=== PATIENT | female | born 1950 | race Caucasian/White ===

== ENCOUNTER → 2017-05-10 | Outpatient (CLI) | payer OTHER, MEDICARE ==
[~2017-05-10] MED LIST: ASP325T PO; ASP325TEC PO; ASP81TEC PO; CLPD75T PO; DICY20TA57 PO; ENAL1TAB33 PO; GLIP10TA13 PO; GLIPIZIDE; INSU100I14 SQ; INSU100I16 SQ; LIRA0.6P SQ; METF-380 PO; MTF500T PO; MULT-608 PO; OXYC1TAB87 PO; PHEN37.555 PO; POTA99TA15 PO; SULF-109 PO
[2017-05-10 09:31] LABS: ALANINE AMINOTRANSFERASE 11 U/L (0-55); ALBUMIN 4.2 GM/DL (3.2-4.5); ANION GAP 10 MMOL/L (5-14); ASPARTATE AMINO TRANSFERASE 12 U/L (5-34); BILIRUBIN,TOTAL 0.5 MG/DL (0.1-1.0); BLOOD UREA NITROGEN 16 MG/DL (7-18); BUN/CREATININE RATIO 23; CALCIUM 9.2 MG/DL (8.5-10.1); CARBON DIOXIDE 28 MMOL/L (21-32); CHLORIDE 105 MMOL/L (98-107); CHOLESTEROL 178 MG/DL (< 200); DIRECT LDL 95 MG/DL (1-129); GFR ESTIMATED > 60; GLUCOSE 173 MG/DL (70-105); POTASSIUM 4.1 MMOL/L (3.6-5.0); SODIUM 143 MMOL/L (135-145); TOTAL PROTEIN 7.1 GM/DL (6.4-8.2); TRIGLYCERIDES 70 MG/DL (<150); VLDL CHOLESTEROL 14 MG/DL (5-40)
== END ==
LOC: CARD 08:54
PROVIDERS: ATTEND Internal Medicine Cardiovascular Disease
DX: I10 Essential (primary) hypertension (principal); G47.33 Obstructive sleep apnea (adult) (pediatric); E66.9 Obesity, unspecified; F17.201 Nicotine dependence, unspecified, in remission; E11.9 Type 2 diabetes mellitus without complications; R06.00 Dyspnea, unspecified
CPT/HCPCS: 36415; 80053; 80061; 93306

== ENCOUNTER → 2017-06-04 | Outpatient (CLI) | payer OTHER, MEDICARE ==
[~2017-06-04] VITALS: Ht 154.9 cm; Wt 93.0 kg
[~2017-06-04] MED LIST changes: +REGADENOSON 0.4 MG/5 ML SYR (LEXISCAN) IV ONE
[2017-06-04] MEDS: CATHETER FLUSH 10 ML SYR IV PRN ×2 (08:09→09:19)
[2017-06-04 09:09] VITALS: BP 213/91
--- NOTE | 2017-06-04 13:00 | STRESS TEST ---
DATE OF SERVICE: 06/04/2017 LEXISCAN MYOVIEW STRESS TEST REPORT REFERRING PHYSICIAN: Dr. Bonnie Moser [facility]. Baseline heart rate is 64. Baseline blood pressure 213/91. Baseline EKG is sinus rhythm with no ischemic changes. In summary, the patient was injected with 10.74 mCi of technetium-99 Myoview and the resting images were obtained. Then, the patient received 0.4 mg of Lexiscan followed by 29.3 mCi of technetium-99 Myoview. Throughout the test, there were no EKG changes. The resting and stress images were reviewed and compared in the short axis, horizontal long axis, and vertical long axis views. Review of the images showed breast attenuation, no attenuation correction protocol was used, there is questionable ischemia involving the mid to apical anterior wall. SSS is 5, SDS is 4. TID value 1.07. On the gated images, the left ventricle appeared to be normal size with normal contractility. Calculated ejection fraction 72%. CONCLUSION: 1. The patient tolerated Lexiscan well. 2. Baseline hypertension persisted throughout test. 3. Breast attenuation with questionable ischemia involving the mid to apical anterior wall. 4. Normal left ventricular size with normal contractility. Calculated ejection fraction 72%. Job ID: [id number] DocumentID: [id number] Dictated Date: 06/04/2017 11:36:46 Change Of Address Clerk Date: 06/04/2017 12:47:04 Dictated By: UMAIR BRANCH MD
== END ==
LOC: CARD 07:55
PROVIDERS: ATTEND Internal Medicine Cardiovascular Disease
DX: R06.00 Dyspnea, unspecified (principal); I10 Essential (primary) hypertension; G47.33 Obstructive sleep apnea (adult) (pediatric); E66.9 Obesity, unspecified; F17.201 Nicotine dependence, unspecified, in remission; E11.9 Type 2 diabetes mellitus without complications
CPT/HCPCS: 78452; 93017

== ENCOUNTER 2018-03-03 10:58 | Emergency (ER) | payer MEDICARE, OTHER ==
[~2018-03-03] VITALS: Ht 157.5 cm; Wt 99.3 kg
[~2018-03-03 10:58] MED LIST changes: -REGADENOSON 0.4 MG/5 ML SYR (LEXISCAN) IV ONE
--- NOTE | 2018-03-03 11:44 | ED EENT ---
History of Present Illness General Chief Complaint: Nasal Problems Stated Complaint: NOSE BLEED Source: patient, family Exam Limitations: no limitations (PACHECO WHITTEN STUDENT) History of Present Illness Date Seen by Provider: Mar 03, 2018 Time Seen by Provider: 11:39 Initial Comments Patient is 67-year-old female who reports falling 2 weeks ago, she reports when she fell she fell face forward onto the ground. She reports that she scuffed up her nose and had a nosebleed initially. She reports that she has had on and off nosebleeds for the past 2 weeks but today it started and has not stopped bleeding. She complains of neck pain, headaches, and left-sided rib pain. She has seen her primary care physician and had outpatient CT of her neck ordered for next Sunday with a nosebleed today she just decided to come in. Timing/Duration: intermittent Severity: mild Location: nose Prearrival Treatment: nasal packing (PACHECO WHITTEN STUDENT) Allergies and Home Medications Allergies Coded Allergies: No Known Drug Allergies (Unverified , 03/03/18) Home Medications Aspirin 81 Mg Tabec, 81 MG PO HS, (Reported) Dicyclomine Hcl 20 Mg Tablet, 20 MG PO TID, (Reported) Enalapril/Hydrochlorothiazide 1 Tab Tablet, 1 TAB PO DAILY, (Reported) Insulin Aspart 100 Unit/1 Ml Insuln.pen, 6-8 UNITS SQ TID AC, (Reported) Insulin Detemir 100 Unit/1 Ml Insuln.pen, 15 UNIT SQ DAILY, (Reported) Insulin Detemir 100 Unit/1 Ml Insuln.pen, 20 UNIT SQ HS, (Reported) Metformin Hcl 500 Mg Tablet, 500 MG PO BID WITH MEALS, (Reported) Multivitamins 1 Tab Tablet, 1 TAB PO DAILY, (Reported) SENIOR VITAMIN Oxycodone Hcl/Acetaminophen 1 Tab Tablet, 1-2 TAB PO Q 4-6 hrs PRN for PAIN Prescribed by: BRISA GÓMEZ on 02/28/14 1004 Phentermine Hcl 37.5 Mg Capsule, 37.5 MG PO DAILY, (Reported) Potassium Gluconate 99 Mg Tablet, 99 MG PO DAILY, (Reported) Patient Home Medication List Home Medication List Reviewed: Yes (PACHECO WHITTEN STUDENT) Review of Systems Constitutional: see HPI, dizziness Eyes: See HPI; Denies Blurred Vision, Denies Drainage Ears: See HPI; Denies Dizziness, Denies Pain Nose: see HPI, clots, epistaxis, pain, bloody discharge Mouth: see HPI; denies pain, denies swelling Throat: see HPI; denies pain, denies swelling Respiratory: see HPI; No cough, No dyspnea on exertion Cardiovascular: see HPI; No chest pain Gastrointestinal: see HPI; No abdominal pain Musculoskeletal: see HPI; No back pain Skin: see HPI; No change in color Neurological: See HPI; Denies Anxiety Hematologic/Lymphatic: See HPI; Denies Anemia Immunological/Allergic: see HPI; denies food allergy (PACHECO WHITTEN STUDENT) Past Zhtnybs-Mesvjw-Kjpgff Hx Past Med/Social Hx: Reviewed Nursing Past Med/Soc Hx (PACHECO WHITTEN STUDENT) Patient Social History Alcohol Use: Denies Use Recreational Drug Use: No Smoking Status: Former Smoker Recent Foreign Travel: No Contact w/Someone Who Travel: No Recent Hopitalizations: Yes Physical Abuse: No Sexual Abuse: No (PACHECO WHITTEN STUDENT) Immunizations Up To Date Tetanus Booster (TDap): Unknown Date of Pneumonia Vaccine: Jun 17, 2009 (PACHECO WHITTEN STUDENT) Past Medical History Surgeries: Yes (RIGHT KNEE RECONSTRUCTION, RIGHT KNEE SCOPE) Respiratory: Yes Asthma Cardiac: Yes Neurological: Yes Reproductive Disorders: No Gastrointestinal: Yes (IBS) Gastroesophageal Reflux Musculoskeletal: Yes (LEFT KNEE OSTEOARTHRITIS) Arthritis Endocrine: Yes Diabetes, Insulin dep HEENT: No Cancer: No Psychosocial: No Nursing Suicide Risk Score: 0 Integumentary: Yes (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) Psoriasis Blood Disorders: No (PACHECO WHITTEN STUDENT) Family Medical History Reviewed Nursing Family Hx (PACHECO WHITTEN STUDENT) Cancer 19 MOTHER (BREAST) Congestive heart failure G8 SISTER Dementia 19 MOTHER Family history: Arthritis G8 SISTER Family history: Breast disease 19 MOTHER Family history: Diabetes mellitus 19 MOTHER G8 SISTER Kidney disease G8 SISTER No Family History of: Abdominal aortic aneurysm Alcoholism Family history: Cardiovascular disease Family history: Gastrointestinal disease Family history: Hypertension Family history: Thyroid disorder Hereditary disease History of - respiratory disease Myocardial infarction Parkinson's disease Prostate cancer Psychotic disorder Seizure disorder Stroke Physical Exam Vital Signs Vital Signs - First Documented 03/03/18 11:33 Pulse 76 Resp 14 B/P (MAP) 192/66 (108) Pulse Ox 98 O2 Delivery Room Air (DWIGHT ZAMAN MD) General Appearance: WD/WN, no apparent distress (her) Eyes: bilateral eye normal inspection, bilateral eye PERRL Ears: bilateral ear auricle normal, bilateral ear canal normal, bilateral ear TM normal Nose: active bleeding Mouth/Throat: normal mouth inspection, pharynx normal Neck: non-tender, full range of motion, supple, normal inspection Cardiovascular: regular rate, rhythm, no edema, no gallop, no JVD, no murmur Respiratory: lungs clear, normal breath sounds, no respiratory distress, other (left-sided chest is tender on palpation) Gastrointestinal: normal bowel sounds, non tender Neurologic/Psychiatric: alert, normal mood/affect, oriented x 3 Skin: normal color, warm/dry, other (the patient does have some abrasions that are scabbed over on the palmar surface of her hands. She reports this is from her fall 2 weeks ago.) (PACHECO WHITTEN STUDENT) Procedures/Interventions Nasal : Nasal Location: Right Clots Cleared from Nasal: Patient Blowing Inspection with: Otoscope, Nasal Speculum Nasal Procedures: Rapid Rhino Progress The patient's nasal passages were cleared by having the patient both clots from her nose, Rapid Rhino 4.5 cm was inserted with triple antibiotic ointment, and 1.5 mL of air was inserted into the balloon was filled. Bleeding was immediately ceased and the patient denies any blood running down the back of her throat at this time. (PACHECO WHITTEN STUDENT) Progress/Results/Core Measures Results/Orders My Orders Orders - DWIGHT ZAMAN MD Ct Head/Face/Cervical Wo (03/03/18 11:19) Ribs, Left 2-3 Views (03/03/18 11:36) (DWIGHT ZAMAN MD) Vital Signs/I&O 03/03/18 11:33 Pulse 76 Resp 14 B/P (MAP) 192/66 (108) Pulse Ox 98 O2 Delivery Room Air (DWIGHT ZAMAN MD) Progress Progress Note : Progress Note 1330: The right nostril is still free of bleeding at this time. The patient was informed of her x-rays and CAT scan. She did have a questionable left eighth rib fracture. She was educated on the importance of continuing to deep breathe to prevent pneumonia. She was also instructed to follow-up with her primary care physician and Dr. Pope's office by calling first thing tomorrow morning for appointment times. (PACHECO WHITTEN STUDENT) Progress Note : Time: 11:51 Progress Note I saw the patient with Pacheco. My history, physical, evaluation, treatment plan with the same as his. We placed a short nasal pack in the right nostril. (DWIGHT ZAMAN MD) Departure Impression Primary Impression: Epistaxis Additional Impression: Rib fracture Disposition: 01 HOME, SELF-CARE Condition: Stable/Unchanged Departure-Patient Inst. Decision time for Depature: 13:40 (PACHECO WHITTEN STUDENT) Referrals: RONAK POPE MD [facility] (PCP/Family) Primary Care Physician Patient Instructions: Nosebleeds (DC) Add. Discharge Instructions: Follow-up with her primary care provider and Dr. Pope's office within one week. Call first thing tomorrow morning for appointment times. Take medications as directed, leave the nasal packing in until you see Dr. Pope, if he should follow out do not try to reinsert it just leave it out and continue follow-up. Return back to the emergency room for increased bleeding, pain, nausea, vomiting , dizziness or any other concerns as needed. All discharge instructions reviewed with patient and/or family. Voiced understanding. PACHECO WHITTEN STUDENT Mar 03, 2018 11:44 DWIGHT ZAMAN MD Mar 03, 2018 11:53
[2018-03-03] MEDS ORDERED: fentaNYL INJECTION 100 MCG/2 ML AMP IVP ONE (12:00)
[2018-03-03 12:05] LABS: BASOPHILS % (AUTO) 0 % (0-10); EOSINOPHILS # (AUTO) 0.1 10^3/uL (0.0-0.3); EOSINOPHILS % (AUTO) 2 % (0-10); HEMATOCRIT 40 % (35-52); HEMOGLOBIN 13.1 G/DL (11.5-16.0); LYMPHOCYTES # (AUTO) 1.7 X 10^3 (1.0-4.0); LYMPHOCYTES % (AUTO) 29 % (12-44); MEAN CORPUSCULAR HEMOGLOBIN 27 PG (25-34); MEAN CORPUSCULAR HGB CONC 33 G/DL (32-36); MEAN CORPUSCULAR VOLUME 83 FL (80-99); MEAN PLATELET VOLUME 11.2 FL (7.4-10.4); MONOCYTES # (AUTO) 0.3 X 10^3 (0.0-1.0); MONOCYTES % (AUTO) 6 % (0-12); NEUTROPHILS # (AUTO) 3.7 X 10^3 (1.8-7.8); NEUTROPHILS % (AUTO) 63 % (42-75); PLATELET COUNT 304 10^3/uL (130-400); RED BLOOD COUNT 4.86 10^6/uL (4.35-5.85); RED CELL DISTRIBUTION WIDTH 13.5 % (10.0-14.5); WHITE BLOOD COUNT 5.8 10^3/uL (4.3-11.0)
--- NOTE | 2018-03-03 12:06 | Diagnostic Imaging Report ---
PROCEDURE: CT head, face, and cervical spine without contrast. TECHNIQUE: Multiple contiguous axial images were obtained through the head, neck, and facial bones without the use of intravenous contrast. Sagittal and coronal reformations through the cervical spine and facial bones were also performed. INDICATION: Fall 2 weeks ago landing on face on concrete. Severe nosebleed with headache. COMPARISON: None FINDINGS: CT head: The ventricles and cortical sulci are diffusely prominent, likely from generalized parenchymal volume loss. There is no midline shift or mass effect. No acute intracranial hemorrhage is seen. There is no CT evidence of acute territorial ischemia. The calvarium appears intact. CT face: The pterygoid plates appear intact. There are fluid levels in the maxillary sinuses bilaterally, right greater than left. No definite fracture line identified. The zygomatic arches appear intact. Fluid levels are also seen in the bilateral sphenoid sinuses. No definite facial fracture is identified. The mandible appears intact and normal in alignment. The globes are intact. The orbits are unremarkable. CT cervical spine: No acute fracture or dislocation is seen in the cervical spine. Alignment appears normal. There are mild multilevel degenerative changes throughout the cervical spine. There is mild disc height loss. The vertebral body heights are preserved. No acute fracture is seen. No bony fragments or hyperdense fluid collections are seen in the spinal canal. The soft tissues about the spine are unremarkable. IMPRESSION: 1. No acute internal hemorrhage. No CT evidence of acute territorial ischemia. 2. Generalized parenchymal volume loss. 3. Fluid levels in the bilateral maxillary and sphenoid sinuses, however no fracture line is identified in the face. 4. Mild degenerative changes in the cervical spine with no acute osseous abnormality seen. Dictated by: Dictated on workstation # [id number]
--- NOTE | 2018-03-03 12:07 | Diagnostic Imaging Report ---
PATIENT HISTORY: Fall 2 weeks ago with left rib pain. TECHNIQUE: AP, oblique views of the left ribs COMPARISON: Chest x-ray from 02/18/2014 FINDINGS: Lucency in the lateral anterior left eighth rib may represent a nondisplaced fracture. There is a calcified granuloma in the left lung base. Calcified left hilar lymph nodes are noted. The left lung is clear. No pneumothorax is seen. IMPRESSION: Suspected nondisplaced fracture of the left eighth rib anteriorly. No pneumothorax. Dictated by: Dictated on workstation # [id number]
[2018-03-03 13:48] VITALS: BP 120/64
== END 2018-03-03 13:55 | disposition home or self-care (01) ==
LOC: EDUNIT# 10:58 → ER 11:00
DX: S22.32XA Fracture of one rib, left side, initial encounter for closed fracture (principal); R04.0 Epistaxis; J45.909 Unspecified asthma, uncomplicated; K21.9 Gastro-esophageal reflux disease without esophagitis; M17.12 Unilateral primary osteoarthritis, left knee; E11.9 Type 2 diabetes mellitus without complications; Z87.19 Personal history of other diseases of the digestive system; Z80.3 Family history of malignant neoplasm of breast; Z82.49 Family history of ischemic heart disease and other diseases of the circulatory system; Z79.82 Long term (current) use of aspirin; Z79.4 Long term (current) 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; Z87.891 Personal history of nicotine dependence; Z96.651 Presence of right artificial knee joint; W18.30XA Fall on same level, unspecified, initial encounter
CPT/HCPCS: 36415; 70450; 70486; 71100; 72125; 82962; 85025; 96374

== ENCOUNTER 2018-03-03 17:52 | Emergency (ER) | payer MEDICARE, OTHER ==
[~2018-03-03] VITALS: Ht 157.5 cm; Wt 99.3 kg
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
--- OUTSIDE RECORDS SUMMARY | 2018-03-03 17:58 | XMS REPORT ---
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 Active 776616999 Problem Mild single current episode of major depressive disorder F32.0 Active 33146347 Problem Essential hypertension I10 Active 76149209 Problem Hypercholesterolemia E78.00 Active 07801572 Problem Primary osteoarthritis of both knees M17.0 Active 002797946 ALLERGIES No Known Allergies ENCOUNTERS Encounter Location Date Diagnosis [place] [id number] [address] Nov, [place] [address] [address]39- 0459 Nov, Hypercholesterolemia E78.00 and Type 2 diabetes mellitus with hyperglycemia E11.[address] [address]- [address]702 Nov, Leg cramps R25.2 [place] [address] 14649- 6184 Nov, Type 2 diabetes mellitus with hyperglycemia E11.65 [place] [address] 61369- 3778 Nov, Type 2 diabetes mellitus with hyperglycemia E11.65 ; 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.4 ; Essential hypertension I10 ; Mild single current episode of major depressive disorder F32.0 ; Primary osteoarthritis of both knees M17.0 ; High risk medication use Z79.899 ; Controlled substance agreement signed Z79.899 ; Hypercholesterolemia E78.00 and Leg cramps R25.2 [facility] [address] [place] [id number] [place] [address] 96878- 8208 Oct, [facility] [address] [facility] [id number] [place] [address] 33233 -4554 Oct, [facility] [address] [place] [id number] [place] [address] 52252- 6633 Oct, [facility] [address] [place] [id number] [place] [address] 63148- 6977 Sep, Essential hypertension I10 [facility] [address] [address]- 1910 Sep, Essential hypertension I10 [facility] [address] [place] [id number] [place] [address], [place] [address]- 2751 Sep, [facility] [address] [place] [id number] [place] [address] 20423- 1999 Sep, [facility] [address] [place] [id number] [place] [address] 55975- 6329 Sep, [facility] [address] [place] [id number] [place] [address] 74148- 9261 Aug, [facility] [address] [place] [id number] [place] [address] 22978- 8702 Jul, [facility] [address] [place] [id number] [place] [address] 70287- 9297 Jul, [facility] [address] [place] [id number] [place] [address] 86579- 8986 Jul, [facility] [address] [place] [id number] [place] [address] 28628- 8534 Jun, [facility] [address] [place] [id number] [place] [address] 88464- 1688 Jun, [facility] [address] [place] [id number] [place] [address] 54866- 9567 Jun, Type 2 diabetes mellitus with diabetic chronic kidney disease E11.22 ; Heart murmur R01.1 ; Essential hypertension I10 and Primary osteoarthritis of both knees M17.0 [place] [address] [place] [address] 65714- 2250 Apr, Type 2 diabetes mellitus with diabetic chronic kidney disease E11.22 [place] [address] [place] [id number] [place] [address] 98782- 4324 Mar, Type 2 diabetes mellitus with diabetic chronic kidney disease E11.22 ; Essential hypertension I10 ; Mild single current episode of major depressive disorder F32.0 and Primary osteoarthritis of both knees M17.0 [place] [address] [place] [id number] [place] [address] 90119- 0286 Feb, Mild single current episode of major depressive disorder F32.0 [place] [address] [place] [id number] [place] [address] 50533- 1019 Feb, [place] [address] 34982- 1707 Feb, Essential hypertension I10 and Hypercholesterolemia E78.00 [place] [address] [place] [id number] [place] [address] 17801- 2819 Feb, Type 2 diabetes mellitus with diabetic chronic kidney disease E11.22 ; Essential hypertension I10 ; Edema due to malnutrition, due to unspecified malnutrition type E43 ; Hypercholesterolemia E78.00 and Mild single current episode of major depressive disorder F32.0 [place] [address] [place] [id number] [place] [address] 36399- 1987 Feb, IMMUNIZATIONS No Known Immunizations SOCIAL HISTORY Never Assessed REASON FOR VISIT Establish Care, PT is diabetic and last labs was several years ago, PT is currently not fasting- Samuel LANDON PLAN OF CARE Activity Details Follow Up [facility] Reason:dm VITAL SIGNS Height 62 in 2017-03-08 Weight 194.6 lbs 2017-03-08 Temperature 98.0 degrees Fahrenheit 2017-03-08 Heart Rate 76 bpm 2017-03-08 Respiratory Rate 18 2017-03-08 BMI 35.59 kg/m2 2017-03-08 Blood pressure systolic 116 mmHg 2017-03-08 Blood pressure diastolic 64 mmHg 2017-03-08 MEDICATIONS Medication Instructions Dosage Frequency Start Date End Date Duration Status Levemir 100 UNIT/ML Subcutaneous at bedtime 50 units Feb, Active Actos 30 MG Orally Once a day 1 tablet 24h Feb, 30 day(s) Active Multi For Her 2 Gummies 24h Active Potassium 12h Active Cinnamon 500 MG Orally 2 times a day 1 capsule 12h Active Enalapril Maleate 20 MG Orally Once a day 1 tablet 24h Active Novolin R 100 UNIT/ML Injection With Meals 25 Units Active Lexapro 20 mg Orally Once a day 1 tablet 24h Active Novolin N 100 UNIT/ML Subcutaneous 2 times a day 25 Units AM ansd 30 Units PM 12h Active Lasix 20 MG Orally Once a day 1 tablet 24h Active Hydrochlorothiazide 12.5 MG Orally Once a day 1 capsule in the morning 24h Active RESULTS Name Result Date Reference Range A1C (IN HOUSE) 2017-03-08 A1C IN HOUSE 11.2 4.3 - 5.6 % Previous A1c N/A Lot [id number] Exp date 11/2018 MICROALBUMIN, URINE (IN HOUSE) 2017-03-08 MICROALBUMIN normal Lot # [id number] Exp date 01/2018 Clarity clear Color yellow ALB 30 mg/L CRE 100 mg/dl A:C (IN HOUSE) <30 mg/g Control Control Lot # Exp date PROCEDURES Procedure Date Ordered Result Body Site GLYCATED HEMOGLOBIN TEST March 08, 2017 MICROALBUMIN, SEMIQUANT March 08, 2017 INSTRUCTIONS MEDICATIONS ADMINISTERED No Known Medications MEDICAL [...]
--- OUTSIDE RECORDS SUMMARY | 2018-03-03 17:58 | XMS REPORT ---
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 Active 477770866 Problem Mild single current episode of major depressive disorder F32.0 Active 65639008 Problem Essential hypertension I10 Active 16434508 Problem Hypercholesterolemia E78.00 Active 78227166 Problem Primary osteoarthritis of both knees M17.0 Active 303122341 ALLERGIES No Information ENCOUNTERS Encounter Location Date Diagnosis [place] [address] [address] Nov, [place] [address] [address] Nov, Hypercholesterolemia E78.00 and Type 2 diabetes mellitus with hyperglycemia E11.[address] [address] Nov, Leg cramps R25.2 [place] [address] 97[address]- [address] Nov, Type 2 diabetes mellitus with hyperglycemia E11.65 [place] [address] [address]- [address] Nov, Type 2 diabetes mellitus with hyperglycemia E11.65 ; 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.4 ; Essential hypertension I10 ; Mild single current episode of major depressive disorder F32.0 ; Primary osteoarthritis of both knees M17.0 ; High risk medication use Z79.899 ; Controlled substance agreement signed Z79.899 ; Hypercholesterolemia E78.00 and Leg cramps R25.2 [facility] [address] [place] [id number] [place] [address] 36168- 3003 Oct, [facility] [address] [place] [id number] [address] Oct, [facility] [address] [place] [id number] [place] [address] 88769- 7556 Oct, [facility] [address] [place] [id number] [place] [address] 85606- 1894 Sep, Essential hypertension I10 [facility] [address] 0[address]- 39[address] Sep, Essential hypertension I10 [facility] [address] [place] [id number] [place] [address] 26206- 5367 Sep, [facility] [address] [place] [id number] [place] [address] 34906- 1083 Sep, [facility] [address] [place] [id number] [place] [address] 10928- 8458 Sep, [facility] [address] [place] [id number] [place] [address] 15092- 7000 Aug, [facility] [address] [place] [id number] [place] [address] 53640- 5656 Jul, [facility] [address] [place] [id number] [place] [address] 59264- 1620 Jul, [facility] [address] [place] [id number] [place] [address] 89273- 9152 Jul, [facility] [address] [place] [id number] [place] [address] 57413- 3273 Jun, [facility] [address] [place] [address] 86697- 7004 30 Jun, 2017 [facility] [address] [place] [id number] [place] [address] 98255- 3560 Jun, Type 2 diabetes mellitus with diabetic chronic kidney disease E11.22 ; Heart murmur R01.1 ; Essential hypertension I10 and Primary osteoarthritis of both knees M17.0 [place] [address] [place] [address] 31917- 1353 Apr, Type 2 diabetes mellitus with diabetic chronic kidney disease E11.22 [place] [address] [address]- 25[address] Mar, Type 2 diabetes mellitus with diabetic chronic kidney disease E11.22 ; Essential hypertension I10 ; Mild single current episode of major depressive disorder F32.0 and Primary osteoarthritis of both knees M17.0 [place] [address] [place] [id number] [place] [address] 12816- 4524 Feb, Mild single current episode of major depressive disorder F32.0 [place] [address] [place] [id number] [place] [address] 51867- 1490 Feb, [place] [address] 7[address]18- 5399 Feb, Essential hypertension I10 and Hypercholesterolemia E78.00 [place] [address] [place] [id number] [place] [address] 55485- 3581 Feb, Type 2 diabetes mellitus with diabetic chronic kidney disease E11.22 ; Essential hypertension I10 ; Edema due to malnutrition, due to unspecified malnutrition type E43 ; Hypercholesterolemia E78.00 and Mild single current episode of major depressive disorder F32.0 [place] [address] [place] [id number] [place] [address] 82396- 9720 Feb, IMMUNIZATIONS No Known Immunizations SOCIAL HISTORY Never Assessed REASON FOR VISIT PLAN OF CARE VITAL SIGNS MEDICATIONS Medication Instructions Dosage Frequency Start Date End Date Duration Status Lexapro 20 mg Orally Once a day 1 tablet 24h Active RESULTS No Results PROCEDURES No Known [...] replacement 2013 Surgical History left knee arthroscopy 2016 Surgical History Left total hip replacement 06/2017 Hospitalization History chest pain 2012 Hospitalization History Surgery(s)/Childbirth(s)
--- OUTSIDE RECORDS SUMMARY | 2018-03-03 17:58 | XMS REPORT ---
Author Author EDITH TELLO Organization [facility] Address [address] [place] [address] Care Team Providers Care Project Control Manager Name Role Phone EDITH TELLO Unavailable PROBLEMS Type Condition ICD9-CM Code LZP84-[id number] Code Onset Dates Condition Status SNOMED Code Problem Mild single current episode of major depressive disorder F32.0 Active 95143899 Problem Primary osteoarthritis of both knees M17.0 Active 258547775 Problem Essential hypertension I10 Active 54488113 Problem Morbid (severe) obesity due to excess calories E66.01 Active 849072021 Problem Body mass index (BMI) of 40.0-44.9 in adult Z68.41 Active 418433035 Problem intermediate 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 Z79.4 Active 272956168 Problem Type 2 diabetes mellitus with hyperglycemia E11.65 Active 60345350 Problem 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 Active 49409939 Problem Hypercholesterolemia E78.00 Active 71401943 ALLERGIES No Information ENCOUNTERS Encounter Location Date Diagnosis [place] [address] [place] [address]24- 7853 02 Mar, 2018 [place] [id number] [place] [address] 27794- 5645 14 Feb, 2018 Type 2 diabetes mellitus with hyperglycemia E11.65 ; Essential hypertension I10 ; Hypercholesterolemia E78.00 ; intermediate 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 Z79.4 ; Primary osteoarthritis of both knees M17.0 and 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 [place] [address] [place] [address] 87702- 8526 13 Feb, 2018 Dental examination Z01.20 [place] [address] [place] [address] 89544- 5515 12 Feb, 2018 Dental examination Z01.20 [place] [address] [place] [id number] [place] [address] 27416- 4955 Feb, Type 2 diabetes mellitus with hyperglycemia E11.65 ; Essential hypertension I10 ; terminal 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 Z79.4 ; Hypercholesterolemia E78.00 ; Primary osteoarthritis of both knees M17.0 ; 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 ; Body mass index (BMI) of 40.0-44.9 in adult Z68.41 and Morbid (severe) obesity due to excess calories E66.[address] [address]- [address] January, Type 2 diabetes mellitus with hyperglycemia E11.[address] 6[address]- 5817 Dec, Mild single current episode of major depressive disorder F32.[address] 66448- 7440 Dec, Hypercholesterolemia E78.00 [facility] [address] [place] [id number] [place] [address] 32482 -8021 Dec, Seasonal allergic rhinitis, unspecified trigger J30.2 [place] [id number] [place] [address] 77249- 3328 Nov, [place] [address] 76702- 0795 Nov, Hypercholesterolemia E78.00 and Type 2 diabetes mellitus with hyperglycemia E11.65 [place] [id number] [place] [address] 56445- 3621 Nov, Leg cramps R25.2 [place] [id number] [place] [address] 69969- 2870 Nov, Type 2 diabetes mellitus with hyperglycemia E11.[address] 566[address]- 2419 Nov, Type 2 diabetes mellitus with hyperglycemia E11.65 ; terminal clerk 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 Z79.4 ; Essential hypertension I10 ; Mild single current episode of major depressive disorder F32.0 ; Primary osteoarthritis of both knees M17.0 ; High risk medication use Z79.899 ; Controlled substance agreement signed Z79.899 ; Hypercholesterolemia E78.00 and Leg cramps R25.2 [facility] [address] [place] [id number] [place] [address] 94708- 6823 Oct, [facility] [address] [place] [id number] [place] [address] 14533 -6386 Oct, [facility] [address] [place] [id number] [place] [address] 50979- 8328 Oct, [facility] [address] [place] [id number] [place] [address] 89955- 4234 Sep, Essential hypertension I10 [facility] [address] [place] [id number] [place] [address] 73885- 0525 Sep, Essential hypertension I10 [facility] [address] [place] [id number] [place] [address] 43981- 1657 Sep, [facility] [address] [place] [id number] [place] [address] 80236- 6522 Sep, [facility] [address] [place] [id number] [place] [address] 25504- 5766 Sep, [facility] [address] [place] [id number] [place] [address] 94016- 9479 Aug, [facility] [address] [place] [id number] [place] [address] 77865- 9711 Jul, [facility] [address] [place] [id number] [place] [address] 45706- 2971 Jul, [facility] [address] [place] [id number] [place] [address] 30179- 4871 Jul, [facility] [address] [place] [id number] [place] [address] 14595- 3344 Jun, [facility] [address] [place] [id number] [place] [address] 29996- 5256 Jun, [place] [address] [address] Jun, Type 2 diabetes mellitus with diabetic chronic kidney disease E11.22 ; Heart murmur R01.1 ; Essential hypertension I10 and Primary osteoarthritis of both knees M17.0 [place] [address] [address] Apr, Type 2 diabetes mellitus with diabetic chronic kidney disease E11.22 [place] [address] [place] [id number] [place] [address] 77317- 0371 Mar, Type 2 diabetes mellitus with diabetic chronic kidney disease E11.22 ; Essential hypertension I10 ; Mild single current episode of major depressive disorder F32.0 and Primary osteoarthritis of both knees M17.0 [place] [address] [address] 8641 Feb, Mild single current episode of major depressive disorder F32.0 [place] [address] [place] [id number] [place] [address] 92194- 2449 Feb, [place] [address] [place] [id number] [place] [address] 39292- 7760 Feb, Essential hypertension I10 and Hypercholesterolemia E78.00 [place] [address] [address] 6540 Feb, Type 2 diabetes mellitus with diabetic chronic kidney disease E11.22 ; Essential hypertension I10 ; Edema due to malnutrition, due to unspecified malnutrition type E43 ; Hypercholesterolemia E78.00 and Mild single current episode of major depressive disorder F32.0 [place] [address] [address] 1066 Feb, IMMUNIZATIONS No Known Immunizations SOCIAL HISTORY Never Assessed REASON FOR VISIT Med update PLAN OF CARE VITAL SIGNS MEDICATIONS Unknown [...]
--- OUTSIDE RECORDS SUMMARY | 2018-03-03 17:58 | XMS REPORT ---
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 Active 175071972 Problem Mild single current episode of major depressive disorder F32.0 Active 98882501 Problem Essential hypertension I10 Active 42058083 Problem Hypercholesterolemia E78.00 Active 78801451 Problem Primary osteoarthritis of both knees M17.0 Active 989074817 ALLERGIES No Information ENCOUNTERS Encounter Location Date Diagnosis [place] [address] [address]- [address] Nov, [place] [address] 72614- 6880 Nov, Hypercholesterolemia E78.00 and Type 2 diabetes mellitus with hyperglycemia E11.[address] [address]- 3[address] Nov, Leg cramps R25.2 [place] [address] 41783- 6962 Nov, Type 2 diabetes mellitus with hyperglycemia E11.65 [place] [address] 56386- 0839 Nov, Type 2 diabetes mellitus with hyperglycemia E11.65 ; 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 ; Essential hypertension I10 ; Mild single current episode of major depressive disorder F32.0 ; Primary osteoarthritis of both knees M17.0 ; High risk medication use Z79.899 ; Controlled substance agreement signed Z79.899 ; Hypercholesterolemia E78.00 and Leg cramps R25.2 [facility] [address] [place] [id number] [place] [address] 91941- 9739 Oct, [facility] [address] [place] [id number] [address] Oct, [facility] [address] [place] [id number] [place] [address] 26010- 9724 Oct, [facility] [address] [place] [id number] [place] [address] 00101- 9506 Sep, Essential hypertension I10 [facility] [address] 85375- 5048 Sep, Essential hypertension I10 [facility] [address] [place] [id number] [place] [address] 57597- 4825 Sep, [facility] [address] [place] [id number] [place] [address] 72280- 2293 Sep, [facility] [address] [place] [id number] [place] [address] 18034- 5519 Sep, [facility] [address] [place] [id number] [place] [address] 10620- 0933 Aug, [facility] [address] [place] [id number] [place] [address] 69749- 2708 Jul, [facility] [address] [place] [id number] [place] [address] 42690- 1558 Jul, [facility] [address] [place] [id number] [place] [address] 12591- 9267 Jul, [facility] [address] [place] [id number] [place] [address] 89648- 8694 Jun, [facility] [address] [place] [address] 38330- 3679 30 Jun, 2017 [facility] [address] [place] [id number] [place] [address] 11538- 8695 Jun, Type 2 diabetes mellitus with diabetic chronic kidney disease E11.22 ; Heart murmur R01.1 ; Essential hypertension I10 and Primary osteoarthritis of both knees M17.0 [place] [address] [place] [id number] [place] [address] 39617- 1160 Apr, Type 2 diabetes mellitus with diabetic chronic kidney disease E11.22 [place] [address] 59465- 5696 Mar, Type 2 diabetes mellitus with diabetic chronic kidney disease E11.22 ; Essential hypertension I10 ; Mild single current episode of major depressive disorder F32.0 and Primary osteoarthritis of both knees M17.0 [place] [address] 53423- 5740 Feb, Mild single current episode of major depressive disorder F32.0 [place] [address] 19195- 2383 Feb, [place] [address] 41866- 0483 Feb, Essential hypertension I10 and Hypercholesterolemia E78.00 [place] [address] 99458- 3302 Feb, Type 2 diabetes mellitus with diabetic chronic kidney disease E11.22 ; Essential hypertension I10 ; Edema due to malnutrition, due to unspecified malnutrition type E43 ; Hypercholesterolemia E78.00 and Mild single current episode of major depressive disorder F32.0 [place] [address] [place] [id number] [place] [address] 28325- 9017 Feb, IMMUNIZATIONS No Known Immunizations SOCIAL HISTORY Never Assessed REASON FOR VISIT Lab (walk-in)--[facility] PLAN OF CARE VITAL SIGNS MEDICATIONS Unknown Medications RESULTS Name Result Date Reference Range CBC 2017-03-13 WBC 5.4 3.4-10.8 RBC 4.80 3.77-5.28 Hemoglobin 12.9 11.1-15.9 Hematocrit 39.6 34.0-46.6 MCV 83 79-97 MCH 26.9 26.6-33.0 MCHC 32.6 31.5-35.7 RDW 13.5 12.3-15.4 Platelets 263 150-379 Neutrophils 61 Lymphs 31 Monocytes 6 Eos 2 Basos 0 Neutrophils (Absolute) 3.3 1.4-7.0 Lymphs (Absolute) 1.6 0.7-3.1 Monocytes(Absolute) 0.3 0.1-0.9 Eos (Absolute) 0.1 0.0-0.4 Baso (Absolute) 0.0 0.0-0.2 Immature Granulocytes 0 Immature Grans (Abs) 0.0 0.0-0.1 LIPID PANEL 2017-03-13 Cholesterol, Total 222 100-199 Triglycerides 119 0-149 HDL Cholesterol 58 >39 VLDL Cholesterol Bulmaro 24 5-40 LDL Cholesterol Calc 140 0-99 Comment: CMP 2017-03-13 Glucose, Serum 116 65-99 BUN 16 8-27 Creatinine, Serum 0.63 0.57-1.00 eGFR If NonAfricn Am 94 >59 eGFR If Africn Am 109 >59 BUN/Creatinine Ratio 25 12-28 Sodium, Serum 142 134-144 Potassium, Serum 4.2 3.5-5.2 Chloride, Serum 99 96-106 Carbon Dioxide, Total 27 18-29 Calcium, Serum 8.8 8.7-10.3 Protein, Total, Serum 6.6 6.0-8.5 Albumin, Serum 3.8 3.6-4.8 Globulin, Total 2.8 1.5-4.5 A/G Ratio 1.4 1.2-2.2 Bilirubin, Total 0.3 0.0-1.2 Alkaline Phosphatase, S 83 39-117 AST (SGOT) 10 0-40 ALT (SGPT) 10 0-32 PROCEDURES Procedure Date Ordered Result Body Site COMPLETE CBC W/AUTO DIFF WBC March 13, 2017 LIPID PANEL March 13, 2017 VENIPUNCT, ROUTINE* March 13, 2017 COMPREHEN METABOLIC PANEL March 13, 2017 INSTRUCTIONS MEDICATIONS ADMINISTERED No Known Medications [...]
--- OUTSIDE RECORDS SUMMARY | 2018-03-03 17:58 | XMS REPORT ---
Author Author YEISON JUSTO Organization [facility], [place] Address [address] [place] [address] Care Team Providers Care Hinging Machine Operator Name Role Phone JUSTO LATHAM Unavailable PROBLEMS Type Condition ICD9-CM Code [id number] Code Onset Dates Condition Status SNOMED Code Problem Type 2 diabetes mellitus with hyperglycemia E11.65 Active 12739399 Problem custodial 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 Z79.4 Active 217423626 Problem Mild single current episode of major depressive disorder F32.0 Active 51928841 Problem Essential hypertension I10 Active 50645195 Problem Hypercholesterolemia E78.00 Active 67589286 Problem Primary osteoarthritis of both knees M17.0 Active 089573201 ALLERGIES No Information ENCOUNTERS Encounter Location Date Diagnosis [facility], [place] [address] [address] Feb, [facility] [place] [address] [address] January, Type 2 diabetes mellitus with hyperglycemia E11.65 [facility] [place] [address] [address] Dec, Mild single current episode of major depressive disorder F32.0 [facility] [place] [address] [place] [id number] [place] [address] 76245- 3285 Dec, Hypercholesterolemia E78.00 [facility] [address] [address] 07 Dec, 2017 Seasonal allergic rhinitis, unspecified trigger J30.2 [facility] [place] [address] [address] 15 Nov, 2017 [facility] [place] [address] [address] Nov, Hypercholesterolemia E78.00 and Type 2 diabetes mellitus with hyperglycemia E11.65 [facility] [place] [id number] [place] [address] 16311- 4395 Nov, Leg cramps R25.2 [facility] [place] [id number] [place] [address] 17710- 1169 Nov, Type 2 diabetes mellitus with hyperglycemia E11.65 [facility] [place] [id number] [place] [address] 06334- 0860 Nov, Type 2 diabetes mellitus with hyperglycemia E11.65 ; motor and controls tester 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 Z79.4 ; Essential hypertension I10 ; Mild single current episode of major depressive disorder F32.0 ; Primary osteoarthritis of both knees M17.0 ; High risk medication use Z79.899 ; Controlled substance agreement signed Z79.899 ; Hypercholesterolemia E78.00 and Leg cramps R25.2 [facility] [place] [id number] [place] [address] 63614- 7453 Oct, [facility] [id number] [place] [address] 41751 -5118 Oct, [facility] [place] [id number] [place] [address] 22170- 6923 Oct, [facility] [place] [id number] [place] [address] 66045- 2300 Sep, Essential hypertension I10 [facility] [place] [id number] [place] [address] 07375- 3155 Sep, Essential hypertension I10 [facility] [place] [id number] [place] [address] 71954- 8625 Sep, [facility] [place] [id number] [place] [address] 68161- 1034 Sep, [facility] [place] [id number] [place] [address] 20880- 9632 Sep, [facility] [place] [id number] [place] [address] 45115- 2683 Aug, [facility] [place] [address] [address] Jul, [facility] [place] [address] [address] 56[address] Jul, [facility] [place] [address] [address] 388[address] Jul, [facility] [place] [id number] [place] [address] 15204- 2169 Jun, [facility] [place] [id number] [place] [address] 41060- 5538 Jun, [facility] [place] [address] [place] [address] 40936- 6001 Jun, Type 2 diabetes mellitus with diabetic chronic kidney disease E11.22 ; Heart murmur R01.1 ; Essential hypertension I10 and Primary osteoarthritis of both knees M17.0 [facility] [place] [address] [address] Apr, Type 2 diabetes mellitus with diabetic chronic kidney disease E11.22 [facility] [place] [id number] [place] [address] 15754- 7206 Mar, Type 2 diabetes mellitus with diabetic chronic kidney disease E11.22 ; Essential hypertension I10 ; Mild single current episode of major depressive disorder F32.0 and Primary osteoarthritis of both knees M17.0 [facility] [place] [address] [address] 0484 Feb, Mild single current episode of major depressive disorder F32.0 [facility] [place] [address] [address] 389[address] Feb, [facility] [place] [address] [address] 7161 Feb, Essential hypertension I10 and Hypercholesterolemia E78.00 [facility] [place] [address] [place] [address] 40461- 5957 Feb, Type 2 diabetes mellitus with diabetic chronic kidney disease E11.22 ; Essential hypertension I10 ; Edema due to malnutrition, due to unspecified malnutrition type E43 ; Hypercholesterolemia E78.00 and Mild single current episode of major depressive disorder F32.0 [facility] [place] [address] [facility] [id number] [place] [address] Feb, IMMUNIZATIONS No Known Immunizations SOCIAL HISTORY Never Assessed REASON FOR VISIT DM ed PLAN OF CARE VITAL SIGNS MEDICATIONS Unknown [...]
--- OUTSIDE RECORDS SUMMARY | 2018-03-03 17:59 | XMS REPORT ---
Author Author Spike LESLIE Organization [facility] Address [address] [place] [address] Care Team Providers Care Extruder Name Role Phone karthikLESLIE Worley Unavailable PROBLEMS Type Condition ICD9-CM Code IRO49-[id number] Code Onset Dates Condition Status SNOMED Code Problem Type 2 diabetes mellitus with hyperglycemia E11.65 Active 87729847 Problem information lead 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 Z79.4 Active 181198727 Problem Mild single current episode of major depressive disorder F32.0 Active 30089270 Problem Essential hypertension I10 Active 26865768 Problem Hypercholesterolemia E78.00 Active 82494100 Problem Primary osteoarthritis of both knees M17.0 Active 091782886 ALLERGIES No Known Allergies ENCOUNTERS Encounter Location Date Diagnosis [place] [id number] [address] Nov, [place] [address] [address] Nov, Hypercholesterolemia E78.00 and Type 2 diabetes mellitus with hyperglycemia E11.[address] [address]- [address] Nov, Leg cramps R25.2 [place] [address] 46347- 5347 Nov, Type 2 diabetes mellitus with hyperglycemia E11.65 [place] [address] 08683- 2634 Nov, Type 2 diabetes mellitus with hyperglycemia E11.65 ; information lead 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 Z79.4 ; Essential hypertension I10 ; Mild single current episode of major depressive disorder F32.0 ; Primary osteoarthritis of both knees M17.0 ; High risk medication use Z79.899 ; Controlled substance agreement signed Z79.899 ; Hypercholesterolemia E78.00 and Leg cramps R25.2 [facility] [id number] [place] [address] 88102- 3555 Oct, [facility] [address] [facility] [id number] [place] [address] 62874 -6748 Oct, [facility] [id number] [place] [address] 21418- 9410 Oct, [facility] [id number] [place] [address] 09048- 9141 Sep, Essential hypertension I10 [facility] [address] [address]18- 6377 Sep, Essential hypertension I10 [facility] [id number] [place] [address], [place] [address]- 7518 Sep, [facility] [id number] [place] [address] 63391- 0253 Sep, [facility] [id number] [place] [address] 32043- 1257 Sep, [facility] [id number] [place] [address] 76620- 5255 Aug, [facility] [id number] [place] [address] 37911- 6047 Jul, [facility] [id number] [place] [address] 34737- 2934 Jul, [facility] [id number] [place] [address] 07443- 4025 Jul, [facility] [id number] [place] [address] 93038- 9822 Jun, [facility] [id number] [place] [address] 41194- 1963 Jun, [facility] [id number] [place] [address] 76821- 8550 Jun, Type 2 diabetes mellitus with diabetic chronic kidney disease E11.22 ; Heart murmur R01.1 ; Essential hypertension I10 and Primary osteoarthritis of both knees M17.0 [place] [address] [id number] [place] [address] Apr, Type 2 diabetes mellitus with diabetic chronic kidney disease E11.22 [place] [address] 85812- 2249 Mar, Type 2 diabetes mellitus with diabetic chronic kidney disease E11.22 ; Essential hypertension I10 ; Mild single current episode of major depressive disorder F32.0 and Primary osteoarthritis of both knees M17.0 [place] [id number] [place] [address] 57199- 6321 Feb, Mild single current episode of major depressive disorder F32.0 [place] [address] 58437- 0955 Feb, [place] [address] 16463- 7034 Feb, Essential hypertension I10 and Hypercholesterolemia E78.00 [place] [address] [id number] [place] [address] 81251- 8813 Feb, Type 2 diabetes mellitus with diabetic chronic kidney disease E11.22 ; Essential hypertension I10 ; Edema due to malnutrition, due to unspecified malnutrition type E43 ; Hypercholesterolemia E78.00 and Mild single current episode of major depressive disorder F32.0 [place] [address] [place] [address] [id number] [place] [address] 24525- 9931 Feb, IMMUNIZATIONS No Known Immunizations SOCIAL HISTORY Never Assessed REASON FOR VISIT med f/u. Would like to discuss her Levemir dosing. YASHIRA Pugh PLAN OF CARE Activity Details Follow Up 2 Months Reason:dm and htn VITAL SIGNS Height 62 in 2017-04-04 Weight 204 lbs 2017-04-04 Temperature 98.0 degrees Fahrenheit 2017-04-04 Heart Rate 74 bpm 2017-04-04 Respiratory Rate 18 2017-04-04 BMI 37.31 kg/m2 2017-04-04 Blood pressure systolic 140 mmHg 2017-04-04 Blood pressure diastolic 80 mmHg 2017-04-04 MEDICATIONS Medication Instructions Dosage Frequency Start Date End Date Duration Status Hydrocodone-Acetaminophen 5-325 MG Orally every 6 hrs 1 tablet as needed 6h Mar, Active Potassium 12h Active Hydrochlorothiazide 12.5 MG Orally Once a day 1 capsule in the morning 24h Active Lexapro 20 mg Orally Once a day 1 tablet 24h Active Simvastatin 10 mg Orally Once a day 1 tablet in the evening 24h Feb, 30 day(s) Active Turmeric 500 MG Active Lasix 20 MG Orally Once a day 1 tablet 24h Active Cinnamon 500 MG Orally 2 times a day 1 capsule 12h Active Multi For Her 2 Gummies 24h Active Enalapril Maleate 20 MG Orally Once a day 1 tablet 24h Active Actos 30 MG Orally Once a day 1 tablet 24h Feb, Active Levemir 100 UNIT/ML Subcutaneous at bedtime 50 units Feb, Active RESULTS No Results PROCEDURES No [...]
--- OUTSIDE RECORDS SUMMARY | 2018-03-03 17:59 | XMS REPORT ---
Author Author EDITH TELLO Organization [facility] Address [address] [place] [address] Care Team Providers Care Filling Room Operator Name Role Phone EDITH TELLO Unavailable PROBLEMS Type Condition ICD9-CM Code QHL16-SR Code Onset Dates Condition Status SNOMED Code Problem Type 2 diabetes mellitus with hyperglycemia E11.65 Active 86226173 Problem M[facility] 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 Z79.4 Active 799506440 Problem Mild single current episode of major depressive disorder F32.0 Active 73450938 Problem Essential hypertension I10 Active 80329160 Problem Hypercholesterolemia E78.00 Active 17635839 Problem Primary osteoarthritis of both knees M17.0 Active 615450421 ALLERGIES No Information ENCOUNTERS Encounter Location Date Diagnosis [facility] [id number] [place] [address] 00947- 0354 Feb, [facility] [address] [address]- [address] January, Type 2 diabetes mellitus with hyperglycemia E11.65 [facility] [id number] [place] [address] 29632- 5341 Dec, Mild single current episode of major depressive disorder F32.0 [facility] [id number] [place] [address] 26838- 6625 16 Dec, 2017 Hypercholesterolemia E78.00 [facility] [id number] [place] [address] 06046 -8299 07 Dec, 2017 Seasonal allergic rhinitis, unspecified trigger J30.2 [facility] [id number] [place] [address] 89906- 0133 15 Nov, 2017 [facility] [address] 29147- 2459 Nov, Hypercholesterolemia E78.00 and Type 2 diabetes mellitus with hyperglycemia E11.65 [facility] [id number] [place] [address] 49011- 0994 Nov, Leg cramps R25.2 [facility] [id number] [place] [address] 23806- 2892 Nov, Type 2 diabetes mellitus with hyperglycemia E11.65 [facility] [id number] [place] [address] 97972- 3511 Nov, Type 2 diabetes mellitus with hyperglycemia E11.65 ; [facility] 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 Z79.4 ; Essential hypertension I10 ; Mild single current episode of major depressive disorder F32.0 ; Primary osteoarthritis of both knees M17.0 ; High risk medication use Z79.899 ; Controlled substance agreement signed Z79.899 ; Hypercholesterolemia E78.00 and Leg cramps R25.2 [facility] [id number] [place] [address] 08469- 4808 Oct, [facility] [id number] [place] [address] 85152 -4460 Oct, [facility] [id number] [place] [address] 67870- 7647 Oct, [facility] [id number] [place] [address] 87902- 2101 Sep, Essential hypertension I10 [facility] [id number] [place] [address] 74707- 7279 Sep, Essential hypertension I10 [facility] [id number] [place] [address] 93820- 4172 Sep, [facility] [id number] [place] [address] 89176- 2318 Sep, [facility] [id number] [place] [address] 13575- 1943 Sep, [facility] [id number] [place] [address] 19788- 8564 Aug, [facility] [address] [address]- 3124 Jul, [facility] [address] [place] [address]- 5665 Jul, [facility] [address], [place] [address]- 9268 Jul, [facility] [id number] [place] [address] 87119- 3133 Jun, [facility] [address] [address]- 9155 Jun, [facility] [id number] [place] [address] 32125- 4292 Jun, Type 2 diabetes mellitus with diabetic chronic kidney disease E11.22 ; Heart murmur R01.1 ; Essential hypertension I10 and Primary osteoarthritis of both knees M17.0 [facility] [address] [place] [address]- 7135 Apr, Type 2 diabetes mellitus with diabetic chronic kidney disease E11.22 [facility] [address] [place] [address] 25093- 7041 Mar, Type 2 diabetes mellitus with diabetic chronic kidney disease E11.22 ; Essential hypertension I10 ; Mild single current episode of major depressive disorder F32.0 and Primary osteoarthritis of both knees M17.0 [facility] [address] [place] [address]- 3519 Feb, Mild single current episode of major depressive disorder F32.0 [facility] [address] [address]- 7816 Feb, [facility] [address] [place] [address]- 2360 Feb, Essential hypertension I10 and Hypercholesterolemia E78.00 [facility] [address] [place] [address]- 6891 Feb, Type 2 diabetes mellitus with diabetic chronic kidney disease E11.22 ; Essential hypertension I10 ; Edema due to malnutrition, due to unspecified malnutrition type E43 ; Hypercholesterolemia E78.00 and Mild single current episode of major depressive disorder F32.0 [facility] [address] [facility] [id number] [place] [address]- 7801 Feb, IMMUNIZATIONS No Known Immunizations SOCIAL HISTORY Never Assessed REASON FOR VISIT 1 week DM ed f/u PLAN OF CARE VITAL SIGNS MEDICATIONS Medication Instructions Dosage Frequency Start Date End Date Duration Status Pioglitazone HCl 30 MG Orally Once a day 1 tablet 24h Jun, Active Levemir 100 UNIT/ML Subcutaneous twice a day 17 units 12h Active MetFORMIN HCl ER 500 mg DX- E11.22 twice a day with food 2 tablets Jun Active NovoLog Flexpen 100 UNIT/ML Subcutaneous 3 times a day before meals. 15 units Jun, Active RESULTS No Results PROCEDURES No Known [...]
--- OUTSIDE RECORDS SUMMARY | 2018-03-03 17:59 | XMS REPORT ---
Author Author EDITH TELLO Organization [facility] Address [address] [place] [address] Care Team Providers Care Screw Cutter Name Role Phone EDITH TELLO Unavailable PROBLEMS Type Condition ICD9-CM Code ZRB72-UO Code Onset Dates Condition Status SNOMED Code Problem Mild single current episode of major depressive disorder F32.0 Active 21710203 Problem Primary osteoarthritis of both knees M17.0 Active 684148821 Problem Essential hypertension I10 Active 40223350 Problem Morbid (severe) obesity due to excess calories E66.01 Active 722736042 Problem Body mass index (BMI) of 40.0-44.9 in adult Z68.41 Active 410580765 Problem shelter 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 Z79.4 Active 318083346 Problem Type 2 diabetes mellitus with hyperglycemia E11.65 Active 36687032 Problem 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 Active 99241161 Problem Hypercholesterolemia E78.00 Active 72575992 ALLERGIES No Information ENCOUNTERS Encounter Location Date Diagnosis [place] [address] [place] [address]140- [address] 02 Mar, 2018 [place] [id number] [place] [address] 61212- 2022 14 Feb, 2018 Type 2 diabetes mellitus with hyperglycemia E11.65 ; Essential hypertension I10 ; Hypercholesterolemia E78.00 ; shelter 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 Z79.4 ; Primary osteoarthritis of both knees M17.0 and 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 [place] [address] [place] [address] 11100- 3913 13 Feb, 2018 Dental examination Z01.20 [place] [address] [place] [address] 65238- 3968 12 Feb, 2018 Dental examination Z01.20 [place] [address] [place] [id number] [place] [address] 55142- 5909 Feb, Type 2 diabetes mellitus with hyperglycemia E11.65 ; Essential hypertension I10 ; 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 ; Hypercholesterolemia E78.00 ; Primary osteoarthritis of both knees M17.0 ; 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 ; Body mass index (BMI) of 40.0-44.9 in adult Z68.41 and Morbid (severe) obesity due to excess calories E66.[address] [address]- [address] January, Type 2 diabetes mellitus with hyperglycemia E11.[address] 48150- 7643 Dec, Mild single current episode of major depressive disorder F32.[address] 46114- 8809 Dec, Hypercholesterolemia E78.00 [facility] WALK IN [facility] [address] [place] [id number] [place] [address] 51082 -7480 Dec, Seasonal allergic rhinitis, unspecified trigger J30.2 [place] [id number] [place] [address] 87152- 5170 Nov, [place] [address] 35179- 9343 Nov, Hypercholesterolemia E78.00 and Type 2 diabetes mellitus with hyperglycemia E11.65 [place] [id number] [place] [address] 45142- 7082 Nov, Leg cramps R25.2 [place] [id number] [place] [address] 15375- 9599 Nov, Type 2 diabetes mellitus with hyperglycemia E11.[address] 8[address]11- 5721 Nov, Type 2 diabetes mellitus with hyperglycemia E11.65 ; 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 ; Essential hypertension I10 ; Mild single current episode of major depressive disorder F32.0 ; Primary osteoarthritis of both knees M17.0 ; High risk medication use Z79.899 ; Controlled substance agreement signed Z79.899 ; Hypercholesterolemia E78.00 and Leg cramps R25.2 [facility] [address] [place] [address] [id number] [place] [address] 13190- 4919 Oct, [facility] [address] [address] [id number] [place] [address] 00500 -2402 Oct, [facility] [address] [place] [address] [id number] [place] [address] 20533- 7737 Oct, [facility] [address] [place] [address] [id number] [place] [address] 51642- 2937 Sep, Essential hypertension I10 [facility] [address] [place] [address] [id number] [place] [address] 63070- 2614 Sep, Essential hypertension I10 [facility] [address] [place] [address] [id number] [place] [address] 51939- 4553 Sep, [facility] [address] [address] [id number] [place] [address] 12377- 0215 Sep, [facility] [address] [address] [id number] [place] [address] 90555- 2071 Sep, [facility] [address] [address] [id number] [place] [address] 96503- 1067 Aug, [facility] [address] [address] [id number] [place] [address] 69028- 0031 Jul, [facility] [address] [address] [id number] [place] [address] 29149- 8743 Jul, [facility] [address] [address] [id number] [place] [address] 25368- 5193 Jul, [facility] [address] [address] [id number] [place] [address] 23974- 0046 Jun, [facility] [address] [address] [id number] [place] [address] 94686- 1690 Jun, [place] [address] [address] 4974 Jun, Type 2 diabetes mellitus with diabetic chronic kidney disease E11.22 ; Heart murmur R01.1 ; Essential hypertension I10 and Primary osteoarthritis of both knees M17.0 [place] [address] [place] [id number] [place] [address] 96571- 5155 Apr, Type 2 diabetes mellitus with diabetic chronic kidney disease E11.22 [place] [address] [place] [id number] [place] [address] 90435- 2043 Mar, Type 2 diabetes mellitus with diabetic chronic kidney disease E11.22 ; Essential hypertension I10 ; Mild single current episode of major depressive disorder F32.0 and Primary osteoarthritis of both knees M17.0 [place] [address] [place] [id number] [place] [address] 68194- 9314 Feb, Mild single current episode of major depressive disorder F32.0 [place] [address] [place] [id number] [place] [address] 91676- 4837 Feb, [place] [address] [place] [id number] [place] [address] 69189- 6776 Feb, Essential hypertension I10 and Hypercholesterolemia E78.00 [place] [address] [place] [address] 61909- 9234 Feb, Type 2 diabetes mellitus with diabetic chronic kidney disease E11.22 ; Essential hypertension I10 ; Edema due to malnutrition, due to unspecified malnutrition type E43 ; Hypercholesterolemia E78.00 and Mild single current episode of major depressive disorder F32.0 [place] [address] [place] [address] 07039- 3632 Feb, IMMUNIZATIONS No Known Immunizations SOCIAL HISTORY Never Assessed REASON FOR VISIT 1 mo DM ed f/u PLAN OF CARE VITAL SIGNS MEDICATIONS Medication Instructions Dosage Frequency Start Date End Date Duration Status Levemir FlexTouch 100 UNIT/ML DX- E11.22 2 times a day 17 units 12h Sep Active Levemir 100 UNIT/ML DX E11.22 twice a day 17 units 12h Active RESULTS No Results PROCEDURES No Known [...]
--- OUTSIDE RECORDS SUMMARY | 2018-03-03 17:59 | XMS REPORT | Continuity of Care Document ---
Author Author [facility] Organization [facility] Address Unknown Phone Unavailable Allergies Active Description Code Type Severity Reaction Onset Reported/Identified Relationship to Patient Clinical Status Yes No Known Drug Allergies [id number] Drug Allergy Unknown N/A 04/11/2011 Medications There is no data. Problems Date Dx Coded Attending Type Code Diagnosis Diagnosed By 04/12/2011 Ot 250.00 DIAB ROSA WO COMPL, TYPE II OR UNSPEC TY 04/12/2011 Ot 401.9 HYPERTENSION NOS 04/12/2011 Ot 786.50 CHEST PAIN NOS 04/12/2011 Ot V58.63 LONG-TERM( CURRENT)USE OF ANTIPLATELET/AN 04/12/2011 Ot V58.66 LONG-TERM ( CURRENT) USE OF ASPIRIN 04/12/2011 Ot V58.69 OTH MED,LT, CURRENT USE 02/28/2014 JONELLE WORTHINGTON, RONAK Sesay Ot 250.00 DIAB ROSA WO COMPL, TYPE II OR UNSPEC TY 02/28/2014 RONAK SAL MD Ot 401.9 HYPERTENSION NOS 02/28/2014 RONAK SAL MD Ot 715.36 LOC OSTEOARTH NOS-L/LEG 06/29/2016 RONAK SAL MD Ot 715.36 LOC OSTEOARTH NOS-L/LEG 06/29/2016 RONAK SAL MD Ot 780.79 OTH MALAISE FATIGUE 06/29/2016 RONAK SAL MD Ot V72.63 PRE-PROCEDURAL LABORATORY EXAMINATION 06/29/2016 RONAK SAL MD Ot V72.81 EFCA-LJI-ENZMAXXAS CARDIOVASCULAR 06/29/2016 RONAK SAL MD Ot V72.84 EXAM PRE-OPERATIVE NOS 06/29/2016 RONAK SAL MD Ot V74.8 SCREEN-BACTERIAL DIS NEC 06/30/2016 BENNETT LO APRN Ot G47.10 HYPERSOMNIA, UNSPECIFIED 06/30/2016 BENNETT LO APRN Ot G47.33 OBSTRUCTIVE SLEEP APNEA (ADULT) (PEDIATR 07/11/2016 RONAK SAL MD Ot 715.36 LOC OSTEOARTH NOS-L/LEG 07/11/2016 RONAK SAL MD Ot 780.79 OTH MALAISE FATIGUE 07/11/2016 RONAK SAL MD Ot V72.63 PRE-PROCEDURAL LABORATORY EXAMINATION 07/11/2016 RONAK SAL MD Ot V72.81 FJCF-KSY-OTQDQBRJG CARDIOVASCULAR 07/11/2016 RONAK SAL MD Ot V72.84 EXAM PRE-OPERATIVE NOS 07/11/2016 RONAK SAL MD Ot V74.8 SCREEN-BACTERIAL DIS NEC 07/11/2016 BENNETT LO APRN Ot G47.10 HYPERSOMNIA, UNSPECIFIED 07/11/2016 BENNETT LO APRN Ot G47.33 OBSTRUCTIVE SLEEP APNEA (ADULT) (PEDIATR 07/12/2016 RONAK SAL MD Ot 715.36 LOC OSTEOARTH NOS-L/LEG 07/12/2016 RONAK SAL MD Ot 780.79 OTH MALAISE FATIGUE 07/12/2016 RONAK SAL MD Ot V72.63 PRE-PROCEDURAL LABORATORY EXAMINATION 07/12/2016 RONAK SAL MD Ot V72.81 OQUY-NGQ-ITNIULIXF CARDIOVASCULAR 07/12/2016 RONAK SAL MD Ot V72.84 EXAM PRE-OPERATIVE NOS 07/12/2016 RONAK SAL MD Ot V74.8 SCREEN-BACTERIAL DIS NEC 07/12/2016 BENNETT LO APRN Ot G47.10 HYPERSOMNIA, UNSPECIFIED 07/12/2016 BENNETT LO APRN Ot G47.33 OBSTRUCTIVE SLEEP APNEA (ADULT) (PEDIATR 07/12/2016 BENNETT LO APRN Ot F17.210 NICOTINE DEPENDENCE, CIGARETTES, UNCOMPL 07/12/2016 BENNETT LO APRN Ot R06.00 DYSPNEA, UNSPECIFIED 08/30/2016 BENNETT LO APRN Ot F17.210 NICOTINE DEPENDENCE, CIGARETTES, UNCOMPL 08/30/2016 BENNETT LO APRN Ot R06.00 DYSPNEA, UNSPECIFIED 05/10/2017 RONAK SAL MD Ot 715.36 LOC OSTEOARTH NOS-L/LEG 05/10/2017 RONAK SAL MD Ot 780.79 OTH MALAISE FATIGUE 05/10/2017 RONAK SAL MD Ot V72.63 PRE-PROCEDURAL LABORATORY EXAMINATION 05/10/2017 RONAK SAL MD Ot V72.81 YBLL-JJO-DJNLRPZQY CARDIOVASCULAR 05/10/2017 RONAK SAL MD Ot V72.84 EXAM PRE-OPERATIVE NOS 05/10/2017 RONAK SAL MD Ot V74.8 SCREEN-BACTERIAL DIS NEC 05/10/2017 BENNETT LO APRN Ot F17.210 NICOTINE DEPENDENCE, CIGARETTES, UNCOMPL 05/10/2017 BENNETT LO APRN Ot R06.00 DYSPNEA, UNSPECIFIED 05/10/2017 BENNETT LO APRN Ot G47.10 HYPERSOMNIA, UNSPECIFIED 05/10/2017 BENNETT LO APRN Ot G47.33 OBSTRUCTIVE SLEEP APNEA (ADULT) (PEDIATR 06/04/2017 RONAK SAL MD Ot 715.36 LOC OSTEOARTH NOS-L/LEG 06/04/2017 RONAK SAL MD Ot 780.79 OTH MALAISE FATIGUE 06/04/2017 RONAK SAL MD Ot V72.63 PRE-PROCEDURAL LABORATORY EXAMINATION 06/04/2017 RONAK SAL MD Ot V72.81 YZLM-FKW-PVCHEMSOD CARDIOVASCULAR 06/04/2017 RONAK SAL MD Ot V72.84 EXAM PRE-OPERATIVE NOS 06/04/2017 RONAK SAL MD Ot V74.8 SCREEN-BACTERIAL DIS NEC 06/04/2017 BENNETT LO APRN Ot F17.210 NICOTINE DEPENDENCE, CIGARETTES, UNCOMPL 06/04/2017 BENNETT LO APRN Ot R06.00 DYSPNEA, UNSPECIFIED 06/04/2017 BENNETT LO APRN Ot G47.10 HYPERSOMNIA, UNSPECIFIED 06/04/2017 BENNETT LO APRN Ot G47.33 OBSTRUCTIVE SLEEP APNEA (ADULT) (PEDIATR 06/04/2017 JOSE CARLOS WORTHINGTON, UMAIR Beckham Ot E11.9 TYPE 2 DIABETES MELLITUS WITHOUT COMPLIC 06/04/2017 JOSE CARLOS WORTHINGTON, UMAIR Beckham Ot E66.9 OBESITY, UNSPECIFIED 06/04/2017 JOSE CARLOS WORTHINGTON, UMAIR Beckham Ot F17.201 NICOTINE DEPENDENCE, UNSPECIFIED, IN REM 06/04/2017 UMAIR BRANCH MD Ot G47.33 OBSTRUCTIVE SLEEP APNEA (ADULT) (PEDIATR 06/04/2017 UMAIR BRANCH MD Ot I10 ESSENTIAL (PRIMARY) HYPERTENSION 06/04/2017 UMAIR BRANCH MD Ot R06.00 DYSPNEA, UNSPECIFIED 06/27/2017 UMAIR BRANCH MD Ot E11.9 TYPE 2 DIABETES MELLITUS WITHOUT COMPLIC 06/27/2017 UMAIR BRANCH MD Ot E66.9 OBESITY, UNSPECIFIED 06/27/2017 UMAIR BRANCH MD Ot F17.201 NICOTINE DEPENDENCE, UNSPECIFIED, IN REM 06/27/2017 UMAIR BRANCH MD Ot G47.33 OBSTRUCTIVE SLEEP APNEA (ADULT) (PEDIATR 06/27/2017 UMAIR BRANCH MD Ot I10 ESSENTIAL (PRIMARY) HYPERTENSION 06/27/2017 UMAIR BRANCH MD Ot R06.00 DYSPNEA, UNSPECIFIED 07/06/2017 UMAIR BRANCH MD Ot E11.9 TYPE 2 DIABETES MELLITUS WITHOUT COMPLIC 07/06/2017 UMAIR BRANCH MD Ot E66.9 OBESITY, UNSPECIFIED 07/06/2017 UMAIR BRANCH MD Ot F17.201 NICOTINE DEPENDENCE, UNSPECIFIED, IN REM 07/06/2017 UMAIR BRANCH MD Ot G47.33 OBSTRUCTIVE SLEEP APNEA (ADULT) (PEDIATR 07/06/2017 UMAIR BRANCH MD Ot I10 ESSENTIAL (PRIMARY) HYPERTENSION 07/06/2017 UMAIR BRANCH MD Ot R06.00 DYSPNEA, UNSPECIFIED 07/13/2017 UMAIR BRANCH MD Ot E11.9 TYPE 2 DIABETES MELLITUS WITHOUT COMPLIC 07/13/2017 UMAIR BRANCH MD Ot E66.9 OBESITY, UNSPECIFIED 07/13/2017 UMAIR BRANCH MD Ot F17.201 NICOTINE DEPENDENCE, UNSPECIFIED, IN REM 07/13/2017 UMAIR BRANCH MD Ot G47.33 OBSTRUCTIVE SLEEP APNEA (ADULT) (PEDIATR 07/13/2017 UMAIR BRANCH MD Ot I10 ESSENTIAL (PRIMARY) HYPERTENSION 07/13/2017 UMAIR BRANCH MD Ot R06.00 DYSPNEA, UNSPECIFIED Procedures Code Description Performed By Performed On 81.54 TOTAL KNEE REPLACEMENT 02/25/2014 Results Test Result Range CBC With Differential/Platelet - 03/13/17 08:57 WBC 5.4 x10E3/uL 3.4-10.8 RBC 4.80 x10E6/uL 3.77-5.28 Hemoglobin 12.9 g/dL 11.1-15.9 Hematocrit 39.6 % 34.0-46.6 MCV 83 fL 79-97 MCH 26.9 pg 26.6-33.0 MCHC 32.6 g/dL 31.5-35.7 RDW 13.5 % 12.3-15.4 Platelets 263 x10E3/uL 150-379 Neutrophils 61 % Lymphs 31 % Monocytes 6 % Eos 2 % Basos 0 % Neutrophils (Absolute) 3.3 x10E3/uL 1.4-7.0 Lymphs (Absolute) 1.6 x10E3/uL 0.7-3.1 Monocytes(Absolute) 0.3 x10E3/uL 0.1-0.9 Eos (Absolute) 0.1 x10E3/uL 0.0-0.4 Baso (Absolute) 0.0 x10E3/uL 0.0-0.2 Immature Granulocytes 0 % Immature Grans (Abs) 0.0 x10E3/uL 0.0-0.1 Comp. Metabolic Panel (14) - 03/13/17 08:57 Glucose, Serum 116 mg/dL 65-99 BUN 16 mg/dL 8-27 Creatinine, Serum 0.63 mg/dL 0.57-1.00 eGFR If NonAfricn Am 94 mL/min/1.73 >59 eGFR If Africn Am 109 mL/min/1.73 >59 BUN/Creatinine Ratio 25 12-28 Sodium, Serum 142 mmol/L 134-144 Potassium, Serum 4.2 mmol/L 3.5-5.2 Chloride, Serum 99 mmol/L 96-106 Carbon Dioxide, Total 27 mmol/L 18-29 Calcium, Serum 8.8 mg/dL 8.7-10.3 Protein, Total, Serum 6.6 g/dL 6.0-8.5 Albumin, Serum 3.8 g/dL 3.6-4.8 Globulin, Total 2.8 g/dL 1.5-4.5 A/G Ratio 1.4 1.2-2.2 Bilirubin, Total 0.3 mg/dL 0.0-1.2 Alkaline Phosphatase, S 83 IU/L 39-117 AST (SGOT) 10 IU/L 0-40 ALT (SGPT) 10 IU/L 0-32 Lipid Panel - 03/13/17 08:57 Cholesterol, Total 222 mg/dL 100-199 Triglycerides 119 mg/dL 0-149 HDL Cholesterol 58 mg/dL >39 VLDL Cholesterol Bulmaro 24 mg/dL 5-40 LDL Cholesterol Calc 140 mg/dL 0-99 CMP - 11/16/17 10:18 GLUCOSE 108 mg/dL 65-99 UREA NITROGEN (BUN) 15 mg/dL 7-25 CREATININE 0.64 mg/dL 0.50-0.99 eGFR NON-AFR. CITIZEN OF [place] 93 mL/min/1.73m2 > OR=60 eGFR 108 mL/min/1.73m2 > OR=60 BUN/CREATININE RATIO NOT APPLICABLE (calc) 6-22 SODIUM 142 mmol/L 135-146 POTASSIUM 4.9 mmol/L 3.5-5.3 CHLORIDE 104 mmol/L 98-110 CARBON DIOXIDE 31 mmol/L 20-31 CALCIUM 9.4 mg/dL 8.6-10.4 PROTEIN, TOTAL 6.8 g/dL 6.1-8.1 ALBUMIN 4.2 g/dL 3.6-5.1 GLOBULIN 2.6 g/dL (calc) 1.9-3.7 ALBUMIN/GLOBULIN RATIO 1.6 (calc) 1.0-2.5 BILIRUBIN, TOTAL 0.5 mg/dL 0.2-1.2 ALKALINE PHOSPHATASE 82 U/L 33-130 AST 14 U/L 10-35 ALT 12 U/L 6-29 MAGNESIUM SERUM - 11/16/17 10:18 MAGNESIUM 2.1 mg/dL 1.5-2.5 Encounters ACCT No. Visit Date/Time Discharge Status Pt. Type Provider Facility Loc./Unit Complaint [id number] 06/04/2017 07:55:00 06/04/2017 23:59:59 CLS Outpatient UMAIR BRANCH MD [facility] CARD R06.00 [id number] 05/10/2017 08:54:00 05/10/2017 23:59:59 CLS Outpatient UMAIR BRANCH MD [facility] CARD DYSPNEA [id number] 07/11/2016 16:06:00 07/11/2016 23:59:59 CLS Outpatient BENNETT LO APRN [facility] RT DYSPNEA,TOBACCO USE [id number] 06/29/2016 13:41:00 06/29/2016 23:59:59 CLS Outpatient BENNETT LO APRN [facility] SLEEP OBSERVED APNEA, EDS, MOOD DISORDER [id number] 02/25/2014 09:00:00 02/28/2014 11:02:00 DIS Inpatient RONAK SAL MD [facility] SURGICAL LEFT KNEE OSTEOARTHRITIS [id number] 02/18/2014 12:14:00 02/18/2014 23:59:59 CLS Outpatient RONAK SAL MD [facility] PREOP LEFT KNEE OSTEOARTHRITIS [id number] 04/11/2011 15:00:00 Document Registration [id number] 03/14/2017 08:35:00 Document Registration [id number] 12/22/2017 16:35:00 12/22/2017 23:59:59 CLS Outpatient VARUN BOYER [facility] [id number] 11/16/2017 11:00:00 Document Registration
--- OUTSIDE RECORDS SUMMARY | 2018-03-03 17:59 | XMS REPORT ---
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.4 Active 866542375 Problem Mild single current episode of major depressive disorder F32.0 Active 97065344 Problem Essential hypertension I10 Active 48628302 Problem Hypercholesterolemia E78.00 Active 88812021 Problem Primary osteoarthritis of both knees M17.0 Active 675717034 ALLERGIES No Information ENCOUNTERS Encounter Location Date Diagnosis [facility] [address] [address] Feb, [facility] [address] [address]- [address] January, Type 2 diabetes mellitus with hyperglycemia E11.65 [facility] [address] [address]- 6673 Dec, Mild single current episode of major depressive disorder F32.0 [facility] [address] [place] [id number] [place] [address] 17735- 8999 Dec, Hypercholesterolemia E78.00 [facility] [address] [address] -[address] 07 Dec, 2017 Seasonal allergic rhinitis, unspecified trigger J30.2 [facility] [address] [address]- [address] 15 Nov, 2017 [facility] [address] [address]- 4767 Nov, Hypercholesterolemia E78.00 and Type 2 diabetes mellitus with hyperglycemia E11.65 [facility] [id number] [place] [address] 18920- 1349 Nov, Leg cramps R25.2 [facility] [id number] [place] [address] 03897- 5673 Nov, Type 2 diabetes mellitus with hyperglycemia E11.65 [facility] [id number] [place] [address] 16140- 2400 Nov, Type 2 diabetes mellitus with hyperglycemia E11.65 ; 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 ; Essential hypertension I10 ; Mild single current episode of major depressive disorder F32.0 ; Primary osteoarthritis of both knees M17.0 ; High risk medication use Z79.899 ; Controlled substance agreement signed Z79.899 ; Hypercholesterolemia E78.00 and Leg cramps R25.2 [facility] [id number] [place] [address] 28423- 5710 Oct, [facility] WALK IN [facility] [address] [place] [address] 53135 -1269 Oct, [facility] [id number] [place] [address] 19961- 2749 Oct, [facility] [address] [place] [address] 71836- 6172 Sep, Essential hypertension I10 [facility] [id number] [place] [address] 54994- 5748 Sep, Essential hypertension I10 [facility] [id number] [place] [address] 90346- 5502 Sep, [facility] [id number] [place] [address] 92898- 3002 Sep, [facility] [address] [place] [address] 07890- 9399 Sep, [facility] [id number] [place] [address] 93255- 3520 Aug, [facility] [address] [place] [address] Jul, [facility] [address] [place] [address] Jul, [facility] [address] [place] [address] Jul, [facility] [address] [place] [address] 38188- 8853 Jun, [facility] [address] [place] [address] 12989- 9289 Jun, [facility] [address] [place] [address] 57993- 4780 Jun, Type 2 diabetes mellitus with diabetic chronic kidney disease E11.22 ; Heart murmur R01.1 ; Essential hypertension I10 and Primary osteoarthritis of both knees M17.0 [facility] [address] [place] [address] Apr, Type 2 diabetes mellitus with diabetic chronic kidney disease E11.22 [facility] [address] [place] [address] 85420- 6475 Mar, Type 2 diabetes mellitus with diabetic chronic kidney disease E11.22 ; Essential hypertension I10 ; Mild single current episode of major depressive disorder F32.0 and Primary osteoarthritis of both knees M17.0 [facility] [address] [place] [address] Feb, Mild single current episode of major depressive disorder F32.0 [facility] [address] [place] [address] Feb, [facility] [address] [place] [address] Feb, Essential hypertension I10 and Hypercholesterolemia E78.00 [facility] [address] [place] [address] 24286- 7220 Feb, Type 2 diabetes mellitus with diabetic chronic kidney disease E11.22 ; Essential hypertension I10 ; Edema due to malnutrition, due to unspecified malnutrition type E43 ; Hypercholesterolemia E78.00 and Mild single current episode of major depressive disorder F32.0 [facility] [address] [facility] [id number] [place] [address] Feb, IMMUNIZATIONS No Known Immunizations SOCIAL HISTORY Never Assessed REASON FOR VISIT BS ck PLAN OF CARE VITAL SIGNS MEDICATIONS Medication Instructions Dosage Frequency Start Date End Date Duration Status Pioglitazone HCl 30 MG Orally Once a day 1 tablet 24h Jun, 30 day(s) Active MetFORMIN HCl ER 500 mg Orally Once a day 1 tablet with evening meal 24h Jun, 30 day(s) Active Levemir 100 UNIT/ML Subcutaneous at bedtime 25 units Active NovoLog Flexpen 100 UNIT/ML Subcutaneous 3 times a day before meals. 8 units Jun, Active RESULTS No Results PROCEDURES [...]
[2018-03-03] MEDS ORDERED: TRANEXAMIC ACID 100 MG/ML 10 ML INJECTION IV ONE (18:03)
[2018-03-03] MEDS ORDERED: TRANEXAMIC ACID INJECTION 1,000 MG in D5W 100 ML IVPB 100 ML IV ONE (18:15)
[2018-03-03 18:17] VITALS: BP 131/70
--- NOTE | 2018-03-03 18:27 | ED EENT ---
History of Present Illness General Chief Complaint: Nasal Problems Stated Complaint: NOSE BLEED Source: patient Exam Limitations: no limitations (PACHECO WHITTEN STUDENT) History of Present Illness Date Seen by Provider: Mar 03, 2018 Time Seen by Provider: 18:21 Initial Comments Patient to the emergency room with complains of right sided nosebleed. Patient was seen in the emergency room earlier today by Dr. Damon and myself and a rapid Rhino 4.5 cm was inserted. She returned back to the emergency room because there was some bleeding noted on that right side this evening. Timing/Duration: this evening Location: nose Prearrival Treatment: nasal packing (PACHECO WHITTEN STUDENT) Allergies and Home Medications Allergies Coded Allergies: No Known Drug Allergies (Unverified , 03/03/18) Home Medications Aspirin 81 Mg Tabec, 81 MG PO HS, (Reported) Dicyclomine Hcl 20 Mg Tablet, 20 MG PO TID, (Reported) Enalapril/Hydrochlorothiazide 1 Tab Tablet, 1 TAB PO DAILY, (Reported) Insulin Aspart 100 Unit/1 Ml Insuln.pen, 6-8 UNITS SQ TID AC, (Reported) Insulin Detemir 100 Unit/1 Ml Insuln.pen, 15 UNIT SQ DAILY, (Reported) Insulin Detemir 100 Unit/1 Ml Insuln.pen, 20 UNIT SQ HS, (Reported) Metformin Hcl 500 Mg Tablet, 500 MG PO BID WITH MEALS, (Reported) Multivitamins 1 Tab Tablet, 1 TAB PO DAILY, (Reported) SENIOR VITAMIN Oxycodone Hcl/Acetaminophen 1 Tab Tablet, 1-2 TAB PO Q 4-6 hrs PRN for PAIN Prescribed by: BRISA GÓMEZ on 02/28/14 1004 Phentermine Hcl 37.5 Mg Capsule, 37.5 MG PO DAILY, (Reported) Potassium Gluconate 99 Mg Tablet, 99 MG PO DAILY, (Reported) Patient Home Medication List Home Medication List Reviewed: Yes (PACHECO WHTITEN STUDENT) Review of Systems Constitutional: see HPI; No chills Eyes: See HPI; Denies Blindness Ears: See HPI; Denies Dizziness Nose: see HPI, epistaxis Mouth: see HPI; denies clots Throat: see HPI; denies pain Respiratory: see HPI; No cough Cardiovascular: see HPI; No chest pain Gastrointestinal: see HPI; No abdominal pain Musculoskeletal: see HPI; No back pain Skin: see HPI; No change in color Neurological: See HPI; Denies Anxiety Hematologic/Lymphatic: See HPI; Denies Anemia Immunological/Allergic: see HPI; denies food allergy (PACHECO WHITTEN STUDENT) Past Qqkzqzf-Refmcd-Jcemzc Hx Past Med/Social Hx: Reviewed Nursing Past Med/Soc Hx (PACHECO WHITTEN STUDENT) Patient Social History Alcohol Use: Denies Use Recreational Drug Use: No Smoking Status: Former Smoker Recent Foreign Travel: No Contact w/Someone Who Travel: No Recent Hopitalizations: Yes Physical Abuse: No Sexual Abuse: No (PACHECO WHITTEN STUDENT) Immunizations Up To Date Tetanus Booster (TDap): Unknown Date of Pneumonia Vaccine: Jun 17, 2009 (PACHECO WHITTEN STUDENT) Past Medical History Surgeries: Yes (RIGHT KNEE RECONSTRUCTION, RIGHT KNEE SCOPE) Respiratory: Yes Asthma Cardiac: Yes Neurological: Yes Reproductive Disorders: No 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 Gastrointestinal: Yes (IBS) Gastroesophageal Reflux Musculoskeletal: Yes (LEFT KNEE OSTEOARTHRITIS) Arthritis Endocrine: Yes Diabetes, Insulin dep HEENT: No Cancer: No Psychosocial: No Nursing Suicide Risk Score: 0 Integumentary: Yes (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) Psoriasis Blood Disorders: No (PACHECO WHITTEN STUDENT) Family Medical History Reviewed Nursing Family Hx (PACHECO WHITTEN STUDENT) Cancer 19 MOTHER (BREAST) Congestive heart failure G8 SISTER Dementia 19 MOTHER Family history: Arthritis G8 SISTER Family history: Breast disease 19 MOTHER Family history: Diabetes mellitus 19 MOTHER G8 SISTER Kidney disease G8 SISTER No Family History of: Abdominal aortic aneurysm Alcoholism Family history: Cardiovascular disease Family history: Gastrointestinal disease Family history: Hypertension Family history: Thyroid disorder Hereditary disease History of - respiratory disease Myocardial infarction Parkinson's disease Prostate cancer Psychotic disorder Seizure disorder Stroke Physical Exam Vital Signs Vital Signs - First Documented 03/03/18 18:06 Pulse 86 Resp 14 B/P (MAP) 131/70 (90) Pulse Ox 98 O2 Delivery Room Air (ASHVIN EMERSON) General Appearance: WD/WN, no apparent distress Eyes: bilateral eye normal inspection, bilateral eye PERRL, bilateral eye EOMI Ears: bilateral ear auricle normal, bilateral ear canal normal, bilateral ear TM normal Nose: active bleeding (right nostril), dried blood Mouth/Throat: normal mouth inspection, pharynx normal Neck: non-tender, full range of motion, supple Cardiovascular: regular rate, rhythm, no edema, no gallop, no JVD Respiratory: lungs clear, normal breath sounds, no respiratory distress Gastrointestinal: normal bowel sounds, non tender, soft Neurologic/Psychiatric: alert, normal mood/affect, oriented x 3 Skin: normal color, warm/dry (PACHECO WHITTEN STUDENT) Procedures/Interventions Nasal : Nasal Location: Right Clots Cleared from Nasal: Patient Blowing Nasal Drops Instilled: Afrin Inspection with: Otoscope Nasal Procedures: Rapid Rhino (4.5) Progress The Rapid Rhino that was already in place was removed the patient then blew her nose and Afrin was sprayed in each nostril. A new rapid Rhino 4.5 cm was saturated in TXA and inserted into the right nostril. (PACHECO WHITTEN STUDENT) Progress/Results/Core Measures Results/Orders My Orders Orders - ASHVIN EMERSON Oxymetazoline 0.05% Nasal Walker (Afrin 0. (03/03/18 21:00) Tranexamic Acid Injection (Cyklokapron I (03/03/18 18:15) Tranexamic Acid Injection (Cyklokapron I (03/03/18 18:03) (ASHVIN EMERSON) Medications Given in ED Current Medications Medications Dose Ordered Sig/Balwinder Route Start Time Stop Time Status Last Admin Dose Admin Tranexamic Acid 1,000 mg STK-MED ONCE IV 03/03/18 18:03 03/03/18 18:04 DC 03/03/18 18:06 1,000 MG (ASHVIN EMERSON) Vital Signs/I&O 03/03/18 03/03/18 03/03/18 18:06 18:17 19:54 Pulse 86 71 70 Resp 14 16 14 B/P (MAP) 131/70 (90) 131/70 (90) 131/70 Pulse Ox 98 91 98 O2 Delivery Room Air Room Air Room Air (ASHVIN EMERSON) Blood Pressure Mean: 90 Progress Progress Note : Time: 19:33 Progress Note The patient is no longer bleeding from her right nostril. The rapid Rhino remains in place and the patient is to follow-up with Dr. Pope or primary care physician tomorrow morning. (PACHECO WHITTEN STUDENT) Progress Note : Time: 20:23 Progress Note I saw, took a history with, examined and agree with the x-ray findings and plan as laid out by Pacheco nurse practitioner. Patient presented earlier with a nosebleed and a nasal rocket was placed which stopped at that time but then it started to rebleed today to see her second nosebleed in the last week. She has outpatient follow-up with ENT which would be advisable given the possibility of a polyp or AVM. She is on 81 mg aspirin and we've encouraged her to go ahead and continue this as stopping for a single day before seeing ENT is not going to help. She had the nasal rocket removed and another one was placed using tranexamic acid after she had 4 sprays of Afrin in each nostril and this now has her hemostatic. We'll send her home with the Afrin with instructions to use it again not to swallow her secretions and follow-up with ear nose and throat in the morning to have the nasal rocket removed and examined. Patient is in agreement with this plan. (ASHVIN EMERSON) Departure Impression Primary Impression: Epistaxis Disposition: HOME, SELF-CARE Condition: Stable/Unchanged Departure-Patient Inst. Decision time for Depature: 19:26 (PACHECO WHITTEN STUDENT) Referrals: RONAK POPE MD [facility] [place] Primary Care Physician Patient Instructions: Nosebleeds (DC) Add. Discharge Instructions: Follow-up with you primary care provider and Dr. Pope's office within one week. Call first thing tomorrow morning for appointment times the nasal packing needs to be removed by someone with in 24hours. Continue the antibiotic that was prescribed to you on your previous visit (Augmentin) and leave the nasal packing in until you see Dr. Pope or your primary care provider, if it should fall out do not try to reinsert it just leave it out and continue follow-up. Return back to the emergency room for increased bleeding, pain, nausea, vomiting , dizziness or any other concerns as needed. All discharge instructions reviewed with patient and/or family. Voiced understanding. PACHECO WHITTEN STUDENT Mar 03, 2018 18:26 ASHVIN EMERSON Mar 03, 2018 20:25
[2018-03-03 19:54] VITALS: BP 131/70
[2018-03-03] MEDS ORDERED: OXYMETAZOLINE (AFRIN) 0.05% NA 15 ML BTL SCH (21:00)
== END 2018-03-03 19:50 | disposition home or self-care (01) ==
LOC: EDUNIT# 17:52 → ER 17:53
DX: R04.0 Epistaxis (principal); J45.909 Unspecified asthma, uncomplicated; K21.9 Gastro-esophageal reflux disease without esophagitis; E11.9 Type 2 diabetes mellitus without complications; M17.12 Unilateral primary osteoarthritis, left knee; Z80.3 Family history of malignant neoplasm of breast; Z82.49 Family history of ischemic heart disease and other diseases of the circulatory system; Z87.19 Personal history of other diseases of the digestive system; Z90.710 Acquired absence of both cervix and uterus; Z79.82 Long term (current) use of aspirin; Z79.4 Long term (current) 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; Z87.891 Personal history of nicotine dependence; Z96.651 Presence of right artificial knee joint
CPT/HCPCS: 96374; 99284

== ENCOUNTER 2018-12-19 12:21 | Emergency (ER) | payer MEDICARE, OTHER ==
[~2018-12-19] VITALS: Ht 157.5 cm; Wt 99.3 kg
--- OUTSIDE RECORDS SUMMARY | 2018-12-19 12:27 | XMS REPORT ---
Author Author PIERRE CLEVELAND Organization [facility] Address [address] [place] [address] Care Team Providers Care Director Medical Writing Name Role Phone PIERRE CLEVELAND Unavailable PROBLEMS Type Condition ICD9-CM Code NII48-NW Code Onset Dates Condition Status SNOMED Code Problem Essential hypertension I10 Active 42243923 Problem Primary osteoarthritis of both knees M17.0 Active 538431114 Problem Mild single current episode of major depressive disorder F32.0 Active 37061498 Problem Type 2 diabetes mellitus with other specified complication E11.69 Active 25669953 Problem Morbid (severe) obesity due to excess calories E66.01 Active 802209954 Problem Hypercholesterolemia E78.00 Active 91917981 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 [id number] [place] [address] Jul, Mild single current episode of major depressive disorder F32.0 [facility] [id number] [place] [address]369 Jun, Essential hypertension I10 [facility] [id number] [place] [phone] Jun, Dysuria R30.0 and Acute UTI (urinary tract infection) N39.0 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.4 ; Essential hypertension I10 ; Primary osteoarthritis of both knees M17.0 ; Hypercholesterolemia E78.00 ; Morbid (severe) obesity due to excess calories E66.01 and Body mass index (BMI) of 36.0-36.9 in adult Z68.36 [place] [id number] [place] [address] 01236- 0108 10 Mar, 2018 Type 2 diabetes mellitus with hyperglycemia E11.65 [place] [address] [address] Mar, [place] [address] [address] Mar, Actinic keratosis L57.0 ; Labial cyst N90.7 and Type 2 diabetes mellitus with diabetic chronic kidney disease E11.22 [place] [id number] [place] [address] 89702- 5945 Feb, [place] [address] [address] 14 Feb, 2018 Type 2 diabetes mellitus with hyperglycemia E11.65 ; Essential hypertension I10 ; Hypercholesterolemia E78.00 ; 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.4 ; Primary osteoarthritis of both knees M17.0 and 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 [place] [id number] [place] [address] 04074- 1327 13 Feb, 2018 Dental examination Z01.20 [place] [id number] [place] [address] 55497- 4385 12 Feb, 2018 Dental examination Z01.20 [place] [address] [address] 12 Feb, 2018 Type 2 diabetes mellitus with hyperglycemia E11.65 ; Essential hypertension I10 ; residential 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 Z79.4 ; Hypercholesterolemia E78.00 ; Primary osteoarthritis of both knees M17.0 ; 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 ; Body mass index (BMI) of 40.0-44.9 in adult Z68.41 and Morbid (severe) obesity due to excess calories E66.01 [place] [address] [address]- [address] January, Type 2 diabetes mellitus with hyperglycemia E11.65 [facility] [address] [place] [address] 26793- 3518 Dec, Mild single current episode of major depressive disorder F32.0 [place] [id number] [place] [address] 11851- 7001 Dec, Hypercholesterolemia E78.00 [facility] [id number] [place] [address] 35652 -0204 Dec, Seasonal allergic rhinitis, unspecified trigger J30.2 [place] [id number] [place] [address] 09227- 0234 Nov, [place] [id number] [place] [address] 31270- 4048 Nov, Hypercholesterolemia E78.00 and Type 2 diabetes mellitus with hyperglycemia E11.65 [place] [id number] [place] [address] 61578- 3513 Nov, Leg cramps R25.2 [place] [id number] [place] [address] 99886- 3328 Nov, Type 2 diabetes mellitus with hyperglycemia E11.65 [place] [id number] [place] [address] 27925- 2350 Nov, Type 2 diabetes mellitus with hyperglycemia E11.65 ; residential 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 Z79.4 ; Essential hypertension I10 ; Mild single current episode of major depressive disorder F32.0 ; Primary osteoarthritis of both knees M17.0 ; High risk medication use Z79.899 ; Controlled substance agreement signed Z79.899 ; Hypercholesterolemia E78.00 and Leg cramps R25.2 [place] [id number] [place] [address] 97372- 6324 Oct, [facility] [id number] [place] [address]25 -[phone] Oct, [place] [id number] [address] Oct, [facility] [address] [place] [address] Sep, Essential hypertension I10 [facility] [address] [place] [address] Sep, Essential hypertension I10 [facility] [address] [place] [address] 40661- 6941 Sep, [facility] [address] [place] [address] Sep, [facility] [address] [place] [address] 10000- [phone] Sep, [facility] [address] [place] [address] Aug, [facility] [address] [place] [address] Jul, [facility] [address] [place] [address] Jul, [facility] [address] [place] [address] Jul, [facility] [address] [place] [address] Jun, [facility] [address] [place] [address] Jun, [facility] [address] [place] [address] Jun, Type 2 diabetes mellitus with diabetic chronic kidney disease E11.22 ; Heart murmur R01.1 ; Essential hypertension I10 and Primary osteoarthritis of both knees M17.0 [facility] [id number] [address] Apr, Type 2 diabetes mellitus with diabetic chronic kidney disease E11.22 [facility] [address] [place] [address] Mar, Type 2 diabetes mellitus with diabetic chronic kidney disease E11.22 ; Essential hypertension I10 ; Mild single current episode of major depressive disorder F32.0 and Primary osteoarthritis of both knees M17.0 [place] [address] [place] [address] Feb, Mild single current episode of major depressive disorder F32.0 [place] [address] [place] [address] Feb, [place] [id number] [place] [address] 45871- 6895 Feb, Essential hypertension I10 and Hypercholesterolemia E78.00 [place] [address] [place] [address] Feb, Type 2 diabetes mellitus with diabetic chronic kidney disease E11.22 ; Essential hypertension I10 ; Edema due to malnutrition, due to unspecified malnutrition type E43 ; Hypercholesterolemia E78.00 and Mild single current episode of major depressive disorder F32.0 [place] [address] [place] [address] Feb, IMMUNIZATIONS No Known Immunizations SOCIAL HISTORY Never Assessed REASON FOR VISIT refill request PLAN OF CARE VITAL SIGNS MEDICATIONS Medication Instructions Dosage Frequency Start Date End Date Duration Status Lexapro 20 mg Orally Once a day 1 tablet 24h 90 days Active RESULTS No Results PROCEDURES No Known [...]
--- OUTSIDE RECORDS SUMMARY | 2018-12-19 12:27 | XMS REPORT ---
Author Author MERLIN VARUN Organization [facility] Address [address] [place] [address] Care Team Providers Care Energy Risk Management Analyst Name Role Phone BOYERVARUN Hopkins Unavailable PROBLEMS Type Condition ICD9-CM Code QYP01-MI Code Onset Dates Condition Status SNOMED Code Problem Mild single current episode of major depressive disorder F32.0 Active 29081958 Problem Type 2 diabetes mellitus with hyperglycemia E11.65 Active 20871316 Problem Primary osteoarthritis of both knees M17.0 Active 670790514 Problem Essential hypertension I10 Active 56492492 Problem Type 2 diabetes mellitus with diabetic chronic kidney disease E11.22 Active 161318300 Problem Morbid (severe) obesity due to excess calories E66.01 Active 661064480 Problem Hypercholesterolemia E78.00 Active 53195035 Problem 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.4 Active 525336157 Problem Body mass index (BMI) of 40.0-44.9 in adult Z68.41 Active 745840612 Problem 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 Active 67682252 ALLERGIES No Information ENCOUNTERS Encounter Location Date Diagnosis [place] [id number] [place] [address] 14972- 1388 May, [place] [id number] [place] [address] 70750- 1115 Mar, Type 2 diabetes mellitus with hyperglycemia E11.65 [facility] [id number] [place] [address] 61939- 7026 Mar, [facility] [id number] [place] [address] 90244- 1132 Mar, Actinic keratosis L57.0 ; Labial cyst N90.7 and Type 2 diabetes mellitus with diabetic chronic kidney disease E11.22 [facility] [id number] [place] [address] 79028- 5487 Feb, [place] [address] [place] [address] 93779- 3542 14 Feb, 2018 Type 2 diabetes mellitus with hyperglycemia E11.65 ; Essential hypertension I10 ; Hypercholesterolemia E78.00 ; 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.4 ; Primary osteoarthritis of both knees M17.0 and 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 [place] [address] 45277- 0253 13 Feb, 2018 Dental examination Z01.20 [place] [address] [place] [id number] [place] [address] 66579- 8963 12 Feb, 2018 Dental examination Z01.20 [place] [address] 61714- 3799 12 Feb, 2018 Type 2 diabetes mellitus with hyperglycemia E11.65 ; Essential hypertension I10 ; 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 ; Hypercholesterolemia E78.00 ; Primary osteoarthritis of both knees M17.0 ; 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 ; Body mass index (BMI) of 40.0-44.9 in adult Z68.41 and Morbid (severe) obesity due to excess calories E66.01 [place] [address] [place] [id number] [place] [address] 32636- 0395 January, Type 2 diabetes mellitus with hyperglycemia E11.65 [place] [address] [place] [id number] [place] [address] 10850- 0303 Dec, Mild single current episode of major depressive disorder F32.0 [place] [address] [place] [address] [id number] [place] [address] 72801- 7232 Dec, Hypercholesterolemia E78.00 [facility] [address] 29117 -2056 Dec, Seasonal allergic rhinitis, unspecified trigger J30.2 [place] [address] [place] [id number] [place] [address] 31864- 4987 Nov, [place] [address] 59873- 0775 Nov, Hypercholesterolemia E78.00 and Type 2 diabetes mellitus with hyperglycemia E11.65 [facility] [id number] [place] [address] 34268- 4219 Nov, Leg cramps R25.2 [facility] [address] [place] [address] 99854- 6012 Nov, Type 2 diabetes mellitus with hyperglycemia E11.65 [facility] [id number] [place] [address] 18421- 7713 Nov, Type 2 diabetes mellitus with hyperglycemia E11.65 ; 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.4 ; Essential hypertension I10 ; Mild single current episode of major depressive disorder F32.0 ; Primary osteoarthritis of both knees M17.0 ; High risk medication use Z79.899 ; Controlled substance agreement signed Z79.899 ; Hypercholesterolemia E78.00 and Leg cramps R25.2 [facility] [id number] [place] [address] 47445- 3762 Oct, [facility] [address] [place] [address] 56969 -1310 Oct, [facility] [address] [id number] [place] [address] 38972- 5769 Oct, [facility] [address] [place] [address] 39214- 5757 Sep, Essential hypertension I10 [facility] [id number] [place] [address] 40805- 0595 Sep, Essential hypertension I10 [facility] [address] [place] [address] 41541- 5550 Sep, [facility] [id number] [place] [address] 44117- 2301 Sep, [facility] [address] [place] [address] 69442- 9763 Sep, [facility] [address] [id number] [address] 8545 Aug, [facility] [address] [address] 9370 Jul, [facility] [address] [place] [address] 2779 Jul, [facility] [address] [place] [address] 29667- 7516 Jul, [facility] [address] [address]- 3585 Jun, [facility] [address] [place] [id number] [place] [address] 90225- 6019 Jun, [facility] [address] [place] [address] 9832 Jun, Type 2 diabetes mellitus with diabetic chronic kidney disease E11.22 ; Heart murmur R01.1 ; Essential hypertension I10 and Primary osteoarthritis of both knees M17.0 [facility] [address] [address]- 7808 Apr, Type 2 diabetes mellitus with diabetic chronic kidney disease E11.22 [facility] [address] [address] 5280 Mar, Type 2 diabetes mellitus with diabetic chronic kidney disease E11.22 ; Essential hypertension I10 ; Mild single current episode of major depressive disorder F32.0 and Primary osteoarthritis of both knees M17.0 [facility] [address] [address] 3810 Feb, Mild single current episode of major depressive disorder F32.0 [facility] [address] [address]- 7583 Feb, [facility] [address] [place] [address]- 9840 Feb, Essential hypertension I10 and Hypercholesterolemia E78.00 [facility] [address] [place] [address] 73056- 8266 Feb, Type 2 diabetes mellitus with diabetic chronic kidney disease E11.22 ; Essential hypertension I10 ; Edema due to malnutrition, due to unspecified malnutrition type E43 ; Hypercholesterolemia E78.00 and Mild single current episode of major depressive disorder F32.0 [facility] [address] [facility] [id number] [place] [address] Feb, IMMUNIZATIONS No Known Immunizations SOCIAL HISTORY Never Assessed REASON FOR VISIT Requests return call PLAN OF CARE VITAL SIGNS MEDICATIONS Unknown [...]
--- OUTSIDE RECORDS SUMMARY | 2018-12-19 12:27 | XMS REPORT ---
Author Author PIERRE CLEVELAND [facility] Address [address] [place] [address] Care Team Providers Care Access Services Assistant Name Role Phone PIERRE CLEVELAND Unavailable PROBLEMS Type Condition ICD9-CM Code NDM07-CV Code Onset Dates Condition Status SNOMED Code Problem Essential hypertension I10 Active 32471643 Problem Primary osteoarthritis of both knees M17.0 Active 906276248 Problem Mild single current episode of major depressive disorder F32.0 Active 42129010 Problem Type 2 diabetes mellitus with other specified complication E11.69 Active 37229149 Problem Morbid (severe) obesity due to excess calories E66.01 Active 190098822 Problem Hypercholesterolemia E78.00 Active 98423626 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 Active 219680898 Problem Body mass index (BMI) of 36.0-36.9 in adult Z68.36 Active 924272136 Problem 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 Active 30390443 ALLERGIES No Information ENCOUNTERS Encounter Location Date Diagnosis [facility] [id number] [place] [address] 17985- 1406 Jul, Essential hypertension I10 [facility] [address] [id number] [place] [address] 26952- 4353 Jul, Mild single current episode of major depressive disorder F32.0 [facility] [id number] [place] [address] 37356- 8861 Jun, Essential hypertension I10 [facility] [id number] [place] [address] 74646 -8507 Jun, Dysuria R30.0 and Acute UTI (urinary tract infection) N39.0 [facility] [id number] [place] [address] 14020- 9196 May, Type 2 diabetes mellitus with other specified complication E11.69 ; 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 ; Essential hypertension I10 ; Primary osteoarthritis of both knees M17.0 ; Hypercholesterolemia E78.00 ; Morbid (severe) obesity due to excess calories E66.01 and Body mass index (BMI) of 36.0-36.9 in adult Z68.36 [place] [address], [place] [address]- 0228 10 Mar, 2018 Type 2 diabetes mellitus with hyperglycemia E11.65 [place] [address] [place] [id number] [place] [address] 03411- 6515 09 Mar, 2018 [place] [address] [place] [id number] [place] [address] 81592- 0643 02 Mar, 2018 Actinic keratosis L57.0 ; Labial cyst N90.7 and Type 2 diabetes mellitus with diabetic chronic kidney disease E11.22 [place] [address] [place] [id number] [place] [address] 15776- 9454 Feb, [place] [address] [place] [id number] [place] [address] 02587- 1216 14 Feb, 2018 Type 2 diabetes mellitus with hyperglycemia E11.65 ; Essential hypertension I10 ; Hypercholesterolemia E78.00 ; 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 ; Primary osteoarthritis of both knees M17.0 and 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 [place] [address] [address]- 5375 13 Feb, 2018 Dental examination Z01.20 [place] [address] [place] [address] 20400- 3450 12 Feb, 2018 Dental examination Z01.20 [place] [address] [place] [id number] [place] [address] 36952- 5894 12 Feb, 2018 Type 2 diabetes mellitus with hyperglycemia E11.65 ; Essential hypertension I10 ; USP 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 Z79.4 ; Hypercholesterolemia E78.00 ; Primary osteoarthritis of both knees M17.0 ; 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 ; Body mass index (BMI) of 40.0-44.9 in adult Z68.41 and Morbid (severe) obesity due to excess calories E66.01 [place] [address] [place] [address] [id number] [place] [address] 55465- 4268 January, Type 2 diabetes mellitus with hyperglycemia E11.65 [place] [address] [place] [id number] [place] [address] 94009- 1070 Dec, Mild single current episode of major depressive disorder F32.0 [place] [address] [place] [address] [id number] [place] [address] 03175- 2263 Dec, Hypercholesterolemia E78.00 [facility] [place] [address] [address] [id number] [place] [address] 71349 -6219 Dec, Seasonal allergic rhinitis, unspecified trigger J30.2 [place] [address] [place] [id number] [place] [address] 59604- 4419 Nov, [place] [address] 42016- 6584 Nov, Hypercholesterolemia E78.00 and Type 2 diabetes mellitus with hyperglycemia E11.65 [place] [address] [place] [id number] [place] [address] 79315- 0974 Nov, Leg cramps R25.2 [place] [address] [place] [id number] [place] [address] 39294- 0279 Nov, Type 2 diabetes mellitus with hyperglycemia E11.65 [place] [address] [place] [id number] [place] [address] 81793- 1526 Nov, Type 2 diabetes mellitus with hyperglycemia E11.65 ; USP 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 Z79.4 ; Essential hypertension I10 ; Mild single current episode of major depressive disorder F32.0 ; Primary osteoarthritis of both knees M17.0 ; High risk medication use Z79.899 ; Controlled substance agreement signed Z79.899 ; Hypercholesterolemia E78.00 and Leg cramps R25.2 [place] [address] [place] [address] [id number] [place] [address] 35824- 4002 Oct, [facility] [address] [place] [id number] [address] Oct, [facility] [address] [place] [address] 88682- 9120 Oct, [facility] [address] [id number] [address]- 5011 Sep, Essential hypertension I10 [facility] [id number] [place] [address] 99352- 7359 Sep, Essential hypertension I10 [facility] [id number] [place] [address] 64278- 6673 Sep, [facility] [id number] [place] [address] 17393- 6015 Sep, [facility] [id number] [place] [address] 38763- 7261 Sep, [facility] [address] [place] [address] 17417- 6909 Aug, [facility] [address] [address]- 0209 Jul, [facility] [id number] [place] [address] 94642- 0865 Jul, [facility] [address], [place] [address]- 0844 Jul, [facility] [address] [address]- 9575 Jun, [facility] [address] [address]- 9011 Jun, [facility] [id number] [place] [address] 63099- 4584 Jun, Type 2 diabetes mellitus with diabetic chronic kidney disease E11.22 ; Heart murmur R01.1 ; Essential hypertension I10 and Primary osteoarthritis of both knees M17.0 [facility] [address] [address]- 7007 Apr, Type 2 diabetes mellitus with diabetic chronic kidney disease E11.22 [place] [address] [place] [address] 1932 Mar, Type 2 diabetes mellitus with diabetic chronic kidney disease E11.22 ; Essential hypertension I10 ; Mild single current episode of major depressive disorder F32.0 and Primary osteoarthritis of both knees M17.0 [place] [address] [place] [address] 06152- 7619 Feb, Mild single current episode of major depressive disorder F32.0 [place] [address] [place] [address] 94251- 1673 Feb, [place] [address] [place] [address] [id number] [place] [address] 6[address] Feb, Essential hypertension I10 and Hypercholesterolemia E78.00 [place] [address] [place] [address] 81974- 1709 Feb, Type 2 diabetes mellitus with diabetic chronic kidney disease E11.22 ; Essential hypertension I10 ; Edema due to malnutrition, due to unspecified malnutrition type E43 ; Hypercholesterolemia E78.00 and Mild single current episode of major depressive disorder F32.0 [place] [address], [place] [address]- 5933 Feb, IMMUNIZATIONS No Known Immunizations SOCIAL HISTORY Never Assessed REASON FOR VISIT Refill request PLAN OF CARE VITAL SIGNS MEDICATIONS Medication Instructions Dosage Frequency Start Date End Date Duration Status Enalapril Maleate 20 mg Orally Once a day 1 [...]
--- OUTSIDE RECORDS SUMMARY | 2018-12-19 12:27 | XMS REPORT ---
Author Author PIERRE CLEVELAND [facility] Address [address] [place] [address] Care Team Providers Care Fender Mechanic Name Role Phone PIERRE CLEVELAND Unavailable PROBLEMS Type Condition ICD9-CM Code UDD61-DR Code Onset Dates Condition Status SNOMED Code Problem Essential hypertension I10 Active 84973207 Problem Primary osteoarthritis of both knees M17.0 Active 665330989 Problem Mild single current episode of major depressive disorder F32.0 Active 45448630 Problem Type 2 diabetes mellitus with other specified complication E11.69 Active 75241319 Problem Morbid (severe) obesity due to excess calories E66.01 Active 879165710 Problem Hypercholesterolemia E78.00 Active 35399486 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 [id number] [place] [address] 59528- 0791 Sep, [facility] [id number] [place] [address] 83475- 4639 Aug, Type 2 diabetes mellitus with hyperglycemia E11.[address] [facility] [id number] [place] [address] 85395- 9607 Jul, Essential hypertension I10 [facility] [id number] [place] [address] 16900- 3617 07 Jul, 2018 Mild single current episode of major depressive disorder F32.0 [facility] [id number] [place] [address] 92329- 9873 17 Jun, 2018 Essential hypertension I10 [facility] [id number] [place] [address] 12959 -9497 02 Jun, 2018 Dysuria R30.0 and Acute UTI (urinary tract infection) N39.0 [facility] [id number] [place] [address] 46147- 6533 20 May, 2018 Type 2 diabetes mellitus with other specified complication E11.69 ; [facility] 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 Z79.4 ; Essential hypertension I10 ; Primary osteoarthritis of both knees M17.0 ; Hypercholesterolemia E78.00 ; Morbid (severe) obesity due to excess calories E66.01 and Body mass index (BMI) of 36.0-36.9 in adult Z68.36 [address] [address] 79430- 7510 10 Mar, 2018 Type 2 diabetes mellitus with hyperglycemia E11.65 [address] [address] 45346- 9657 09 Mar, 2018 [place] [address] 03334- 1748 Mar, Actinic keratosis L57.0 ; Labial cyst N90.7 and Type 2 diabetes mellitus with diabetic chronic kidney disease E11.22 [place] [id number] [place] [address] 71484- 8634 19 Feb, 2018 [place] [id number] [place] [address] 61714- 2705 14 Feb, 2018 Type 2 diabetes mellitus with hyperglycemia E11.65 ; Essential hypertension I10 ; Hypercholesterolemia E78.00 ; 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 ; Primary osteoarthritis of both knees M17.0 and 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 [place] [id number] [place] [address] 31011- 1028 13 Feb, 2018 Dental examination Z01.20 [place] [id number] [place] [address] 64241- 8893 12 Feb, 2018 Dental examination Z01.20 [place] [address] 18039- 0446 Feb, Type 2 diabetes mellitus with hyperglycemia E11.65 ; Essential hypertension I10 ; [facility] 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 Z79.4 ; Hypercholesterolemia E78.00 ; Primary osteoarthritis of both knees M17.0 ; 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 ; Body mass index (BMI) of 40.0-44.9 in adult Z68.41 and Morbid (severe) obesity due to excess calories E66.[address] 23992- 5149 January, Type 2 diabetes mellitus with hyperglycemia E11.65 [place] [address] 23082- 6219 Dec, Mild single current episode of major depressive disorder F32.[address] 10811- 1096 Dec, Hypercholesterolemia E78.00 [facility] [address] 46392 -0571 Dec, Seasonal allergic rhinitis, unspecified trigger J30.2 [place] [address] 97402- 5411 Nov, [address] 68829- 5969 Nov, Hypercholesterolemia E78.00 and Type 2 diabetes mellitus with hyperglycemia E11.65 [place] [address] 27296- 4315 Nov, Leg cramps R25.2 [place] [address] 10514- 9078 Nov, Type 2 diabetes mellitus with hyperglycemia E11.[address] 65839- 7416 Nov, Type 2 diabetes mellitus with hyperglycemia E11.65 ; 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 [id number] [place] [address] 18729- 7048 Oct, [facility] [id number] [place] [address] 64078 -1357 Oct, [facility] [address] 58199- 5923 Oct, [facility] [id number] [place] [address] 70139- 1920 Sep, Essential hypertension I10 [facility] [id number] [place] [address] 05613- 8030 Sep, Essential hypertension I10 [facility] [id number] [place] [address] 87633- 4118 Sep, [facility] [id number] [place] [address] 44067- 0414 Sep, [facility] [id number] [place] [address] 29978- 0983 Sep, [facility] [id number] [place] [address] 08245- 1799 Aug, [facility] [id number] [place] [address] 11184- 6882 Jul, [facility] [id number] [place] [address] 31947- 2387 Jul, [facility] [id number] [place] [address] 00318- 5293 Jul, [facility] [id number] [place] [address] 80015- 7227 Jun, [facility] [id number] [place] [address] 86381- 4594 Jun, [place] [address] [address] 8239 Jun, Type 2 diabetes mellitus with diabetic chronic kidney disease E11.22 ; Heart murmur R01.1 ; Essential hypertension I10 and Primary osteoarthritis of both knees M17.0 [place] [address] [place] [address] 75110- 3313 Apr, Type 2 diabetes mellitus with diabetic chronic kidney disease E11.22 [place] [id number] [place] [address] 64066- 1066 Mar, Type 2 diabetes mellitus with diabetic chronic kidney disease E11.22 ; Essential hypertension I10 ; Mild single current episode of major depressive disorder F32.0 and Primary osteoarthritis of both knees M17.0 [place] [id number] [place] [address] 42888- 6510 Feb, Mild single current episode of major depressive disorder F32.0 [place] [id number] [place] [address] 20720- 2230 Feb, [place] [id number] [place] [address] 79806- 9528 Feb, Essential hypertension I10 and Hypercholesterolemia E78.00 [place] [address] [place] [address] 34779- 9362 Feb, Type 2 diabetes mellitus with diabetic chronic kidney disease E11.22 ; Essential hypertension I10 ; Edema due to malnutrition, due to unspecified malnutrition type E43 ; Hypercholesterolemia E78.00 and Mild single current episode of major depressive disorder F32.0 [place] [address] [place] [address] 58252- 9138 Feb, IMMUNIZATIONS No Known Immunizations SOCIAL HISTORY Never Assessed REASON FOR VISIT Refill request PLAN OF CARE VITAL SIGNS MEDICATIONS Medication Instructions Dosage Frequency Start Date End Date Duration Status Metformin HCl 1000 MG Orally Twice a day 1 tablet with meals 12h Active Simvastatin 10 mg Orally Once a day TAKE ONE TABLET BY MOUTH ONCE DAILY IN THE EVENING 24h Active RESULTS No Results PROCEDURES No [...]
--- OUTSIDE RECORDS SUMMARY | 2018-12-19 12:27 | XMS REPORT ---
Author Author MERLIN VARUN Organization [facility] Address [address] [place] [address] Care Team Providers Care Retail Receiving Clerk Name Role Phone BOYERVARUN Hopkins Unavailable PROBLEMS Type Condition ICD9-CM Code ZTG63-FQ Code Onset Dates Condition Status SNOMED Code Problem Mild single current episode of major depressive disorder F32.0 Active 66438219 Problem Type 2 diabetes mellitus with hyperglycemia E11.65 Active 16297729 Problem Primary osteoarthritis of both knees M17.0 Active 543258280 Problem Essential hypertension I10 Active 02677407 Problem Type 2 diabetes mellitus with diabetic chronic kidney disease E11.22 Active 059552667 Problem Morbid (severe) obesity due to excess calories E66.01 Active 619370832 Problem Hypercholesterolemia E78.00 Active 09773923 Problem intermediate 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 Z79.4 Active 961524793 Problem Body mass index (BMI) of 40.0-44.9 in adult Z68.41 Active 916771240 Problem 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 Active 77434649 ALLERGIES No Information ENCOUNTERS Encounter Location Date Diagnosis [place] [id number] [place] [address] 02681- 9026 May, [place] [address] [place] [address] 28500- 6440 Mar, Type 2 diabetes mellitus with hyperglycemia E11.65 [facility] [id number] [place] [address] 19138- 3659 Mar, [facility] [id number] [place] [address] 81971- 4074 Mar, Actinic keratosis L57.0 ; Labial cyst N90.7 and Type 2 diabetes mellitus with diabetic chronic kidney disease E11.22 [facility] [id number] [place] [address] 22079- 5688 Feb, [place] [id number] [place] [address] 02073- 0347 14 Feb, 2018 Type 2 diabetes mellitus with hyperglycemia E11.65 ; Essential hypertension I10 ; Hypercholesterolemia E78.00 ; intermediate 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 Z79.4 ; Primary osteoarthritis of both knees M17.0 and 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 [place] [address] 01848- 2323 13 Feb, 2018 Dental examination Z01.20 [place] [id number] [place] [address] 48227- 2741 12 Feb, 2018 Dental examination Z01.20 [place] [address] 18146- 7175 12 Feb, 2018 Type 2 diabetes mellitus with hyperglycemia E11.65 ; Essential hypertension I10 ; 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 ; Hypercholesterolemia E78.00 ; Primary osteoarthritis of both knees M17.0 ; 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 ; Body mass index (BMI) of 40.0-44.9 in adult Z68.41 and Morbid (severe) obesity due to excess calories E66.01 [place] [id number] [place] [address] 99570- 7380 January, Type 2 diabetes mellitus with hyperglycemia E11.65 [place] [id number] [place] [address] 11161- 2399 Dec, Mild single current episode of major depressive disorder F32.0 [place] [id number] [place] [address] 15626- 0611 Dec, Hypercholesterolemia E78.00 [facility] [address] 45626 -8536 Dec, Seasonal allergic rhinitis, unspecified trigger J30.2 [place] [id number] [place] [address] 72572- 1529 Nov, [place] [address] 80851- 2643 Nov, Hypercholesterolemia E78.00 and Type 2 diabetes mellitus with hyperglycemia E11.65 [facility] [id number] [place] [address] 54290- 8089 Nov, Leg cramps R25.2 [facility] [address] [place] [address] 76545- 1630 Nov, Type 2 diabetes mellitus with hyperglycemia E11.65 [facility] [id number] [place] [address] 00556- 4418 Nov, Type 2 diabetes mellitus with hyperglycemia E11.65 ; intermediate 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 Z79.4 ; Essential hypertension I10 ; Mild single current episode of major depressive disorder F32.0 ; Primary osteoarthritis of both knees M17.0 ; High risk medication use Z79.899 ; Controlled substance agreement signed Z79.899 ; Hypercholesterolemia E78.00 and Leg cramps R25.2 [facility] [id number] [place] [address] 05183- 0213 Oct, [facility] [id number] [place] [address] 63901 -8259 Oct, [facility] [id number] [place] [address] 15688- 8778 Oct, [facility] [id number] [place] [address] 61222- 9791 Sep, Essential hypertension I10 [facility] [id number] [place] [address] 54814- 5327 Sep, Essential hypertension I10 [facility] [id number] [place] [address] 09264- 0426 Sep, [facility] [id number] [place] [address] 72313- 8049 Sep, [facility] [id number] [place] [address] 43701- 7426 Sep, [facility] [id number] [address]- 0957 Aug, [facility] [address] [address]- 8768 Jul, [facility] [address] [address]- 0124 Jul, [facility] [id number] [place] [address] 26403- 3629 Jul, [facility] [address] [address]- 6566 Jun, [facility] [id number] [place] [address] 27973- 2852 Jun, [facility] [address] [address]- 3284 Jun, Type 2 diabetes mellitus with diabetic chronic kidney disease E11.22 ; Heart murmur R01.1 ; Essential hypertension I10 and Primary osteoarthritis of both knees M17.0 [facility] [address] [address]- 8401 Apr, Type 2 diabetes mellitus with diabetic chronic kidney disease E11.22 [facility] [address] [address]- 2724 Mar, Type 2 diabetes mellitus with diabetic chronic kidney disease E11.22 ; Essential hypertension I10 ; Mild single current episode of major depressive disorder F32.0 and Primary osteoarthritis of both knees M17.0 [facility] [address] [address]- 4734 Feb, Mild single current episode of major depressive disorder F32.0 [facility] [address] [address]- 5550 Feb, [facility] [address] [address]- 0123 Feb, Essential hypertension I10 and Hypercholesterolemia E78.00 [facility] [id number] [place] [address] 54363- 8300 Feb, Type 2 diabetes mellitus with diabetic chronic kidney disease E11.22 ; Essential hypertension I10 ; Edema due to malnutrition, due to unspecified malnutrition type E43 ; Hypercholesterolemia E78.00 and Mild single current episode of major depressive disorder F32.0 [facility] [address] [facility] [id number] [place] [address]- 4547 Feb, IMMUNIZATIONS No Known Immunizations SOCIAL HISTORY Never Assessed REASON FOR VISIT Requests return call PLAN OF CARE VITAL SIGNS MEDICATIONS Medication Instructions Dosage Frequency Start Date End Date Duration Status Levemir 100 UNIT/ML Subcutaneous twice a day 20 units 12h Active RESULTS No Results PROCEDURES [...]
--- OUTSIDE RECORDS SUMMARY | 2018-12-19 12:27 | XMS REPORT ---
Author Author VARUN Osborn Organization [facility] Address [address] [place] [address] Care Team Providers Care Water Softener Installer Name Role Phone VARUN Osborn Unavailable PROBLEMS Type Condition ICD9-CM Code HFA38-WS Code Onset Dates Condition Status SNOMED Code Problem Essential hypertension I10 Active 97268456 Problem Primary osteoarthritis of both knees M17.0 Active 448221581 Problem Mild single current episode of major depressive disorder F32.0 Active 42868683 Problem Type 2 diabetes mellitus with other specified complication E11.69 Active 78767880 Problem Morbid (severe) obesity due to excess calories E66.01 Active 261609229 Problem Hypercholesterolemia E78.00 Active 46923302 Problem halfway 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 Z79.4 Active 504029235 Problem Body mass index (BMI) of 36.0-36.9 in adult Z68.36 Active 627417472 Problem 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 Active 29088136 ALLERGIES No Known Allergies ENCOUNTERS Encounter Location Date Diagnosis [facility] [address] [address] 02 Jun, 2018 Dysuria R30.0 and Acute UTI (urinary tract infection) N39.0 [facility] [address], [place] [address] May, Type 2 diabetes mellitus with other specified complication E11.69 ; halfway 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 Z79.4 ; Essential hypertension I10 ; Primary osteoarthritis of both knees M17.0 ; Hypercholesterolemia E78.00 ; Morbid (severe) obesity due to excess calories E66.01 and Body mass index (BMI) of 36.0-36.9 in adult Z68.36 [facility] [id number] [address] Mar, Type 2 diabetes mellitus with hyperglycemia E11.65 [place] [id number] [place] [address] 26847- 4485 Mar, [place] [address] [address] Mar, Actinic keratosis L57.0 ; Labial cyst N90.7 and Type 2 diabetes mellitus with diabetic chronic kidney disease E11.22 [place] [id number] [place] [address] 37326- 2175 Feb, [place] [id number] [place] [address] 57980- 1804 14 Feb, 2018 Type 2 diabetes mellitus with hyperglycemia E11.65 ; Essential hypertension I10 ; Hypercholesterolemia E78.00 ; predatory animal 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 ; Primary osteoarthritis of both knees M17.0 and 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 [place] [id number] [place] [address] 18942- 9247 13 Feb, 2018 Dental examination Z01.20 [place] [id number] [place] [address] 66718- 8901 12 Feb, 2018 Dental examination Z01.20 [place] [id number] [place] [address] 48871- 8179 12 Feb, 2018 Type 2 diabetes mellitus with hyperglycemia E11.65 ; Essential hypertension I10 ; predatory animal 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 ; Hypercholesterolemia E78.00 ; Primary osteoarthritis of both knees M17.0 ; 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 ; Body mass index (BMI) of 40.0-44.9 in adult Z68.41 and Morbid (severe) obesity due to excess calories E66.01 [place] [id number] [place] [address] 32987- 6833 January, Type 2 diabetes mellitus with hyperglycemia E11.65 [place] [id number] [place] [address] 36559- 3866 Dec, Mild single current episode of major depressive disorder F32.0 [place] [id number] [place] [address] 57921- 0709 Dec, Hypercholesterolemia E78.[address] [facility] [id number] [place] [address] 8[address]91 -[address] 07 Dec, 2017 Seasonal allergic rhinitis, unspecified trigger J30.2 [facility] [id number] [place] [address] 09077- 2850 15 Nov, 2017 [facility] [id number] [place] [address] 61027- 2537 Nov, Hypercholesterolemia E78.00 and Type 2 diabetes mellitus with hyperglycemia E11.65 [place] [id number] [place] [address] 91612- 3912 02 Nov, 2017 Leg cramps R25.2 [place] [id number] [place] [address] 54367- 5897 Nov, Type 2 diabetes mellitus with hyperglycemia E11.65 [place] [id number] [place] [address] 70357- 6808 Nov, Type 2 diabetes mellitus with hyperglycemia E11.65 ; predatory animal 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 ; Essential hypertension I10 ; Mild single current episode of major depressive disorder F32.0 ; Primary osteoarthritis of both knees M17.0 ; High risk medication use Z79.899 ; Controlled substance agreement signed Z79.899 ; Hypercholesterolemia E78.00 and Leg cramps R25.2 [facility] [id number] [place] [address] 87184- 9428 Oct, [facility] [id number] [place] [address] 74415 -60[address] Oct, [facility] [id number] [place] [address] 05680- 8575 Oct, [facility] [id number] [place] [address] 99671- 9545 Sep, Essential hypertension I10 [facility] [id number] [place] [address] 04266- 7566 Sep, Essential hypertension I10 [facility] [address], [place] [address] Sep, [facility] [id number], [place] [address] Sep, [facility] [id number], [place] [address] Sep, [facility] [id number], [place] [address] Aug, [facility] [id number], [place] [address] Jul, [facility] [address], [place] [address] Jul, [facility] [id number], [place] [address] Jul, [facility] [id number], [place] [address] Jun, [facility] [address], [place] [address] Jun, [facility] [address], [place] [address] Jun, Type 2 diabetes mellitus with diabetic chronic kidney disease E11.22 ; Heart murmur R01.1 ; Essential hypertension I10 and Primary osteoarthritis of both knees M17.0 [facility] [id number], [place] [address] Apr, Type 2 diabetes mellitus with diabetic chronic kidney disease E11.22 [facility] [address], [place] [address] Mar, 2017 Type 2 diabetes mellitus with diabetic chronic kidney disease E11.22 ; Essential hypertension I10 ; Mild single current episode of major depressive disorder F32.0 and Primary osteoarthritis of both knees M17.0 [facility] [address] [address] Feb, Mild single current episode of major depressive disorder F32.0 [place] [id number], [place] [address] Feb, [place] [id number] [address] Feb, Essential hypertension I10 and Hypercholesterolemia E78.00 [place] [address] [address] Feb, Type 2 diabetes mellitus with diabetic chronic kidney disease E11.22 ; Essential hypertension I10 ; Edema due to malnutrition, due to unspecified malnutrition type E43 ; Hypercholesterolemia E78.00 and Mild single current episode of major depressive disorder F32.0 [place] [id number], [place] [address] Feb, IMMUNIZATIONS No Known Immunizations SOCIAL HISTORY Never Assessed REASON FOR VISIT Diabetes check up. BARBI Palma PLAN OF CARE Activity Details Follow Up 3 Months, prn Reason:CHM/DM w/Marc VITAL SIGNS Height 62 in 2018-06-06 Weight 199.4 lbs 2018-06-06 Temperature 98.6 degrees Fahrenheit 2018-06-06 Heart Rate 50 bpm 2018-06-06 Respiratory Rate 18 2018-06-06 BMI 36.47 kg/m2 2018-06-06 Blood pressure systolic 142 mmHg 2018-06-06 Blood pressure diastolic 80 mmHg 2018-06-06 MEDICATIONS Medication Instructions Dosage Frequency Start Date End Date Duration Status Multi For Her 2 Gummies 24h Active Levemir 100 UNIT/ML Subcutaneous twice a day 20 units 12h Active Fish Oil 500 MG Active Potassium 12h Active Lasix 20 MG Orally Once a day 1 tablet 24h Active Percocet 5-325 MG Orally every 6 hrs 1 tablet as needed 6h Active Toprol XL 25 MG Orally Once a day 1 tablet 24h Active Lexapro 20 mg Orally Once a day 1 tablet 24h Active Pioglitazone HCl 30 MG Orally Once a day 1 tablet 24h 90 Active MetFORMIN HCl ER 500 MG TAKE TWO TABLETS BY MOUTH TWICE DAILY WITH FOOD Active Enalapril Maleate 20 MG Orally Once a day 1 tablet 24h Active Metformin HCl 1000 MG Orally Twice a day 1 tablet with meals 12h Active Turmeric 500 MG Active Simvastatin 10 mg Orally Once a day TAKE ONE TABLET BY MOUTH ONCE DAILY IN THE EVENING 24h Active Cinnamon 500 MG Orally 2 times a day 1 capsule 12h Active Hydrochlorothiazide 12.5 MG Orally Once a day 1 capsule in the morning 24h Active RESULTS Name Result Date Reference Range A1C (IN HOUSE) 2018-06-06 A1C IN HOUSE 6.9 4.3 - 5.6 % Previous A1c 7.6 Lot [id number] Exp date 11/2019 PROCEDURES Procedure Date Ordered Result Body Site GLYCATED HEMOGLOBIN TEST Jun 06, 2018 [facility] VISIT ESTABLISHED PATIENT Jun 06, 2018 INSTRUCTIONS MEDICATIONS ADMINISTERED No Known Medications MEDICAL [...]
--- OUTSIDE RECORDS SUMMARY | 2018-12-19 12:28 | XMS REPORT ---
Author Author JENISE MARTIN [facility] Address [address] [place] [address] Care Team Providers Care Waterproof Coating Machine Tender Name Role Phone JENISE MARTIN Unavailable PROBLEMS Type Condition ICD9-CM Code RPI40-OW Code Onset Dates Condition Status SNOMED Code Problem Mild single current episode of major depressive disorder F32.0 Active 68535654 Problem Type 2 diabetes mellitus with hyperglycemia E11.65 Active 50860567 Problem Primary osteoarthritis of both knees M17.0 Active 255849670 Problem Essential hypertension I10 Active 97266806 Problem Type 2 diabetes mellitus with diabetic chronic kidney disease E11.22 Active 506679679 Problem Morbid (severe) obesity due to excess calories E66.01 Active 956666430 Problem Hypercholesterolemia E78.00 Active 98347593 Problem half-way 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 Z79.4 Active 947800333 Problem Body mass index (BMI) of 40.0-44.9 in adult Z68.41 Active 115970282 Problem 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 Active 32935957 ALLERGIES No Information ENCOUNTERS Encounter Location Date Diagnosis [place] [id number] [place] [address] 76268[address] 5061 May, [facility] [id number] [place] [address] 15337- 7905 Mar, Type 2 diabetes mellitus with hyperglycemia E11.65 [facility] [id number] [place] [address] 01724- 1372 Mar, [place] [id number] [place] [address] 22650- 0763 Mar, Actinic keratosis L57.0 ; Labial cyst N90.7 and Type 2 diabetes mellitus with diabetic chronic kidney disease E11.22 [facility] [id number] [place] [address] 57887- 5852 Feb, [place] [address] [place] [address] 17742- 9939 14 Feb, 2018 Type 2 diabetes mellitus with hyperglycemia E11.65 ; Essential hypertension I10 ; Hypercholesterolemia E78.00 ; oysterman 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 Z79.4 ; Primary osteoarthritis of both knees M17.0 and 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 [place] [address] [address] 13 Feb, 2018 Dental examination Z01.20 [place] [id number] [place] [address] 97441- 4191 12 Feb, 2018 Dental examination Z01.20 [place] [id number] [place] [address] 06682- 4024 12 Feb, 2018 Type 2 diabetes mellitus with hyperglycemia E11.65 ; Essential hypertension I10 ; half-way 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 Z79.4 ; Hypercholesterolemia E78.00 ; Primary osteoarthritis of both knees M17.0 ; 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 ; Body mass index (BMI) of 40.0-44.9 in adult Z68.41 and Morbid (severe) obesity due to excess calories E66.01 [place] [id number] [place] [address] 56929- 0943 January, Type 2 diabetes mellitus with hyperglycemia E11.65 [place] [id number] [place] [address] 05733- 0729 Dec, Mild single current episode of major depressive disorder F32.0 [place] [id number] [place] [address] 83500- 6409 Dec, Hypercholesterolemia E78.00 [facility] [id number] [place] [address] 90998 -3035 Dec, Seasonal allergic rhinitis, unspecified trigger J30.2 [place] [id number] [place] [address] 17722- 5978 Nov, [place] [address] [place] [address] 13 Nov, 2017 Hypercholesterolemia E78.00 and Type 2 diabetes mellitus with hyperglycemia E11.65 [facility] [address] [address]- [address] Nov, Leg cramps R25.2 [facility] [id number] [place] [address] 01212- 1319 Nov, Type 2 diabetes mellitus with hyperglycemia E11.65 [facility] [id number] [place] [address] 54075- 8356 Nov, Type 2 diabetes mellitus with hyperglycemia E11.65 ; half-way 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 Z79.4 ; Essential hypertension I10 ; Mild single current episode of major depressive disorder F32.0 ; Primary osteoarthritis of both knees M17.0 ; High risk medication use Z79.899 ; Controlled substance agreement signed Z79.899 ; Hypercholesterolemia E78.00 and Leg cramps R25.2 [facility] [id number] [place] [address] 44662- 0497 Oct, [facility] [id number] [place] [address] 53268 -9936 Oct, [facility] [id number] [place] [address] 31053- 2504 Oct, [facility] [id number] [place] [address] 28901- 7143 Sep, Essential hypertension I10 [facility] [id number] [place] [address] 10085- 4530 Sep, Essential hypertension I10 [facility] [id number] [place] [address] 62732- 1392 Sep, [facility] [id number] [place] [address] 00790- 4286 Sep, [facility] [id number] [place] [address] 32333- 8047 Sep, [place] [address] [address] Aug, [facility] [address], [place] [address]- 7297 Jul, [facility] [address], [place] [address]- 7255 Jul, [facility] [address] [place] [address] 62369- 8592 Jul, [facility] [address] [address] Jun, [facility] [address] [place] [address] 51443- 9177 Jun, [facility] [address], [place] [address]- 5070 Jun, Type 2 diabetes mellitus with diabetic chronic kidney disease E11.22 ; Heart murmur R01.1 ; Essential hypertension I10 and Primary osteoarthritis of both knees M17.0 [facility] [address] [address]- 4[address] Apr, Type 2 diabetes mellitus with diabetic chronic kidney disease E11.22 [facility] [address], [place] [address] Mar, Type 2 diabetes mellitus with diabetic chronic kidney disease E11.22 ; Essential hypertension I10 ; Mild single current episode of major depressive disorder F32.0 and Primary osteoarthritis of both knees M17.0 [facility] [id number] [address] 36[address] Feb, Mild single current episode of major depressive disorder F32.0 [facility] [address] [address] 37[address] Feb, [facility] [id number] [address] 1633 Feb, Essential hypertension I10 and Hypercholesterolemia E78.00 [facility] [address] [address]- 4455 Feb, Type 2 diabetes mellitus with diabetic chronic kidney disease E11.22 ; Essential hypertension I10 ; Edema due to malnutrition, due to unspecified malnutrition type E43 ; Hypercholesterolemia E78.00 and Mild single current episode of major depressive disorder F32.0 [facility] [address] [facility] [id number] [place] [address] Feb, IMMUNIZATIONS No Known Immunizations SOCIAL HISTORY Never Assessed REASON FOR VISIT REFERAL FROM FAMRobert PRAC. PLAN OF CARE Activity Details Follow Up prn Reason: VITAL SIGNS MEDICATIONS Unknown Medications RESULTS No Results PROCEDURES Procedure Date Ordered Result Body Site SCREENING OF A PATIENT February 26, 2018 Billing Notes on claim February 26, 2018 INSTRUCTIONS MEDICATIONS ADMINISTERED No Known Medications [...]
--- OUTSIDE RECORDS SUMMARY | 2018-12-19 12:28 | XMS REPORT ---
Author Author VARUN BOYER Organization [facility] Address [address] [place] [address] Care Team Providers Care Motion Study Engineer Name Role Phone BOYERVARUN Hopkins Unavailable PROBLEMS Type Condition ICD9-CM Code [id number] Code Onset Dates Condition Status SNOMED Code Problem Mild single current episode of major depressive disorder F32.0 Active 89291767 Problem Type 2 diabetes mellitus with hyperglycemia E11.65 Active 90362419 Problem Primary osteoarthritis of both knees M17.0 Active 675442834 Problem Essential hypertension I10 Active 51305684 Problem Type 2 diabetes mellitus with diabetic chronic kidney disease E11.22 Active 575156060 Problem Morbid (severe) obesity due to excess calories E66.01 Active 181844816 Problem Hypercholesterolemia E78.00 Active 12910642 Problem penitentiary 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 Z79.4 Active 621517338 Problem Body mass index (BMI) of 40.0-44.9 in adult Z68.41 Active 937982797 Problem 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 Active 76691750 ALLERGIES No Known Allergies ENCOUNTERS Encounter Location Date Diagnosis [place] [id number] [place] [address] 56646- 9893 May, [facility] [id number] [place] [address] 21706- 6433 Mar, Type 2 diabetes mellitus with hyperglycemia E11.65 [facility] [address] [place] [id number] [place] [address] 60730- 3875 Mar, [facility] [address] [id number] [place] [address] 99931- 4111 Mar, Actinic keratosis L57.0 ; Labial cyst N90.7 and Type 2 diabetes mellitus with diabetic chronic kidney disease E11.22 [facility] [address] [id number] [place] [address] 73678- 4517 Feb, [place] [address] [place] [address] 21631- 1379 14 Feb, 2018 Type 2 diabetes mellitus with hyperglycemia E11.65 ; Essential hypertension I10 ; Hypercholesterolemia E78.00 ; penitentiary 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 Z79.4 ; Primary osteoarthritis of both knees M17.0 and 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 [place] [address] [place] [id number] [place] [address] 86164- 4230 13 Feb, 2018 Dental examination Z01.20 [place] [address] [place] [id number] [place] [address] 67601- 8900 12 Feb, 2018 Dental examination Z01.20 [place] [address] [place] [id number] [place] [address] 68898- 7507 12 Feb, 2018 Type 2 diabetes mellitus with hyperglycemia E11.65 ; Essential hypertension I10 ; 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.4 ; Hypercholesterolemia E78.00 ; Primary osteoarthritis of both knees M17.0 ; 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 ; Body mass index (BMI) of 40.0-44.9 in adult Z68.41 and Morbid (severe) obesity due to excess calories E66.01 [place] [address] [place] [id number] [place] [address] 79283- 5578 January, Type 2 diabetes mellitus with hyperglycemia E11.65 [place] [address] [place] [id number] [place] [address] 97452- 2344 Dec, Mild single current episode of major depressive disorder F32.0 [place] [address] [place] [id number] [place] [address] 37882- 5175 Dec, Hypercholesterolemia E78.00 [facility] [address] [address] Dec, Seasonal allergic rhinitis, unspecified trigger J30.2 [place] [address] [place] [id number] [place] [address] 46968- 9410 Nov, [place] [address] 05926- 3172 Nov, Hypercholesterolemia E78.00 and Type 2 diabetes mellitus with hyperglycemia E11.65 [facility] [address] [address] [id number] [place] [address] 15221- 7132 Nov, Leg cramps R25.2 [facility] [address] [id number] [place] [address] 81760- 5826 Nov, Type 2 diabetes mellitus with hyperglycemia E11.65 [facility] [address] [address] [id number] [place] [address] 46318- 4562 Nov, Type 2 diabetes mellitus with hyperglycemia E11.65 ; 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.4 ; Essential hypertension I10 ; Mild single current episode of major depressive disorder F32.0 ; Primary osteoarthritis of both knees M17.0 ; High risk medication use Z79.899 ; Controlled substance agreement signed Z79.899 ; Hypercholesterolemia E78.00 and Leg cramps R25.2 [facility] [address] [id number] [place] [address] 43357- 5679 Oct, [facility] [address] [place] [address] 25553 -5388 Oct, [facility] [address] [place] [id number] [place] [address] 54000- 5516 Oct, [facility] [address] [place] [address] 87927- 0302 Sep, Essential hypertension I10 [facility] [address] [address] [id number] [place] [address] 38694- 3318 Sep, Essential hypertension I10 [facility] [address] [place] [id number] [place] [address] 04421- 6289 Sep, [facility] [address] [address] [id number] [place] [address] 11330- 9770 Sep, [facility] [address] [place] [address] 29245- 7369 Sep, [facility] [address] [address] 1444 Aug, [facility] [address] [place] [address] 6965 Jul, [facility] [address] [place] [address] 5979 Jul, [facility] [address] [address] [id number] [place] [address] 28712- 4345 Jul, [facility] [address] [id number] [address] 3061 Jun, [facility] [address] [place] [id number] [place] [address] 02038- 0152 Jun, [facility] [address] [place] [address] 14400- 6865 Jun, Type 2 diabetes mellitus with diabetic chronic kidney disease E11.22 ; Heart murmur R01.1 ; Essential hypertension I10 and Primary osteoarthritis of both knees M17.0 [facility] [address] [place] [address] 0[address] Apr, Type 2 diabetes mellitus with diabetic chronic kidney disease E11.22 [facility] [address] [place] [address] 3601 Mar, Type 2 diabetes mellitus with diabetic chronic kidney disease E11.22 ; Essential hypertension I10 ; Mild single current episode of major depressive disorder F32.0 and Primary osteoarthritis of both knees M17.0 [facility] [address] [place] [address] 2981 Feb, Mild single current episode of major depressive disorder F32.0 [facility] [address] [place] [address] 1987 Feb, [facility] [address] [place] [address] 3718 Feb, Essential hypertension I10 and Hypercholesterolemia E78.00 [facility] [address] [place] [id number] [place] [address] [place] [address]- 3740 Feb, Type 2 diabetes mellitus with diabetic chronic kidney disease E11.22 ; Essential hypertension I10 ; Edema due to malnutrition, due to unspecified malnutrition type E43 ; Hypercholesterolemia E78.00 and Mild single current episode of major depressive disorder F32.0 [facility] [address] [facility] [id number] [place] [address] Feb, IMMUNIZATIONS No Known Immunizations SOCIAL HISTORY Never Assessed REASON FOR VISIT Biopsy, consent signed. lonnie PLAN OF CARE Activity Details Follow Up 3 Months, prn Reason:chm/dm Future/Pending Procedure BIOPSY SKIN LESION (SINGLE) VITAL SIGNS Height 62 in 2018-03-18 Weight 213.4 lbs 2018-03-18 Temperature 98.2 degrees Fahrenheit 2018-03-18 Heart Rate 84 bpm 2018-03-18 Respiratory Rate 20 2018-03-18 BMI 39.03 kg/m2 2018-03-18 Blood pressure systolic 148 mmHg 2018-03-18 Blood pressure diastolic 78 mmHg 2018-03-18 MEDICATIONS Medication Instructions Dosage Frequency Start Date End Date Duration Status Turmeric 500 MG Active Metformin HCl 1000 MG Orally Twice a day 1 tablet with meals 12h Active Percocet 5-325 MG Orally every 6 hrs 1 tablet as needed 6h Active Potassium 12h Active NovoLog Flexpen 100 UNIT/ML Subcutaneous 3 times a day before meals. 8 units 30 Jun, 2017 Active Pioglitazone HCl 30 MG TAKE ONE TABLET BY MOUTH ONCE DAILY Active toprol Active Levemir 100 UNIT/ML Subcutaneous twice a day 12 units 12h Active Simvastatin 10 mg Orally Once a day TAKE ONE TABLET BY MOUTH ONCE DAILY IN THE EVENING 24h Active Enalapril Maleate 20 MG Orally Once a day 1 tablet 24h Active Lasix 20 MG Orally Once a day 1 tablet 24h Active Multi For Her 2 Gummies 24h Active Lexapro 20 mg Orally Once a day 1 tablet 24h Active Hydrochlorothiazide 12.5 MG Orally Once a day 1 capsule in the morning 24h Active Cinnamon 500 MG Orally 2 times a day 1 capsule 12h Active Fish Oil 500 MG Active RESULTS Name Result Date Reference Range PATHOLOGY REPORT 2018-03-18 CLINICAL INFORMATION PATHOLOGIST TISSUE, SPECIMEN 1 2018-03-18 A SOURCE A GROSS DESCRIPTION A DIAGNOSIS PROCEDURES Procedure Date Ordered Result Body Site BIOPSY OF SKIN LESION March 18, 2018 [facility] VISIT ESTABLISHED PATIENT March 18, 2018 INSTRUCTIONS MEDICATIONS ADMINISTERED No Known Medications [...]
--- OUTSIDE RECORDS SUMMARY | 2018-12-19 12:28 | XMS REPORT ---
Author Author JENISE MARTIN [facility] Address [address] [place] [address] Care Team Providers Care Bellmaker Name Role Phone JENISE MARTIN Unavailable PROBLEMS Type Condition ICD9-CM Code [id number] Code Onset Dates Condition Status SNOMED Code Problem Mild single current episode of major depressive disorder F32.0 Active 93129719 Problem Type 2 diabetes mellitus with hyperglycemia E11.65 Active 90817666 Problem Primary osteoarthritis of both knees M17.0 Active 776180267 Problem Essential hypertension I10 Active 87952807 Problem Type 2 diabetes mellitus with diabetic chronic kidney disease E11.22 Active 554997973 Problem Morbid (severe) obesity due to excess calories E66.01 Active 473561661 Problem Hypercholesterolemia E78.00 Active 32938769 Problem [facility] 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 Z79.4 Active 677952854 Problem Body mass index (BMI) of 40.0-44.9 in adult Z68.41 Active 497445620 Problem 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 Active 12322638 ALLERGIES No Known Allergies ENCOUNTERS Encounter Location Date Diagnosis [facility] [address] [place] [address] 62077- 0203 May, [facility] [address] [place] [address] 57264- 5013 Mar, Type 2 diabetes mellitus with hyperglycemia E11.65 [facility] [address] [place] [address] 47675- 0340 Mar, [place] [address] [place] [id number] [place] [address] 10237- 6941 Mar, Actinic keratosis L57.0 ; Labial cyst N90.7 and Type 2 diabetes mellitus with diabetic chronic kidney disease E11.22 [facility] [address] [place] [id number] [place] [address] 08240- 0651 Feb, [place] [id number] [place] [address] 78466- 4194 14 Feb, 2018 Type 2 diabetes mellitus with hyperglycemia E11.65 ; Essential hypertension I10 ; Hypercholesterolemia E78.00 ; [facility] 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 Z79.4 ; Primary osteoarthritis of both knees M17.0 and 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 [place] [address] [place] [id number] [place] [address] 27929- 5030 13 Feb, 2018 Dental examination Z01.20 [place] [address] [place] [id number] [place] [address] 56376- 1599 12 Feb, 2018 Dental examination Z01.20 [place] [address] [place] [id number] [place] [address] 86694- 1495 12 Feb, 2018 Type 2 diabetes mellitus with hyperglycemia E11.65 ; Essential hypertension I10 ; 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 ; Hypercholesterolemia E78.00 ; Primary osteoarthritis of both knees M17.0 ; 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 ; Body mass index (BMI) of 40.0-44.9 in adult Z68.41 and Morbid (severe) obesity due to excess calories E66.01 [place] [address] [place] [address] 04281- 9960 January, Type 2 diabetes mellitus with hyperglycemia E11.65 [place] [address] [place] [address] 15134- 8171 Dec, Mild single current episode of major depressive disorder F32.0 [place] [address] [place] [address] 26791- 0300 Dec, Hypercholesterolemia E78.00 [facility] [address] [place] [id number] [place] [address] 36725 -6373 Dec, Seasonal allergic rhinitis, unspecified trigger J30.2 [place] [address] [place] [id number] [place] [address] 90014- 1162 Nov, [place] [address] [place] [address]- 0529 13 Nov, 2017 Hypercholesterolemia E78.00 and Type 2 diabetes mellitus with hyperglycemia E11.65 [facility] [address] [place] [id number] [place] [address] 32220- 4503 Nov, Leg cramps R25.2 [facility] [address] [place] [id number] [place] [address] 37638- 3929 Nov, Type 2 diabetes mellitus with hyperglycemia E11.65 [facility] [address] [place] [id number] [place] [address] 65411- 3037 Nov, Type 2 diabetes mellitus with hyperglycemia E11.65 ; 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 ; Essential hypertension I10 ; Mild single current episode of major depressive disorder F32.0 ; Primary osteoarthritis of both knees M17.0 ; High risk medication use Z79.899 ; Controlled substance agreement signed Z79.899 ; Hypercholesterolemia E78.00 and Leg cramps R25.2 [facility] [address] [place] [id number] [place] [address] 82553- 1903 Oct, [facility] [address] [place] [address] 34005 -9984 Oct, [facility] [address] [place] [id number] [place] [address] 30211- 2246 Oct, [facility] [address] [place] [address] 82016- 4378 Sep, Essential hypertension I10 [facility] [address] [place] [id number] [place] [address] 64170- 5708 Sep, Essential hypertension I10 [facility] [address] [place] [id number] [place] [address] 31365- 3534 Sep, [facility] [address] [place] [id number] [place] [address] 31065- 4690 Sep, [facility] [address] [place] [address] 46870- 6430 Sep, [facility] [address] [address]- 5136 Aug, [facility] [address], [place] [address]- 3945 Jul, [facility] [address] [address]- 7837 Jul, [facility] [address] [place] [address] 02161- 8103 Jul, [facility] [address] [address]- 7258 Jun, [facility] [address], [place] [address]- 5023 Jun, [facility] [address] [address]- 0326 Jun, Type 2 diabetes mellitus with diabetic chronic kidney disease E11.22 ; Heart murmur R01.1 ; Essential hypertension I10 and Primary osteoarthritis of both knees M17.0 [facility] [address], [place] [address]- 6106 Apr, Type 2 diabetes mellitus with diabetic chronic kidney disease E11.22 [facility] [address], [place] [address]- 3767 Mar, Type 2 diabetes mellitus with diabetic chronic kidney disease E11.22 ; Essential hypertension I10 ; Mild single current episode of major depressive disorder F32.0 and Primary osteoarthritis of both knees M17.0 [facility] [address], [place] [address]- 5157 Feb, Mild single current episode of major depressive disorder F32.0 [facility] [address] [address]- 8099 Feb, [facility] [address] [place] [id number] [address]- 0035 Feb, Essential hypertension I10 and Hypercholesterolemia E78.00 [facility] [address] [place] [id number] [address] 8234 Feb, Type 2 diabetes mellitus with diabetic chronic kidney disease E11.22 ; Essential hypertension I10 ; Edema due to malnutrition, due to unspecified malnutrition type E43 ; Hypercholesterolemia E78.00 and Mild single current episode of major depressive disorder F32.0 [facility] [address] [facility] [id number] [place] [address]- 1400 Feb, IMMUNIZATIONS No Known Immunizations SOCIAL HISTORY Never Assessed REASON FOR VISIT Dental Radiograph PLAN OF CARE Activity Details Follow Up prn Reason: VITAL SIGNS MEDICATIONS Medication Instructions Dosage Frequency Start Date End Date Duration Status Hydrochlorothiazide 12.5 MG Orally Once a day 1 capsule in the morning 24h Active Percocet 5-325 MG Orally every 6 hrs 1 tablet as needed 6h Active Cinnamon 500 MG Orally 2 times a day 1 capsule 12h Active Fish Oil 500 MG Active Potassium 12h Active NovoLog Flexpen 100 UNIT/ML Subcutaneous 3 times a day before meals. 15 units 30 Jun, 2017 Active Simvastatin 10 mg Orally Once a day TAKE ONE TABLET BY MOUTH ONCE DAILY IN THE EVENING 24h Active Turmeric 500 MG Active Levemir 100 UNIT/ML Subcutaneous twice a day 20 units 12h Active Lexapro 20 mg Orally Once a day 1 tablet 24h Active Pioglitazone HCl 30 MG TAKE ONE TABLET BY MOUTH ONCE DAILY Active Multi For Her 2 Gummies 24h Active Lasix 20 MG Orally Once a day 1 tablet 24h Not-Taking Metformin HCl 1000 MG Orally Twice a day 1 tablet with meals 12h Active Enalapril Maleate 20 MG Orally Once a day 1 tablet 24h Active RESULTS No Results PROCEDURES Procedure Date Ordered Result Body Site INTRAORL-PERIAPICAL 1 FILM [id number] February 27, 2018 Billing Notes on claim February 27, 2018 INSTRUCTIONS MEDICATIONS ADMINISTERED No Known Medications [...]
--- OUTSIDE RECORDS SUMMARY | 2018-12-19 12:29 | XMS REPORT ---
Author Author MERLINLARRYVARUN Organization [facility] Address [address] [place] [address] Care Team Providers Care Renewable Energy Consultant Name Role Phone BOYERVARUN Hopkins Unavailable PROBLEMS Type Condition ICD9-CM Code [id number] Code Onset Dates Condition Status SNOMED Code Problem Mild single current episode of major depressive disorder F32.0 Active 66644548 Problem Type 2 diabetes mellitus with hyperglycemia E11.65 Active 64802774 Problem Primary osteoarthritis of both knees M17.0 Active 773261125 Problem Essential hypertension I10 Active 12535702 Problem Type 2 diabetes mellitus with diabetic chronic kidney disease E11.22 Active 301463971 Problem Morbid (severe) obesity due to excess calories E66.01 Active 977749548 Problem Hypercholesterolemia E78.00 Active 63882204 Problem [facility] 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 Z79.4 Active 715794336 Problem Body mass index (BMI) of 40.0-44.9 in adult Z68.41 Active 406839059 Problem 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 Active 55363926 ALLERGIES No Information ENCOUNTERS Encounter Location Date Diagnosis [place] [id number] [place] [address] 56714- 0500 Mar, Type 2 diabetes mellitus with hyperglycemia E11.65 [facility] [address] [place] [address] 42151- 0750 Mar, [facility] [address] [place] [id number] [place] [address] 14814- 4352 Mar, Actinic keratosis L57.0 ; Labial cyst N90.7 and Type 2 diabetes mellitus with diabetic chronic kidney disease E11.22 [facility] [address] [address] 0186 Feb, [facility] [address] [place] [address] [id number] [place] [address] 08167- 1393 14 Feb, 2018 Type 2 diabetes mellitus with hyperglycemia E11.65 ; Essential hypertension I10 ; Hypercholesterolemia E78.00 ; 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 ; Primary osteoarthritis of both knees M17.0 and 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 [facility] [id number] [place] [address] 97581- 5366 13 Feb, 2018 Dental examination Z01.20 [facility] [address] 80622- 4846 12 Feb, 2018 Dental examination Z01.20 [place] [address] 34618- 4900 12 Feb, 2018 Type 2 diabetes mellitus with hyperglycemia E11.65 ; Essential hypertension I10 ; 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 ; Hypercholesterolemia E78.00 ; Primary osteoarthritis of both knees M17.0 ; 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 ; Body mass index (BMI) of 40.0-44.9 in adult Z68.41 and Morbid (severe) obesity due to excess calories E66.01 [place] [address] 34883- 7981 January, Type 2 diabetes mellitus with hyperglycemia E11.65 [place] [address] 96737- 0468 Dec, Mild single current episode of major depressive disorder F32.[address] 26830- 5290 Dec, Hypercholesterolemia E78.00 [facility] WALK IN [facility] [address] 56406 -8599 07 Dec, 2017 Seasonal allergic rhinitis, unspecified trigger J30.2 [place] [address] 58403- 8168 15 Nov, 2017 [place] [address] 66746- 8755 Nov, Hypercholesterolemia E78.00 and Type 2 diabetes mellitus with hyperglycemia E11.65 [place] [address], [place] [address] 7005 Nov, Leg cramps R25.2 [facility] [id number] [place] [address] 96930- 6773 Nov, Type 2 diabetes mellitus with hyperglycemia E11.65 [facility] [address] [place] [address] 30505- 2873 Nov, Type 2 diabetes mellitus with hyperglycemia E11.65 ; [facility] 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 Z79.4 ; Essential hypertension I10 ; Mild single current episode of major depressive disorder F32.0 ; Primary osteoarthritis of both knees M17.0 ; High risk medication use Z79.899 ; Controlled substance agreement signed Z79.899 ; Hypercholesterolemia E78.00 and Leg cramps R25.2 [facility] [address] [address] 0988 Oct, [facility] [address] [place] [address] 95396 -2737 Oct, [facility] [address] [address] [id number] [place] [address] 15472- 6503 Oct, [facility] [address] [place] [address] 75620- 2248 Sep, Essential hypertension I10 [facility] [address] [place] [address] 34499- 6667 Sep, Essential hypertension I10 [facility] [address] [place] [address] 75896- 2336 Sep, [facility] [address], [place] [address] 2511 Sep, [facility] [address] [place] [address] 27648- 7957 Sep, [facility] [address], [place] [address] 8805 Aug, [facility] [address] [address] [address]- 1674 Jul, [facility] [address], [place] [address]- 8730 Jul, [facility] [address], [place] [address]- 2396 Jul, [facility] [address] [place] [address] 93593- 9960 Jun, [facility] [address] [place] [address] 01535- 8164 Jun, [facility] [address] [place] [address] 99833- 4495 Jun, Type 2 diabetes mellitus with diabetic chronic kidney disease E11.22 ; Heart murmur R01.1 ; Essential hypertension I10 and Primary osteoarthritis of both knees M17.0 [facility] [address] [place] [address] 99884- 1563 Apr, Type 2 diabetes mellitus with diabetic chronic kidney disease E11.22 [facility] [address] [address]- 2060 Mar, Type 2 diabetes mellitus with diabetic chronic kidney disease E11.22 ; Essential hypertension I10 ; Mild single current episode of major depressive disorder F32.0 and Primary osteoarthritis of both knees M17.0 [facility] [address] [address]- 9729 Feb, Mild single current episode of major depressive disorder F32.0 [facility] [address], [place] [address]- 9339 Feb, [facility] [address], [place] [address]- 3673 Feb, Essential hypertension I10 and Hypercholesterolemia E78.00 [facility] [address], [place] [address]- 8349 Feb, Type 2 diabetes mellitus with diabetic chronic kidney disease E11.22 ; Essential hypertension I10 ; Edema due to malnutrition, due to unspecified malnutrition type E43 ; Hypercholesterolemia E78.00 and Mild single current episode of major depressive disorder F32.0 [facility] [address] [facility] [id number] [place] [address]- 3220 Feb, IMMUNIZATIONS No Known Immunizations SOCIAL HISTORY Never Assessed REASON FOR VISIT Refill Request PLAN OF CARE VITAL SIGNS MEDICATIONS Medication Instructions Dosage Frequency Start Date End Date Duration Status Pioglitazone HCl 30 MG Orally Once a day 1 tablet 24h Jun, 90 days Active RESULTS No Results PROCEDURES [...]
--- OUTSIDE RECORDS SUMMARY | 2018-12-19 12:29 | XMS REPORT ---
Author Author VARUN BOYER Organization [facility] Address [address] [place] [address] Care Team Providers Care Arcgis Developer Name Role Phone BOYERVARUN Hopkins Unavailable PROBLEMS Type Condition ICD9-CM Code UTF74-RS Code Onset Dates Condition Status SNOMED Code Problem Mild single current episode of major depressive disorder F32.0 Active 98802203 Problem Type 2 diabetes mellitus with hyperglycemia E11.65 Active 39681472 Problem Primary osteoarthritis of both knees M17.0 Active 321517689 Problem Essential hypertension I10 Active 03638719 Problem Type 2 diabetes mellitus with diabetic chronic kidney disease E11.22 Active 369383566 Problem Morbid (severe) obesity due to excess calories E66.01 Active 153860309 Problem Hypercholesterolemia E78.00 Active 79164374 Problem group home 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 Z79.4 Active 293317082 Problem Body mass index (BMI) of 40.0-44.9 in adult Z68.41 Active 106481123 Problem 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 Active 24964985 ALLERGIES No Information ENCOUNTERS Encounter Location Date Diagnosis [place] [address] [place] [address] 17851- 5282 May, [place] [address] [place] [address] 11348- 9577 Mar, Type 2 diabetes mellitus with hyperglycemia E11.65 [facility] [address] [place] [id number] [place] [address] 12406- 5665 Mar, [facility] [address] [place] [id number] [place] [address] 12405- 5862 Mar, Actinic keratosis L57.0 ; Labial cyst N90.7 and Type 2 diabetes mellitus with diabetic chronic kidney disease E11.22 [facility] [address] [place] [id number] [place] [address] 14608- 8946 Feb, [place] [address] [place] [address] 00810- 0238 14 Feb, 2018 Type 2 diabetes mellitus with hyperglycemia E11.65 ; Essential hypertension I10 ; Hypercholesterolemia E78.00 ; group home 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 Z79.4 ; Primary osteoarthritis of both knees M17.0 and 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 [place] [address] 95393- 0615 13 Feb, 2018 Dental examination Z01.20 [place] [address] [place] [id number] [place] [address] 83993- 8372 12 Feb, 2018 Dental examination Z01.20 [place] [address] 15284- 4956 12 Feb, 2018 Type 2 diabetes mellitus with hyperglycemia E11.65 ; Essential hypertension I10 ; 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 ; Hypercholesterolemia E78.00 ; Primary osteoarthritis of both knees M17.0 ; 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 ; Body mass index (BMI) of 40.0-44.9 in adult Z68.41 and Morbid (severe) obesity due to excess calories E66.01 [place] [address] [place] [id number] [place] [address] 67834- 3302 January, Type 2 diabetes mellitus with hyperglycemia E11.65 [place] [address] [place] [address] [place] [address] 09663- 2358 Dec, Mild single current episode of major depressive disorder F32.0 [place] [address] [place] [id number] [place] [address] 61625- 0197 Dec, Hypercholesterolemia E78.00 [facility] [address] 89911 -8254 Dec, Seasonal allergic rhinitis, unspecified trigger J30.2 [place] [address] [place] [id number] [place] [address] 88197- 3465 Nov, [place] [address] 95774- 2700 Nov, Hypercholesterolemia E78.00 and Type 2 diabetes mellitus with hyperglycemia E11.65 [facility] [address] [place] [id number] [place] [address] 03816- 2489 Nov, Leg cramps R25.2 [facility] [address] [place] [address] 91551- 3066 Nov, Type 2 diabetes mellitus with hyperglycemia E11.65 [facility] [address] [place] [id number] [place] [address] 45208- 6933 Nov, Type 2 diabetes mellitus with hyperglycemia E11.65 ; group home 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 Z79.4 ; Essential hypertension I10 ; Mild single current episode of major depressive disorder F32.0 ; Primary osteoarthritis of both knees M17.0 ; High risk medication use Z79.899 ; Controlled substance agreement signed Z79.899 ; Hypercholesterolemia E78.00 and Leg cramps R25.2 [facility] [address] [place] [id number] [place] [address] 57492- 9938 Oct, [facility] WALK IN [facility] [address] [place] [address] 83185 -1849 Oct, [facility] [address] [place] [id number] [place] [address] 02578- 8121 Oct, [facility] [address] [place] [address] 61416- 8524 Sep, Essential hypertension I10 [facility] [address] [place] [id number] [place] [address] 54134- 5912 Sep, Essential hypertension I10 [facility] [address] [place] [address] 77090- 2236 Sep, [facility] [address] [place] [id number] [place] [address] 47353- 4209 Sep, [facility] [address] [place] [address] 86926- 8308 Sep, [facility] [address] [place] [id number] [address]- 2271 Aug, [facility] [address] [address]- 5077 Jul, [facility] [address] [address]- 2484 Jul, [facility] [address] [place] [address] 43903- 7848 Jul, [facility] [address] [address]- 5416 Jun, [facility] [address] [place] [id number] [place] [address] 56962- 6107 Jun, [facility] [address] [address]- 2207 Jun, Type 2 diabetes mellitus with diabetic chronic kidney disease E11.22 ; Heart murmur R01.1 ; Essential hypertension I10 and Primary osteoarthritis of both knees M17.0 [facility] [address] [address]- 1684 Apr, Type 2 diabetes mellitus with diabetic chronic kidney disease E11.22 [facility] [address] [address]- 4094 Mar, Type 2 diabetes mellitus with diabetic chronic kidney disease E11.22 ; Essential hypertension I10 ; Mild single current episode of major depressive disorder F32.0 and Primary osteoarthritis of both knees M17.0 [facility] [address], [place] [address]- 8131 Feb, Mild single current episode of major depressive disorder F32.0 [facility] [address] [address]- 6817 Feb, [facility] [address] [address]- 0661 Feb, Essential hypertension I10 and Hypercholesterolemia E78.00 [facility] [address] [place] [address] 16293- 2193 Feb, Type 2 diabetes mellitus with diabetic chronic kidney disease E11.22 ; Essential hypertension I10 ; Edema due to malnutrition, due to unspecified malnutrition type E43 ; Hypercholesterolemia E78.00 and Mild single current episode of major depressive disorder F32.0 [facility] [address] [facility] [id number] [place] [address]- 5260 Feb, IMMUNIZATIONS No Known Immunizations SOCIAL HISTORY Never Assessed REASON FOR VISIT Lab (walk-in) PLAN OF CARE VITAL SIGNS MEDICATIONS Unknown Medications RESULTS No Results PROCEDURES Procedure Date Ordered Result Body Site LIPID PANEL February 28, 2018 ASSAY THYROID STIM HORMONE February 28, 2018 COMPLETE CBC W/AUTO DIFF WBC February 28, 2018 COMPREHEN METABOLIC PANEL February 28, 2018 VENIPUNCT, ROUTINE* February 28, 2018 INSTRUCTIONS MEDICATIONS ADMINISTERED No Known Medications [...]
--- OUTSIDE RECORDS SUMMARY | 2018-12-19 12:29 | XMS REPORT ---
Author Author VARUN BOYER Organization [facility] Address [address] [place] [address] Care Team Providers Care Spanish Tutor Name Role Phone BOYERVARUN Hopkins Unavailable PROBLEMS Type Condition ICD9-CM Code [id number] Code Onset Dates Condition Status SNOMED Code Problem Mild single current episode of major depressive disorder F32.0 Active 01204655 Problem Type 2 diabetes mellitus with hyperglycemia E11.65 Active 00175190 Problem Primary osteoarthritis of both knees M17.0 Active 672064797 Problem Essential hypertension I10 Active 17665691 Problem Type 2 diabetes mellitus with diabetic chronic kidney disease E11.22 Active 083883632 Problem Morbid (severe) obesity due to excess calories E66.01 Active 267894406 Problem Hypercholesterolemia E78.00 Active 87170697 Problem [facility] 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 Z79.4 Active 753772215 Problem Body mass index (BMI) of 40.0-44.9 in adult Z68.41 Active 035371547 Problem 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 Active 73047709 ALLERGIES No Information ENCOUNTERS Encounter Location Date Diagnosis [place] [address] [place] [address] 33054- 7727 May, [place] [address] [place] [address] 71629- 9385 Mar, Type 2 diabetes mellitus with hyperglycemia E11.65 [facility] [address] [place] [id number] [place] [address] 08860- 4526 Mar, [facility] [address] [place] [id number] [place] [address] 03671- 9321 Mar, Actinic keratosis L57.0 ; Labial cyst N90.7 and Type 2 diabetes mellitus with diabetic chronic kidney disease E11.22 [facility] [address] [place] [id number] [place] [address] 23708- 4761 Feb, [place] [address] [place] [address] 80865- 9375 14 Feb, 2018 Type 2 diabetes mellitus with hyperglycemia E11.65 ; Essential hypertension I10 ; Hypercholesterolemia E78.00 ; [facility] 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 Z79.4 ; Primary osteoarthritis of both knees M17.0 and 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 [place] [address] 76042- 0740 13 Feb, 2018 Dental examination Z01.20 [place] [address] [place] [address] [place] [address] 67616- 3463 12 Feb, 2018 Dental examination Z01.20 [place] [address] 70900- 9338 12 Feb, 2018 Type 2 diabetes mellitus with hyperglycemia E11.65 ; Essential hypertension I10 ; 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.4 ; Hypercholesterolemia E78.00 ; Primary osteoarthritis of both knees M17.0 ; 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 ; Body mass index (BMI) of 40.0-44.9 in adult Z68.41 and Morbid (severe) obesity due to excess calories E66.01 [place] [address] [place] [address] [place] [address] 24651- 0271 January, Type 2 diabetes mellitus with hyperglycemia E11.65 [place] [address] [place] [address] [place] [address] 11960- 1181 Dec, Mild single current episode of major depressive disorder F32.0 [place] [address] [place] [id number] [place] [address] 25074- 4282 Dec, Hypercholesterolemia E78.00 [facility] WALK IN [facility] [address] 04659 -9649 Dec, Seasonal allergic rhinitis, unspecified trigger J30.2 [place] [address] [place] [address] [place] [address] 06649- 6763 Nov, [place] [address] 69977- 4052 Nov, Hypercholesterolemia E78.00 and Type 2 diabetes mellitus with hyperglycemia E11.65 [facility] [address] [place] [id number] [place] [address] 41311- 6955 Nov, Leg cramps R25.2 [facility] [address] [place] [address] 99346- 0065 Nov, Type 2 diabetes mellitus with hyperglycemia E11.65 [facility] [address] [place] [id number] [place] [address] 05081- 6060 Nov, Type 2 diabetes mellitus with hyperglycemia E11.65 ; [facility] 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 Z79.4 ; Essential hypertension I10 ; Mild single current episode of major depressive disorder F32.0 ; Primary osteoarthritis of both knees M17.0 ; High risk medication use Z79.899 ; Controlled substance agreement signed Z79.899 ; Hypercholesterolemia E78.00 and Leg cramps R25.2 [facility] [address] [place] [id number] [place] [address] 72597- 4620 Oct, [facility] WALK IN [facility] [address] [place] [address] 87422 -6247 Oct, [facility] [address] [place] [id number] [place] [address] 73470- 7127 Oct, [facility] [address] [place] [address] 34731- 7346 Sep, Essential hypertension I10 [facility] [address] [place] [id number] [place] [address] 74698- 8883 Sep, Essential hypertension I10 [facility] [address] [place] [address] 03580- 1417 Sep, [facility] [address] [place] [id number] [place] [address] 82825- 9675 Sep, [facility] [address] [place] [address] 71937- 6639 Sep, [facility] [address] [place] [address] [address]- 5737 Aug, [facility] [address] [address]- 4322 Jul, [facility] [address], [place] [address]- 0442 Jul, [facility] [address] [place] [address] 82251- 1648 Jul, [facility] [address], [place] [address]- 1838 Jun, [facility] [address] [place] [id number] [place] [address] 58977- 1104 Jun, [facility] [address], [place] [address]- 5148 Jun, Type 2 diabetes mellitus with diabetic chronic kidney disease E11.22 ; Heart murmur R01.1 ; Essential hypertension I10 and Primary osteoarthritis of both knees M17.0 [facility] [address] [place] [address]- 3650 Apr, Type 2 diabetes mellitus with diabetic chronic kidney disease E11.22 [facility] [address] [place] [address]- 0898 Mar, Type 2 diabetes mellitus with diabetic chronic kidney disease E11.22 ; Essential hypertension I10 ; Mild single current episode of major depressive disorder F32.0 and Primary osteoarthritis of both knees M17.0 [facility] [address] [place] [address]- 5996 Feb, Mild single current episode of major depressive disorder F32.0 [facility] [address], [place] [address]- 3159 Feb, [facility] [address] [place] [address]- 5121 Feb, Essential hypertension I10 and Hypercholesterolemia E78.00 [facility] [address] [place] [address] 66880- 6374 Feb, Type 2 diabetes mellitus with diabetic chronic kidney disease E11.22 ; Essential hypertension I10 ; Edema due to malnutrition, due to unspecified malnutrition type E43 ; Hypercholesterolemia E78.00 and Mild single current episode of major depressive disorder F32.0 [facility] [address] [facility] [id number] [place] [address]- 2312 Feb, IMMUNIZATIONS No Known Immunizations SOCIAL HISTORY Never Assessed REASON FOR VISIT 6 mo DM ed f/u PLAN OF CARE VITAL SIGNS MEDICATIONS Unknown [...]
--- OUTSIDE RECORDS SUMMARY | 2018-12-19 12:29 | XMS REPORT ---
Author Author MERLINLARRYVARUN Organization [facility] Address [address] [place] [address] Care Team Providers Care Quality Control Name Role Phone BOYERVARUN Hopkins Unavailable PROBLEMS Type Condition ICD9-CM Code [id number] Code Onset Dates Condition Status SNOMED Code Problem Mild single current episode of major depressive disorder F32.0 Active 53690340 Problem Type 2 diabetes mellitus with hyperglycemia E11.65 Active 96319489 Problem Primary osteoarthritis of both knees M17.0 Active 031724988 Problem Essential hypertension I10 Active 55798806 Problem Type 2 diabetes mellitus with diabetic chronic kidney disease E11.22 Active 542561368 Problem Morbid (severe) obesity due to excess calories E66.01 Active 282304497 Problem Hypercholesterolemia E78.00 Active 24489445 Problem 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 [id number] [place] [address] 92429- 5200 Mar, [facility] [address] [place] [id number] [place] [address] 43537- 7052 Mar, Actinic keratosis L57.0 ; Labial cyst N90.7 and Type 2 diabetes mellitus with diabetic chronic kidney disease E11.22 [facility] [address] [address] Feb, 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 [address] [place] [id number] [place] [address] 81009- 4044 13 Feb, [address] 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.4 ; Hypercholesterolemia E78.00 ; Primary osteoarthritis of both knees M17.0 ; 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 ; Body mass index (BMI) of 40.0-44.9 in adult Z68.41 and Morbid (severe) obesity due to excess calories E66.01 [place] [address] 09188- 2597 January, Type 2 diabetes mellitus with hyperglycemia E11.65 [place] [address] 56295- 3804 Dec, Mild single current episode of major depressive disorder F32.[address] [address]- 2021 Dec, Hypercholesterolemia E78.00 [facility] [address] [address]262 07 Dec, 2017 Seasonal allergic rhinitis, unspecified trigger J30.2 [place] [address] 85525- 2032 15 Nov, 2017 [place] [address] 56118- 0471 Nov, Hypercholesterolemia E78.00 and Type 2 diabetes mellitus with hyperglycemia E11.65 [place] [address] [address] Nov, Leg cramps R25.2 [facility] [address] [place] [id number] [place] [address] 78741- 4075 Nov, Type 2 diabetes mellitus with hyperglycemia E11.65 [facility] [address] [place] [address] 42062- 7864 Nov, Type 2 diabetes mellitus with hyperglycemia E11.65 ; penitentiary 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 Z79.4 ; Essential hypertension I10 ; Mild single current episode of major depressive disorder F32.0 ; Primary osteoarthritis of both knees M17.0 ; High risk medication use Z79.899 ; Controlled substance agreement signed Z79.899 ; Hypercholesterolemia E78.[address] [facility] [address] [address] 5[address] Oct, [facility] [id number] [place] [address]9905 -[address] Oct, [facility] [id number] [place] [address] 50629- 2153 Oct, [facility] [id number] [place] [address] 26599- 1392 Sep, Essential hypertension I10 [facility] [id number] [place] [address] 21429- 1993 Sep, Essential hypertension I10 [facility] [id number] [place] [address] 47334- 0540 Sep, [facility] [address] [address] Sep, [facility] [id number] [place] [address]349- 7427 Sep, [facility] [address] [address] Aug, [facility] [address] [address] [id number] [address] Jul, [facility] [address] [address] Jul, [facility] [address], [place] [address]44 Jul, [facility] [id number] [place] [address] 36607- 4321 Jun, [facility] [id number] [place] [address] 36070- 8767 Jun, [facility] [address] [place] [address] 61438- 4251 Jun, Type 2 diabetes mellitus with diabetic chronic kidney disease E11.22 ; Heart murmur R01.1 ; Essential hypertension I10 and Primary osteoarthritis of both knees M17.0 [facility] [address] [place] [address] 07258- 4916 Apr, Type 2 diabetes mellitus with diabetic chronic kidney disease E11.22 [facility] [address], [place] [address] 9393 Mar, Type 2 diabetes mellitus with diabetic chronic kidney disease E11.22 ; Essential hypertension I10 ; Mild single current episode of major depressive disorder F32.0 and Primary osteoarthritis of both knees M17.0 [facility] [address], [place] [address] 3[address] Feb, Mild single current episode of major depressive disorder F32.0 [facility] [address] [address] Feb, [facility] [address], [place] [address] 3482 Feb, Essential hypertension I10 and Hypercholesterolemia E78.00 [facility] [address], [place] [address] 9784 Feb, Type 2 diabetes mellitus with diabetic chronic kidney disease E11.22 ; Essential hypertension I10 ; Edema due to malnutrition, due to unspecified malnutrition type E43 ; Hypercholesterolemia E78.00 and Mild single current episode of major depressive disorder F32.0 [facility] [address] [facility] [id number] [place] [address] Feb, IMMUNIZATIONS No Known Immunizations SOCIAL HISTORY [...]
--- OUTSIDE RECORDS SUMMARY | 2018-12-19 12:29 | XMS REPORT ---
Author Author VARUN BOYER Organization [facility] Address [address] [place] [address] Care Team Providers Care Watch Train Inspector Name Role Phone BOYERVARUN Hopkins Unavailable PROBLEMS Type Condition ICD9-CM Code [id number] Code Onset Dates Condition Status SNOMED Code Problem Mild single current episode of major depressive disorder F32.0 Active 62151141 Problem Type 2 diabetes mellitus with hyperglycemia E11.65 Active 73431186 Problem Primary osteoarthritis of both knees M17.0 Active 862617269 Problem Essential hypertension I10 Active 28387320 Problem Type 2 diabetes mellitus with diabetic chronic kidney disease E11.22 Active 419398144 Problem Morbid (severe) obesity due to excess calories E66.01 Active 426571244 Problem Hypercholesterolemia E78.00 Active 57706799 Problem shelter 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 Z79.4 Active 460631336 Problem Body mass index (BMI) of 40.0-44.9 in adult Z68.41 Active 397280420 Problem 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 Active 35205944 ALLERGIES No Known Allergies ENCOUNTERS Encounter Location Date Diagnosis [place] [id number] [place] [address] 34784- 5433 May, [facility] [address] [place] [address] 17953- 7461 Mar, Type 2 diabetes mellitus with hyperglycemia E11.65 [facility] [address] [place] [id number] [place] [address] 38685- 5207 Mar, [facility] [address] [place] [id number] [place] [address] 14288- 9851 Mar, Actinic keratosis L57.0 ; Labial cyst N90.7 and Type 2 diabetes mellitus with diabetic chronic kidney disease E11.22 [facility] [address] [place] [id number] [place] [address] 40929- 3963 Feb, [place] [address] [place] [address] 18778- 1392 14 Feb, 2018 Type 2 diabetes mellitus with hyperglycemia E11.65 ; Essential hypertension I10 ; Hypercholesterolemia E78.00 ; shelter 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 Z79.4 ; Primary osteoarthritis of both knees M17.0 and 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 [place] [address] [place] [id number] [place] [address] 21147- 1930 13 Feb, 2018 Dental examination Z01.20 [place] [address] [place] [id number] [place] [address] 49679- 0278 12 Feb, 2018 Dental examination Z01.20 [place] [address] [place] [id number] [place] [address] 21034- 6574 12 Feb, 2018 Type 2 diabetes mellitus with hyperglycemia E11.65 ; Essential hypertension I10 ; 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 ; Hypercholesterolemia E78.00 ; Primary osteoarthritis of both knees M17.0 ; 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 ; Body mass index (BMI) of 40.0-44.9 in adult Z68.41 and Morbid (severe) obesity due to excess calories E66.01 [place] [address] [place] [id number] [place] [address] 43785- 8063 January, Type 2 diabetes mellitus with hyperglycemia E11.65 [place] [address] [place] [id number] [place] [address] 38823- 6462 Dec, Mild single current episode of major depressive disorder F32.0 [place] [address] [place] [id number] [place] [address] 01748- 0928 Dec, Hypercholesterolemia E78.00 [facility] [address] 9[address]31 -2544 Dec, Seasonal allergic rhinitis, unspecified trigger J30.2 [place] [address] [place] [id number] [place] [address] 96740- 0472 Nov, [place] [address] 73132- 0481 Nov, Hypercholesterolemia E78.00 and Type 2 diabetes mellitus with hyperglycemia E11.65 [facility] [address] [place] [id number] [place] [address] 57541- 7475 Nov, Leg cramps R25.2 [facility] [address] [place] [id number] [place] [address] 84363- 5166 Nov, Type 2 diabetes mellitus with hyperglycemia E11.65 [facility] [address] [place] [id number] [place] [address] 99599- 2153 Nov, Type 2 diabetes mellitus with hyperglycemia E11.65 ; 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 ; Essential hypertension I10 ; Mild single current episode of major depressive disorder F32.0 ; Primary osteoarthritis of both knees M17.0 ; High risk medication use Z79.899 ; Controlled substance agreement signed Z79.899 ; Hypercholesterolemia E78.00 and Leg cramps R25.2 [facility] [address] [place] [id number] [place] [address] 66341- 5978 Oct, [facility] [id number] [place] [address] 01835 -4408 Oct, [facility] [address] [place] [id number] [place] [address] 09004- 7660 Oct, [facility] [id number] [place] [address] 16221- 3987 Sep, Essential hypertension I10 [facility] [address] [place] [id number] [place] [address] 09201- 2860 Sep, Essential hypertension I10 [facility] [address] [place] [id number] [place] [address] 20624- 0311 Sep, [facility] [address] [place] [id number] [place] [address] 77450- 3421 Sep, [facility] [id number] [place] [address] 44246- 2805 Sep, [facility] [address] [address]- 4199 Aug, [facility] [address] [address]- 6107 Jul, [facility] [address] [address]- 1725 Jul, [facility] [address] [place] [id number] [place] [address] 98732- 9404 Jul, [facility] [address] [place] [id number] [address]- 8873 Jun, [facility] [address] [place] [id number] [place] [address] 20882- 4654 Jun, [facility] [address] [place] [address] 33985- 2135 Jun, Type 2 diabetes mellitus with diabetic chronic kidney disease E11.22 ; Heart murmur R01.1 ; Essential hypertension I10 and Primary osteoarthritis of both knees M17.0 [facility] [address] [address]- 7619 Apr, Type 2 diabetes mellitus with diabetic chronic kidney disease E11.22 [facility] [address] [address]- 0210 Mar, Type 2 diabetes mellitus with diabetic chronic kidney disease E11.22 ; Essential hypertension I10 ; Mild single current episode of major depressive disorder F32.0 and Primary osteoarthritis of both knees M17.0 [facility] [address] [address]- 7279 Feb, Mild single current episode of major depressive disorder F32.0 [facility] [address] [address]- 5677 Feb, [facility] [address] [address]- 1223 Feb, Essential hypertension I10 and Hypercholesterolemia E78.00 [facility] [address] [place] [id number] [place] [address] [place] [address]- 9850 Feb, Type 2 diabetes mellitus with diabetic chronic kidney disease E11.22 ; Essential hypertension I10 ; Edema due to malnutrition, due to unspecified malnutrition type E43 ; Hypercholesterolemia E78.00 and Mild single current episode of major depressive disorder F32.0 [facility] [address] [facility] [id number] [place] [address]- 4530 Feb, IMMUNIZATIONS No Known Immunizations SOCIAL HISTORY Never Assessed REASON FOR VISIT Diabetes-BARBI King PLAN OF CARE Activity Details Follow Up 3 Months, prn Reason:CHM/DM VITAL SIGNS Height 62 in 2018-02-26 Weight 219.4 lbs 2018-02-26 Temperature 97.9 degrees Fahrenheit 2018-02-26 Heart Rate 72 bpm 2018-02-26 Respiratory Rate 20 2018-02-26 BMI 40.12 kg/m2 2018-02-26 Blood pressure systolic 150 mmHg 2018-02-26 Blood pressure diastolic 76 mmHg 2018-02-26 MEDICATIONS Medication Instructions Dosage Frequency Start Date End Date Duration Status Lasix 20 MG Orally Once a day 1 tablet 24h Not-Taking Turmeric 500 MG Active Metformin HCl 1000 MG Orally Twice a day 1 tablet with meals 12h Active Levemir 100 UNIT/ML Subcutaneous twice a day 20 units 12h Active Enalapril Maleate 20 MG Orally Once a day 1 tablet 24h Active Potassium 12h Active Pioglitazone HCl 30 MG TAKE ONE TABLET BY MOUTH ONCE DAILY Active Simvastatin 10 mg Orally Once a day TAKE ONE TABLET BY MOUTH ONCE DAILY IN THE EVENING 24h Active Cinnamon 500 MG Orally 2 times a day 1 capsule 12h Active Multi For Her 2 Gummies 24h Active Hydrochlorothiazide 12.5 MG Orally Once a day 1 capsule in the morning 24h Active NovoLog Flexpen 100 UNIT/ML Subcutaneous 3 times a day before meals. 15 units 30 Jun, 2017 Active Lexapro 20 mg Orally Once a day 1 tablet 24h Active Percocet 5-325 MG Orally every 6 hrs 1 tablet as needed 6h Active RESULTS Name Result Date Reference Range A1C (IN HOUSE) 2018-02-26 A1C IN HOUSE 7.6 4.3 - 5.6 % Previous A1c 9 Lot [id number] Exp date 11/2019 MICROALBUMIN, URINE (IN HOUSE) 2018-02-26 MICROALBUMIN Abnormal Lot # [id number] Exp date 09/16/2018 Clarity clear Color yellow ALB 80 mg/L CRE 300 mg/dL A:C (IN HOUSE) 30-300 mg/g Control Control Lot # Exp date PROCEDURES Procedure Date Ordered Result Body Site MICROALBUMIN, SEMIQUANT February 26, 2018 GLYCATED HEMOGLOBIN TEST February 26, 2018 INSTRUCTIONS MEDICATIONS ADMINISTERED No [...]
--- OUTSIDE RECORDS SUMMARY | 2018-12-19 12:30 | XMS REPORT ---
Author Author MERLINLARRYVARUN Organization [facility] Address [address] [place] [address] Care Team Providers Care Interior Wall Assembler Name Role Phone BOYERVARUN Hopkins Unavailable PROBLEMS Type Condition ICD9-CM Code [id number] Code Onset Dates Condition Status SNOMED Code Problem Mild single current episode of major depressive disorder F32.0 Active 25851439 Problem Type 2 diabetes mellitus with hyperglycemia E11.65 Active 61910795 Problem Primary osteoarthritis of both knees M17.0 Active 392452421 Problem Essential hypertension I10 Active 84938798 Problem Type 2 diabetes mellitus with diabetic chronic kidney disease E11.22 Active 444030342 Problem Morbid (severe) obesity due to excess calories E66.01 Active 605081288 Problem Hypercholesterolemia E78.00 Active 91278977 Problem prison 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 Z79.4 Active 382419652 Problem Body mass index (BMI) of 40.0-44.9 in adult Z68.41 Active 309026646 Problem 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 Active 89269489 ALLERGIES No Known Allergies ENCOUNTERS Encounter Location Date Diagnosis [place] [id number] [place] [address] 23357- 3090 Mar, [facility] [address] [place] [id number] [place] [address] 15406- 1292 Mar, [facility] [id number] [place] [address] 59593- 0837 Mar, Actinic keratosis L57.0 ; Labial cyst N90.7 and Type 2 diabetes mellitus with diabetic chronic kidney disease E11.22 [facility] [id number] [place] [address] 42800- 8267 Feb, [facility] [address] [place] [address] [id number] [place] [address] 23980- 6324 14 Feb, 2018 Type 2 diabetes mellitus with hyperglycemia E11.65 ; Essential hypertension I10 ; Hypercholesterolemia E78.00 ; 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 ; Primary osteoarthritis of both knees M17.0 and 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 [facility] [address] [place] [id number] [place] [address] 66532- 3371 13 Feb, 2018 Dental examination Z01.20 [facility] [address] 28930- 4336 12 Feb, 2018 Dental examination Z01.20 [place] [address] 94374- 5984 12 Feb, 2018 Type 2 diabetes mellitus with hyperglycemia E11.65 ; Essential hypertension I10 ; prison 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 Z79.4 ; Hypercholesterolemia E78.00 ; Primary osteoarthritis of both knees M17.0 ; 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 ; Body mass index (BMI) of 40.0-44.9 in adult Z68.41 and Morbid (severe) obesity due to excess calories E66.01 [place] [address] 9[address]46- 5816 January, Type 2 diabetes mellitus with hyperglycemia E11.65 [facility] [address] 23606- 9932 Dec, Mild single current episode of major depressive disorder F32.0 [facility] [address] 24345- 1533 Dec, Hypercholesterolemia E78.00 [facility] [address] [address]37 -9461 Dec, Seasonal allergic rhinitis, unspecified trigger J30.2 [facility] [address] 42430- 0183 Nov, [facility] [address] [address]01- 1930 Nov, Hypercholesterolemia E78.00 and Type 2 diabetes mellitus with hyperglycemia E11.65 [place] [address] [place] [address] 6640 02 Nov, 2017 Leg cramps R25.2 [facility] [address] [place] [id number] [place] [address] 98280- 6967 Nov, Type 2 diabetes mellitus with hyperglycemia E11.65 [facility] [address] [place] [id number] [place] [address] 62839- 0030 Nov, Type 2 diabetes mellitus with hyperglycemia E11.65 ; prison 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 Z79.4 ; Essential hypertension I10 ; Mild single current episode of major depressive disorder F32.0 ; Primary osteoarthritis of both knees M17.0 ; High risk medication use Z79.899 ; Controlled substance agreement signed Z79.899 ; Hypercholesterolemia E78.00 and Leg cramps R25.2 [facility] [address] [place] [address] [id number] [place] [address] 31881- 3960 Oct, [facility] [address] [place] [id number] [place] [address] 35496 -7975 Oct, [facility] [address] [place] [id number] [place] [address] 03511- 6413 Oct, [facility] [address] [place] [id number] [place] [address] 02752- 4598 Sep, Essential hypertension I10 [facility] [address] [place] [address] [id number] [place] [address] 49607- 5591 Sep, Essential hypertension I10 [facility] [address] [place] [id number] [place] [address] 22064- 8708 Sep, [facility] [address] [place] [address] [id number] [place] [address] 67740- 5271 Sep, [facility] [address] [place] [id number] [place] [address] 32270- 4865 Sep, [facility] [id number] [place] [address] 52158- 4338 Aug, [facility] [address] [place] [id number] [place] [address] 60742- 5884 Jul, [facility] [address] [address] 34[address] Jul, [facility] [address] [address] 8797 Jul, [facility] [address] [address] 9053 Jun, [facility] [address] [place] [id number] [place] [address] 53864- 2705 Jun, [facility] [address] [place] [address] 25015- 0148 Jun, Type 2 diabetes mellitus with diabetic chronic kidney disease E11.22 ; Heart murmur R01.1 ; Essential hypertension I10 and Primary osteoarthritis of both knees M17.0 [facility] [address] [place] [address] 46555- 7078 Apr, Type 2 diabetes mellitus with diabetic chronic kidney disease E11.22 [facility] [address] [address] 9948 Mar, Type 2 diabetes mellitus with diabetic chronic kidney disease E11.22 ; Essential hypertension I10 ; Mild single current episode of major depressive disorder F32.0 and Primary osteoarthritis of both knees M17.0 [facility] [address] [address]- 1631 Feb, Mild single current episode of major depressive disorder F32.0 [facility] [address] [address]- 9740 Feb, [facility] [address] [address] 2620 Feb, Essential hypertension I10 and Hypercholesterolemia E78.00 [facility] [address] [address]- 0878 Feb, Type 2 diabetes mellitus with diabetic chronic kidney disease E11.22 ; Essential hypertension I10 ; Edema due to malnutrition, due to unspecified malnutrition type E43 ; Hypercholesterolemia E78.00 and Mild single current episode of major depressive disorder F32.0 [facility] [address] [facility] [id number] [place] [address]- 2413 Feb, IMMUNIZATIONS No Known Immunizations SOCIAL HISTORY Never Assessed REASON FOR VISIT Establish Care from Pepito paz rn, Would like to renew handicap tags, Taking Percocet PRN, last fill 09/06/17 per [facility] PLAN OF CARE Activity Details Follow Up 3 Months Reason:CHM/DM VITAL SIGNS Height 62 in 2017-11-15 Weight 210.3 lbs 2017-11-15 Temperature 97 degrees Fahrenheit 2017-11-15 Heart Rate 74 bpm 2017-11-15 Respiratory Rate 22 2017-11-15 BMI 38.46 kg/m2 2017-11-15 Blood pressure systolic 132 mmHg 2017-11-15 Blood pressure diastolic 78 mmHg 2017-11-15 MEDICATIONS Medication Instructions Dosage Frequency Start Date End Date Duration Status Levemir 100 UNIT/ML Subcutaneous twice a day 20 units 12h Active NovoLog Flexpen 100 UNIT/ML Subcutaneous 3 times a day before meals. 15 units Jun, Active Pioglitazone HCl 30 MG Orally Once a day 1 tablet 24h Jun, Active Cinnamon 500 MG Orally 2 times a day 1 capsule 12h Active Turmeric 500 MG Active Hydrochlorothiazide 12.5 MG Orally Once a day 1 capsule in the morning 24h Active Enalapril Maleate 20 MG Orally Once a day 1 tablet 24h Active Multi For Her 2 Gummies 24h Active Simvastatin 10 MG TAKE ONE TABLET BY MOUTH ONCE DAILY IN THE EVENING Active Metformin HCl 1000 MG Orally Twice a day 1 tablet with meals 12h Active Percocet 5-325 MG Orally every 6 hrs 1 tablet as needed 6h Active Potassium 12h Active Lasix 20 MG Orally Once a day 1 tablet 24h Not-Taking Lexapro 20 mg Orally Once a day 1 tablet 24h Active RESULTS Name Result Date Reference Range A1C (IN HOUSE) 2017-11-15 A1C IN HOUSE 9 4.3 - 5.6 % Previous A1c 8.3 Lot [id number] Exp date 07/2019 [employer] 2017-11-15 PROCEDURES Procedure Date Ordered Result Body Site GLYCATED HEMOGLOBIN TEST November 15, 2017 COMPREHEN METABOLIC PANEL November 15, 2017 No Charge November 15, 2017 ASSAY OF MAGNESIUM November 15, 2017 INSTRUCTIONS MEDICATIONS ADMINISTERED No Known Medications [...]
--- OUTSIDE RECORDS SUMMARY | 2018-12-19 12:30 | XMS REPORT ---
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 Coating Machine Operator Name Role Phone MURIEL SAUL Unavailable PROBLEMS Type Condition ICD9-CM Code [id number] Code Onset Dates Condition Status SNOMED Code Problem Mild single current episode of major depressive disorder F32.0 Active 47047822 Problem Type 2 diabetes mellitus with hyperglycemia E11.65 Active 67229020 Problem Primary osteoarthritis of both knees M17.0 Active 508422720 Problem Essential hypertension I10 Active 86832717 Problem Type 2 diabetes mellitus with diabetic chronic kidney disease E11.22 Active 115080673 Problem Morbid (severe) obesity due to excess calories E66.01 Active 863088283 Problem Hypercholesterolemia E78.00 Active 38040183 Problem [facility] 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 Z79.4 Active 556405268 Problem Body mass index (BMI) of 40.0-44.9 in adult Z68.41 Active 155886404 Problem 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 Active 78673070 ALLERGIES No Known Allergies ENCOUNTERS Encounter Location Date Diagnosis [place] [address] [address] 8160 Mar, Type 2 diabetes mellitus with hyperglycemia E11.65 [facility] [address] [address] Mar, [facility] [address] [place] [address] 70880- 2906 Mar, Actinic keratosis L57.0 ; Labial cyst N90.7 and Type 2 diabetes mellitus with diabetic chronic kidney disease E11.22 [facility] [address] [address]- 4511 Feb, [facility] [address] [place] [id number] [place] [address] 60931- 1766 14 Feb, 2018 Type 2 diabetes mellitus with hyperglycemia E11.65 ; Essential hypertension I10 ; Hypercholesterolemia E78.00 ; [facility] 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 Z79.4 ; Primary osteoarthritis of both knees M17.0 and 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 [facility] [address] [place] [id number] [place] [address] 84138- 7233 13 Feb, 2018 Dental examination Z01.20 [facility] [address] 54101- 7614 12 Feb, 2018 Dental examination Z01.20 [place] [address] [place] [id number] [place] [address] 38426- 0619 12 Feb, 2018 Type 2 diabetes mellitus with hyperglycemia E11.65 ; Essential hypertension I10 ; [facility] 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 Z79.4 ; Hypercholesterolemia E78.00 ; Primary osteoarthritis of both knees M17.0 ; 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 ; Body mass index (BMI) of 40.0-44.9 in adult Z68.41 and Morbid (severe) obesity due to excess calories E66.01 [place] [address] [place] [id number] [place] [address] 47452- 5374 January, Type 2 diabetes mellitus with hyperglycemia E11.65 [facility] [address] [place] [id number] [place] [address] 27280- 8447 Dec, Mild single current episode of major depressive disorder F32.0 [facility] [address] [place] [id number] [place] [address] 34691- 9555 Dec, Hypercholesterolemia E78.00 [facility] [address] [place] [id number] [place] [address] 45138 -9740 07 Dec, 2017 Seasonal allergic rhinitis, unspecified trigger J30.2 [place] [address] 75434- 5891 15 Nov, 2017 [facility] [address] [place] [id number] [place] [address] 12428- 7928 Nov, Hypercholesterolemia E78.00 and Type 2 diabetes mellitus with hyperglycemia E11.65 [facility] [address] [address]- 6009 02 Nov, 2017 Leg cramps R25.2 [facility] [address] [place] [address] 57105- 6734 Nov, Type 2 diabetes mellitus with hyperglycemia E11.65 [facility] [address] [place] [address] 09789- 4981 Nov, Type 2 diabetes mellitus with hyperglycemia E11.65 ; 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 ; Essential hypertension I10 ; Mild single current episode of major depressive disorder F32.0 ; Primary osteoarthritis of both knees M17.0 ; High risk medication use Z79.899 ; Controlled substance agreement signed Z79.899 ; Hypercholesterolemia E78.00 and Leg cramps R25.2 [facility] [address] [place] [address] 59624- 5538 Oct, [facility] [address] [place] [address] 88779 -0082 Oct, [facility] [address] [place] [id number] [place] [address] 75154- 9699 Oct, [facility] [address] [place] [id number] [place] [address] 73178- 8933 Sep, Essential hypertension I10 [facility] [address] [place] [address] 86513- 5023 Sep, Essential hypertension I10 [facility] [address] [place] [address] 67258- 6940 Sep, [facility] [address] [place] [id number] [place] [address] 50523- 2270 Sep, [facility] [address] [place] [address] 22290- 6465 Sep, [facility] [address] [place] [address] 61065- 3638 Aug, [facility] [address] [address]- 8152 Jul, [facility] [address] [address]- 1900 Jul, [facility] [address] [address]- 2766 Jul, [facility] [address] [place] [id number] [place] [address] 48262- 3370 Jun, [facility] [address] [place] [address] 28772- 8025 Jun, [facility] [address] [place] [id number] [place] [address] 55814- 3976 Jun, Type 2 diabetes mellitus with diabetic chronic kidney disease E11.22 ; Heart murmur R01.1 ; Essential hypertension I10 and Primary osteoarthritis of both knees M17.0 [facility] [address] [place] [address] 71160- 4048 Apr, Type 2 diabetes mellitus with diabetic chronic kidney disease E11.22 [facility] [address] [address]- 1943 Mar, Type 2 diabetes mellitus with diabetic chronic kidney disease E11.22 ; Essential hypertension I10 ; Mild single current episode of major depressive disorder F32.0 and Primary osteoarthritis of both knees M17.0 [facility] [address], [place] [address]- 2498 Feb, Mild single current episode of major depressive disorder F32.0 [facility] [address] [address]- 3390 Feb, [facility] [address] [address]- 9128 Feb, Essential hypertension I10 and Hypercholesterolemia E78.00 [facility] [address] [address]- 7851 Feb, Type 2 diabetes mellitus with diabetic chronic kidney disease E11.22 ; Essential hypertension I10 ; Edema due to malnutrition, due to unspecified malnutrition type E43 ; Hypercholesterolemia E78.00 and Mild single current episode of major depressive disorder F32.0 [facility] [address] [facility] [id number] [place] [address]- 2351 Feb, IMMUNIZATIONS No Known Immunizations SOCIAL HISTORY Never Assessed REASON FOR VISIT Sore throat and sneezing started 2 days ago JStrasser[facility] PLAN OF CARE Activity Details Follow Up prn Reason: VITAL SIGNS Height 62 in 2017-12-22 Weight 214.2 lbs 2017-12-22 Temperature 97.5 degrees Fahrenheit 2017-12-22 Heart Rate 74 bpm 2017-12-22 Respiratory Rate 22 2017-12-22 BMI 39.17 kg/m2 2017-12-22 Blood pressure systolic 160 mmHg 2017-12-22 Blood pressure diastolic 94 mmHg 2017-12-22 MEDICATIONS Medication Instructions Dosage Frequency Start Date End Date Duration Status Potassium 12h Active Pioglitazone HCl 30 MG Orally Once a day 1 tablet 24h Jun, Active Turmeric 500 MG Active Multi For Her 2 Gummies 24h Active Levemir 100 UNIT/ML Subcutaneous twice a day 20 units 12h Active Lasix 20 MG Orally Once a day 1 tablet 24h Not-Taking Hydrochlorothiazide 12.5 MG Orally Once a day 1 capsule in the morning 24h 30 Active Lexapro 20 mg Orally Once a day 1 tablet 24h Active Metformin HCl 1000 MG Orally Twice a day 1 tablet with meals 12h 90 days Active Percocet 5-325 MG Orally every 6 hrs 1 tablet as needed 6h Active NovoLog Flexpen 100 UNIT/ML Subcutaneous 3 times a day before meals. 15 units Jun, 30 days Active Cinnamon 500 MG Orally 2 times a day 1 capsule 12h Active Enalapril Maleate 20 MG Orally Once a day 1 tablet 24h 30 Active Simvastatin 10 mg Orally Once a day TAKE ONE TABLET BY MOUTH ONCE DAILY IN THE EVENING 24h 30 days Active RESULTS No Results PROCEDURES No [...]
--- OUTSIDE RECORDS SUMMARY | 2018-12-19 12:30 | XMS REPORT ---
Author Author MERLINLARRYVARUN Organization [facility] Address [address] [place] [address] Care Team Providers Care Security Assistant Name Role Phone BOYREVARUN Hopkins Unavailable PROBLEMS Type Condition ICD9-CM Code [id number] Code Onset Dates Condition Status SNOMED Code Problem Mild single current episode of major depressive disorder F32.0 Active 42664001 Problem Type 2 diabetes mellitus with hyperglycemia E11.65 Active 26473596 Problem Primary osteoarthritis of both knees M17.0 Active 691742799 Problem Essential hypertension I10 Active 67344054 Problem Type 2 diabetes mellitus with diabetic chronic kidney disease E11.22 Active 731575631 Problem Morbid (severe) obesity due to excess calories E66.01 Active 611538098 Problem Hypercholesterolemia E78.00 Active 26247040 Problem half-way 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 Z79.4 Active 299445760 Problem Body mass index (BMI) of 40.0-44.9 in adult Z68.41 Active 747372669 Problem 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 Active 46972133 ALLERGIES No Information ENCOUNTERS Encounter Location Date Diagnosis [place] [id number] [place] [address] 42042- 1910 Mar, Type 2 diabetes mellitus with hyperglycemia E11.65 [facility] [id number] [place] [address] 20610- 5787 Mar, [facility] [address] [place] [id number] [place] [address] 26191- 0073 Mar, Actinic keratosis L57.0 ; Labial cyst N90.7 and Type 2 diabetes mellitus with diabetic chronic kidney disease E11.22 [facility] [address] [address] 3605 Feb, [facility] [address] [place] [id number] [place] [address] 31771- 2863 14 Feb, 2018 Type 2 diabetes mellitus with hyperglycemia E11.65 ; Essential hypertension I10 ; Hypercholesterolemia E78.00 ; 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 ; Primary osteoarthritis of both knees M17.0 and 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 [facility] [address] [place] [id number] [place] [address] 11197- 3091 13 Feb, 2018 Dental examination Z01.20 [facility] [address] 80908- 6126 12 Feb, 2018 Dental examination Z01.20 [place] [address] 02099- 2190 12 Feb, 2018 Type 2 diabetes mellitus with hyperglycemia E11.65 ; Essential hypertension I10 ; 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 ; Hypercholesterolemia E78.00 ; Primary osteoarthritis of both knees M17.0 ; 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 ; Body mass index (BMI) of 40.0-44.9 in adult Z68.41 and Morbid (severe) obesity due to excess calories E66.01 [place] [address] 8[address]17- 0230 January, Type 2 diabetes mellitus with hyperglycemia E11.65 [place] [address] 25631- 3292 Dec, Mild single current episode of major depressive disorder F32.[address] [address]89- 4811 Dec, Hypercholesterolemia E78.00 [facility] [address] 78247 -5762 07 Dec, 2017 Seasonal allergic rhinitis, unspecified trigger J30.2 [place] [address] 77567- 8747 15 Nov, 2017 [place] [address] 03353- 2449 Nov, Hypercholesterolemia E78.00 and Type 2 diabetes mellitus with hyperglycemia E11.65 [place] [address] [address] 5507 Nov, Leg cramps R25.2 [facility] [address] [place] [id number] [place] [address] 79013- 3436 Nov, Type 2 diabetes mellitus with hyperglycemia E11.65 [facility] [address] [place] [address] 21700- 2171 Nov, Type 2 diabetes mellitus with hyperglycemia E11.65 ; half-way 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 Z79.4 ; Essential hypertension I10 ; Mild single current episode of major depressive disorder F32.0 ; Primary osteoarthritis of both knees M17.0 ; High risk medication use Z79.899 ; Controlled substance agreement signed Z79.899 ; Hypercholesterolemia E78.00 and Leg cramps R25.2 [facility] [address] [address] 1957 Oct, [facility] [id number] [place] [address] 91399 -5936 Oct, [facility] [address] [place] [address] [id number] [place] [address] 74744- 1327 Oct, [facility] [id number] [place] [address] 62499- 7849 Sep, Essential hypertension I10 [facility] [id number] [place] [address] 97439- 3345 Sep, Essential hypertension I10 [facility] [id number] [place] [address] 01128- 6791 Sep, [facility] [address] [address]- 0783 Sep, [facility] [id number] [place] [address] 71447- 6657 Sep, [facility] [address] [address]- 4660 Aug, [facility] [address] [place] [address] [id number] [address]- 3995 Jul, [facility] [address] [address]- 0346 Jul, [facility] [address] [address]- 0015 Jul, [facility] [id number] [place] [address] 40138- 5576 Jun, [facility] [address] [place] [address] 07567- 5086 Jun, [facility] [address] [place] [address] 18693- 6612 Jun, Type 2 diabetes mellitus with diabetic chronic kidney disease E11.22 ; Heart murmur R01.1 ; Essential hypertension I10 and Primary osteoarthritis of both knees M17.0 [facility] [address] [place] [address] 88654- 3026 Apr, Type 2 diabetes mellitus with diabetic chronic kidney disease E11.22 [facility] [address] [address]- 6608 Mar, Type 2 diabetes mellitus with diabetic chronic kidney disease E11.22 ; Essential hypertension I10 ; Mild single current episode of major depressive disorder F32.0 and Primary osteoarthritis of both knees M17.0 [facility] [address] [address]- 9402 Feb, Mild single current episode of major depressive disorder F32.0 [facility] [address] [address]- 5078 Feb, [facility] [address] [address]- 6405 Feb, Essential hypertension I10 and Hypercholesterolemia E78.00 [facility] [address] [address]- 7706 Feb, Type 2 diabetes mellitus with diabetic chronic kidney disease E11.22 ; Essential hypertension I10 ; Edema due to malnutrition, due to unspecified malnutrition type E43 ; Hypercholesterolemia E78.00 and Mild single current episode of major depressive disorder F32.0 [facility] [address] [facility] [id number] [place] [address]- 1608 Feb, IMMUNIZATIONS No Known Immunizations SOCIAL HISTORY Never Assessed REASON FOR VISIT Needing 90 day refill PLAN OF CARE VITAL SIGNS MEDICATIONS Medication Instructions Dosage Frequency Start Date End Date Duration Status Simvastatin 10 mg Orally Once a day TAKE ONE TABLET BY MOUTH ONCE DAILY IN THE EVENING 24h 90 days Active RESULTS No Results [...]
--- OUTSIDE RECORDS SUMMARY | 2018-12-19 12:30 | XMS REPORT ---
Author Author BOYERLARRY HopkinsELE Organization [facility] Address [address] [place] [address] Care Team Providers Care Go Go Dancer Name Role Phone BOYERVARUN Hopkins Unavailable PROBLEMS Type Condition ICD9-CM Code [id number] Code Onset Dates Condition Status SNOMED Code Problem Mild single current episode of major depressive disorder F32.0 Active 34804291 Problem Type 2 diabetes mellitus with hyperglycemia E11.65 Active 04782783 Problem Primary osteoarthritis of both knees M17.0 Active 014782700 Problem Essential hypertension I10 Active 12349181 Problem Type 2 diabetes mellitus with diabetic chronic kidney disease E11.22 Active 155245086 Problem Morbid (severe) obesity due to excess calories E66.01 Active 911347523 Problem Hypercholesterolemia E78.00 Active 37297367 Problem retirement 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 Z79.4 Active 854942709 Problem Body mass index (BMI) of 40.0-44.9 in adult Z68.41 Active 682273370 Problem 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 Active 57488382 ALLERGIES No Information ENCOUNTERS Encounter Location Date Diagnosis [place] [address] [place] [address] 92560- 7036 Mar, [facility] [address] [place] [id number] [place] [address] 44528- 0145 Mar, [facility] [address] [place] [id number] [place] [address] 43554- 7396 Mar, Actinic keratosis L57.0 ; Labial cyst N90.7 and Type 2 diabetes mellitus with diabetic chronic kidney disease E11.22 [facility] [address] [place] [address] 37978- 8241 Feb, [facility] [address] [place] [address] 23137- 6601 14 Feb, 2018 Type 2 diabetes mellitus with hyperglycemia E11.65 ; Essential hypertension I10 ; Hypercholesterolemia E78.00 ; manager long term care 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 Z79.4 ; Primary osteoarthritis of both knees M17.0 and 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 [facility] [address] 36089- 2238 Feb, Dental examination Z01.20 [facility] [address] 85528- 3637 Feb, Dental examination Z01.20 [place] [address] 52205- 8258 Feb, Type 2 diabetes mellitus with hyperglycemia E11.65 ; Essential hypertension I10 ; retirement 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 Z79.4 ; Hypercholesterolemia E78.00 ; Primary osteoarthritis of both knees M17.0 ; 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 ; Body mass index (BMI) of 40.0-44.9 in adult Z68.41 and Morbid (severe) obesity due to excess calories E66.01 [place] [address] 87017- 4148 January, Type 2 diabetes mellitus with hyperglycemia E11.65 [place] [address] 11912- 7778 Dec, Mild single current episode of major depressive disorder F32.0 [facility] [address] 19468- 1309 Dec, Hypercholesterolemia E78.00 [facility] [address] 22206 -7641 Dec, Seasonal allergic rhinitis, unspecified trigger J30.2 [place] [address] 06636- 1690 Nov, [facility] [address] 68066- 5348 Nov, Hypercholesterolemia E78.00 and Type 2 diabetes mellitus with hyperglycemia E11.65 [place] [address] [place] [address]- 7024 02 Nov, 2017 Leg cramps R25.2 [facility] [address] [place] [id number] [place] [address] 90224- 4865 Nov, Type 2 diabetes mellitus with hyperglycemia E11.65 [facility] [address] [place] [id number] [place] [address] 36680- 9579 Nov, Type 2 diabetes mellitus with hyperglycemia E11.65 ; manager long term care 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 Z79.4 ; Essential hypertension I10 ; Mild single current episode of major depressive disorder F32.0 ; Primary osteoarthritis of both knees M17.0 ; High risk medication use Z79.899 ; Controlled substance agreement signed Z79.899 ; Hypercholesterolemia E78.00 and Leg cramps R25.2 [facility] [address] [place] [address] [id number] [place] [address] 35950- 6705 Oct, [facility] [address] 36027 -9234 Oct, [facility] [address] [place] [id number] [place] [address] 67245- 8748 Oct, [facility] [address] [place] [id number] [place] [address] 37435- 2317 Sep, Essential hypertension I10 [facility] [address] [place] [id number] [place] [address] 41148- 6429 Sep, Essential hypertension I10 [facility] [address] [place] [address] [id number] [place] [address] 24911- 8377 Sep, [facility] [address] [place] [id number] [place] [address] 32197- 3875 Sep, [facility] [address] [place] [id number] [place] [address] 24671- 5317 Sep, [facility] [address] [place] [address] [id number] [place] [address] 61948- 5655 Aug, [facility] [address] 77120- 3103 Jul, [facility] [address], [place] [address]- 4114 Jul, [facility] [address] 5692 Jul, [facility] [address], [place] [address]- 9643 Jun, [facility] [address] [place] [address] 74979- 3874 Jun, [facility] [address] [address]- 7031 Jun, Type 2 diabetes mellitus with diabetic chronic kidney disease E11.22 ; Heart murmur R01.1 ; Essential hypertension I10 and Primary osteoarthritis of both knees M17.0 [facility] [address], [place] [address]- 8125 Apr, Type 2 diabetes mellitus with diabetic chronic kidney disease E11.22 [facility] [address], [place] [address]- 0451 Mar, Type 2 diabetes mellitus with diabetic chronic kidney disease E11.22 ; Essential hypertension I10 ; Mild single current episode of major depressive disorder F32.0 and Primary osteoarthritis of both knees M17.0 [facility] [address] [address]- 2499 Feb, Mild single current episode of major depressive disorder F32.0 [facility] [address], [place] [address]- 5340 Feb, [facility] [address], [place] [address]- 9822 Feb, Essential hypertension I10 and Hypercholesterolemia E78.00 [facility] [address] [place] [id number] [address]- 8722 Feb, Type 2 diabetes mellitus with diabetic chronic kidney disease E11.22 ; Essential hypertension I10 ; Edema due to malnutrition, due to unspecified malnutrition type E43 ; Hypercholesterolemia E78.00 and Mild single current episode of major depressive disorder F32.0 [facility] [address] [facility] [id number] [place] [address]- 7940 Feb, IMMUNIZATIONS No Known Immunizations SOCIAL HISTORY Never Assessed REASON FOR VISIT Medication question PLAN OF CARE VITAL SIGNS MEDICATIONS Medication Instructions Dosage Frequency Start Date End Date Duration Status Simvastatin 10 mg Orally Once a day TAKE ONE TABLET BY MOUTH ONCE DAILY IN THE EVENING 24h 30 days Active NovoLog Flexpen 100 UNIT/ML Subcutaneous 3 times a day before meals. 15 units Jun, 30 days Active RESULTS No Results PROCEDURES [...]
--- OUTSIDE RECORDS SUMMARY | 2018-12-19 12:30 | XMS REPORT ---
Author Author BRIANNE BUI Organization [facility] Address [address] [place] [address] Care Team Providers Care Meal Grinder Tender Name Role Phone BRIANNE BUI Unavailable PROBLEMS Type Condition ICD9-CM Code [id number] Code Onset Dates Condition Status SNOMED Code Problem Mild single current episode of major depressive disorder F32.0 Active 99965541 Problem Type 2 diabetes mellitus with hyperglycemia E11.65 Active 10818262 Problem Primary osteoarthritis of both knees M17.0 Active 408372837 Problem Essential hypertension I10 Active 37736388 Problem Type 2 diabetes mellitus with diabetic chronic kidney disease E11.22 Active 786356808 Problem Morbid (severe) obesity due to excess calories E66.01 Active 348700299 Problem Hypercholesterolemia E78.00 Active 28075533 Problem long term care pharmacist 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 Z79.4 Active 919152559 Problem Body mass index (BMI) of 40.0-44.9 in adult Z68.41 Active 885855893 Problem 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 Active 87895201 ALLERGIES No Information ENCOUNTERS Encounter Location Date Diagnosis [place] [address] [place] [id number] [place] [address] 38203- 4177 Mar, Type 2 diabetes mellitus with hyperglycemia E11.65 [place] [address] [place] [id number] [place] [address] 35902- 0780 Mar, [place] [address] [place] [id number] [place] [address] 34666- 5548 Mar, Actinic keratosis L57.0 ; Labial cyst N90.7 and Type 2 diabetes mellitus with diabetic chronic kidney disease E11.22 [place] [address] [place] [address] [place] [address] 99780- 4667 Feb, [place] [address] 64703- 9252 14 Feb, 2018 Type 2 diabetes mellitus with hyperglycemia E11.65 ; Essential hypertension I10 ; Hypercholesterolemia E78.00 ; long term care pharmacist 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 Z79.4 ; Primary osteoarthritis of both knees M17.0 and 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 [facility] [address] [place] [address] 17304- 5937 13 Feb, 2018 Dental examination Z01.20 [facility] [address] [place] [id number] [place] [address] 88292- 7937 12 Feb, 2018 Dental examination Z01.20 [place] [address] [place] [address] [place] [address] 21904- 4224 12 Feb, 2018 Type 2 diabetes mellitus with hyperglycemia E11.65 ; Essential hypertension I10 ; long term care pharmacist 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 Z79.4 ; Hypercholesterolemia E78.00 ; Primary osteoarthritis of both knees M17.0 ; 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 ; Body mass index (BMI) of 40.0-44.9 in adult Z68.41 and Morbid (severe) obesity due to excess calories E66.01 [place] [address] [place] [address] [place] [address] 42031- 7148 January, Type 2 diabetes mellitus with hyperglycemia E11.65 [place] [address] [place] [address] [place] [address] 52166- 3027 Dec, Mild single current episode of major depressive disorder F32.0 [facility] [address] [place] [id number] [place] [address] 01080- 7727 Dec, Hypercholesterolemia E78.00 [facility] [address] [place] [id number] [place] [address] 85397 -8667 07 Dec, 2017 Seasonal allergic rhinitis, unspecified trigger J30.2 [place] [address] [place] [address] [place] [address] 15306- 5776 15 Nov, 2017 [place] [address] [place] [address] [place] [address] 13143- 6928 Nov, Hypercholesterolemia E78.00 and Type 2 diabetes mellitus with hyperglycemia E11.65 [place] [address] [place] [address] [place] [address] 13833- 9883 Nov, Leg cramps R25.2 [facility] [address] [place] [address] [place] [address] 75781- 4247 Nov, Type 2 diabetes mellitus with hyperglycemia E11.65 [facility] [address] [place] [address] [place] [address] 76557- 1151 Nov, Type 2 diabetes mellitus with hyperglycemia E11.65 ; long term care pharmacist 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 Z79.4 ; Essential hypertension I10 ; Mild single current episode of major depressive disorder F32.0 ; Primary osteoarthritis of both knees M17.0 ; High risk medication use Z79.899 ; Controlled substance agreement signed Z79.899 ; Hypercholesterolemia E78.00 and Leg cramps R25.2 [facility] [address] [place] [id number] [place] [address] 91229- 8070 Oct, [facility] [address] [place] [id number] [place] [address] 64551 -4846 Oct, [facility] [address] [place] [id number] [place] [address] 14553- 9625 Oct, [facility] [address] [place] [id number] [place] [address] 27580- 7020 Sep, Essential hypertension I10 [facility] [address] [place] [id number] [place] [address] 49806- 5504 Sep, Essential hypertension I10 [facility] [address] [place] [id number] [place] [address] 41648- 6031 Sep, [facility] [address] [place] [id number] [place] [address] 05758- 3650 Sep, [facility] [address] [place] [id number] [place] [address] 41368- 6847 Sep, [facility] [address] [place] [id number] [place] [address] 51813- 0108 Aug, [facility] [address] [place] [address] [address]- 1631 Jul, [facility] [address] [address]- 7890 Jul, [facility] [address] [address]- 2572 Jul, [facility] [address] [address]- 5076 Jun, [facility] [address] [place] [address] 37328- 3288 Jun, [facility] [address] [place] [address] 02151- 2723 Jun, Type 2 diabetes mellitus with diabetic chronic kidney disease E11.22 ; Heart murmur R01.1 ; Essential hypertension I10 and Primary osteoarthritis of both knees M17.0 [facility] [address] [place] [id number] [place] [address] 64268- 3742 Apr, Type 2 diabetes mellitus with diabetic chronic kidney disease E11.22 [facility] [address] [address]- 3889 Mar, Type 2 diabetes mellitus with diabetic chronic kidney disease E11.22 ; Essential hypertension I10 ; Mild single current episode of major depressive disorder F32.0 and Primary osteoarthritis of both knees M17.0 [facility] [address] [address]- 1185 Feb, Mild single current episode of major depressive disorder F32.0 [facility] [address] [address]- 0425 Feb, [facility] [address] [address]- 8806 Feb, Essential hypertension I10 and Hypercholesterolemia E78.00 [facility] [address] [address]- 6585 Feb, Type 2 diabetes mellitus with diabetic chronic kidney disease E11.22 ; Essential hypertension I10 ; Edema due to malnutrition, due to unspecified malnutrition type E43 ; Hypercholesterolemia E78.00 and Mild single current episode of major depressive disorder F32.0 [facility] [address] [facility] [id number] [address]- 6011 Feb, IMMUNIZATIONS No Known Immunizations SOCIAL HISTORY [...]
--- OUTSIDE RECORDS SUMMARY | 2018-12-19 12:31 | XMS REPORT ---
Author Author MERLINLARRYVARUN Organization [facility] Address [address] [place] [address] Care Team Providers Care Winder Helper Name Role Phone BOYERVARUN Hopkins Unavailable PROBLEMS Type Condition ICD9-CM Code BAG04-CC Code Onset Dates Condition Status SNOMED Code Problem Mild single current episode of major depressive disorder F32.0 Active 30739932 Problem Primary osteoarthritis of both knees M17.0 Active 033684605 Problem Essential hypertension I10 Active 81206081 Problem Morbid (severe) obesity due to excess calories E66.01 Active 155232702 Problem Body mass index (BMI) of 40.0-44.9 in adult Z68.41 Active 208574559 Problem ground hand 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 Z79.4 Active 968749904 Problem Type 2 diabetes mellitus with hyperglycemia E11.65 Active 40202895 Problem 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 Active 45739225 Problem Hypercholesterolemia E78.00 Active 13657443 ALLERGIES No Information ENCOUNTERS Encounter Location Date Diagnosis [place] [id number] [place] [address] 30912- 2151 Mar, [place] [id number] [place] [address] 21378- 1775 Feb, [place] [id number] [place] [address] 29283- 0713 14 Feb, 2018 Type 2 diabetes mellitus with hyperglycemia E11.65 ; Essential hypertension I10 ; Hypercholesterolemia E78.00 ; ground hand 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 Z79.4 ; Primary osteoarthritis of both knees M17.0 and 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 [place] [id number] [place] [address] 68260- 1516 13 Feb, 2018 Dental examination Z01.20 [place] [address] 05333- 6465 Feb, Dental examination Z01.20 [place] [id number] [place] [address] 85475- 5363 12 Feb, 2018 Type 2 diabetes mellitus with hyperglycemia E11.65 ; Essential hypertension I10 ; ground hand 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 Z79.4 ; Hypercholesterolemia E78.00 ; Primary osteoarthritis of both knees M17.0 ; 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 ; Body mass index (BMI) of 40.0-44.9 in adult Z68.41 and Morbid (severe) obesity due to excess calories E66.01 [place] [address] 40004- 0440 January, Type 2 diabetes mellitus with hyperglycemia E11.65 [place] [address] 85962- 4203 Dec, Mild single current episode of major depressive disorder F32.0 [place] [address] 43135- 9558 Dec, Hypercholesterolemia E78.00 [facility] [address] 20126 -4938 Dec, Seasonal allergic rhinitis, unspecified trigger J30.2 [place] [address] 62151- 7941 15 Nov, 2017 [place] [address] 72382- 9497 Nov, Hypercholesterolemia E78.00 and Type 2 diabetes mellitus with hyperglycemia E11.65 [place] [id number] [place] [address] 77636- 2981 Nov, Leg cramps R25.2 [place] [address] 32488- 8325 Nov, Type 2 diabetes mellitus with hyperglycemia E11.65 [place] [address] 91293- 2887 Nov, Type 2 diabetes mellitus with hyperglycemia E11.65 ; jail 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 Z79.4 ; Essential hypertension I10 ; Mild single current episode of major depressive disorder F32.0 ; Primary osteoarthritis of both knees M17.0 ; High risk medication use Z79.899 ; Controlled substance agreement signed Z79.899 ; Hypercholesterolemia E78.00 and Leg cramps R25.2 [facility] [address] [address] 37[address] Oct, [facility] [id number] [place] [address] 80033 -5451 Oct, [facility] [id number] [place] [address] 95035- 4097 Oct, [facility] [id number] [place] [address] 50383- 8041 Sep, Essential hypertension I10 [facility] [id number] [place] [address] 57322- 0567 Sep, Essential hypertension I10 [facility] [id number] [place] [address] 07683- 0406 Sep, [facility] [id number] [place] [address] 88148- 8799 Sep, [facility] [id number] [place] [address] 84007- 4590 Sep, [facility] [id number] [place] [address] 83141- 1694 Aug, [facility] [id number] [place] [address] 38595- 1661 Jul, [facility] [id number] [place] [address] 89353- 9342 Jul, [facility] [id number] [place] [address] 31805- 4937 Jul, [facility] [id number] [place] [address] 80085- 3673 Jun, [place] [id number] [place] [address] 55021- 4269 Jun, [place] [id number] [place] [address] 10686- 0891 Jun, Type 2 diabetes mellitus with diabetic chronic kidney disease E11.22 ; Heart murmur R01.1 ; Essential hypertension I10 and Primary osteoarthritis of both knees M17.0 [place] [id number] [place] [address] 39149- 2970 Apr, Type 2 diabetes mellitus with diabetic chronic kidney disease E11.22 [place] [id number] [place] [address] 91912- 2840 Mar, Type 2 diabetes mellitus with diabetic chronic kidney disease E11.22 ; Essential hypertension I10 ; Mild single current episode of major depressive disorder F32.0 and Primary osteoarthritis of both knees M17.0 [place] [id number] [place] [address] 15614- 7513 Feb, Mild single current episode of major depressive disorder F32.0 [place] [id number] [place] [address] 13716- 8866 Feb, [place] [id number] [place] [address] 04823- 2211 Feb, Essential hypertension I10 and Hypercholesterolemia E78.00 [place] [address] [place] [address] 78943- 9654 Feb, Type 2 diabetes mellitus with diabetic chronic kidney disease E11.22 ; Essential hypertension I10 ; Edema due to malnutrition, due to unspecified malnutrition type E43 ; Hypercholesterolemia E78.00 and Mild single current episode of major depressive disorder F32.0 [place] [id number] [place] [address] 04862- 1220 Feb, IMMUNIZATIONS No Known Immunizations SOCIAL HISTORY Never Assessed REASON FOR VISIT Missed Appointment PLAN OF CARE VITAL SIGNS MEDICATIONS Medication Instructions Dosage Frequency Start Date End Date Duration Status Hydrochlorothiazide 12.5 MG Orally Once a day 1 capsule in the morning 24h 30 days Active RESULTS No Results [...]
--- OUTSIDE RECORDS SUMMARY | 2018-12-19 12:31 | XMS REPORT ---
Author Author YEISON JUSTO Organization [facility] Address [address] [place] [address] Care Team Providers Care Land Management Supervisor Name Role Phone JUSTO LATHAM Unavailable PROBLEMS Type Condition ICD9-CM Code JSN47-EA Code Onset Dates Condition Status SNOMED Code Problem Type 2 diabetes mellitus with hyperglycemia E11.65 Active 30968418 Problem [facility] 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 Z79.4 Active 321520695 Problem Mild single current episode of major depressive disorder F32.0 Active 88743876 Problem Essential hypertension I10 Active 84847988 Problem Hypercholesterolemia E78.00 Active 18733186 Problem Primary osteoarthritis of both knees M17.0 Active 207326551 ALLERGIES No Information ENCOUNTERS Encounter Location Date Diagnosis [facility] [address] 28966- 6507 Feb, [facility] [address] 77951- 4307 January, Type 2 diabetes mellitus with hyperglycemia E11.65 [facility] [address] 12682- 0703 Dec, Mild single current episode of major depressive disorder F32.0 [facility] [id number] [place] [address] 94970- 8329 Dec, Hypercholesterolemia E78.00 [facility] [address] 83151 -4573 07 Dec, 2017 Seasonal allergic rhinitis, unspecified trigger J30.2 [facility] [address] 92034- 2735 15 Nov, 2017 [facility] [address] 90609- 1677 Nov, Hypercholesterolemia E78.00 and Type 2 diabetes mellitus with hyperglycemia E11.65 [facility] [id number] [place] [address] 17377- 8577 Nov, Leg cramps R25.2 [facility] [id number] [place] [address] 67564- 3001 Nov, Type 2 diabetes mellitus with hyperglycemia E11.65 [facility] [id number] [place] [address] 17848- 6834 Nov, Type 2 diabetes mellitus with hyperglycemia E11.65 ; long term care pharmacist 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 Z79.4 ; Essential hypertension I10 ; Mild single current episode of major depressive disorder F32.0 ; Primary osteoarthritis of both knees M17.0 ; High risk medication use Z79.899 ; Controlled substance agreement signed Z79.899 ; Hypercholesterolemia E78.00 and Leg cramps R25.2 [facility] [id number] [place] [address] 68184- 6349 Oct, [facility] [id number] [place] [address] 68286 -1120 Oct, [facility] [id number] [place] [address] 81917- 9797 Oct, [facility] [id number] [place] [address] 16055- 8225 Sep, Essential hypertension I10 [facility] [id number] [place] [address] 99099- 8682 Sep, Essential hypertension I10 [facility] [id number] [place] [address] 26190- 6428 Sep, [facility] [id number] [place] [address] 68146- 2830 Sep, [facility] [address] [place] [address] 84280- 3776 Sep, [facility] [id number] [place] [address] 45165- 3566 Aug, [facility] [address] [address]- 2714 Jul, [facility] [address] [address]- 7893 Jul, [facility] [address] [address]- 6257 Jul, [facility] [address] [place] [address] 37659- 8413 Jun, [facility] [address] [place] [address] 83038- 9305 Jun, [facility] [address] [place] [address] 31646- 9767 Jun, Type 2 diabetes mellitus with diabetic chronic kidney disease E11.22 ; Heart murmur R01.1 ; Essential hypertension I10 and Primary osteoarthritis of both knees M17.0 [facility] [address] [address]- 4677 Apr, Type 2 diabetes mellitus with diabetic chronic kidney disease E11.22 [facility] [address] [place] [address] 89033- 2530 Mar, Type 2 diabetes mellitus with diabetic chronic kidney disease E11.22 ; Essential hypertension I10 ; Mild single current episode of major depressive disorder F32.0 and Primary osteoarthritis of both knees M17.0 [facility] [address] [address]- 8545 Feb, Mild single current episode of major depressive disorder F32.0 [facility] [address] [address]- 0512 Feb, [facility] [address] [address]- 6265 Feb, Essential hypertension I10 and Hypercholesterolemia E78.00 [facility] [address] [place] [address] 03272- 3896 Feb, Type 2 diabetes mellitus with diabetic chronic kidney disease E11.22 ; Essential hypertension I10 ; Edema due to malnutrition, due to unspecified malnutrition type E43 ; Hypercholesterolemia E78.00 and Mild single current episode of major depressive disorder F32.0 [facility] [address] [facility] [id number] [address]- 4962 Feb, IMMUNIZATIONS No Known Immunizations SOCIAL HISTORY Never Assessed REASON FOR VISIT New Rx at Pharmacy PLAN OF CARE VITAL SIGNS MEDICATIONS Unknown [...]
--- OUTSIDE RECORDS SUMMARY | 2018-12-19 12:31 | XMS REPORT ---
Author Author BOYERLARRY HopkinsELE Organization [facility] Address [address] [place] [address] Care Team Providers Care Director Of Business Systems Name Role Phone BOYERVARUN Hopkins Unavailable PROBLEMS Type Condition ICD9-CM Code [id number] Code Onset Dates Condition Status SNOMED Code Problem Mild single current episode of major depressive disorder F32.0 Active 83548801 Problem Type 2 diabetes mellitus with hyperglycemia E11.65 Active 24924757 Problem Primary osteoarthritis of both knees M17.0 Active 306141520 Problem Essential hypertension I10 Active 04220223 Problem Type 2 diabetes mellitus with diabetic chronic kidney disease E11.22 Active 871511787 Problem Morbid (severe) obesity due to excess calories E66.01 Active 447036033 Problem Hypercholesterolemia E78.00 Active 97460760 Problem [facility] 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 Z79.4 Active 010569633 Problem Body mass index (BMI) of 40.0-44.9 in adult Z68.41 Active 097702849 Problem 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 Active 92872489 ALLERGIES No Information ENCOUNTERS Encounter Location Date Diagnosis [place] [address] [place] [address] 36997- 0605 Mar, Actinic keratosis L57.0 ; Labial cyst N90.7 and Type 2 diabetes mellitus with diabetic chronic kidney disease E11.22 [facility] [address], [place] [address]- 8759 Feb, [facility] [id number] [place] [address] 93520- 7403 14 Feb, 2018 Type 2 diabetes mellitus with hyperglycemia E11.65 ; Essential hypertension I10 ; Hypercholesterolemia E78.00 ; 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 ; Primary osteoarthritis of both knees M17.0 and 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 [facility] [id number] [place] [address] 37488- 9225 13 Feb, 2018 Dental examination Z01.20 [facility] [id number] [place] [address] 14672- 2257 12 Feb, 2018 Dental examination Z01.20 [place] [id number] [place] [address] 61049- 1357 12 Feb, 2018 Type 2 diabetes mellitus with hyperglycemia E11.65 ; Essential hypertension I10 ; 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 ; Hypercholesterolemia E78.00 ; Primary osteoarthritis of both knees M17.0 ; 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 ; Body mass index (BMI) of 40.0-44.9 in adult Z68.41 and Morbid (severe) obesity due to excess calories E66.01 [place] [id number] [place] [address] 57585- 8748 January, Type 2 diabetes mellitus with hyperglycemia E11.65 [place] [address] 39658- 9949 Dec, Mild single current episode of major depressive disorder F32.0 [place] [id number] [place] [address] 39185- 3706 Dec, Hypercholesterolemia E78.00 [facility] [id number] [place] [address] 00332 -8261 Dec, Seasonal allergic rhinitis, unspecified trigger J30.2 [place] [id number] [place] [address] 34386- 6534 Nov, [place] [id number] [place] [address] 59957- 8355 Nov, Hypercholesterolemia E78.00 and Type 2 diabetes mellitus with hyperglycemia E11.65 [place] [id number] [place] [address] 71341- 5090 Nov, Leg cramps R25.2 [facility] [id number] [place] [address] 79990- 0970 Nov, Type 2 diabetes mellitus with hyperglycemia E11.65 [facility] [id number] [place] [address] 89373- 6018 Nov, 2018 Type 2 diabetes mellitus with hyperglycemia E11.65 ; [facility] 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 Z79.4 ; Essential hypertension I10 ; Mild single current episode of major depressive disorder F32.0 ; Primary osteoarthritis of both knees M17.0 ; High risk medication use Z79.899 ; Controlled substance agreement signed Z79.899 ; Hypercholesterolemia E78.00 and Leg cramps R25.2 [facility] [id number] [place] [address] 03888- 1955 Oct, [facility] [address] 03729 -0691 Oct, [facility] [id number] [place] [address] 04200- 2392 Oct, [facility] [id number] [place] [address] 36607- 4053 Sep, Essential hypertension I10 [facility] [id number] [place] [address] 98593- 1693 Sep, Essential hypertension I10 [facility] [id number] [place] [address] 59721- 1189 Sep, [facility] [id number] [place] [address] 77339- 1080 Sep, [facility] [id number] [place] [address] 03658- 0271 Sep, [facility] [id number] [place] [address] 44034- 7342 Aug, [facility] [id number] [place] [address] 56393- 7331 Jul, [facility] [id number] [place] [address] 51491- 3907 Jul, [facility] [id number] [place] [address] 05264- 8562 Jul, [facility] [address] [address]- 0057 Jun, [facility] [address] 4405 Jun, [facility] [address], [place] [address]- 9224 Jun, Type 2 diabetes mellitus with diabetic chronic kidney disease E11.22 ; Heart murmur R01.1 ; Essential hypertension I10 and Primary osteoarthritis of both knees M17.0 [facility] [address], [place] [address]- 9467 Apr, Type 2 diabetes mellitus with diabetic chronic kidney disease E11.22 [place] [address] [address]- 0736 Mar, Type 2 diabetes mellitus with diabetic chronic kidney disease E11.22 ; Essential hypertension I10 ; Mild single current episode of major depressive disorder F32.0 and Primary osteoarthritis of both knees M17.0 [facility] [address], [place] [address]- 5688 Feb, Mild single current episode of major depressive disorder F32.0 [facility] [address] [address]- 9704 Feb, [facility] [address] [address]- 1873 Feb, Essential hypertension I10 and Hypercholesterolemia E78.00 [facility] [id number] [address]- 9895 Feb, Type 2 diabetes mellitus with diabetic chronic kidney disease E11.22 ; Essential hypertension I10 ; Edema due to malnutrition, due to unspecified malnutrition type E43 ; Hypercholesterolemia E78.00 and Mild single current episode of major depressive disorder F32.0 [facility] [address], [place] [address]- 3768 Feb, IMMUNIZATIONS No Known Immunizations SOCIAL HISTORY Never Assessed REASON FOR VISIT BS f/u PLAN OF CARE VITAL SIGNS MEDICATIONS Medication Instructions Dosage Frequency Start Date End Date Duration Status Levemir FlexTouch 100 UNIT/ML DX- E11.22 2 times a day 16 units 12h Sep Active RESULTS No Results PROCEDURES No Known [...]
--- OUTSIDE RECORDS SUMMARY | 2018-12-19 12:31 | XMS REPORT ---
Author Author BOYERLARRY HopkinsELE Organization [facility] Address [address] [place] [address] Care Team Providers Care Electronics Test Engineer Name Role Phone BOYERVARUN Hopkins Unavailable PROBLEMS Type Condition ICD9-CM Code [id number] Code Onset Dates Condition Status SNOMED Code Problem Mild single current episode of major depressive disorder F32.0 Active 69248894 Problem Type 2 diabetes mellitus with hyperglycemia E11.65 Active 33882557 Problem Primary osteoarthritis of both knees M17.0 Active 137362191 Problem Essential hypertension I10 Active 32815378 Problem Type 2 diabetes mellitus with diabetic chronic kidney disease E11.22 Active 440914083 Problem Morbid (severe) obesity due to excess calories E66.01 Active 469768162 Problem Hypercholesterolemia E78.00 Active 81987536 Problem shelter 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 Z79.4 Active 039073896 Problem Body mass index (BMI) of 40.0-44.9 in adult Z68.41 Active 500031978 Problem 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 Active 13927952 ALLERGIES No Information ENCOUNTERS Encounter Location Date Diagnosis [place] [id number] [place] [address] 40773- 2609 Mar, [facility] [id number] [place] [address] 62520- 5635 Mar, [facility] [id number] [place] [address] 23954- 7094 Mar, Actinic keratosis L57.0 ; Labial cyst N90.7 and Type 2 diabetes mellitus with diabetic chronic kidney disease E11.22 [facility] [address] [place] [address] 26436- 4175 Feb, [facility] [address] [place] [address] 30354- 2898 14 Feb, 2018 Type 2 diabetes mellitus with hyperglycemia E11.65 ; Essential hypertension I10 ; Hypercholesterolemia E78.00 ; 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 ; Primary osteoarthritis of both knees M17.0 and 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 [facility] [address] [address]54- 2241 Feb, Dental examination Z01.20 [facility] [address] 48777- 4368 Feb, Dental examination Z01.20 [place] [address] 38259- 5928 Feb, Type 2 diabetes mellitus with hyperglycemia E11.65 ; Essential hypertension I10 ; shelter 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 Z79.4 ; Hypercholesterolemia E78.00 ; Primary osteoarthritis of both knees M17.0 ; 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 ; Body mass index (BMI) of 40.0-44.9 in adult Z68.41 and Morbid (severe) obesity due to excess calories E66.01 [place] [address] 99256- 2847 January, Type 2 diabetes mellitus with hyperglycemia E11.65 [place] [address] 75922- 4571 Dec, Mild single current episode of major depressive disorder F32.0 [facility] [address] 83676- 2242 Dec, Hypercholesterolemia E78.00 [facility] [address] 48[address] -8716 Dec, Seasonal allergic rhinitis, unspecified trigger J30.2 [place] [address] 56156- 6431 Nov, [facility] [address] 07658- 0182 Nov, Hypercholesterolemia E78.00 and Type 2 diabetes mellitus with hyperglycemia E11.65 [place] [address] [place] [address]- 3379 02 Nov, 2017 Leg cramps R25.2 [facility] [id number] [place] [address] 38520- 2367 Nov, Type 2 diabetes mellitus with hyperglycemia E11.65 [facility] [id number] [place] [address] 45544- 0080 Nov, Type 2 diabetes mellitus with hyperglycemia E11.65 ; 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 ; Essential hypertension I10 ; Mild single current episode of major depressive disorder F32.0 ; Primary osteoarthritis of both knees M17.0 ; High risk medication use Z79.899 ; Controlled substance agreement signed Z79.899 ; Hypercholesterolemia E78.00 and Leg cramps R25.2 [facility] [id number] [place] [address] 13945- 5767 Oct, [facility] [address] 50554 -1324 Oct, [facility] [id number] [place] [address] 25021- 8995 Oct, [facility] [id number] [place] [address] 42808- 2625 Sep, Essential hypertension I10 [facility] [id number] [place] [address] 42803- 8450 Sep, Essential hypertension I10 [facility] [id number] [place] [address] 98195- 7728 Sep, [facility] [id number] [place] [address] 78359- 9906 Sep, [facility] [id number] [place] [address] 94855- 1524 Sep, [facility] [id number] [place] [address] 35805- 4621 Aug, [facility] [address] 17997- 7275 Jul, [facility] [address] [address] 8033 Jul, [facility] [address] 0970 Jul, [facility] [address] [place] [address]- 6765 Jun, [facility] [address] [place] [address] 43755- 3354 Jun, [facility] [address] [address] 5445 Jun, Type 2 diabetes mellitus with diabetic chronic kidney disease E11.22 ; Heart murmur R01.1 ; Essential hypertension I10 and Primary osteoarthritis of both knees M17.0 [facility] [address] [place] [address]- 0992 Apr, Type 2 diabetes mellitus with diabetic chronic kidney disease E11.22 [facility] [address] [address] 2400 Mar, Type 2 diabetes mellitus with diabetic chronic kidney disease E11.22 ; Essential hypertension I10 ; Mild single current episode of major depressive disorder F32.0 and Primary osteoarthritis of both knees M17.0 [facility] [address] [place] [address]- 0645 Feb, Mild single current episode of major depressive disorder F32.0 [facility] [address] [address]- 2742 Feb, [facility] [address] [place] [address]- 1577 Feb, Essential hypertension I10 and Hypercholesterolemia E78.00 [facility] [address] [place] [id number] [address]- 2464 Feb, Type 2 diabetes mellitus with diabetic chronic kidney disease E11.22 ; Essential hypertension I10 ; Edema due to malnutrition, due to unspecified malnutrition type E43 ; Hypercholesterolemia E78.00 and Mild single current episode of major depressive disorder F32.0 [facility] [address] [facility] [id number] [place] [address] 9608 Feb, IMMUNIZATIONS No Known Immunizations SOCIAL HISTORY Never Assessed REASON FOR VISIT Lab (walk-in) PLAN OF CARE VITAL SIGNS MEDICATIONS Unknown Medications RESULTS No Results PROCEDURES Procedure Date Ordered Result Body Site COMPREHEN METABOLIC PANEL November 16, 2017 ASSAY OF MAGNESIUM November 16, 2017 VENIPUNCT, ROUTINE* November 16, 2017 INSTRUCTIONS MEDICATIONS ADMINISTERED No Known Medications [...]
--- OUTSIDE RECORDS SUMMARY | 2018-12-19 12:31 | XMS REPORT ---
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.4 Active 037304820 Problem Mild single current episode of major depressive disorder F32.0 Active 00270959 Problem Essential hypertension I10 Active 61378494 Problem Hypercholesterolemia E78.00 Active 47261276 Problem Primary osteoarthritis of both knees M17.0 Active 380729029 ALLERGIES No Known Allergies ENCOUNTERS Encounter Location Date Diagnosis [facility] [address] 47275- 4081 Feb, [facility] [address] 90523- 3182 January, Type 2 diabetes mellitus with hyperglycemia E11.65 [facility] [address] 21251- 6665 Dec, Mild single current episode of major depressive disorder F32.0 [facility] [address] [place] [id number] [place] [address] 25690- 2877 16 Dec, 2017 Hypercholesterolemia E78.00 [facility] [address] 76662 -0696 07 Dec, 2017 Seasonal allergic rhinitis, unspecified trigger J30.2 [facility] [address] 40249- 5238 15 Nov, 2017 [facility] [address] 16459- 8578 Nov, Hypercholesterolemia E78.00 and Type 2 diabetes mellitus with hyperglycemia E11.65 [facility] [address] [place] [id number] [place] [address] 46858- 5343 Nov, Leg cramps R25.2 [facility] [address] [place] [id number] [place] [address] 30139- 2806 Nov, Type 2 diabetes mellitus with hyperglycemia E11.65 [facility] [address] [place] [id number] [place] [address] 90187- 9043 Nov, Type 2 diabetes mellitus with hyperglycemia E11.65 ; 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.4 ; Essential hypertension I10 ; Mild single current episode of major depressive disorder F32.0 ; Primary osteoarthritis of both knees M17.0 ; High risk medication use Z79.899 ; Controlled substance agreement signed Z79.899 ; Hypercholesterolemia E78.00 and Leg cramps R25.2 [facility] [address] [place] [address] [id number] [place] [address] 79003- 8908 Oct, [facility] [address] [place] [address] 82901 -6798 Oct, [facility] [address] [place] [address] [id number] [place] [address] 93126- 7990 Oct, [facility] [address] [place] [address] [id number] [place] [address] 06730- 5953 Sep, Essential hypertension I10 [facility] [address] [place] [address] [id number] [place] [address] 67501- 8327 Sep, Essential hypertension I10 [facility] [address] [place] [id number] [place] [address] 02503- 5415 Sep, [facility] [address] [place] [address] [id number] [place] [address] 52945- 4074 Sep, [facility] [address] [place] [address] [id number] [place] [address] 75538- 1102 Sep, [facility] [address] [place] [address] [id number] [place] [address] 90143- 5907 Aug, [facility] [address] [address]- 8743 Jul, [facility] [address] [place] [address] 25521- 2366 Jul, [facility] [address] [address]- 7796 Jul, [facility] [address] [place] [id number] [place] [address] 67786- 8169 Jun, [facility] [address] [place] [address] [id number] [place] [address] 32526- 1568 Jun, [facility] [address] [place] [id number] [place] [address] 61096- 4309 Jun, Type 2 diabetes mellitus with diabetic chronic kidney disease E11.22 ; Heart murmur R01.1 ; Essential hypertension I10 and Primary osteoarthritis of both knees M17.0 [facility] [address] [address]- 9910 Apr, Type 2 diabetes mellitus with diabetic chronic kidney disease E11.22 [facility] [address] [place] [address] 92113- 7254 Mar, Type 2 diabetes mellitus with diabetic chronic kidney disease E11.22 ; Essential hypertension I10 ; Mild single current episode of major depressive disorder F32.0 and Primary osteoarthritis of both knees M17.0 [facility] [address] [address]- 2900 Feb, Mild single current episode of major depressive disorder F32.0 [facility] [address] [address]- 5994 Feb, [facility] [address] [place] [address] 30058- 4715 Feb, Essential hypertension I10 and Hypercholesterolemia E78.00 [facility] [address] [place] [address] 70796- 4219 Feb, Type 2 diabetes mellitus with diabetic chronic kidney disease E11.22 ; Essential hypertension I10 ; Edema due to malnutrition, due to unspecified malnutrition type E43 ; Hypercholesterolemia E78.00 and Mild single current episode of major depressive disorder F32.0 [facility] [address] [facility] [id number] [address]- 8610 Feb, IMMUNIZATIONS No Known Immunizations SOCIAL HISTORY Never Assessed REASON FOR VISIT Diabetes fu -- monique santana, patient would like to talk about medication actos stated she got more than 25 punds since february this year PLAN OF CARE Activity Details Follow Up 3 Months Reason: VITAL SIGNS Height 62 in 2017-07-03 Weight 222.0 lbs 2017-07-03 Temperature 98.0 degrees Fahrenheit 2017-07-03 Heart Rate 78 bpm 2017-07-03 Respiratory Rate 20 2017-07-03 BMI 40.60 kg/m2 2017-07-03 Blood pressure systolic 130 mmHg 2017-07-03 Blood pressure diastolic 76 mmHg 2017-07-03 MEDICATIONS Medication Instructions Dosage Frequency Start Date End Date Duration Status Hydrocodone-Acetaminophen 5-325 MG Orally every 6 hrs 1 tablet as needed 6h Mar, Active Enalapril Maleate 20 MG Orally Once a day 1 tablet 24h Active Lasix 20 MG Orally Once a day 1 tablet 24h Active Multi For Her 2 Gummies 24h Active Lexapro 20 mg Orally Once a day 1 tablet 24h 30 Active Cinnamon 500 MG Orally 2 times a day 1 capsule 12h Active Potassium 12h Active Hydrochlorothiazide 12.5 MG Orally Once a day 1 capsule in the morning 24h Active Percocet 5-325 MG Orally every 6 hrs 1 tablet as needed 6h Active Turmeric 500 MG Active Levemir 100 UNIT/ML Subcutaneous at bedtime 50 units 20 Active Simvastatin 10 mg Orally Once a day 1 tablet in the evening 24h 30 Active RESULTS Name Result Date Reference Range A1C (IN HOUSE) 2017-07-03 A1C IN HOUSE 8.3 4.3 - 5.6 % Previous A1c 11.2 Lot [id number] Exp date 03/2019 PROCEDURES Procedure Date Ordered Result Body Site GLYCATED HEMOGLOBIN TEST Jul 03, 2017 INSTRUCTIONS MEDICATIONS ADMINISTERED No Known Medications [...]
--- OUTSIDE RECORDS SUMMARY | 2018-12-19 12:32 | XMS REPORT ---
Author Author EDITH TELLO Organization [facility] Address [address] 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.4 Active 443230111 Problem Mild single current episode of major depressive disorder F32.0 Active 15431945 Problem Essential hypertension I10 Active 66061992 Problem Hypercholesterolemia E78.00 Active 29007850 Problem Primary osteoarthritis of both knees M17.0 Active 081432343 ALLERGIES No Information ENCOUNTERS Encounter Location Date Diagnosis [facility] [address] [place] [id number] [place] [address] 24183- 8823 Feb, [facility] [address] 132[address]- 5808 January, Type 2 diabetes mellitus with hyperglycemia E11.65 [facility] [address] [place] [id number] [place] [address] 39934- 0391 Dec, Mild single current episode of major depressive disorder F32.0 [facility] [address] [place] [id number] [place] [address] 11930- 3210 16 Dec, 2017 Hypercholesterolemia E78.00 [facility] [address] [place] [address] [id number] [place] [address] 19756 -4760 07 Dec, 2017 Seasonal allergic rhinitis, unspecified trigger J30.2 [facility] [address] [place] [id number] [place] [address] 20325- 5775 15 Nov, 2017 [facility] [address] 70979- 6491 Nov, Hypercholesterolemia E78.00 and Type 2 diabetes mellitus with hyperglycemia E11.65 [facility] [address] [place] [id number] [place] [address] 13741- 4569 Nov, Leg cramps R25.2 [facility] [address] [place] [id number] [place] [address] 47966- 0793 Nov, Type 2 diabetes mellitus with hyperglycemia E11.65 [facility] [address] [place] [id number] [place] [address] 91960- 3459 Nov, Type 2 diabetes mellitus with hyperglycemia E11.65 ; care home 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 Z79.4 ; Essential hypertension I10 ; Mild single current episode of major depressive disorder F32.0 ; Primary osteoarthritis of both knees M17.0 ; High risk medication use Z79.899 ; Controlled substance agreement signed Z79.899 ; Hypercholesterolemia E78.00 and Leg cramps R25.2 [facility] [address] [place] [id number] [place] [address] 90334- 1053 Oct, [facility] [id number] [place] [address] 05774 -4382 Oct, [facility] [address] [place] [address] [id number] [place] [address] 55472- 9696 Oct, [facility] [address] [place] [id number] [place] [address] 04408- 7233 Sep, Essential hypertension I10 [facility] [address] [place] [id number] [place] [address] 75139- 5478 Sep, Essential hypertension I10 [facility] [address] [place] [address] [id number] [place] [address] 47775- 1444 Sep, [facility] [address] [id number] [place] [address] 92011- 7541 Sep, [facility] [address] [id number] [place] [address] 73380- 7022 Sep, [facility] [address] [place] [id number] [place] [address] 09738- 2315 Aug, [facility] [address], [place] [address]- 0113 Jul, [facility] [address], [place] [address]- 1046 Jul, [facility] [address], [place] [address]- 8785 Jul, [facility] [address] [place] [address] 01679- 8202 Jun, [facility] [address], [place] [address]- 0115 Jun, [facility] [address] [place] [address] 86252- 2156 Jun, Type 2 diabetes mellitus with diabetic chronic kidney disease E11.22 ; Heart murmur R01.1 ; Essential hypertension I10 and Primary osteoarthritis of both knees M17.0 [facility] [address], [place] [address]- 3790 Apr, Type 2 diabetes mellitus with diabetic chronic kidney disease E11.22 [facility] [address] [place] [address] 33767- 2155 Mar, Type 2 diabetes mellitus with diabetic chronic kidney disease E11.22 ; Essential hypertension I10 ; Mild single current episode of major depressive disorder F32.0 and Primary osteoarthritis of both knees M17.0 [facility] [address] [place] [address]- 6815 Feb, Mild single current episode of major depressive disorder F32.0 [facility] [address] [place] [address]- 9169 Feb, [facility] [address] [place] [address]- 3389 Feb, Essential hypertension I10 and Hypercholesterolemia E78.00 [facility] [address], [place] [address]- 9854 Feb, Type 2 diabetes mellitus with diabetic chronic kidney disease E11.22 ; Essential hypertension I10 ; Edema due to malnutrition, due to unspecified malnutrition type E43 ; Hypercholesterolemia E78.00 and Mild single current episode of major depressive disorder F32.0 [facility] [address] [facility] [id number] [place] [address]- 0900 Feb, IMMUNIZATIONS No Known Immunizations SOCIAL HISTORY Never Assessed REASON FOR VISIT BS f/u attempt PLAN OF CARE VITAL SIGNS MEDICATIONS Unknown [...]
--- OUTSIDE RECORDS SUMMARY | 2018-12-19 12:33 | XMS REPORT ---
Author Author NOÉ ORLANDO Organization [facility] Address [address] [place] [address] Care Team Providers Care Cost Report Clerk Name Role Phone NOÉ ORLANDO Unavailable PROBLEMS Type Condition ICD9-CM Code MSS03-OW Code Onset Dates Condition Status SNOMED Code Problem Mild single current episode of major depressive disorder F32.0 Active 85749525 Problem Primary osteoarthritis of both knees M17.0 Active 161941705 Problem Essential hypertension I10 Active 71264642 Problem Morbid (severe) obesity due to excess calories E66.01 Active 878052723 Problem Body mass index (BMI) of 40.0-44.9 in adult Z68.41 Active 512310921 Problem [facility] 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 Z79.4 Active 160415046 Problem Type 2 diabetes mellitus with hyperglycemia E11.65 Active 31068397 Problem 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 Active 09358905 Problem Hypercholesterolemia E78.00 Active 11620966 ALLERGIES No Information ENCOUNTERS Encounter Location Date Diagnosis [place] [id number] [place] [address] [phone]- 7123 Mar, [place] [id number] [place] [address] 41870- 2711 Feb, [place] [id number] [place] [address] 51242- 9172 14 Feb, 2018 Type 2 diabetes mellitus with hyperglycemia E11.65 ; Essential hypertension I10 ; Hypercholesterolemia E78.00 ; [facility] 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 Z79.4 ; Primary osteoarthritis of both knees M17.0 and 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 [place] [id number] [place] [address] 77199- 2188 13 Feb, 2018 Dental examination Z01.20 [place] [address] 55[address]- [address]291 Feb, Dental examination Z01.20 [place] [id number] [place] [address] 38532- 6690 12 Feb, 2018 Type 2 diabetes mellitus with hyperglycemia E11.65 ; Essential hypertension I10 ; 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 ; Hypercholesterolemia E78.00 ; Primary osteoarthritis of both knees M17.0 ; 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 ; Body mass index (BMI) of 40.0-44.9 in adult Z68.41 and Morbid (severe) obesity due to excess calories E66.01 [place] [address] [address] January, Type 2 diabetes mellitus with hyperglycemia E11.65 [place] [address] 68052- 6411 Dec, Mild single current episode of major depressive disorder F32.0 [place] [address] 87[address]- 3574 Dec, Hypercholesterolemia E78.00 [facility] [address] [address] Dec, Seasonal allergic rhinitis, unspecified trigger J30.2 [place] [address] 30935- 8008 15 Nov, 2017 [place] [address] 75263- 1497 Nov, Hypercholesterolemia E78.00 and Type 2 diabetes mellitus with hyperglycemia E11.65 [place] [id number] [place] [address] 32513- 1222 Nov, Leg cramps R25.2 [place] [address] 72881- [address]21 Nov, Type 2 diabetes mellitus with hyperglycemia E11.65 [place] [address] 34990- 3040 Nov, Type 2 diabetes mellitus with hyperglycemia E11.65 ; [facility] 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 Z79.4 ; Essential hypertension I10 ; Mild single current episode of major depressive disorder F32.0 ; Primary osteoarthritis of both knees M17.0 ; High risk medication use Z79.899 ; Controlled substance agreement signed Z79.899 ; Hypercholesterolemia E78.00 and Leg cramps R25.2 [facility] [address] [address] Oct, [facility] [id number] [place] [address] 32744 [address]2156 Oct, [facility] [id number] [place] [address] 52681- 0651 Oct, [facility] [id number] [place] [address] 23240- 3845 Sep, Essential hypertension I10 [facility] [id number] [place] [address] 24952- 8926 Sep, Essential hypertension I10 [facility] [id number] [place] [address] 88042- 3319 Sep, [facility] [id number] [place] [address] 04917- 7891 Sep, [facility] [id number] [place] [address] 00826- 9528 Sep, [facility] [id number] [place] [address] 50005- 3786 Aug, [facility] [id number] [place] [address] 25372- 4097 Jul, [facility] [id number] [place] [address] 96963- 0257 Jul, [facility] [id number] [place] [address] 63807- 9463 Jul, [facility] [id number] [place] [address] 97506- 2300 Jun, [place] [address] [place] [address] 31194- 3830 Jun, [place] [id number] [place] [address] 11730- 2803 Jun, Type 2 diabetes mellitus with diabetic chronic kidney disease E11.22 ; Heart murmur R01.1 ; Essential hypertension I10 and Primary osteoarthritis of both knees M17.0 [place] [id number] [place] [address] 56178- 6816 Apr, Type 2 diabetes mellitus with diabetic chronic kidney disease E11.22 [place] [id number] [place] [address] 74314- 3340 Mar, Type 2 diabetes mellitus with diabetic chronic kidney disease E11.22 ; Essential hypertension I10 ; Mild single current episode of major depressive disorder F32.0 and Primary osteoarthritis of both knees M17.0 [place] [id number] [place] [address] 52371- 8435 Feb, Mild single current episode of major depressive disorder F32.0 [place] [id number] [place] [address] 80551- 5071 Feb, [place] [id number] [place] [address] 50626- 4167 Feb, Essential hypertension I10 and Hypercholesterolemia E78.00 [place] [address] [place] [address] 84507- 0141 Feb, Type 2 diabetes mellitus with diabetic chronic kidney disease E11.22 ; Essential hypertension I10 ; Edema due to malnutrition, due to unspecified malnutrition type E43 ; Hypercholesterolemia E78.00 and Mild single current episode of major depressive disorder F32.0 [place] [id number] [place] [address] 78141- 6899 Feb, IMMUNIZATIONS No Known Immunizations SOCIAL HISTORY Never Assessed REASON FOR VISIT Refill request PLAN OF CARE VITAL SIGNS MEDICATIONS Medication Instructions Dosage Frequency Start Date End Date Duration Status Enalapril Maleate 20 MG Orally Once a day 1 tablet 24h 30 days Active RESULTS No Results [...]
--- OUTSIDE RECORDS SUMMARY | 2018-12-19 12:34 | XMS REPORT | Continuity of Care Document ---
Author Author [facility] Organization [facility] Address Unknown Phone Unavailable Allergies Active Description Code Type Severity Reaction Onset Reported/Identified Relationship to Patient Clinical Status Yes No Known Drug Allergies [id number] Drug Allergy Unknown N/A 03/03/2018 Medications There is no data. Problems Date [...] EXAMINATION 06/29/2016 RONAK SAL MD Ot V72.81 [id number]-[id number] CARDIOVASCULAR 06/29/2016 RONAK SAL MD Ot V72.84 [...] EXAMINATION 07/11/2016 RONAK SAL MD Ot V72.81 TFGD-DBM-GGXRUAMXG CARDIOVASCULAR 07/11/2016 RONAK SAL MD Ot V72.84 [...] EXAMINATION 07/12/2016 RONAK SAL MD Ot V72.81 [id number]-AYS-CVMURQIMP CARDIOVASCULAR 07/12/2016 RONAK SAL MD Ot V72.84 [...] EXAMINATION 05/10/2017 RONAK SAL MD Ot V72.81 PFHU-NPT-EWXDCPBWS CARDIOVASCULAR 05/10/2017 RONAK SAL MD Ot V72.84 [...] EXAMINATION 06/04/2017 RONAK SAL MD Ot V72.81 MBLT-QVJ-TQLUIHKZA CARDIOVASCULAR 06/04/2017 RONAK SAL MD Ot V72.84 [...] UMAIR BRANCH MD Ot R06.00 DYSPNEA, UNSPECIFIED 03/03/2018 AUSTYN WORTHINGTON, DWIGHT Valdovinos Ot E11.9 TYPE 2 DIABETES MELLITUS WITHOUT COMPLIC 03/03/2018 DWIGHT ZAMAN MD Ot J45.909 UNSPECIFIED ASTHMA, UNCOMPLICATED 03/03/2018 DWIGHT ZAMAN MD Ot K21.9 GASTRO-ESOPHAGEAL REFLUX DISEASE WITHOUT 03/03/2018 DWIGHT ZAMAN MD Ot M17.12 UNILATERAL PRIMARY OSTEOARTHRITIS, LEFT 03/03/2018 DWIGHT ZAMAN MD Ot R04.0 EPISTAXIS 03/03/2018 DWIGHT ZAMAN MD Ot S22.32XA FRACTURE OF ONE RIB, LEFT SIDE, INIT FOR 03/03/2018 DWIGHT ZAMAN MD Ot W18.30XA FALL ON SAME LEVEL, UNSPECIFIED, INITIAL 03/03/2018 DWIGHT ZAMAN MD Ot 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.4 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 03/03/2018 DWIGHT ZAMAN MD Ot Z79.82 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 03/03/2018 DWIGHT ZAMAN MD Ot Z80.3 FAMILY HISTORY OF MALIGNANT NEOPLASM OF 03/03/2018 DWIGHT ZAMAN MD Ot Z82.49 FAMILY HX OF ISCHEM HEART DIS AND OTH DI 03/03/2018 DWIGHT ZAMAN MD Ot Z87.19 PERSONAL HISTORY OF OTHER DISEASES OF TH 03/03/2018 DWIGHT ZAMAN MD Ot Z87.891 PERSONAL HISTORY OF NICOTINE DEPENDENCE 03/03/2018 DWIGHT ZAMAN MD Ot Z96.651 PRESENCE OF RIGHT ARTIFICIAL KNEE JOINT 03/03/2018 ASHVIN EMERSON MD Ot E11.9 TYPE 2 DIABETES MELLITUS WITHOUT COMPLIC 03/03/2018 ASHVIN EMERSON MD Ot J45.909 UNSPECIFIED ASTHMA, UNCOMPLICATED 03/03/2018 ASHVIN EMERSON MD Ot K21.9 GASTRO-ESOPHAGEAL REFLUX DISEASE WITHOUT 03/03/2018 ASHVIN EMERSON MD Ot M17.12 UNILATERAL PRIMARY OSTEOARTHRITIS, LEFT 03/03/2018 ASHVIN EMERSON MD Ot R04.0 EPISTAXIS 03/03/2018 ASHVIN EMERSON MD Ot Z79.4 CARE HOME (CURRENT) USE OF INSULIN 03/03/2018 ASHVIN EMERSON MD Ot Z79.82 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 03/03/2018 ASHVIN EMERSON MD Ot Z80.3 FAMILY HISTORY OF MALIGNANT NEOPLASM OF 03/03/2018 ASHVIN EMERSON MD Ot Z82.49 FAMILY HX OF ISCHEM HEART DIS AND OTH DI 03/03/2018 ASHVIN EMERSON MD Ot Z87.19 PERSONAL HISTORY OF OTHER DISEASES OF TH 03/03/2018 ASHVIN EMERSON MD Ot Z87.891 PERSONAL HISTORY OF NICOTINE DEPENDENCE 03/03/2018 ASHVIN EMERSON MD Ot Z90.710 ACQUIRED ABSENCE OF BOTH CERVIX AND UTER 03/03/2018 ASHVIN EMERSON MD Ot Z96.651 PRESENCE OF RIGHT ARTIFICIAL KNEE JOINT 03/05/2018 ASHVIN EMERSON MD J Ot E11.9 TYPE 2 DIABETES MELLITUS WITHOUT COMPLIC 03/05/2018 ASHVIN EMERSON MD J Ot J45.909 UNSPECIFIED ASTHMA, UNCOMPLICATED 03/05/2018 ASHVIN EMERSON MD J Ot K21.9 GASTRO-ESOPHAGEAL REFLUX DISEASE WITHOUT 03/05/2018 ASHVIN EMERSON MD Ot M17.12 UNILATERAL PRIMARY OSTEOARTHRITIS, LEFT 03/05/2018 ASHVIN EMERSON MD Ot R04.0 EPISTAXIS 03/05/2018 ASHVIN EMERSON MD Ot Z79.4 CARE HOME (CURRENT) USE OF INSULIN 03/05/2018 ASHVIN EMERSON MD Ot Z79.82 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 03/05/2018 ASHVIN EMERSON MD Ot Z80.3 FAMILY HISTORY OF MALIGNANT NEOPLASM OF 03/05/2018 ASHVIN EMERSON MD Ot Z82.49 FAMILY HX OF ISCHEM HEART DIS AND OTH DI 03/05/2018 ASHVIN EMERSON MD Ot Z87.19 PERSONAL HISTORY OF OTHER DISEASES OF TH 03/05/2018 ASHVIN EMERSON MD Ot Z87.891 PERSONAL HISTORY OF NICOTINE DEPENDENCE 03/05/2018 ASHVIN EMERSON MD Ot Z90.710 ACQUIRED ABSENCE OF BOTH CERVIX AND UTER 03/05/2018 ASHVIN EMERSON MD Ot Z96.651 PRESENCE OF RIGHT ARTIFICIAL KNEE JOINT 03/09/2018 ASHVIN EMERSON MD Ot E11.9 TYPE 2 DIABETES MELLITUS WITHOUT COMPLIC 03/09/2018 ASHVIN EMERSON MD Ot J45.909 UNSPECIFIED ASTHMA, UNCOMPLICATED 03/09/2018 ASHVIN EMERSON MD Ot K21.9 GASTRO-ESOPHAGEAL REFLUX DISEASE WITHOUT 03/09/2018 ASHVIN EMERSON MD J Ot M17.12 UNILATERAL PRIMARY OSTEOARTHRITIS, LEFT 03/09/2018 ASHVIN EMERSON MD Ot R04.0 EPISTAXIS 03/09/2018 ASHVIN EMERSON MD, Ot Z79.4 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 03/09/2018 ASHVIN EMERSON MD, Ot Z79.82 CARE HOME (CURRENT) USE OF ASPIRIN 03/09/2018 ASHVIN EMERSON MD, Ot Z80.3 FAMILY HISTORY OF MALIGNANT NEOPLASM OF 03/09/2018 ASHVIN EMERSON MD, Ot Z82.49 FAMILY HX OF ISCHEM HEART DIS AND OTH DI 03/09/2018 ASHVIN EMERSON MD, Ot Z87.19 PERSONAL HISTORY OF OTHER DISEASES OF TH 03/09/2018 ASHVIN EMERSON MD, Ot Z87.891 PERSONAL HISTORY OF NICOTINE DEPENDENCE 03/09/2018 ASHVIN EMERSON MD, Ot Z90.710 ACQUIRED ABSENCE OF BOTH CERVIX AND UTER 03/09/2018 ASHVIN EMERSON MD, Ot Z96.651 PRESENCE OF RIGHT ARTIFICIAL KNEE JOINT Procedures Code Description Performed By Performed On [...] 7-25 CREATININE 0.64 mg/dL 0.50-0.99 eGFR NON-AFR. POLISH 93 mL/min/1.73m2 > OR=60 eGFR 108 mL/min/1.73m2 [...] - 11/16/17 10:18 MAGNESIUM 2.1 mg/dL 1.5-2.5 CBC - 02/28/18 08:57 WHITE BLOOD CELL COUNT 5.8 Thousand/uL 3.8-10.8 RED BLOOD CELL COUNT 4.68 Million/uL 3.80-5.10 HEMOGLOBIN 13.3 g/dL 11.7-15.5 HEMATOCRIT 38.8 % 35.0-45.0 MCV 82.9 fL 80.0-100.0 MCH 28.4 pg 27.0-33.0 MCHC 34.3 g/dL 32.0-36.0 RDW 13.1 % 11.0-15.0 PLATELET COUNT 258 Thousand/uL 140-400 MPV 10.9 fL 7.5-12.5 ABSOLUTE NEUTROPHILS 4019 cells/uL 8147-8927 ABSOLUTE LYMPHOCYTES 1351 cells/uL 850-3900 ABSOLUTE MONOCYTES 331 cells/uL 200-950 ABSOLUTE EOSINOPHILS 81 cells/uL 15-500 ABSOLUTE BASOPHILS 17 cells/uL 0-200 NEUTROPHILS 69.3 % NRG LYMPHOCYTES 23.3 % NRG MONOCYTES 5.7 % NRG EOSINOPHILS 1.4 % NRG BASOPHILS 0.3 % NRG THYROID ANALYZER - 02/28/18 08:57 TSH 1.59 mIU/L 0.40-4.50 Complete blood count (CBC) with automated white blood cell (WBC) differential - 03/03/18 11:14 Blood leukocytes automated count (number/volume) 5.8 10*3/uL 4.3-11.0 Blood erythrocytes automated count (number/volume) 4.86 10*6/uL 4.35-5.85 Venous blood hemoglobin measurement (mass/volume) 13.1 g/dL 11.5-16.0 Blood hematocrit (volume fraction) 40 % 35-52 Automated erythrocyte mean corpuscular volume 83 [foz_us] 80-99 Automated erythrocyte mean corpuscular hemoglobin (mass per erythrocyte) 27 pg 25-34 Automated erythrocyte mean corpuscular hemoglobin concentration measurement ( mass/volume) 33 g/dL 32-36 Automated erythrocyte distribution width ratio 13.5 % 10.0-14.5 Automated blood platelet count (count/volume) 304 10*3/uL 130-400 Automated blood platelet mean volume measurement 11.2 [foz_us] 7.4-10.4 Automated blood neutrophils/100 leukocytes 63 % 42-75 Automated blood lymphocytes/100 leukocytes 29 % 12-44 Blood monocytes/100 leukocytes 6 % 0-12 Automated blood eosinophils/100 leukocytes 2 % 0-10 Automated blood basophils/100 leukocytes 0 % 0-10 Blood neutrophils automated count (number/volume) 3.7 10*3 1.8-7.8 Blood lymphocytes automated count (number/volume) 1.7 10*3 1.0-4.0 Blood monocytes automated count (number/volume) 0.3 10*3 0.0-1.0 Automated eosinophil count 0.1 10*3/uL 0.0-0.3 Automated blood basophil count (count/volume) 0.0 10*3/uL 0.0-0.1 Capillary blood glucose measurement by glucometer (mass/volume) - 03/03/18 12: 55 Capillary blood glucose measurement by glucometer (mass/volume) 116 mg/dL 70-110 TISSUE, SPECIMEN A - 03/18/18 18:25 A SOURCE NRG A GROSS DESCRIPTION NRG A DIAGNOSIS NRG CULTURE, URINE - 06/18/18 18:14 CULTURE, URINE, ROUTINE SEE NOTE NRG Encounters ACCT No. Visit Date/Time Discharge Status Pt. Type Provider Facility Loc./Unit Complaint [id number] 03/03/2018 17:53:00 03/03/2018 19:50:00 DIS Emergency KI WORTHINGTON, ASHVIN Beckham [facility] ER NOSE BLEED [id number] 03/03/2018 11:00:00 03/03/2018 13:55:00 DIS Emergency AUSTYN WORTHINGTON, DWIGHT Valdovinos [facility] ER NOSE BLEED [id number] 02/26/2018 14:09:00 02/26/2018 23:59:59 CLS Preadmit VARUN BOYER APRN [facility] RAD POST CONCUSSIVE SYNDROME [id number] 06/04/2017 07:55:00 06/04/2017 23:59:59 CLS Outpatient UMAIR BRANCH MD [facility] CARD R06.00 [id number] 05/10/2017 08:54:00 05/10/2017 23:59:59 CLS Outpatient UMAIR BRANCH MD [facility] CARD DYSPNEA [id number] 07/11/2016 16:06:00 07/11/2016 23:59:59 CLS Outpatient BENNETT LO APRN [facility] RT DYSPNEA,TOBACCO USE [id number] 06/29/2016 13:41:00 06/29/2016 23:59:59 CLS Outpatient BENNETT LO APRN [facility] SLEEP OBSERVED APNEA, EDS, MOOD DISORDER [id number] 02/25/2014 09:00:00 02/28/2014 11:02:00 DIS Inpatient RONAK SAL MD [facility] SURGICAL LEFT KNEE OSTEOARTHRITIS [id number] 02/18/2014 12:14:00 02/18/2014 23:59:59 CLS Outpatient RONAK SAL MD [facility] PREOP LEFT KNEE OSTEOARTHRITIS [id number] 04/11/2011 15:00:00 Document Registration [id number] 03/14/2017 08:35:00 Document Registration [id number] 12/04/2018 10:00:00 12/04/2018 23:59:59 [facility] [id number] 06/18/2018 17:50:00 Document Registration [id number] 03/18/2018 17:00:00 Document Registration [id number] 02/28/2018 10:00:00 Document Registration [id number] 11/16/2017 11:00:00 Document Registration
[2018-12-19] MEDS ORDERED: MECLIZINE 25 MG (ANTIVERT) TAB PO ONE (13:00)
--- NOTE | 2018-12-19 13:05 | ED General ---
General Stated Complaint: DIZZINESS;NAUSEA Source of Information: Patient Exam Limitations: No Limitations History of Present Illness Date Seen by Provider: Dec 19, 2018 Time Seen by Provider: 12:49 Initial Comments Reported dizziness and nausea. She has not vomited. She went to bed last night she was feeling fine but woke up this morning feeling this way. She has this intermittently. She denies chest pain, breathing problems or sweating. He does not currently have diarrhea but has history of diarrhea frequently with irritable bowel. Notes that her blood sugars have been elevated recently and she is not sure why on that. Reports taking meds almost as directed. She did take her meds today but not this morning. She was too dizzy to get up at that time so she went back to bed. 4 hours later her daughter arrived at 11 to 11:30 and she took her meds then. She does have episodes of uncontrolled hypertension as well. Timing/Duration: 4-6 Hours Severity: Mild, Moderate Associated Systoms: No Chest Pain, No Cough, No Diaphoresis, No Fever/Chills, No Headaches; Nausea/Vomiting; No Seizure, No Shortness of Air, No Weakness Allergies and Home Medications Allergies Coded Allergies: No Known Drug Allergies (Unverified , 12/19/18) Home Medications Aspirin 81 Mg Tabec, 81 MG PO HS, (Reported) Dicyclomine Hcl 20 Mg Tablet, 20 MG PO TID, (Reported) Enalapril/Hydrochlorothiazide 1 Tab Tablet, 1 TAB PO DAILY, (Reported) Insulin Aspart 100 Unit/1 Ml Insuln.pen, 6-8 UNITS SQ TID AC, (Reported) Insulin Detemir 100 Unit/1 Ml Insuln.pen, 15 UNIT SQ DAILY, (Reported) Insulin Detemir 100 Unit/1 Ml Insuln.pen, 20 UNIT SQ HS, (Reported) Metformin Hcl 500 Mg Tablet, 500 MG PO BID WITH MEALS, (Reported) Multivitamins 1 Tab Tablet, 1 TAB PO DAILY, (Reported) SENIOR VITAMIN Oxycodone Hcl/Acetaminophen 1 Tab Tablet, 1-2 TAB PO Q 4-6 hrs PRN for PAIN Prescribed by: BRISA GÓMEZ on 02/28/14 1004 Phentermine Hcl 37.5 Mg Capsule, 37.5 MG PO DAILY, (Reported) Potassium Gluconate 99 Mg Tablet, 99 MG PO DAILY, (Reported) Patient Home Medication List Home Medication List Reviewed: Yes Review of Systems Review of Systems Constitutional: see HPI; No chills, No fever EENTM: no symptoms reported Respiratory: No cough, No short of breath Cardiovascular: No chest pain, No edema, No palpitations Gastrointestinal: nausea; No vomiting Genitourinary: no symptoms reported Musculoskeletal: no symptoms reported Skin: no symptoms reported Psychiatric/Neurological: See HPI; Denies Headache, Denies Weakness All Other Systems Reviewed Negative Unless Noted: Yes Past Ikwhelo-Hyvqen-Rzztsj Hx Past Med/Social Hx: Reviewed Nursing Past Med/Soc Hx Patient Social History Alcohol Use: Denies Use Recreational Drug Use: No Smoking Status: Former Smoker Recent Foreign Travel: No Contact w/Someone Who Travel: No Recent Hopitalizations: Yes Immunizations Up To Date Tetanus Booster (TDap): Unknown Date of Pneumonia Vaccine: Jun 17, 2009 Past Medical History Surgeries: Yes (RIGHT KNEE RECONSTRUCTION, RIGHT KNEE SCOPE) Orthopedic Respiratory: Yes Asthma Cardiac: Yes High Cholesterol, Hypertension Neurological: Yes 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 Gastrointestinal: Yes (IBS) Gastroesophageal Reflux Musculoskeletal: Yes (LEFT KNEE OSTEOARTHRITIS) Arthritis Endocrine: Yes Diabetes, Insulin dep HEENT: No Cancer: No Psychosocial: No Integumentary: Yes (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) Psoriasis Blood Disorders: No Family Medical History Reviewed Nursing Family Hx Cancer 19 MOTHER (BREAST) Congestive heart failure G8 SISTER Dementia 19 MOTHER Family history: Arthritis G8 SISTER Family history: Breast disease 19 MOTHER Family history: Diabetes mellitus 19 MOTHER G8 SISTER Kidney disease G8 SISTER No Family History of: Abdominal aortic aneurysm Alcoholism Family history: Cardiovascular disease Family history: Gastrointestinal disease Family history: Hypertension Family history: Thyroid disorder Hereditary disease History of - respiratory disease Myocardial infarction Parkinson's disease Prostate cancer Psychotic disorder Seizure disorder Stroke Stroke Physical Exam Vital Signs Vital Signs - First Documented 12/19/18 12:26 Temp 98.1 Pulse 52 Resp 16 B/P (MAP) 201/87 (125) Pulse Ox 99 Capillary Refill : Height, Weight, BMI Height: 5'2.00" Weight: 219lbs. 0.0oz. 99.301755np; 38.7 BMI Method:Stated General Appearance: No Apparent Distress, WD/WN HEENT: PERRL/EOMI, TMs Normal, Pharynx Normal Neck: Normal Inspection, Non Tender, Supple Respiratory: Lungs Clear, Normal Breath Sounds Cardiovascular: Regular Rate, Rhythm, No Murmur Gastrointestinal: Non Tender, Soft Back: Normal Inspection, No CVA Tenderness, No Vertebral Tenderness Extremity: Normal Range of Motion, Non Tender Neurologic/Psychiatric: Oriented x3, No Motor/Sensory Deficits, Other (does have increasing dizziness with sitting up) Skin: Normal Color, Warm/Dry Progress/Results/Core Measures Suspected Sepsis SIRS Temperature: Pulse: Respiratory Rate: Laboratory Tests 12/19/18 12:46: White Blood Count 5.2 Blood Pressure / Mean: Laboratory Tests 12/19/18 12:46: Creatinine 0.68, Platelet Count 230, Total Bilirubin 0.3 Results/Orders Lab Results Laboratory Tests Test 12/19/18 12:46 12/19/18 13:07 Range/Units White Blood Count 5.2 4.3-11.0 10^3/uL Red Blood Count 4.86 4.35-5.85 10^6/uL Hemoglobin 13.6 11.5-16.0 G/DL Hematocrit 41 35-52 % Mean Corpuscular Volume 84 80-99 FL Mean Corpuscular Hemoglobin 28 25-34 PG Mean Corpuscular Hemoglobin Concent 34 32-36 G/DL Red Cell Distribution Width 13.2 10.0-14.5 % Platelet Count 230 130-400 10^3/uL Mean Platelet Volume 10.8 H 7.4-10.4 FL Neutrophils (%) (Auto) 68 42-75 % Lymphocytes (%) (Auto) 24 12-44 % Monocytes (%) (Auto) 6 0-12 % Eosinophils (%) (Auto) 2 0-10 % Basophils (%) (Auto) 0 0-10 % Neutrophils # (Auto) 3.5 1.8-7.8 X 10^3 Lymphocytes # (Auto) 1.3 1.0-4.0 X 10^3 Monocytes # (Auto) 0.3 0.0-1.0 X 10^3 Eosinophils # (Auto) 0.1 0.0-0.3 10^3/uL Basophils # (Auto) 0.0 0.0-0.1 10^3/uL D-Dimer 0.61 H 0.00-0.49 UG/ML Sodium Level 140 135-145 MMOL/L Potassium Level 4.1 3.6-5.0 MMOL/L Chloride Level 103 98-107 MMOL/L Carbon Dioxide Level 28 21-32 MMOL/L Anion Gap 9 5-14 MMOL/L Blood Urea Nitrogen 14 7-18 MG/DL Creatinine 0.68 0.60-1.30 MG/DL Estimat Glomerular Filtration Rate > 60 BUN/Creatinine Ratio 21 Glucose Level 187 H 70-105 MG/DL Calcium Level 9.7 8.5-10.1 MG/DL Corrected Calcium 9.5 8.5-10.1 MG/DL Magnesium Level 2.1 1.8-2.4 MG/DL Total Bilirubin 0.3 0.1-1.0 MG/DL Aspartate Amino Transf (AST/SGOT) 14 5-34 U/L Alanine Aminotransferase (ALT/SGPT) 15 0-55 U/L Alkaline Phosphatase 64 40-136 U/L Myoglobin 18.8 10.0-92.0 NG/ML Troponin I < 0.028 <0.028 NG/ML C-Reactive Protein High Sensitivity 0.14 0.00-0.50 MG/DL Total Protein 6.8 6.4-8.2 GM/DL Albumin 4.2 3.2-4.5 GM/DL Thyroid Stimulating Hormone (TSH) 1.29 0.35-4.94 UIU/ML Urine Color YELLOW Urine Clarity CLEAR Urine pH 7 5-9 Urine Specific Sophia 1.010 L 1.016-1.022 Urine Protein 1+ H NEGATIVE Urine Glucose (UA) 1+ H NEGATIVE Urine Ketones NEGATIVE NEGATIVE Urine Nitrite NEGATIVE NEGATIVE Urine Bilirubin NEGATIVE NEGATIVE Urine Urobilinogen NORMAL NORMAL MG/DL Urine Leukocyte Esterase 1+ H NEGATIVE Urine RBC (Auto) 2+ H NEGATIVE Urine RBC 5-10 H /HPF Urine WBC RARE /HPF Urine Squamous Epithelial Cells RARE /HPF Urine Crystals PRESENT H /LPF Urine Amorphous Sediment RARE MICAH PHOSPHATE H /LPF Urine Bacteria NEGATIVE /HPF Urine Casts NONE /LPF Urine Mucus SMALL H /LPF Urine Culture Indicated NO My Orders Orders - JOSELIN BIRMINGHAM MD Cbc With Automated Diff (12/19/18 12:43) Comprehensive Metabolic Panel (12/19/18 12:43) Hs C Reactive Protein (12/19/18 12:43) Magnesium (12/19/18 12:43) Ua Culture If Indicated (12/19/18 12:43) Saline Lock/Iv-Start (12/19/18 12:43) Ekg Tracing (12/19/18 12:43) Fibrin Degradation Products (12/19/18 12:53) Thyroid Stimulating Hormone (12/19/18 12:53) Troponin I (12/19/18 12:53) Myoglobin Serum (12/19/18 12:53) Chest 1 View, Ap/Pa Only (12/19/18 12:53) Meclizine Tablet (Antivert Tablet) (12/19/18 13:00) Clonidine Tablet (Catapres Tablet) (12/19/18 14:15) Hydralazine Injection (Apresoline Inject (12/19/18 14:15) Ct Head Wo-R/O Stroke (12/19/18 14:06) Medications Given in ED Current Medications Medications Dose Ordered Sig/Balwinder Route Start Time Stop Time Status Last Admin Dose Admin Clonidine HCl 0.1 mg ONCE ONCE PO 12/19/18 14:15 12/19/18 14:16 DC 12/19/18 14:10 0.1 MG Hydralazine HCl 10 mg ONCE ONCE IV 12/19/18 14:15 12/19/18 14:16 DC 12/19/18 14:10 10 MG Meclizine HCl 25 mg ONCE ONCE PO 12/19/18 13:00 12/19/18 13:01 DC 12/19/18 13:13 25 MG Vital Signs/I&O 12/19/18 12:26 Temp 98.1 Pulse 52 Resp 16 B/P (MAP) 201/87 (125) Pulse Ox 99 Capillary Refill : Progress Note : Progress Note Seen and evaluated. IV, labs, UA, EKG and chest x-ray ordered. Meclizine 25 mg by mouth ordered. Monitor patient. Patient has persistent hypertension. Clonidine 0.1 mg by mouth and hydralazine [address] head ordered. Stroke scale done and was 0. Dysphagia screening passed earlier. Patient is not a candidate for TPA due to timeframe since onset since she woke up with symptoms this morning so last night would be her last known well time. Monitor patient. 1550: Patient's blood pressure 140s over 70s and dizziness is resolved. Patient states she feels much better feels comfortable going home. We did discuss diet and appropriateness of taking her medicines to reduce her problems including adverse effects from diabetes and hypertension. Patient verbalize understanding. She will continue home meds and avoid salty foods as well as cars. She'll follow-up with her doctor. I will send a copy of the chart to the clinic. Discharged home with return precautions. Patient verbalize understanding instructions and agreement with plan. ECG Initial ECG Impression Date: Dec 19, 2018 Initial ECG Impression Time: 12:55 Initial ECG Rate: 51 Initial ECG Rhythm: S.Maciej Comment Sinus bradycardia with left ventricular hypertrophy. Normal axis. No evidence of ST elevation MA. Similar to previous of February 28. Interpreted by me Diagnostic Imaging Diagonstic Imaging: Xray Plain Films/CT/US/NM/MRI: chest Comments [facility] [place], [place] NAME: BINTA OSPINAA [facility] REC#: [id number] PT STATUS: REG ER : 1950 PHYSICIAN: JOSELIN BIRMINGHAM MD ADMIT DATE: 12/19/18/ER Draft Date of Exam:12/19/18 CHEST 1 VIEW, AP/PA ONLY PATIENT HISTORY: Dizziness and nausea. TECHNIQUE: Single frontal view of the chest. COMPARISON: 03/03/2018. FINDINGS: The lung volumes are normal. No focal consolidation is seen. A calcified granuloma is noted in the left lung base. No large pleural effusion or pneumothorax is seen. The cardiomediastinal silhouette is normal in size and contour. No acute osseous abnormality is seen. There are degenerative changes in the shoulders. IMPRESSION: No acute pulmonary abnormality seen. Dictated on workstation # [id number] Dict: 12/19/18 1355 Trans: 12/19/18 1358 [facility] [id number] Interpreted by: KEVIN MADISON MD Electronically signed by: Diagonstic Imaging: CT Plain Films/CT/US/NM/MRI: head Comments [facility]. [place], [place] NAME: ANAICARLA [facility] REC#: [id number] PT STATUS: REG ER : 1950 PHYSICIAN: JOSELIN BIRMINGHAM MD ADMIT DATE: 12/19/18/ER Draft Date of Exam:12/19/18 CT HEAD WO-R/O STROKE PROCEDURE: CT head wo r/o stroke. TECHNIQUE: Multiple contiguous axial images were obtained through the brain without the use of intravenous contrast. Auto Exposure Controls were utilized during the CT exam to meet ALARA standards for radiation dose reduction. INDICATION: Dizziness, headache, nausea, and vomiting. COMPARISON: Comparison is made with prior examination from 03/03/2018. FINDINGS: The ventricles and sulci are within normal limits. There is no hydrocephalus or cerebral edema. There is no midline shift or mass effect. There is no intracranial mass, hemorrhage, or extra-axial fluid collection. The visualized paranasal sinuses and mastoid air cells are clear. There are no regional areas of decreased attenuation appreciated to suggest an acute CVA. IMPRESSION: No acute intracranial abnormality. If high clinical concern for an acute CVA persists, further evaluation with MRI should be considered. Dictated on workstation # [id number] Dict: 12/19/18 1444 Trans: 12/19/18 1455 [id number] Interpreted by: TAMARA ABRAMS MD Electronically signed by: Departure Impression Primary Impression: Vertigo Additional Impression: High blood pressure Qualified Codes: I10 - Essential (primary) hypertension Disposition: HOME, SELF-CARE Condition: Improved Departure-Patient Inst. Decision time for Depature: 15:55 Referrals: [facility] [place] (PCP/Family) Primary Care Physician Patient Instructions: High Blood Pressure (DC), Hyperglycemia, Adult (DC), Vertigo (a Type of Dizziness) (DC) Add. Discharge Instructions: Avoid salty foods and carbs. Watch sugars carefully. Follow-up with your doctor within one week for recheck and further evaluation. Take your medicines as prescribed and on time. Return for worse pain, fever, vomiting, weakness, breathing problems or other concerns as needed. You may take [id number] meclizine 25 mg every 8 hours as needed for dizziness. JOSELIN BIRMINGHAM MD Dec 19, 2018 13:05
[2018-12-19 13:12] LABS: BASOPHILS % (AUTO) 0 % (0-10); EOSINOPHILS # (AUTO) 0.1 10^3/uL (0.0-0.3); EOSINOPHILS % (AUTO) 2 % (0-10); HEMATOCRIT 41 % (35-52); HEMOGLOBIN 13.6 G/DL (11.5-16.0); LYMPHOCYTES # (AUTO) 1.3 X 10^3 (1.0-4.0); LYMPHOCYTES % (AUTO) 24 % (12-44); MEAN CORPUSCULAR HEMOGLOBIN 28 PG (25-34); MEAN CORPUSCULAR HGB CONC 34 G/DL (32-36); MEAN CORPUSCULAR VOLUME 84 FL (80-99); MEAN PLATELET VOLUME 10.8 FL (7.4-10.4); MONOCYTES # (AUTO) 0.3 X 10^3 (0.0-1.0); MONOCYTES % (AUTO) 6 % (0-12); NEUTROPHILS # (AUTO) 3.5 X 10^3 (1.8-7.8); NEUTROPHILS % (AUTO) 68 % (42-75); PLATELET COUNT 230 10^3/uL (130-400); RED CELL DISTRIBUTION WIDTH 13.2 % (10.0-14.5); WHITE BLOOD COUNT 5.2 10^3/uL (4.3-11.0)
[2018-12-19 13:23] LABS: CLARITY,URINE CLEAR; COLOR,URINE YELLOW; PH,URINE 7 (5-9)
[2018-12-19 13:24] LABS: AMORPHOUS SEDIMENT,UR RARE AMOR PHOSPHATE /LPF; BACTERIA,URINE NEGATIVE /HPF; BILIRUBIN,URINE NEGATIVE (NEGATIVE); GLUCOSE, URINE (UA) 1+ (NEGATIVE); KETONES,URINE NEGATIVE (NEGATIVE); LEUKOCYTE ESTERASE ,URINE 1+ (NEGATIVE); NITRITE,URINE NEGATIVE (NEGATIVE); PROTEIN,URINE 1+ (NEGATIVE); SQUAMOUS EPITHELIAL CELL,UR RARE /HPF; UROBILINOGEN,URINE NORMAL (NORMAL); WBC,URINE RARE /HPF
[2018-12-19 13:34] LABS: ALANINE AMINOTRANSFERASE 15 U/L (0-55); ALBUMIN 4.2 GM/DL (3.2-4.5); ALKALINE PHOSPHATASE 64 U/L (40-136); BILIRUBIN,TOTAL 0.3 MG/DL (0.1-1.0); BUN/CREATININE RATIO 21; CALCIUM 9.7 MG/DL (8.5-10.1); CARBON DIOXIDE 28 MMOL/L (21-32); CHLORIDE 103 MMOL/L (98-107); CREATININE SERUM 0.68 MG/DL (0.60-1.30); GFR ESTIMATED > 60; GLUCOSE 187 MG/DL (70-105); MAGNESIUM 2.1 MG/DL (1.8-2.4); POTASSIUM 4.1 MMOL/L (3.6-5.0); SODIUM 140 MMOL/L (135-145); TOTAL PROTEIN 6.8 GM/DL (6.4-8.2)
--- NOTE | 2018-12-19 13:58 | Diagnostic Imaging Report ---
PATIENT HISTORY: Dizziness and nausea. TECHNIQUE: Single frontal view of the chest. COMPARISON: 03/03/2018. FINDINGS: The lung volumes are normal. No focal consolidation is seen. A calcified granuloma is noted in the left lung base. No large pleural effusion or pneumothorax is seen. The cardiomediastinal silhouette is normal in size and contour. No acute osseous abnormality is seen. There are degenerative changes in the shoulders. IMPRESSION: No acute pulmonary abnormality seen. Dictated by: Dictated on workstation # [id number]
[2018-12-19] MEDS ORDERED: hydrALAZINE (APESOLINE) 20 MG/ML VIAL IV ONE (14:15)
[2018-12-19] MEDS ORDERED: cloNIDine 0.1 MG (CATAPRES) TAB PO ONE (14:15)
--- NOTE | 2018-12-19 14:55 | Diagnostic Imaging Report ---
PROCEDURE: CT head wo r/o stroke. TECHNIQUE: Multiple contiguous axial images were obtained through the brain without the use of intravenous contrast. Auto Exposure Controls were utilized during the CT exam to meet ALARA standards for radiation dose reduction. INDICATION: Dizziness, headache, nausea, and vomiting. COMPARISON: Comparison is made with prior examination from 03/03/2018. FINDINGS: The ventricles and sulci are within normal limits. There is no hydrocephalus or cerebral edema. There is no midline shift or mass effect. There is no intracranial mass, hemorrhage, or extra-axial fluid collection. The visualized paranasal sinuses and mastoid air cells are clear. There are no regional areas of decreased attenuation appreciated to suggest an acute CVA. IMPRESSION: No acute intracranial abnormality. If high clinical concern for an acute CVA persists, further evaluation with MRI should be considered. Dictated by: Dictated on workstation # [id number]
[2018-12-19 16:41] VITALS: BP 103/49
== END 2018-12-19 16:35 | disposition home or self-care (01) ==
LOC: EDUNIT# 12:21 → ER 12:22
DX: R42 Dizziness and giddiness (principal); I10 Essential (primary) hypertension; J45.909 Unspecified asthma, uncomplicated; E78.00 Pure hypercholesterolemia, unspecified; K58.9 Irritable bowel syndrome, unspecified; M17.12 Unilateral primary osteoarthritis, left knee; E11.9 Type 2 diabetes mellitus without complications; K21.9 Gastro-esophageal reflux disease without esophagitis; Z79.82 Long term (current) use of aspirin; Z79.4 Long term (current) 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; Z82.49 Family history of ischemic heart disease and other diseases of the circulatory system; Z87.891 Personal history of nicotine dependence; Z96.651 Presence of right artificial knee joint
CPT/HCPCS: 36415; 70450; 71045; 80053; 81000; 83735; 83874; 84443; 84484; 85025; 85379; 86141; 93005

== ENCOUNTER 2020-01-05 11:56 | Emergency (ER) | payer MEDICARE, OTHER ==
[~2020-01-05] VITALS: Ht 154 cm; Wt 92.5 kg
[2020-01-05] MEDS ORDERED: MECLIZINE 25 MG (ANTIVERT) TAB PO ONE (12:30)
--- NOTE | 2020-01-05 12:30 | ED General ---
General Chief Complaint: Dizziness/Syncope Stated Complaint: DIZZINESS Nursing Triage Note: pt presents to ed with complaints of vertigo/dizziness/generalized weakness starting this am. reports nausea with any movement. Nursing Sepsis Screen: No Definite Risk History of Present Illness Date Seen by Provider: Jan 05, 2020 Time Seen by Provider: 12:15 Initial Comments 69-year-old female presents with "vertigo" patient reports that she is had this on and off over the last few years. That today her blood pressure was really high that she has some nausea with any type of movement. Some generalized weakness. Patient reports that she forgot to take her blood pressure medication yesterday and that her blood pressure was elevated before she took her medication this morning. Patient denies any fevers chills. She is not having abdominal pain. She denies any other systemic complaints. Allergies and Home Medications Allergies Coded Allergies: No Known Drug Allergies (Unverified , 12/19/18) Home Medications Aspirin 81 Mg Tabec, 81 MG PO HS, (Reported) Dicyclomine Hcl 20 Mg Tablet, 20 MG PO TID, (Reported) Enalapril/Hydrochlorothiazide 1 Tab Tablet, 1 TAB PO DAILY, (Reported) Insulin Aspart 100 Unit/1 Ml Insuln.pen, 6-8 UNITS SQ TID AC, (Reported) Insulin Detemir 100 Unit/1 Ml Insuln.pen, 15 UNIT SQ DAILY, (Reported) Insulin Detemir 100 Unit/1 Ml Insuln.pen, 20 UNIT SQ HS, (Reported) Metformin Hcl 500 Mg Tablet, 500 MG PO BID WITH MEALS, (Reported) Multivitamins 1 Tab Tablet, 1 TAB PO DAILY, (Reported) SENIOR VITAMIN Oxycodone Hcl/Acetaminophen 1 Tab Tablet, 1-2 TAB PO Q 4-6 hrs PRN for PAIN Prescribed by: BRISA GÓMEZ on 02/28/14 1004 Phentermine Hcl 37.5 Mg Capsule, 37.5 MG PO DAILY, (Reported) Potassium Gluconate 99 Mg Tablet, 99 MG PO DAILY, (Reported) Patient Home Medication List Home Medication List Reviewed: Yes Review of Systems Review of Systems Constitutional: No chills; dizziness; No fever EENTM: No hearing loss Respiratory: No cough, No short of breath Cardiovascular: No chest pain Gastrointestinal: No abdominal pain, No diarrhea; nausea; No vomiting Genitourinary: no symptoms reported Musculoskeletal: no symptoms reported Skin: no symptoms reported Past Rqtwljn-Sastoq-Dzhmkk Hx Past Med/Social Hx: Reviewed Nursing Past Med/Soc Hx Patient Social History Alcohol Use: Rarely Uses Number of Drinks Today: Alcohol Beverage of Choice: Wine Recreational Drug Use: No Smoking Status: Former Smoker Former Smoker, Quit: Dec 27, 2004 Recent Foreign Travel: No Contact w/Someone Who Travel: No Recent Infectious Disease Expo: No Recent Hopitalizations: Yes Physical Abuse: No Sexual Abuse: No Mistreated: No Fear: No Immunizations Up To Date Tetanus Booster (TDap): Unknown Date of Pneumonia Vaccine: Jun 17, 2009 Past Medical History Surgeries: Yes (RIGHT KNEE RECONSTRUCTION, RIGHT KNEE SCOPE, l hip, l knee) Hysterectomy, Orthopedic Respiratory: Yes Asthma, Sleep Apnea Currently Using CPAP: No Cardiac: Yes High Cholesterol, Hypertension Neurological: Yes Headaches /Migraines, Vertigo Reproductive Disorders: No 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 Genitourinary: No Gastrointestinal: Yes (IBS) Gastroesophageal Reflux Musculoskeletal: Yes (LEFT KNEE OSTEOARTHRITIS) Arthritis Endocrine: Yes Diabetes, Insulin dep HEENT: No Cancer: No Psychosocial: No Integumentary: Yes (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) Psoriasis Blood Disorders: No Family Medical History Cancer 19 MOTHER (BREAST) Congestive heart failure G8 SISTER Dementia 19 MOTHER Family history: Arthritis G8 SISTER Family history: Breast disease 19 MOTHER Family history: Diabetes mellitus 19 MOTHER G8 SISTER Kidney disease G8 SISTER No Family History of: Abdominal aortic aneurysm Alcoholism Family history: Cardiovascular disease Family history: Gastrointestinal disease Family history: Hypertension Family history: Thyroid disorder Hereditary disease History of - respiratory disease Myocardial infarction Parkinson's disease Prostate cancer Psychotic disorder Seizure disorder Stroke Stroke Physical Exam Vital Signs Vital Signs - First Documented 01/05/20 12:04 Temp 36.8 Pulse 56 Resp 20 B/P (MAP) 195/74 (114) Pulse Ox 95 Capillary Refill : Less Than 3 Seconds Height, Weight, BMI Height: 5'2.00" Weight: 219lbs. 0.0oz. 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25 4.35-5.85 10^6/uL Hemoglobin 14.2 11.5-16.0 G/DL Hematocrit 43 35-52 % Mean Corpuscular Volume 83 80-99 FL Mean Corpuscular Hemoglobin 27 25-34 PG Mean Corpuscular Hemoglobin Concent 33 32-36 G/DL Red Cell Distribution Width 12.7 10.0-14.5 % Platelet Count 259 130-400 10^3/uL Mean Platelet Volume 10.7 H 7.4-10.4 FL Neutrophils (%) (Auto) 77 H 42-75 % Lymphocytes (%) (Auto) 18 12-44 % Monocytes (%) (Auto) 4 0-12 % Eosinophils (%) (Auto) 1 0-10 % Basophils (%) (Auto) 0 0-10 % Neutrophils # (Auto) 4.8 1.8-7.8 X 10^3 Lymphocytes # (Auto) 1.1 1.0-4.0 X 10^3 Monocytes # (Auto) 0.3 0.0-1.0 X 10^3 Eosinophils # (Auto) 0.1 0.0-0.3 10^3/uL Basophils # (Auto) 0.0 0.0-0.1 10^3/uL Sodium Level 139 135-145 MMOL/L Potassium Level 4.1 3.6-5.0 MMOL/L Chloride Level 104 98-107 MMOL/L Carbon Dioxide Level 22 21-32 MMOL/L Anion Gap 13 5-14 MMOL/L Blood Urea Nitrogen 13 7-18 MG/DL Creatinine 0.68 0.60-1.30 MG/DL Estimat Glomerular Filtration Rate > 60 BUN/Creatinine Ratio 19 Glucose Level 154 H 70-105 MG/DL Calcium Level 9.5 8.5-10.1 MG/DL Corrected Calcium 9.3 8.5-10.1 MG/DL Magnesium Level 2.0 1.6-2.4 MG/DL Total Bilirubin 0.5 0.1-1.0 MG/DL Aspartate Amino Transf (AST/SGOT) 17 5-34 U/L Alanine Aminotransferase (ALT/SGPT) 16 0-55 U/L Alkaline Phosphatase 75 40-136 U/L Total Protein 7.5 6.4-8.2 GM/DL Albumin 4.3 3.2-4.5 GM/DL Urine Color YELLOW Urine Clarity CLEAR Urine pH 8.0 5-9 Urine Specific [place] 1.020 1.016-1.022 Urine Protein NEGATIVE NEGATIVE Urine Glucose (UA) NEGATIVE NEGATIVE Urine Ketones TRACE H NEGATIVE Urine Nitrite NEGATIVE NEGATIVE Urine Bilirubin NEGATIVE NEGATIVE Urine Urobilinogen 0.2 < = 1.0 MG/DL Urine Leukocyte Esterase TRACE H NEGATIVE Urine RBC (Auto) TRACE-I NEGATIVE Urine RBC 2-5 H /HPF Urine WBC 25-50 H /HPF Urine Squamous Epithelial Cells 0-2 /HPF Urine Crystals NONE /LPF Urine Bacteria MODERATE H /HPF Urine Casts NONE /LPF Urine Mucus NEGATIVE /LPF Urine Culture Indicated YES My Orders Orders - ANGEL WATKINS DO Cbc With Automated Diff (01/05/20 12:25) Comprehensive Metabolic Panel (01/05/20 12:25) Magnesium (01/05/20 12:25) Ua Culture If Indicated (01/05/20 12:25) Meclizine Tablet (Antivert Tablet) (01/05/20 12:30) Urine Culture (01/05/20 13:30) Medications Given in ED Current Medications Medications Dose Ordered Sig/Balwinder Route Start Time Stop Time Status Last Admin Dose Admin Meclizine HCl 25 mg ONCE ONCE PO 01/05/20 12:30 01/05/20 12:31 DC 01/05/20 12:31 25 MG Vital Signs/I&O 01/05/20 12:04 Temp 36.8 Pulse 56 Resp 20 B/P (MAP) 195/74 (114) Pulse Ox 95 Capillary Refill : Less Than 3 Seconds Blood Pressure Mean: 114 Progress Note : Time: 14:08 Progress Note Patient felt signally better following the meclizine. I suspect her vertigo is out of multiple etiologies. She has a history of vertigo, blood pressure was slightly elevated upon initial arrival from her not taking her medication and she has a urinary tract infection. I did discuss this with her. We will start her on Macrobid for the UTI. She should follow-up with her primary care provider in 3-4 days for recheck of symptoms Departure Impression Primary Impression: Vertigo Additional Impressions: Cystitis Uncontrolled hypertension Disposition: 01 HOME, SELF-CARE Condition: Stable Departure-Patient Inst. Referrals: [facility] (PCP/Family) Primary Care Physician Patient Instructions: Vertigo (a Type of Dizziness) (DC), Urinary Tract Infection, Adult (DC), Controlling Your Blood Pressure Through Lifestyle, High Blood Pressure (DC) Add. Discharge Instructions: Follow-up with your primary care provider in 3-4 days for recheck in today symptoms Emergency department focuses on treating and ruling out life-threatening diseases. Whenever possible, a diagnosis is given. However, most patients are given an impression based on their history, physical exam, and workup during your brief time in the ER. Information about probable diagnosis and other educational material has been provided. Please take the time to read and understand this information. It is very important that you follow up with a physician as discussed during the visit today. Failure to adhere to your follow-up instructions may lead to severe disability, injury, or so please make sure to keep your appointments or obtain one as requested. Please keep in mind the emergency department is not designed to your primary care or "family doctor" and nonurgent issues are best evaluated by an outpatient physician All discharge instructions reviewed with patient and/or family. Voiced understanding. Scripts Nitrofurantoin Macrocrystal (Nitrofurantoin) 100 Mg Capsule 100 MG PO BID, #10 CAP 0 Refills Prov: ANGEL WATKINS DO 01/05/20 ANGEL WATKINS DO Jan 05, 2020 12:30
[2020-01-05 12:32] LABS: BASOPHILS % (AUTO) 0 % (0-10); EOSINOPHILS # (AUTO) 0.1 10^3/uL (0.0-0.3); EOSINOPHILS % (AUTO) 1 % (0-10); HEMATOCRIT 43 % (35-52); HEMOGLOBIN 14.2 G/DL (11.5-16.0); LYMPHOCYTES # (AUTO) 1.1 X 10^3 (1.0-4.0); LYMPHOCYTES % (AUTO) 18 % (12-44); MEAN CORPUSCULAR HEMOGLOBIN 27 PG (25-34); MEAN CORPUSCULAR HGB CONC 33 G/DL (32-36); MEAN CORPUSCULAR VOLUME 83 FL (80-99); MEAN PLATELET VOLUME 10.7 FL (7.4-10.4); MONOCYTES # (AUTO) 0.3 X 10^3 (0.0-1.0); MONOCYTES % (AUTO) 4 % (0-12); NEUTROPHILS # (AUTO) 4.8 X 10^3 (1.8-7.8); NEUTROPHILS % (AUTO) 77 % (42-75); PLATELET COUNT 259 10^3/uL (130-400); RED CELL DISTRIBUTION WIDTH 12.7 % (10.0-14.5); WHITE BLOOD COUNT 6.3 10^3/uL (4.3-11.0)
[2020-01-05 12:37] LABS: ALBUMIN 4.3 GM/DL (3.2-4.5); CHLORIDE 104 MMOL/L (98-107); POTASSIUM 4.1 MMOL/L (3.6-5.0); SODIUM 139 MMOL/L (135-145)
[2020-01-05 12:38] LABS: CALCIUM 9.5 MG/DL (8.5-10.1)
[2020-01-05 12:39] LABS: GLUCOSE 154 MG/DL (70-105)
[2020-01-05 12:40] LABS: TOTAL PROTEIN 7.5 GM/DL (6.4-8.2)
[2020-01-05 12:41] LABS: BILIRUBIN,TOTAL 0.5 MG/DL (0.1-1.0); CARBON DIOXIDE 22 MMOL/L (21-32)
[2020-01-05 12:43] LABS: ALKALINE PHOSPHATASE 75 U/L (40-136); CREATININE SERUM 0.68 MG/DL (0.60-1.30); GFR ESTIMATED > 60
--- OUTSIDE RECORDS SUMMARY | 2020-01-05 12:43 | XMS REPORT ---
Author Author Tess VALLE [facility] Address [address] [place] [address] Care Team Providers Care Senior Marketing Associate Name Role Phone COLT VALLE Unavailable PROBLEMS Type Condition ICD9-CM Code [id number] Code Onset Dates Condition S tatus SNOMED Code Problem Essential hypertension I10 Active 87851683 Problem Mild single current episode of major depressive disorder F32.0 Active 41300439 Problem Primary osteoarthritis of both knees M17.0 Active 457760024 Problem Morbid (severe) obesity due to excess calories E66 .01 Active 287019153 Problem Type 2 diabetes mellitus with unspecified complications E11.8 Active 48081138 Problem FPC 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 Z79.4 Active 104637744 Problem Hypercholesterolemia E78.00 Active 70497013 Problem 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 Activ e 42781633 Problem Body mass index (BMI) of 36.0-36.9 in adult Z68.36 Active 185082139 ALLERGIES No Information ENCOUNTERS Encounter Location Date Diagnosis [id number] [place] [address] May, Encounter for Medicare annual wellness e xam Z00.00 ; Essential hypertension I10 ; Primary osteoarthritis of both knees M17.0 ; Type 2 diabetes mellitus with unspecified complications E11.8 ; Hypercholesterolemia E78.00 ; Mild single current episode of major depressive disorder F32.0 and Encounter for immunization Z23 [id number] [place] [address] May, [place] [address] [address] Apr, Bronchitis J40 and Morbid obesity E66.01 [id number] [place] [address] Mar, [id number] [place] [address] Mar, [facility] [address] [address] Mar, Type 2 diabetes mellitus with unspecifie d complications E11.8 ; Essential hypertension I10 ; Morbid obesity E66.01 and Mild single current episode of major depressive disorder F32.0 [address] [address] [address] Mar, Essential hypertension I10 and Type 2 di abetes mellitus with unspecified complications E11.8 [address] [address] [address] Feb, [place] [address] [address] January, Type 2 diabetes mellitus with other spec ified complication E11.69 [place] [address] [address] Dec, [place] [address] [address] Dec, Essential hypertension I10 and Type 2 di abetes mellitus with unspecified complications E11.8 [place] [address] [address] Dec, [place] [address] [address] Nov, [place] [address] [address] Nov, [facility] [address] [address] Nov, [place] [address] [address] Nov, Exercise counseling Z71.82 [facility] [id number] [place] [address] Nov, [facility] [address] [address] Sep, [facility] [address] [address] Sep, Morbid (severe) obesity due to excess ca lories E66.01 ; Mild single current episode of major depressive disorder F32.0 ; Primary osteoarthritis of both knees M17.0 ; Essential hypertension I10 and Type 2 diabetes mellitus with unspecified complications E11.8 [place] [address] [address] [address] Sep, [place] [address] [address] [address] Aug, Type 2 diabetes mellitus with hyperglyce frederick E11.65 and Hypercholesterolemia E78.00 [place] [address] [address] Jul, Essential hypertension I10 [place] [address] [address] [address] Jul, Mild single current episode of major dep ressive disorder F32.0 [place] [address] [address] [address] Jun, Essential hypertension I10 [facility] [address] [facility] [id number] [place] [address] 02 Jun, 2018 Dysuria R30.0 and Acute UTI (urinary tract infection) N39.0 [address] [address] [address] May, Type 2 diabetes mellitus with other spec ified complication E11.69 ; FPC 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 Z79.4 ; Essential hypertension I10 ; Primary osteoarthritis of both knees M17.0 ; Hypercholesterolemia E78.00 ; Morbid (severe) obesity due to excess calories E66.01 and Body mass index (BMI) of 36.0-36.9 in adult Z68.36 [address] [address] Mar, Type 2 diabetes mellitus with hyperglyce frederick E11.65 [place] [address] [address] [address] Mar, [place] [address] [address] Mar, Actinic keratosis L57.0 ; Labial cyst N9 0.7 and Type 2 diabetes mellitus with diabetic chronic kidney disease E11.22 [place] [address] [address] Feb, [place] [address] [address] [address] Feb, Type 2 diabetes mellitus with hyperglyce frederick E11.65 ; Essential hypertension I10 ; Hypercholesterolemia E78.00 ; 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41 and Morbid (severe) obesity due to excess calories E66.01 [place] [address] [address] [address] January, Type 2 diabetes mellitus with hyperglyce frederick E11.65 [place] [address] [address] [address] Dec, Mild single current episode of major dep ressive disorder F32.0 [place] [address] [address] [address] Dec, Hypercholesterolemia E78.00 [facility] [address] [facility] [id number] [address] [place] [address] Dec, Seasonal allergic rhinitis, unspecified trigger J30.2 [facility] [address] [address] 15 Nov, 2017 [facility] [address] [address] Nov, Hypercholesterolemia E78.00 and Type 2 d iabetes mellitus with hyperglycemia E11.65 [place] [address] [address] [address] 02 Nov, 2017 Leg cramps R25.2 [place] [address] [address] [address] Nov, Type 2 diabetes mellitus with hyperglyce frederick E11.65 [place] [address] [address] [address] Nov, Type 2 diabetes mellitus with hyperglyce frederick E11.65 ; FPC 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 Z79.4 ; Essential hypertension I10 ; Mild single current episode of major depressive disorder F32.0 ; Primary osteoarthritis of both knees M17.0 ; High risk medication use Z79.899 ; Controlled substance agreement signed Z79.899 ; Hypercholesterolemia E78.00 and Leg cramps R25.2 [place] [address] [address] Oct, [facility] [address] [facility] [id number] [address] [place] [address] Oct, [facility] [address] [address] Oct, [place] [address] [address] Sep, Essential hypertension I10 [place] [address] [address] Sep, Essential hypertension I10 [place] [address] [address] Sep, [facility] [id number] [place] [address] Sep, [facility] [address] [address] Sep, [facility] [address] [address] Aug, [facility] [address] [address] Jul, [facility] [address] [address] Jul, [facility] [address] [address] Jul, [facility] [address] [address] Jun, [facility] [address] [address] Jun, [facility] [address] [address] Jun, Type 2 diabetes mellitus with diabetic c hronic kidney disease E11.22 ; Heart murmur R01.1 ; Essential hypertension I10 and Primary osteoarthritis of both knees M17.0 [facility] [address] [address] Apr, Type 2 diabetes mellitus with diabetic c hronic kidney disease E11.22 [facility] [address] [address] Mar, Type 2 diabetes mellitus with diabetic c hronic kidney disease E11.22 ; Essential hypertension I10 ; Mild single current episode of major depressive disorder F32.0 and Primary osteoarthritis of both knees M17.0 [facility] [address] [address] Feb, Mild single current episode of major dep ressive disorder F32.0 [facility] [address] [address] Feb, [facility] [address] [facility] [place] [address] Feb, Essential hypertension I10 and Hyperchol esterolemia E78.00 [place] [address] [facility] [place] [address] Feb, Type 2 diabetes mellitus with diabetic c hronic kidney disease E11.22 ; Essential hypertension I10 ; Edema due to malnutrition, due to unspecified malnutrition type E43 ; Hypercholesterolemia E78.00 and Mild single current episode of major depressive disorder F32.0 [place] [address] [id number] [place] [address] Feb, IMMUNIZATIONS No Known Immunizations SOCIAL HISTORY Never Assessed REASON FOR VISIT BP Reduction Challenge Check-in PLAN OF CARE VITAL SIGNS Blood pressure systolic 130 mmHg 2018-12-04 Blood pressure diastolic 80 mmHg 2018-12-04 MEDICATIONS No Known Medications RESULTS No Results PROCEDURES No Known [...]
--- OUTSIDE RECORDS SUMMARY | 2020-01-05 12:43 | XMS REPORT ---
Author Author Tess VALLE [facility] Address [address] [place] [address] Care Team Providers Care Reliability Manager Name Role Phone COLT VALLE Unavailable PROBLEMS Type Condition ICD9-CM Code [id number] Code Onset Dates Condition S tatus SNOMED Code Problem Essential hypertension I10 Active 10617004 Problem Mild single current episode of major depressive disorder F32.0 Active 76958200 Problem Primary osteoarthritis of both knees M17.0 Active 036249366 Problem Morbid (severe) obesity due to excess calories E66 .01 Active 005331437 Problem Type 2 diabetes mellitus with unspecified complications E11.8 Active 50676921 Problem FCI 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 Z79.4 Active 184897732 Problem Hypercholesterolemia E78.00 Active 13128103 Problem 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 Activ e 64518714 Problem Body mass index (BMI) of 36.0-36.9 in adult Z68.36 Active 491430930 ALLERGIES No Information ENCOUNTERS Encounter Location Date Diagnosis [place] [id number] [facility] [id number] [address] [place] [phone] January, Type 2 diabetes mellitus wit h other specified complication E11.69 [place] [address] [facility] [id number] [address] [place] [phone] Dec, [facility] [address] [id number] [address] [place] [phone] Dec, Essential hypertension I10 a nd Type 2 diabetes mellitus with unspecified complications E11.8 [facility] [address] [facility] [id number] [address] [place] [phone] Dec, [facility] [address] [facility] [id number] [address] [place] [phone] Nov, [facility] [address] [facility] [id number] [address] [place] [phone] Nov, [facility] [address] [id number] [address] [place] [phone] Nov, [facility] [address] [facility] [id number] [address] [place] [phone] Nov, Exercise counseling Z71.82 [facility] [address] [facility] [id number] [address] [place] [phone] Nov, [facility] [address] [facility] [id number] [address] [place] [phone] Sep, [facility] [address] [place] [id number] [address] [place] [phone] Sep, Morbid (severe) obesity due to excess calories E66.01 ; Mild single current episode of major depressive disorder F32.0 ; Primary osteoarthritis of both knees M17.0 ; Essential hypertension I10 and Type 2 diabetes mellitus with unspecified complications E11.8 [facility] [address] [place] [id number] [address] [place] [phone] Sep, [facility] [address] [place] [id number] [address] [place] [phone] Aug, Type 2 diabetes mellitus wit h hyperglycemia E11.65 and Hypercholesterolemia E78.00 [facility] [address] [facility] [id number] [address] [place] [phone] Jul, Essential hypertension I10 [facility] [address] [facility] [id number] [address] [place] [phone] Jul, Mild single current episode of major depressive disorder F32.0 [facility] [address] [facility] [id number] [address] [place] [phone] Jun, Essential hypertension I10 [facility] [address] [facility] [id number] [address] [place] [phone] Jun, Dysuria R30.0 and Acute UTI (urinary tract infection) N39.0 [facility] [address] [facility] [id number] [address] [place] [phone] May, Type 2 diabetes mellitus wit h other specified complication E11.69 ; FCI 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 Z79.4 ; Essential hypertension I10 ; Primary osteoarthritis of both knees M17.0 ; Hypercholesterolemia E78.00 ; Morbid (severe) obesity due to excess calories E66.01 and Body mass index (BMI) of 36.0-36.9 in adult Z68.[address] [phone] 10 Mar, 2018 Type 2 diabetes mellitus wit h hyperglycemia E11.65 [place] [address] [phone] 09 Mar, 2018 [place] [address] [id number] 02 Mar, 2018 Actinic keratosis L57.0 ; La bial cyst N90.7 and Type 2 diabetes mellitus with diabetic chronic kidney disease E11.22 [place] [address] [address] [place] [id number] [address] [place] [phone] Feb, [place] [address] [place] [id number] [place] [phone] 14 Feb, 2018 Type 2 diabetes mellitus wit h hyperglycemia E11.65 ; Essential hypertension I10 ; Hypercholesterolemia E78.00 ; FCI 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 Z79.4 ; Primary osteoarthritis of both knees M17.0 and 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 [place] [address] [place] [id number] [address] [place] [phone] 13 Feb, 2018 Dental examination Z01.20 [place] [address] [place] [id number] [address] [place] [phone] 12 Feb, 2018 Dental examination Z01.20 [place] [address] [place] [id number] [place] [phone] 12 Feb, 2018 Type 2 diabetes mellitus wit h hyperglycemia E11.65 ; Essential hypertension I10 ; FCI 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 Z79.4 ; Hypercholesterolemia E78.00 ; Primary osteoarthritis of both knees M17.0 ; 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 ; Body mass index (BMI) of 40.0-44.9 in adult Z68.41 and Morbid (severe) obesity due to excess calories E66.01 [place] [address] [phone] January, Type 2 diabetes mellitus wit h hyperglycemia E11.65 [place] [address] [place] [id number] [address] [place] [phone] Dec, Mild single current episode of major depressive disorder F32.0 [place] [address] [place] [id number] [place] [phone] Dec, Hypercholesterolemia E78.00 [facility] [place] [address] [phone] Dec, Seasonal allergic rhinitis, unspecified trigger J30.2 [place] [address] [phone] Nov, [place] [address] [id number] 13 Nov, 2017 Hypercholesterolemia E78.00 and Type 2 diabetes mellitus with hyperglycemia E11.65 [place] [address] [id number] 02 Nov, 2017 Leg cramps R25.2 [place] [address] [place] [id number] [address] [place] [phone] Nov, Type 2 diabetes mellitus wit h hyperglycemia E11.65 [place] [address] [phone] Nov, Type 2 diabetes mellitus wit h hyperglycemia E11.65 ; FCI 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 Z79.4 ; Essential hypertension I10 ; Mild single current episode of major depressive disorder F32.0 ; Primary osteoarthritis of both knees M17.0 ; High risk medication use Z79.899 ; Controlled substance agreement signed Z79.899 ; Hypercholesterolemia E78.00 and Leg cramps R25.2 [place] [address] [place] [id number] [address] [place] [phone] Oct, [facility] [address] [id number] [address] [place] [phone] Oct, [facility] [address] [id number] [address] [place] [phone] Oct, [facility] [address] [id number] [address] [place] [phone] Sep, Essential hypertension I10 [facility] [address] [id number] [address] [place] [phone] Sep, Essential hypertension I10 [facility] [address] [id number] [address] [place] [phone] Sep, [facility] [address] [id number] [address] [place] [phone] Sep, [facility] [address] [id number] [address] [place] [phone] Sep, [facility] [address] [id number] [address] [place] [phone] Aug, [facility] [address] [id number] [address] [place] [phone] Jul, [facility] [address] [facility] [id number] [address] [place] [phone] Jul, [facility] [address] [id number] [address] [place] [phone] Jul, [facility] [address] [id number] [address] [place] [phone] Jun, [facility] [address] [id number] [address] [place] [phone] Jun, [facility] [address] [facility] [id number] [address] [place] [phone] Jun, Type 2 diabetes mellitus 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.22 ; Heart murmur R01.1 ; Essential hypertension I10 and Primary osteoarthritis of both knees M17.0 [facility] [address] [id number] [address] [place] [phone] Apr, Type 2 diabetes mellitus 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.22 [facility] [address] [id number] [address] [place] [phone] Mar, Type 2 diabetes mellitus 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.22 ; Essential hypertension I10 ; Mild single current episode of major depressive disorder F32.0 and Primary osteoarthritis of both knees M17.0 [facility] [address] [id number] [address] [place] [phone] Feb, Mild single current episode of major depressive disorder F32.0 [place] [address] [id number] [address] [place] [phone] Feb, [place] [address] [id number] [address] [place] [phone] Feb, Essential hypertension I10 a nd Hypercholesterolemia E78.00 [facility] [address] [id number] [address] [place] [phone] Feb, Type 2 diabetes mellitus 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.22 ; Essential hypertension I10 ; Edema due to malnutrition, due to unspecified malnutrition type E43 ; Hypercholesterolemia E78.00 and Mild single current episode of major depressive disorder F32.0 [place] [address] [facility] [id number] [address] [place] [phone] Feb, IMMUNIZATIONS No Known Immunizations SOCIAL HISTORY Never Assessed REASON FOR VISIT BP Reduction Challenge Initial Visit PLAN OF CARE VITAL SIGNS Height 5 ft 1 in in 2018-11-22 Weight 203 lbs oz lbs 2018-11-22 BMI 38.36 kg/m2 2018-11-22 MEDICATIONS Unknown Medications RESULTS No Results PROCEDURES [...] hip replacement 06/2017 Hospitalization History chest pain 2013 Hospitalization History Surgery(s)/Childbirth(s)
[2020-01-05 12:44] LABS: BUN/CREATININE RATIO 19
--- OUTSIDE RECORDS SUMMARY | 2020-01-05 12:45 | XMS REPORT | Continuity of Care Document ---
Author Organization Unknown Address Unknown Phone Unavailable Allergies Active Description Code Type Severity Reaction Onset Reported/Identified Relationship to Patient Clinical Status Yes No Known Drug Allergies [id number] Drug Allergy Unknown N/A 12/19/2018 Medications There is no data. Problems Date Dx Coded Attending Type Code Diagnosis Diagnosed By 04/12/2011 Ot 250.00 SHAHANA B ROSA WO COMPL, TYPE II OR UNSPEC TY 04/12/2011 Ot 401.9 HYPE RTENSION NOS 04/12/[address] PAIN NOS 04/12/2011 Ot V58.63 SUNDAY G- TERM(CURRENT)USE OF ANTIPLATELET/AN 04/12/2011 Ot V58.66 SUNDAY G-TERM (CURRENT) USE OF ASPIRIN 04/12/2011 Ot V58.69 OTH MED,LT,CURRENT USE 02/28/2014 JONELLE WORTHINGTON, RONAK Sesay Ot [...] EXAMINATION 06/29/2016 RONAK SAL MD Ot V72.81 [id number] CARDIOVASCULAR 06/29/2016 RONAK SAL MD Ot V72.84 [...] EXAMINATION 07/11/2016 RONAK SAL MD Ot V72.81 [id number] CARDIOVASCULAR 07/11/2016 RONAK SAL MD Ot V72.84 EXAM PRE-OPERATIVE NOS 07/11/2016 JONELLE WORTHINGTON, RONAK Sesay Ot V74.8 SCREEN-BACTERIAL DIS NEC 07/11/2016 BENNETT LO EVENT DECORATOR AND DESIGNER Ot G47.10 HYPERSOMNIA, UNSPECIFIED 07/11/2016 BENNETT LO APRN Ot G47.33 OBSTRUCTIVE SLEEP APNEA (ADULT) (PEDIATR 07/12/2016 RONAK SAL MD Ot 715.36 LOC OSTEOARTH NOS-L/LEG 07/12/2016 RONAK SAL MD Ot 780.79 OTH MALAISE FATIGUE 07/12/2016 RONAK SAL MD Ot V72.63 PRE-PROCEDURAL LABORATORY EXAMINATION 07/12/2016 RONAK SAL MD Ot V72.81 [id number] CARDIOVASCULAR 07/12/2016 RONAK SAL MD Ot V72.84 EXAM PRE-OPERATIVE NOS 07/12/2016 RONAK SAL MD Ot V74.8 SCREEN-BACTERIAL DIS NEC 07/12/2016 BENNETT LO APRN Ot G47.10 HYPERSOMNIA, UNSPECIFIED 07/12/2016 BENNETT LO APRN Ot G47.33 OBSTRUCTIVE SLEEP APNEA (ADULT) (PEDIATR 07/12/2016 BENNETT LO EVENT DECORATOR AND DESIGNER Ot F17.210 NICOTINE DEPENDENCE, CIGARETTES, UNCOMPL 07/12/2016 [...] EXAMINATION 05/10/2017 RONAK SAL MD Ot V72.81 JGRU-[id number] CARDIOVASCULAR 05/10/2017 RONAK SAL MD Ot V72.84 EXAM PRE-OPERATIVE NOS 05/10/2017 RONAK SAL MD Ot V74.8 SCREEN-BACTERIAL DIS NEC 05/10/2017 BENNETT LO APRN Ot F17.210 NICOTINE DEPENDENCE, CIGARETTES, UNCOMPL 05/10/2017 BENNETT LO APRN Ot R06.00 DYSPNEA, UNSPECIFIED 05/10/2017 BENNETT LO APRN Ot G47.10 HYPERSOMNIA, UNSPECIFIED 05/10/2017 BENNETT LO APRN Ot G47.33 OBSTRUCTIVE SLEEP APNEA (ADULT) (PEDIATR 06/04/2017 JONELLE WORTHINGTON, RONAK Sesay Ot 715.36 LOC OSTEOARTH NOS-L/LEG 06/04/2017 RONAK SLA MD Ot 780.79 OT MALAISE FATIGUE 06/04/2017 RONAK SAL MD Ot V72.63 PRE-PROCEDURAL LABORATORY EXAMINATION 06/04/2017 RONAK SAL MD Ot V72.81 QEHU-BGL-PHHOCZOMN CARDIOVASCULAR 06/04/2017 RONAK SAL MD Ot V72.84 EXAM PRE-OPERATIVE NOS 06/04/2017 RONAK SAL MD Ot V74.8 SCREEN-BACTERIAL DIS NEC 06/04/2017 BENNETT LO APRN Ot F17.210 NICOTINE DEPENDENCE, CIGARETTES, UNCOMPL 06/04/2017 BENNETT LO APRN Ot R06.00 DYSPNEA, UNSPECIFIED 06/04/2017 BENNETT LO APRN Ot G47.10 HYPERSOMNIA, UNSPECIFIED 06/04/2017 BENNETT LO APRN Ot G47.33 OBSTRUCTIVE SLEEP APNEA (ADULT) (PEDIATR 06/04/2017 UMAIR BRANCH MD Ot E11. 9 TYPE 2 DIABETES MELLITUS WITHOUT COMPLIC 06/04/2017 UMAIR BRANCH MD Ot E66. 9 OBESITY, UNSPECIFIED 06/04/2017 UMAIR BRANCH MD Ot F17.201 NICOTINE DEPENDENCE, UNSPECIFIED, IN REM 06/04/2017 JOSE CARLOS MD, BASHAR J Ot G47. 33 OBSTRUCTIVE SLEEP APNEA (ADULT) (PEDIATR 06/04/2017 UMAIR BRANCH MD Ot I10 ESSENTIAL (PRIMARY) HYPERTENSION 06/04/2017 UMAIR BRANCH MD Ot R06. 00 DYSPNEA, UNSPECIFIED 06/27/2017 UMAIR BRANCH MD Ot E11. 9 TYPE 2 DIABETES MELLITUS WITHOUT COMPLIC 06/27/2017 UMAIR BRANCH MD Ot E66. 9 OBESITY, UNSPECIFIED 06/27/2017 UMAIR BRANCH MD Ot F17.201 NICOTINE DEPENDENCE, UNSPECIFIED, IN REM 06/27/2017 UMAIR BRANCH MD Ot G47. 33 OBSTRUCTIVE SLEEP APNEA (ADULT) (PEDIATR 06/27/2017 UMAIR BRANCH MD Ot I10 ESSENTIAL (PRIMARY) HYPERTENSION 06/27/2017 UMAIR BRANCH MD Ot R06. 00 DYSPNEA, UNSPECIFIED 07/06/2017 UMAIR BRANCH MD Ot E11. 9 TYPE 2 DIABETES MELLITUS WITHOUT COMPLIC 07/06/2017 UMAIR BRANCH MD Ot E66. 9 OBESITY, UNSPECIFIED 07/06/2017 UMAIR BRANCH MD Ot F17.201 NICOTINE DEPENDENCE, UNSPECIFIED, IN REM 07/06/2017 UMAIR BRANCH MD Ot G47. 33 OBSTRUCTIVE SLEEP APNEA (ADULT) (PEDIATR 07/06/2017 UMAIR BRANCH MD Ot I10 ESSENTIAL (PRIMARY) HYPERTENSION 07/06/2017 UMAIR BRANCH MD Ot R06. 00 DYSPNEA, UNSPECIFIED 07/13/2017 UMAIR BRANCH MD Ot E11. 9 TYPE 2 DIABETES MELLITUS WITHOUT COMPLIC 07/13/2017 UMAIR BRANCH MD Ot E66. 9 OBESITY, UNSPECIFIED 07/13/2017 UMAIR BRANCH MD Ot F17.201 NICOTINE DEPENDENCE, UNSPECIFIED, IN REM 07/13/2017 UMAIR BRANCH MD Ot G47. 33 OBSTRUCTIVE SLEEP APNEA (ADULT) (PEDIATR 07/13/2017 UMAIR BRANCH MD Ot I10 ESSENTIAL (PRIMARY) HYPERTENSION 07/13/2017 UMAIR BRANCH MD Ot R06. 00 DYSPNEA, UNSPECIFIED 03/03/2018 DWIGTH ZAMAN MD Ot E11. 9 TYPE 2 DIABETES MELLITUS WITHOUT COMPLIC 03/03/2018 DWIGHT ZAMAN MD Ot J45.909 UNSPECIFIED ASTHMA, UNCOMPLICATED 03/03/2018 DWIGHT ZAMAN MD Ot K21. 9 GASTRO-ESOPHAGEAL REFLUX DISEASE WITHOUT 03/03/2018 DWIGHT ZAMAN MD Ot M17. 12 UNILATERAL PRIMARY OSTEOARTHRITIS, LEFT 03/03/2018 DWIGHT ZAMAN MD Ot R04. 0 EPISTAXIS 03/03/2018 DWIGHT ZAMAN MD Ot S22.32XA FRACTURE OF ONE RIB, LEFT SIDE, INIT FOR 03/03/2018 DWIGHT ZAMAN MD Ot W18.30XA FALL ON SAME LEVEL, UNSPECIFIED, INITIAL 03/03/2018 DWIGHT ZAMAN MD Ot Z79. 4 SKILLED NURSING (CURRENT) USE OF INSULIN 03/03/2018 DWIGHT ZAMAN MD Ot Z79. 82 SKILLED NURSING (CURRENT) USE OF ASPIRIN 03/03/2018 DWIGHT ZAMAN MD Ot Z80. 3 FAMILY HISTORY OF MALIGNANT NEOPLASM OF 03/03/2018 DWIGHT ZAMAN MD Ot Z82. 49 FAMILY HX OF ISCHEM HEART DIS AND OTH DI 03/03/2018 DWIGHT ZAMAN MD Ot Z87. 19 PERSONAL HISTORY OF OTHER DISEASES OF TH 03/03/2018 DWIGHT ZAMAN MD Ot Z87.891 PERSONAL HISTORY OF NICOTINE DEPENDENCE 03/03/2018 DWIGHT ZAMAN MD Ot Z96.651 PRESENCE OF RIGHT ARTIFICIAL KNEE JOINT 03/03/2018 ASHVIN EMERSON MD Ot E11. 9 TYPE 2 DIABETES MELLITUS WITHOUT COMPLIC 03/03/2018 ASHVIN EMERSON MD Ot J45.909 UNSPECIFIED ASTHMA, UNCOMPLICATED 03/03/2018 ASHVIN EMERSON MD Ot K21. 9 GASTRO-ESOPHAGEAL REFLUX DISEASE WITHOUT 03/03/2018 ASHVIN EMERSON MD Ot M17. 12 UNILATERAL PRIMARY OSTEOARTHRITIS, LEFT 03/03/2018 ASHVIN EMERSON MD Ot R04. 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 82 SKILLED NURSING (CURRENT) USE OF ASPIRIN 03/03/2018 ASHVIN EMERSON MD Ot Z80. 3 FAMILY HISTORY OF MALIGNANT NEOPLASM OF 03/03/2018 ASHVIN EMERSON MD Ot Z82. 49 FAMILY HX OF ISCHEM HEART DIS AND OTH DI 03/03/2018 ASHVIN EMERSON MD J Ot Z87. 19 PERSONAL HISTORY OF OTHER DISEASES OF TH 03/03/2018 ASHVIN EMERSON MD Ot Z87.891 PERSONAL HISTORY OF NICOTINE DEPENDENCE 03/03/2018 ASHVIN EMERSON MD J Ot Z90.710 ACQUIRED ABSENCE OF BOTH CERVIX AND UTER 03/03/2018 ASHVIN EMERSON MD J Ot Z96.651 PRESENCE OF RIGHT ARTIFICIAL KNEE JOINT 03/05/2018 ASHVIN EMERSON MD J Ot E11. 9 TYPE 2 DIABETES MELLITUS WITHOUT COMPLIC 03/05/2018 RO EMERSON MDUS J Ot J45.909 UNSPECIFIED ASTHMA, UNCOMPLICATED 03/05/2018 ASHVIN EMERSON MD J Ot K21. 9 GASTRO-ESOPHAGEAL REFLUX DISEASE WITHOUT 03/05/2018 ASHVIN EMERSON MD J Ot M17. 12 UNILATERAL PRIMARY OSTEOARTHRITIS, LEFT 03/05/2018 ASHVIN EMERSON MD Ot R04. 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 82 SKILLED NURSING (CURRENT) USE OF ASPIRIN 03/05/2018 ASHVIN EMERSON MD Ot Z80. 3 FAMILY HISTORY OF MALIGNANT NEOPLASM OF 03/05/2018 ASHVIN EMERSON MD Ot Z82. 49 FAMILY HX OF ISCHEM HEART DIS AND OTH DI 03/05/2018 ASHVIN EMERSON MD Ot Z87. 19 PERSONAL HISTORY OF OTHER DISEASES OF TH 03/05/2018 ASHVIN EMERSON MD Ot Z87.891 PERSONAL HISTORY OF NICOTINE DEPENDENCE 03/05/2018 ASHVIN EMERSON MD Ot Z90.710 ACQUIRED ABSENCE OF BOTH CERVIX AND UTER 03/05/2018 ASHVIN EMERSON MD Ot Z96.651 PRESENCE OF RIGHT ARTIFICIAL KNEE JOINT 03/09/2018 ASHVIN EMERSON MD J Ot E11. 9 TYPE 2 DIABETES MELLITUS WITHOUT COMPLIC 03/09/2018 ASHVIN EMERSON MD J Ot J45.909 UNSPECIFIED ASTHMA, UNCOMPLICATED 03/09/2018 ASHVIN EMERSON MD J Ot K21. 9 GASTRO-ESOPHAGEAL REFLUX DISEASE WITHOUT 03/09/2018 ASHVIN EMERSON MD J Ot M17. 12 UNILATERAL PRIMARY OSTEOARTHRITIS, LEFT 03/09/2018 ASHVIN EMERSON MD Ot R04. 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 3 FAMILY HISTORY OF MALIGNANT NEOPLASM OF 03/09/2018 ASHVIN EMERSON MD Ot Z82. 49 FAMILY HX OF ISCHEM HEART DIS AND OTH DI 03/09/2018 ASHVIN EMERSON MD, Ot Z87. 19 PERSONAL HISTORY OF OTHER DISEASES OF TH 03/09/2018 ASHVIN EMERSON MD, Ot Z87.891 PERSONAL HISTORY OF NICOTINE DEPENDENCE 03/09/2018 ASHVIN EMERSON MD Ot Z90.710 ACQUIRED ABSENCE OF BOTH CERVIX AND UTER 03/09/2018 ASHVIN EMERSON MD Ot Z96.651 PRESENCE OF RIGHT ARTIFICIAL KNEE JOINT 12/19/2018 RONAK SAL MD Ot 715.36 LOC OSTEOARTH NOS-L/LEG 12/19/2018 RONAK SAL MD Ot 780.79 OTH MALAISE FATIGUE 12/19/2018 RONAK SAL MD Ot V72.63 PRE-PROCEDURAL LABORATORY EXAMINATION 12/19/2018 RONAK SAL MD Ot V72.81 [id number] CARDIOVASCULAR 12/19/2018 RONAK SAL MD, Ot V72.84 EXAM PRE-OPERATIVE NOS 12/19/2018 RONAK SAL MD, Ot V74.8 SCREEN-BACTERIAL DIS NEC 12/19/2018 BENNETT LO APRN Ot F17.210 NICOTINE DEPENDENCE, CIGARETTES, UNCOMPL 12/19/2018 BENNETT LO APRN Ot R06.00 DYSPNEA, UNSPECIFIED 12/19/2018 BENNETT LO APRN Ot G47.10 HYPERSOMNIA, UNSPECIFIED 12/19/2018 BENNETT LO APRN Ot G47.33 OBSTRUCTIVE SLEEP APNEA (ADULT) (PEDIATR 12/19/2018 UMAIR BRANCH MD Ot E11. 9 TYPE 2 DIABETES MELLITUS WITHOUT COMPLIC 12/19/2018 UMAIR BRANCH MD Ot E66. 9 OBESITY, UNSPECIFIED 12/19/2018 UMAIR BRANCH MD Ot F17.201 NICOTINE DEPENDENCE, UNSPECIFIED, IN REM 12/19/2018 UMAIR BRANCH MD Ot G47. 33 OBSTRUCTIVE SLEEP APNEA (ADULT) (PEDIATR 12/19/2018 UMAIR BRANCH MD Ot I10 ESSENTIAL (PRIMARY) HYPERTENSION 12/19/2018 UMAIR BRANCH MD Ot R06. 00 DYSPNEA, UNSPECIFIED 12/19/2018 UMAIR BRANCH MD Ot E11. 9 TYPE 2 DIABETES MELLITUS WITHOUT COMPLIC 12/19/2018 UMAIR BRANCH MD Ot E66. 9 OBESITY, UNSPECIFIED 12/19/2018 UMAIR BRANCH MD Ot F17.201 NICOTINE DEPENDENCE, UNSPECIFIED, IN REM 12/19/2018 UMAIR BRANCH MD, Ot G47. 33 OBSTRUCTIVE SLEEP APNEA (ADULT) (PEDIATR 12/19/2018 UMAIR BRANCH MD Ot I10 ESSENTIAL (PRIMARY) HYPERTENSION 12/19/2018 UMAIR BRANCH MD Ot R06. 00 DYSPNEA, UNSPECIFIED 12/19/2018 JOSELIN BIRMINGHAM MD, Ot E11.9 TYPE 2 DIABETES MELLITUS WITHOUT COMPLIC 12/19/2018 JOSELIN BIRMINGHAM MD Ot E78.00 PURE HYPERCHOLESTEROLEMIA, UNSPECIFIED 12/19/2018 JOSELIN BIRMINGHAM MD Ot I10 ESSENTIAL (PRIMARY) HYPERTENSION 12/19/2018 JOSELIN BIRMINGHAM MD, Ot J45.909 UNSPECIFIED ASTHMA, UNCOMPLICATED 12/19/2018 JOSELIN BIRMINGHAM MD Ot K21.9 GASTRO-ESOPHAGEAL REFLUX DISEASE WITHOUT 12/19/2018 JOSELIN BIRMINGHAM MD, Ot K58.9 IRRITABLE BOWEL SYNDROME WITHOUT DIARRHE 12/19/2018 JOSELIN BIRMINGHAM MD Ot M17.12 UNILATERAL PRIMARY OSTEOARTHRITIS, LEFT 12/19/2018 JOSELIN BIRMINGHAM MD Ot R42 DIZZINESS AND GIDDINESS 12/19/2018 JOSELIN BIRMINGHAM MD Ot Z79.4 SKILLED NURSING (CURRENT) USE OF INSULIN 12/19/2018 JOSELIN BIRMINGHAM MD Ot 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 12/19/2018 JOSELIN BIRMINGHAM MD Ot Z82.49 FAMILY HX OF ISCHEM HEART DIS AND OTH DI 12/19/2018 JOSELIN BIRMINGHAM MD Ot Z87.891 PERSONAL HISTORY OF NICOTINE DEPENDENCE 12/19/2018 VALENCIA WORTHINGTON, JOSELIN Lizama Ot Z96.651 PRESENCE OF RIGHT ARTIFICIAL KNEE JOINT Procedures Code Description Performed By Per formed On 81.54 NANCY Becerril KNEE REPLACEMENT 02/25/2014 Results Test Result Range CBC With Differential/Platelet - 7 08:57 WBC 5.4 x10E3/uL 3.4-10.8 RBC 4.80 x10E6/uL 3.77-5.28 Hemoglobin 12.9 g/dL 11.1-15.9 Hematocrit 39.6 % 34.0-46.6 MCV 83 fL 79-97 MCH 26.9 pg 26.6-33.0 MCHC 32.6 g/dL 31.5-35.7 RDW 13.5 % 12.3-15.4 Platelets 263 x10E3/uL 150-379 Neutrophils 61 % Lymphs 31 % Monocytes 6 % Eos 2 % Basos 0 % Neutrophils (Absolute) 3.3 x10E3/uL 1.4- 7.0 Lymphs (Absolute) 1.6 x10E3/uL 0.7-3.1 Monocytes(Absolute) 0.3 x10E3/uL 0.1-0.9 Eos (Absolute) 0.1 x10E3/uL 0.0-0.4 Baso (Absolute) 0.0 x10E3/uL 0.0-0.2 Immature Granulocytes 0 % Immature Grans (Abs) 0.0 x10E3/uL 0.0-0. 1 Comp. Metabolic Panel (14) - 03/13/17 08 :57 Glucose, Serum 116 mg/dL 65-99 BUN 16 mg/dL 8-27 Creatinine, Serum 0.63 mg/dL 0.57-1.00 eGFR If NonAfricn Am 94 mL/min/1.73 >59 eGFR If Africn Am 109 mL/min/1.73 >5 9 BUN/Creatinine Ratio 25 12-28 Sodium, Serum 142 [...] 7-25 CREATININE 0.64 mg/dL 0.50-0.99 eGFR NON-AFR. [place] 93 mL/min/1.73m2 > OR = 60 eGFR 108 mL/min/1.73m2 > OR = 60 BUN/CREATININE RATIO NOT APPLICABLE (calc) 6-22 SODIUM 142 mmol/L 135-146 POTASSIUM 4.9 mmol/L 3.5-5.3 CHLORIDE 104 mmol/L 98-110 CARBON DIOXIDE 31 mmol/L 20-31 CALCIUM 9.4 mg/dL 8.6-10.4 PROTEIN, TOTAL 6.8 g/dL 6.1-8.1 ALBUMIN 4.2 g/dL 3.6-5.1 GLOBULIN 2.6 g/dL (calc) 1.9-3.7 ALBUMIN/GLOBULIN RATIO 1.6 (calc) 1.0-2. 5 BILIRUBIN, TOTAL 0.5 mg/dL 0.2-1.2 ALKALINE PHOSPHATASE 82 U/L 33-130 AST 14 U/L 10-35 ALT 12 U/L 6-29 MAGNESIUM SERUM - 11/16/17 10:18 MAGNESIUM 2.1 mg/dL 1.5-2.5 CBC - 02/28/18 08:57 WHITE BLOOD CELL COUNT 5.8 Thousand/uL 3 .8-10.8 RED BLOOD CELL COUNT 4.68 Million/uL 3.8 0-5.10 HEMOGLOBIN 13.3 g/dL 11.7-15.5 HEMATOCRIT 38.8 % 35.0-45.0 MCV 82.9 fL 80.0-100.0 MCH 28.4 pg 27.0-33.0 MCHC 34.3 g/dL 32.0-36.0 RDW 13.1 % 11.0-15.0 PLATELET COUNT 258 Thousand/uL 140-400 MPV 10.9 fL 7.5-12.5 ABSOLUTE NEUTROPHILS 4019 cells/uL 1500- 7800 ABSOLUTE LYMPHOCYTES 1351 cells/uL 850-3 900 ABSOLUTE MONOCYTES 331 cells/uL 200-950 ABSOLUTE EOSINOPHILS 81 cells/uL 15-500 ABSOLUTE BASOPHILS 17 cells/uL 0-200 NEUTROPHILS 69.3 % NRG LYMPHOCYTES 23.3 % NRG MONOCYTES 5.7 % NRG EOSINOPHILS 1.4 % NRG BASOPHILS 0.3 % NRG THYROID ANALYZER - 02/28/18 08:57 TSH 1.59 mIU/L 0.40-4.50 Complete blood count (CBC) with automate d white blood cell (WBC) differential - 03/03/18 11:14 Blood leukocytes automated count (number/volume) 5.8 10*3/uL 4.3-11.0 Blood erythrocytes automated count (number/volume) 4.86 10*6/uL 4.35-5.85 Venous blood hemoglobin measurement (mass/volume) 13.1 g/dL 11.5-16.0 Blood hematocrit (volume fraction) 40 % 35-52 Automated erythrocyte mean corpuscular volume 83 [ foz_us] 80-99 Automated erythrocyte mean corpuscular h emoglobin (mass per erythrocyte) 27 pg 25-34 Automated erythrocyte mean corpuscular h emoglobin concentration measurement (mass/volume) 33 g/dL 32-36 Automated erythrocyte distribution width ratio 13. 5 % 10.0- 14.5 Automated blood platelet count (count/volume) 304 10*3/uL [...] 10*3 1.0-4.0 Blood monocytes automated count (number/volume) 0. 3 10*3 0.0-1.0 Automated eosinophil count 0.1 10*3/uL 0 .0-0.3 Automated blood basophil count (count/volume) 0.0 10*3/uL 0.0-0.1 Capillary blood glucose measurement by g lucometer (mass/volume) - 03/03/18 12:55 Capillary blood glucose measurement by glucometer (mas s/volume) 116 mg/dL 70-110 TISSUE, SPECIMEN A - 03/18/18 18:25 A SOURCE NRG A GROSS DESCRIPTION NRG A DIAGNOSIS NRG CULTURE, URINE - 06/18/18 18:14 CULTURE, URINE, ROUTINE SEE NOTE NRG Complete blood count (CBC) with automate d white blood cell (WBC) differential - 12/19/18 12:46 Blood leukocytes automated count (number/volume) 5.2 10*3/uL 4.3-11.0 Blood erythrocytes automated count (number/volume) 4.86 10*6/uL 4.35-5.85 Venous blood hemoglobin measurement (mass/volume) 13.6 g/dL 11.5-16.0 Blood hematocrit (volume fraction) 41 % 35-52 Automated erythrocyte mean corpuscular volume 84 [ foz_us] 80-99 Automated erythrocyte mean corpuscular h emoglobin (mass per erythrocyte) 28 pg 25-34 Automated erythrocyte mean corpuscular h emoglobin concentration measurement (mass/volume) 34 g/dL 32-36 Automated erythrocyte distribution width ratio 13. 2 % 10.0- 14.5 Automated blood platelet count (count/volume) 230 10*3/uL 130-400 Automated blood platelet mean volume measurement 10.8 [foz_us] 7.4-10.4 Automated blood neutrophils/100 leukocytes 68 % 42-75 Automated blood lymphocytes/100 leukocytes 24 % 12-44 Blood monocytes/100 leukocytes 6 % 0-12 Automated blood eosinophils/100 leukocytes 2 % 0-10 Automated blood basophils/100 leukocytes 0 % 0-10 Blood neutrophils automated count (number/volume) 3.5 10*3 1.8-7.8 Blood lymphocytes automated count (number/volume) 1.3 10*3 1.0-4.0 Blood monocytes automated count (number/volume) 0. 3 10*3 0.0-1.0 Automated eosinophil count 0.1 10*3/uL 0 .0-0.3 Automated blood basophil count (count/volume) 0.0 10*3/uL 0.0-0.1 Comprehensive metabolic panel - 12/19/18 12:46 Serum or plasma sodium measurement (moles/volume) 140 mmol/L 135-145 Serum or plasma potassium measurement (moles/volume) 4.1 mmol/L 3.6-5.0 Serum or plasma chloride measurement (moles/volume) 103 mmol/L 98-107 Carbon dioxide 28 mmol/L 21-32 Serum or plasma anion gap determination (moles/volume) 9 mmol/L 5-14 Serum or plasma urea nitrogen measurement (mass/volume ) 14 mg/dL 7-18 Serum or plasma creatinine measurement (mass/volume) 0.68 mg/dL 0.60-1.30 Serum or plasma urea nitrogen/creatinine mass ratio 21 NRG Serum or plasma creatinine measurement w ith calculation of estimated glomerular filtration rate > NRG Serum or plasma glucose measurement (mass/volume) 187 mg/dL 70-105 Serum or plasma calcium measurement (mass/volume) 9.7 mg/dL 8.5-10.1 Serum or plasma total bilirubin measurement (mass/volu me) 0.3 mg/dL 0.1-1.0 Serum or plasma alkaline phosphatase myra surement (enzymatic activity/volume) 64 U/L 40-136 Serum or plasma aspartate aminotransfera se measurement (enzymatic activity/volume) 14 U/L 5-34 Serum or plasma alanine aminotransferase measurement (enzymatic activity/volume) 15 U/L 0-55 Serum or plasma protein measurement (mass/volume) 6.8 g/dL 6.4-8.2 Serum or plasma albumin measurement (mass/volume) 4.2 g/dL 3.2-4.5 CALCIUM CORRECTED 9.5 mg/dL 8.5-10.1 Magnesium - 12/19/18 12:46 Magnesium 2.1 mg/dL 1.8-2.4 Serum or plasma troponin i.cardiac measu rement (mass/volume) - 12/19/18 12:46 Serum or plasma troponin i.cardiac measurement (mass/v olume) < ng/mL <0.028 Fibrin D-dimer FEU measurement in platel et poor plasma (mass/volume) - 12/19/18 12:46 Fibrin D-dimer FEU measurement in platelet poor plasma (mass/volume) 0.61 ug/mL 0.00-0.49 Myoglobin, serum - 12/19/18 12:46 Myoglobin, serum 18.8 ng/mL 10.0-92.0 THYROID STIMULATING HORMONE - 12/19/18 1 2:46 THYROID STIMULATING HORMONE 1.29 u[iU]/mL 0.35-4.94 Serum or plasma C reactive protein measu rement (mass/volume) - 12/19/18 12:46 Serum or plasma C reactive protein measurement (mass/v olume) 0.14 mg/dL 0.00-0.50 Complete urinalysis with reflex to cultu re - 12/19/18 13:07 Urine color determination YELLOW NRG Urine clarity determination CLEAR NR G Urine pH measurement by test strip 7 5-9 Specific gravity of urine by test strip 1.010 1.016-1.022 Urine protein assay by test strip, semi-quantitative 1+ NEGATIVE Urine glucose detection by automated test strip 1+ NEGATIVE Erythrocytes detection in urine sediment by light micr oscopy 2+ NEGATIVE Urine ketones detection by automated test strip NE GATIVE NEGATIVE Urine nitrite detection by test strip NEGATIVE NEGATIVE Urine total bilirubin detection by test strip NEGA TIVE NEGATIVE Urine urobilinogen measurement by automated test strip (mass/volume) NORMAL NORMAL Urine leukocyte esterase detection by dipstick 1+ NEGATIVE Automated urine sediment erythrocyte cou nt by microscopy (number/high power field) [HPF] NRG Automated urine sediment leukocyte count by microscopy (number/high power field) RARE NRG Bacteria detection in urine sediment by light microsco py NEGATIVE NRG Squamous epithelial cells detection in u rine sediment by light microscopy RARE NRG Crystals detection in urine sediment by light microsco py PRESENT NRG Casts detection in urine sediment by light microscopy NONE NRG Mucus detection in urine sediment by light microscopy SMALL NRG Complete urinalysis with reflex to culture NO NRG Amorphous sediment detection in urine sediment by ligh t microscopy RARE MICAH PHOSPHATE NRG CMP - 04/02/19 10:02 GLUCOSE 123 mg/dL 65-99 UREA NITROGEN (BUN) 13 mg/dL 7-25 CREATININE 0.65 mg/dL 0.50-0.99 eGFR NON-AFR. [place] 92 mL/min/1.73m2 > OR = 60 eGFR 106 mL/min/1.73m2 > OR = 60 BUN/CREATININE RATIO NOT APPLICABLE (calc) 6-22 SODIUM 141 mmol/L 135-146 POTASSIUM 4.3 mmol/L 3.5-5.3 CHLORIDE 102 mmol/L 98-110 CARBON DIOXIDE 32 mmol/L 20-32 CALCIUM 9.3 mg/dL 8.6-10.4 PROTEIN, TOTAL 6.7 g/dL 6.1-8.1 ALBUMIN 4.3 g/dL 3.6-5.1 GLOBULIN 2.4 g/dL (calc) 1.9-3.7 ALBUMIN/GLOBULIN RATIO 1.8 (calc) 1.0-2. 5 BILIRUBIN, TOTAL 0.4 mg/dL 0.2-1.2 ALKALINE PHOSPHATASE 78 U/L 33-130 AST 13 U/L 10-35 ALT 12 U/L 6-29 Encounters ACCT No. Visit Date/Time Discharge Status Pt. Type Provider Facility Loc./Unit Complaint [id number] 05/16/2019 14:00:00 05/16/2019 23:59: 59 CLS Outpatient [facility] [place] [id number] 04/02/2019 09:40:00 Document Registration [id number] 06/18/2018 17:50:00 Document Registration [id number] 03/18/2018 17:00:00 Document Registration [id number] 02/28/2018 10:00:00 Document Registration [id number] 11/16/2017 11:00:00 Document Registration [id number] 03/14/2017 08:35:00 Document Registration [id number] 12/19/2018 12:22:00 019 16:35:00 DIS Emergency JOSELIN BIRMINGHAM MD [facility] ER DIZZINESS;NAUSE A [id number] 03/03/2018 17:53:00 018 19:50:00 DIS Emergency ASHVIN EMERSON MD [facility] ER NOSE BLEED [id number] 03/03/2018 11:00:00 018 13:55:00 DIS Emergency DWIGHT ZAMAN MD [facility] ER NOSE BLEED [id number] 02/26/2018 14:09:00 23:59:59 CLS Preadmit VARUN BOYER [employer] DES[employer] [facility] RAD POST CONCUSSIVE SYNDROM E [id number] 06/04/2017 07:55:00 23:59:59 CLS Outpatient UMAIR BRANCH MD [facility] CARD R06.00 [id number] 05/10/2017 08:54:00 23:59:59 CLS Outpatient UMAIR BRANCH MD [facility] CARD DYSPNEA [id number] 07/11/2016 16:06:00 23:59:59 CLS Outpatient BENNETT LO APRN [facility] RT DYSPNEA,TOBACCO USE [id number] 06/29/2016 13:41:00 23:59:59 CLS Outpatient BENNETT LO APRN [facility] SLEEP OBSERVED APNEA, EDS, MOOD DISORDER [id number] 02/25/2014 09:00:00 11:02:00 DIS Inpatient RONAK SAL MD [facility] SURGICAL LEFT KNEE OSTEOARTHRITI S [id number] 02/18/2014 12:14:00 23:59:59 CLS Outpatient RONAK SAL MD [facility] PREOP LEFT KNEE OSTEOARTHRIT IS [id number] 04/11/2011 15:00:00 Document Registration
[2020-01-05 12:46] LABS: ALANINE AMINOTRANSFERASE 16 U/L (0-55)
[2020-01-05 13:35] LABS: BILIRUBIN,URINE NEGATIVE (NEGATIVE); CLARITY,URINE CLEAR; COLOR,URINE YELLOW; GLUCOSE, URINE (UA) NEGATIVE (NEGATIVE); KETONES,URINE TRACE (NEGATIVE); LEUKOCYTE ESTERASE ,URINE TRACE (NEGATIVE); NITRITE,URINE NEGATIVE (NEGATIVE); PROTEIN,URINE NEGATIVE (NEGATIVE)
[2020-01-05 13:45] LABS: BACTERIA,URINE MODERATE /HPF; SQUAMOUS EPITHELIAL CELL,UR 0-2 /HPF; WBC,URINE 25-50 /HPF
[2020-01-05] MEDS ORDERED: NITR100C PO (14:10)
[2020-01-05 14:25] VITALS: BP 150/54
== END 2020-01-05 14:25 | disposition home or self-care (01) ==
LOC: EDUNIT# 11:56 → ER 11:58
DX: R42 Dizziness and giddiness (principal); N30.90 Cystitis, unspecified without hematuria; I10 Essential (primary) hypertension; J45.909 Unspecified asthma, uncomplicated; G47.30 Sleep apnea, unspecified; G43.909 Migraine, unspecified, not intractable, without status migrainosus; K21.9 Gastro-esophageal reflux disease without esophagitis; E11.9 Type 2 diabetes mellitus without complications; M17.12 Unilateral primary osteoarthritis, left knee; K58.9 Irritable bowel syndrome, unspecified; L40.9 Psoriasis, unspecified; Z87.891 Personal history of nicotine dependence; Z79.4 Long term (current) 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; Z79.82 Long term (current) use of aspirin; Z79.899 Other long term (current) drug therapy
CPT/HCPCS: 36415; 80053; 81000; 83735; 85025; 87088

== ENCOUNTER 2020-02-10 10:57 | Outpatient (RCR) | payer MEDICARE, OTHER ==
[~2020-02-10] VITALS: Ht 154.9 cm; Wt 89.5 kg
[~2020-02-10 10:57] MED LIST changes: +NITR100C PO
[2020-02-10] MEDS ORDERED: CITA20TA9 PO (15:25)
[2020-02-10] MEDS ORDERED: PIOG30TA71 PO (15:25)
[2020-02-10] MEDS ORDERED: FURO20TA4 PO (15:25)
[2020-02-10] MEDS ORDERED: TURM500C4 PO (15:25)
[2020-02-10] MEDS ORDERED: MAGN250T2 PO (15:25)
[2020-02-10] MEDS ORDERED: HYDR12.56 PO (15:25)
[2020-02-10] MEDS ORDERED: SIMV10TA26 PO (15:25)
[2020-02-10] MEDS ORDERED: METF-397 PO (15:25)
[2020-02-10] MEDS ORDERED: FISH400C2 PO (15:25)
[2020-02-10] MEDS ORDERED: CINN500C2 PO (15:25)
[2020-02-10] MEDS ORDERED: ENAL10TA PO (15:25)
[2020-02-10] MEDS ORDERED: MULT1TAB69 PO (15:25)
[2020-02-10] MEDS ORDERED: MTP25TSR PO (15:25)
[2020-02-10] MEDS ORDERED: INSU100I29 SQ ×2 (15:25)
== END 2020-02-10 15:29 | disposition home or self-care (01) ==
LOC: PREOP 10:57
PROVIDERS: ATTEND Specialist
DX: Z01.818 Encounter for other preprocedural examination (principal); Z11.59 Encounter for screening for other viral diseases
CPT/HCPCS: 87635

== ENCOUNTER 2020-02-13 09:12 | Day surgery (SDC) | payer MEDICARE, OTHER ==
[~2020-02-13] VITALS: Ht 162.6 cm; Wt 89.5 kg
[~2020-02-13 09:12] MED LIST changes: +CINN500C2 PO; +CITA20TA9 PO; +ENAL10TA PO; +FISH400C2 PO; +FURO20TA4 PO; +HYDR12.56 PO; +INSU100I29 SQ; +MAGN250T2 PO; +METF-397 PO; +MTP25TSR PO; +MULT1TAB69 PO; +PIOG30TA71 PO; +SIMV10TA26 PO; +TURM500C4 PO
[2020-02-13 09:30] VITALS: BP 137/67
[2020-02-13] MEDS ORDERED: TIMOLOL MALEATE 0.5% 5 ML (TIMOPTIC) BTL OU PRN (09:30)
[2020-02-13] MEDS ORDERED: LIDOCAINE PF 1% 2 ML VIAL IR PRN (09:30)
[2020-02-13] MEDS ORDERED: MOXIFLOXACIN OPHTH SOLN 5 MG/ML 0.3 ML SYRINGE OP ONE (09:30)
[2020-02-13] MEDS ORDERED: POVIDONE (BETADINE) OPHTH SOLN 5% 30 ML OP ONE (09:30)
[2020-02-13] MEDS: TETRACAINE 0.5% OPHTH SOLN 4 ML BTL (SINGLE DOSE ONLY) OU PRN ×4 (09:37→09:55)
[2020-02-13] MEDS: PHENYLEPHRINE 10% OPHTH (NEO-SYN) 5 ML BTL OU SCH ×3 (09:45→09:55)
[2020-02-13] MEDS: CYCLOPENTOLATE 1% (CYCLOGYL) 2 ML DROPS OP SCH ×3 (09:45→09:55)
[2020-02-13] MEDS ORDERED: MIDAZOLAM 2 MG/2 ML (VERSED) VIAL ONE (09:51)
--- NOTE | 2020-02-13 10:07 | Ophthalmologist Pre-Op Note ---
Pre-Operative Progress Note H&P Reviewed The H&P was reviewed, patient examined and no changes noted. Date H&P Reviewed: February 13, 2020 Time H&P Reviewed: 10:07 Pre-Op Dx Cataract, Left Eye JER BEE MD February 13, 2020 10:07
[2020-02-13] MEDS ORDERED: acetaZOLAMIDE ER 500 MG CAP (DIAMOX SEQUELS) PO ONE (10:30)
[2020-02-13] MEDS ORDERED: LABETALOL HCL 20 MG/4 ML VIAL ONE (10:33)
--- NOTE | 2020-02-13 10:34 | Ophthalmology Operative Report ---
Cataract removal/placement IOL PREOPERATIVE DIAGNOSIS: Cataract Left Eye POSTOPERATIVE DIAGNOSIS: Cataract Left Eye PROCEDURE: Cataract removal and placement of posterior chamber implant, left eye SURGEON: Reji Bee ANESTHESIA: Topical with sedation COMPLICATIONS: None ESTIMATED BLOOD LOSS: Minimal DESCRIPTION OF PROCEDURE: After proper informed consent was obtained, the patient, a 69 female, was taken to the Operating Room and the left eye was anesthetized with tetracaine. The left eye was then prepped and draped in the usual manner. A wire lid speculum was placed. A paracentesis was made at the left hand position. Preservative free lidocaine was injected into the anterior chamber followed by viscoelastic. A clear corneal incision was made in the temporal position. A capsulorrhexis was preformed and the central nuclear and cortical material were removed. The posterior capsule was polished and an Jadiel 23.5 [id number] was placed into the capsular bag. The residual viscoelastic was aspirated and balanced saline solution was injected into the anterior chamber. Moxifloxacin was injected into the anterior chamber. The wound was checked and found to be water tight. The patient tolerated the procedure well without complications. REJI BEE MD February 13, 2020 10:34
[2020-02-13] MEDS ORDERED: hydrALAZINE (APESOLINE) 20 MG/ML VIAL ONE (10:35)
[2020-02-13 10:41] VITALS: BP 146/58
--- NOTE | 2020-02-13 12:43 | Anesthesia-General Post-Op ---
MAC Patient Condition Mental Status/LOC: Same as Preop Cardiovascular: Satisfactory Nausea/Vomiting: Absent Respiratory: Satisfactory Pain: Controlled Complications: Absent Post Op Complications Complications None Follow Up Care/Instructions Patient Instructions None needed. Anesthesiology Discharge Order Discharge Order Patient is doing well, no complaints, stable vital signs, no apparent adverse anesthesia problems. No complications reported per nursing. SALVADOR PATRICK CRNA February 13, 2020 12:43
== END 2020-02-13 10:41 | disposition home or self-care (01) ==
LOC: SDC 09:12
PROVIDERS: ATTEND Specialist
DX: E11.36 Type 2 diabetes mellitus with diabetic cataract (principal); H25.12 Age-related nuclear cataract, left eye; I10 Essential (primary) hypertension; E78.5 Hyperlipidemia, unspecified; E66.9 Obesity, unspecified; J45.909 Unspecified asthma, uncomplicated; M19.90 Unspecified osteoarthritis, unspecified site; F32.9 Major depressive disorder, single episode, unspecified; Z87.891 Personal history of nicotine dependence; Z68.33 Body mass index [BMI] 33.0-33.9, adult; Z79.899 Other long term (current) drug therapy; Z79.84 Long term (current) use of oral hypoglycemic drugs; Z90.710 Acquired absence of both cervix and uterus; Z96.659 Presence of unspecified artificial knee joint; Z96.649 Presence of unspecified artificial hip joint; Z80.9 Family history of malignant neoplasm, unspecified

== ENCOUNTER 2020-02-20 06:04 | Day surgery (SDC) | payer MEDICARE, OTHER ==
[~2020-02-20] VITALS: Ht 162.6 cm; Wt 89.5 kg
[2020-02-20 06:10] VITALS: BP 142/80
[2020-02-20] MEDS ORDERED: LIDOCAINE PF 1% 2 ML VIAL IR PRN (06:15)
[2020-02-20] MEDS ORDERED: POVIDONE (BETADINE) OPHTH SOLN 5% 30 ML OP ONE (06:15)
[2020-02-20] MEDS ORDERED: MOXIFLOXACIN OPHTH SOLN 5 MG/ML 0.3 ML SYRINGE OP ONE (06:15)
[2020-02-20] MEDS ORDERED: TIMOLOL MALEATE 0.5% 5 ML (TIMOPTIC) BTL OU PRN (06:15)
[2020-02-20] MEDS: TETRACAINE 0.5% OPHTH SOLN 15 ML BTL OU PRN ×4 (06:23→06:39)
[2020-02-20] MEDS: CYCLOPENTOLATE 1% (CYCLOGYL) 2 ML DROPS OP SCH ×4 (06:29→06:47)
[2020-02-20] MEDS: PHENYLEPHRINE 10% OPHTH (NEO-SYN) 5 ML BTL OU SCH ×4 (06:29→06:47)
[2020-02-20] MEDS ORDERED: TETRACAINE 0.5% OPHTH SOLN 4 ML BTL (SINGLE DOSE ONLY) OU PRN (06:45)
[2020-02-20] MEDS ORDERED: MIDAZOLAM 2 MG/2 ML (VERSED) VIAL ONE (07:14)
--- NOTE | 2020-02-20 07:25 | Ophthalmologist Pre-Op Note ---
Pre-Operative Progress Note H&P Reviewed The H&P was reviewed, patient examined and no changes noted. Date H&P Reviewed: Feb 20, 2020 Time H&P Reviewed: 07:25 Pre-Op Dx Cataract, Right Eye JER BEE MD Feb 20, 2020 07:25
--- NOTE | 2020-02-20 07:51 | Ophthalmology Operative Report ---
Cataract removal/placement IOL PREOPERATIVE DIAGNOSIS: Cataract Right Eye POSTOPERATIVE DIAGNOSIS: Cataract Right Eye PROCEDURE: Cataract removal and placement of posterior chamber implant, right eye SURGEON: Reji Bee ANESTHESIA: Topical with sedation COMPLICATIONS: None ESTIMATED BLOOD LOSS: Minimal DESCRIPTION OF PROCEDURE: After proper informed consent was obtained, the patient, a 69 female, was taken to the Operating Room and the right eye was anesthetized with tetracaine. The right eye was then prepped and draped in the usual manner. A wire lid speculum was placed. A paracentesis was made at the left hand position. Preservative free lidocaine was injected into the anterior chamber followed by viscoelastic. A clear corneal incision was made in the temporal position. A capsulorrhexis was preformed and the central nuclear and cortical material were removed. The posterior capsule was polished and Jadiel 23.5 AU00T0 IOL was placed into the capsular bag. The residual viscoelastic was aspirated and balanced saline solution was injected into the anterior chamber. Moxifloxacin was injected into the anterior chamber. The wound was checked and found to be water tight. The patient tolerated the procedure well without complications. REJI BEE MD Feb 20, 2020 07:51
[2020-02-20 08:00] VITALS: BP 163/78
[2020-02-20] MEDS ORDERED: acetaZOLAMIDE ER 500 MG CAP (DIAMOX SEQUELS) PO ONE (08:00)
--- NOTE | 2020-02-20 12:16 | Anesthesia-General Post-Op ---
MAC Patient Condition Mental Status/LOC: Same as Preop Cardiovascular: Satisfactory Nausea/Vomiting: Absent Respiratory: Satisfactory Pain: Controlled Complications: Absent Post Op Complications Complications None Follow Up Care/Instructions Patient Instructions None needed. Anesthesiology Discharge Order Discharge Order Patient is doing well, no complaints, stable vital signs, no apparent adverse anesthesia problems. No complications reported per nursing. GOSIA VINSON CRNA Feb 20, 2020 12:16
== END 2020-02-20 08:00 | disposition home or self-care (01) ==
LOC: SDC 06:04
PROVIDERS: ATTEND Specialist
DX: E11.36 Type 2 diabetes mellitus with diabetic cataract (principal); H25.11 Age-related nuclear cataract, right eye; I10 Essential (primary) hypertension; E78.2 Mixed hyperlipidemia; E66.9 Obesity, unspecified; M19.90 Unspecified osteoarthritis, unspecified site; F32.9 Major depressive disorder, single episode, unspecified; J45.909 Unspecified asthma, uncomplicated; Z68.33 Body mass index [BMI] 33.0-33.9, adult; Z87.891 Personal history of nicotine dependence; Z79.899 Other long term (current) drug therapy; Z79.84 Long term (current) use of oral hypoglycemic drugs; Z90.710 Acquired absence of both cervix and uterus; Z96.649 Presence of unspecified artificial hip joint; Z96.659 Presence of unspecified artificial knee joint; Z80.9 Family history of malignant neoplasm, unspecified
CPT/HCPCS: 82962

== ENCOUNTER 2020-10-01 10:04 | Emergency (ER) | payer MEDICARE, OTHER ==
[~2020-10-01 10:04] MED LIST changes: -ENAL10TA PO; +ENAL10TA16 PO; +MULT-567 PO; -MULT1TAB69 PO
[2020-10-01] MEDS ORDERED: LACTATED RINGERS 1,000 ML IV ONE ×2 (11:00→11:45)
[2020-10-01] MEDS ORDERED: ACETAMINOPHEN 500 MG TAB (TYLENOL) ONE (11:29)
[2020-10-01 11:43] LABS: ABG OXYGEN SATURATION 97 % (94-100); ABG PCO2 35 MMHG (35-45); ABG PH 7.46 (7.37-7.43); ABG PO2 88 MMHG (79-93); ABG TCO2 25.2 MMOL/L (21.0-31.0)
[2020-10-01 11:44] LABS: BASOPHILS % (AUTO) 0 % (0-10); EOSINOPHILS % (AUTO) 0 % (0-10); HEMATOCRIT 43 % (35-52); HEMOGLOBIN 13.8 g/dL (11.5-16.0); LYMPHOCYTES # (AUTO) 0.5 10^3/uL (1.0-4.0); LYMPHOCYTES % (AUTO) 7 % (12-44); MEAN CORPUSCULAR HEMOGLOBIN 27 pg (25-34); MEAN CORPUSCULAR HGB CONC 32 g/dL (32-36); MEAN CORPUSCULAR VOLUME 86 fL (80-99); MEAN PLATELET VOLUME 11.2 fL (9.0-12.2); MONOCYTES # (AUTO) 0.3 10^3/uL (0.0-1.0); MONOCYTES % (AUTO) 5 % (0-12); NEUTROPHILS # (AUTO) 5.6 10^3/uL (1.8-7.8); NEUTROPHILS % (AUTO) 87 % (42-75); PLATELET COUNT 168 10^3/uL (130-400); WHITE BLOOD COUNT 6.4 10^3/uL (4.3-11.0)
[2020-10-01 11:44] LABS: ALLENS TEST YES-POS; INSPIRED O2 ROOM AIR; PATIENT TEMP 100.3; VENTILATOR NO
[2020-10-01] MEDS ORDERED: ACETAMINOPHEN 500 MG TAB (TYLENOL) PO ONE (11:45)
[2020-10-01 11:49] LABS: ALBUMIN 4.3 GM/DL (3.2-4.5); CHLORIDE 98 MMOL/L (98-107); SODIUM 135 MMOL/L (135-145)
[2020-10-01 11:50] LABS: CALCIUM 9.6 MG/DL (8.5-10.1)
[2020-10-01 11:51] LABS: GLUCOSE 135 MG/DL (70-105)
[2020-10-01 11:52] LABS: TOTAL PROTEIN 7.9 GM/DL (6.4-8.2)
--- NOTE | 2020-10-01 11:52 | ED General ---
General Chief Complaint: Respiratory Problems Stated Complaint: COVID +, SOB DEHYDTRATED, SHAKY Source of Information: Patient Exam Limitations: No Limitations History of Present Illness Date Seen by Provider: Oct 01, 2020 Time Seen by Provider: 11:00 Initial Comments Patient arrives ER by private conveyance from home with chief complaint that she is having some dehydration and weakness related to diarrhea worsened over the past 3 days. She was diagnosed with COVID-19 at [facility] on Sunday. She has tried to get in to get Bamlanivimab infusion unsuccessfully. She is not having any shortness of air but she does have asthma. She was given a Symbicort inhaler and azithromycin by the clinic. She is not having any chest pain. She did not take any loperamide or Pepto-Bismol etc. for her diarrhea. She has had some mild fevers with a T-max of 100.3 today. She has not had any antipyretics. Allergies and Home Medications Allergies Coded Allergies: No Known Drug Allergies (Unverified , 12/19/18) Home Medications Cinnamon Bark 500 Mg Capsule, 500 MG PO BID, (Reported) Citalopram Hydrobromide 20 Mg Tablet, 20 MG PO DAILY, (Reported) Enalapril Maleate Unknown Strength Tablet, 1 TAB PO DAILY, (Reported) Fish Oil/Borage/Flax/Om3,6,9#1 400 Mg Capsule, 400 MG PO BID, (Reported) Furosemide 20 Mg Tablet, 20 MG PO Q48H, (Reported) Hydrochlorothiazide 12.5 Mg Tablet, 12.5 MG PO DAILY, (Reported) Insulin Detemir 100 Unit/1 Ml Insuln.pen, 20 UNIT SQ HS, (Reported) Insulin Detemir 100 Unit/1 Ml Insuln.pen, 25 UNIT SQ DAILY, (Reported) Magnesium 250 Mg Tablet, 250 MG PO BID, (Reported) Metformin HCl 500 Mg Tablet, 1,000 MG PO BID, (Reported) take 2 (500mg) tabs Metoprolol Succinate 25 Mg Tab.er.24h, 25 MG PO DAILY, (Reported) Multivitamin 1 Each Tablet, 1 EACH PO DAILY, (Reported) Pioglitazone HCl 30 Mg Tablet, 30 MG PO DAILY, (Reported) Simvastatin 10 Mg Tablet, 10 MG PO DAILY, (Reported) Turmeric/Turmeric Root Extract 1 Each Capsule, 1 EACH PO BID, (Reported) Patient Home Medication List Home Medication List Reviewed: Yes Review of Systems Review of Systems Constitutional: chills, fever, malaise, weakness EENTM: No ear discharge, No ear pain Respiratory: No cough, No short of breath Cardiovascular: No chest pain, No Hx of Intervention, No palpitations Gastrointestinal: see HPI; No abdominal pain, No constipation; diarrhea; No nausea, No vomiting Genitourinary: No discharge, No dysuria Musculoskeletal: No back pain, No joint pain All Other Systems Reviewed Negative Unless Noted: Yes Past Qpccdxm-Dvbylf-Pvslai Hx Patient Social History Alcohol Use: Occasionally Uses Alcohol Beverage of Choice: Wine Smoking Status: Former Smoker Former Smoker, Quit: Dec 27, 2004 Recent Hopitalizations: Yes Immunizations Up To Date Tetanus Booster (TDap): Unknown Date of Pneumonia Vaccine: Jun 17, 2009 Past Medical History Surgeries: Yes (RIGHT KNEE RECONSTRUCTION, RIGHT KNEE SCOPE, l hip, l knee) Hysterectomy, Orthopedic Respiratory: Yes Asthma, Sleep Apnea Currently Using CPAP: No Cardiac: Yes High Cholesterol, Hypertension Neurological: Yes Headaches /Migraines, Vertigo Reproductive Disorders: No ENVIRONMENT [employer] History: Hysterectomy Genitourinary: No Gastrointestinal: Yes (IBS) Gastroesophageal Reflux Musculoskeletal: Yes (LEFT KNEE OSTEOARTHRITIS) Arthritis Endocrine: Yes Diabetes, Insulin dep HEENT: No Cancer: No Psychosocial: No Integumentary: Yes (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) Psoriasis Blood Disorders: No Family Medical History Cancer 19 MOTHER (BREAST) Congestive heart failure G8 SISTER Dementia 19 MOTHER Family history: Arthritis G8 SISTER Family history: Breast disease 19 MOTHER Family history: Diabetes mellitus 19 MOTHER G8 SISTER Kidney disease G8 SISTER No Family History of: Abdominal aortic aneurysm Alcoholism Family history: Cardiovascular disease Family history: Gastrointestinal disease Family history: Hypertension Family history: Thyroid disorder Hereditary disease History of - respiratory disease Myocardial infarction Parkinson's disease Prostate cancer Psychotic disorder Seizure disorder Stroke Stroke Physical Exam Vital Signs Vital Signs - First Documented 10/01/20 13:17 Pulse 67 Resp 14 B/P (MAP) 125/47 Pulse Ox 96 O2 Delivery Room Air Capillary Refill : Height, Weight, BMI Height: 5'2.00" Weight: 219lbs. 0.0oz. 99.783062fs; 39.00 BMI Method:Stated General Appearance: Mild Distress, Obese Eyes: Bilateral Eye Normal Inspection, Bilateral Eye PERRL, Bilateral Eye EOMI HEENT: PERRL/EOMI, Pharynx Normal, Moist Mucous Membranes Neck: Full Range of Motion, Normal Inspection Respiratory: Lungs Clear, Normal Breath Sounds, No Accessory Muscle Use, No Respiratory Distress Cardiovascular: Regular Rate, Rhythm, No Edema, Normal Peripheral Pulses Gastrointestinal: Normal Bowel Sounds, Non Tender, Soft Extremity: Normal Capillary Refill, Normal Inspection, Normal Range of Motion, Non Tender Neurologic/Psychiatric: Alert, Oriented x3 Skin: Normal Color, Warm/Dry Progress/Results/Core Measures Suspected Sepsis SIRS Temperature: Pulse: Respiratory Rate: Laboratory Tests 10/01/20 10:53: White Blood Count 6.4 Blood Pressure / Mean: Laboratory Tests 10/01/20 10:53: Creatinine 0.78, Platelet Count 168, Total Bilirubin 0.6 Results/Orders Lab Results Laboratory Tests Test 10/01/20 10:03 10/01/20 10:53 Range/Units Blood Gas Puncture Site LT RAD Blood Gas Patient Temperature 100.3 Arterial Blood pH 7.46 H 7.37-7.43 Arterial Blood Partial Pressure CO2 35 35-45 MMHG Arterial Blood Partial Pressure O2 88 79-93 MMHG Arterial Blood HCO3 24 23-27 MMOL/L Arterial Blood Total CO2 25.2 21.0-31.0 MMOL/L Arterial Blood Oxygen Saturation 97 94-100 % Arterial Blood Base Excess 1.0 -2.5-2.5 MMOL/L Aric Test YES-POS Blood Gas Ventilator Setting NO Blood Gas Inspired Oxygen ROOM AIR White Blood Count 6.4 4.3-11.0 10^3/uL Red Blood Count 5.05 3.80-5.11 10^6/uL Hemoglobin 13.8 11.5-16.0 g/dL Hematocrit 43 35-52 % Mean Corpuscular Volume 86 80-99 fL Mean Corpuscular Hemoglobin 27 25-34 pg Mean Corpuscular Hemoglobin Concent 32 32-36 g/dL Red Cell Distribution Width 12.7 10.0-14.5 % Platelet Count 168 130-400 10^3/uL Mean Platelet Volume 11.2 9.0-12.2 fL Immature Granulocyte % (Auto) 1 % Neutrophils (%) (Auto) 87 H 42-75 % Lymphocytes (%) (Auto) 7 L 12-44 % Monocytes (%) (Auto) 5 0-12 % Eosinophils (%) (Auto) 0 0-10 % Basophils (%) (Auto) 0 0-10 % Neutrophils # (Auto) 5.6 1.8-7.8 10^3/uL Lymphocytes # (Auto) 0.5 L 1.0-4.0 10^3/uL Monocytes # (Auto) 0.3 0.0-1.0 10^3/uL Eosinophils # (Auto) 0.0 0.0-0.3 10^3/uL Basophils # (Auto) 0.0 0.0-0.1 10^3/uL Immature Granulocyte # (Auto) 0.0 0.0-0.1 10^3/uL Neutrophils % (Manual) 86 % Lymphocytes % (Manual) 9 % Monocytes % (Manual) 5 % Blood Morphology Comment NORMAL D-Dimer 1.25 H 0.00-0.49 UG/ML Sodium Level 135 135-145 MMOL/L Potassium Level 4.0 3.6-5.0 MMOL/L Chloride Level 98 98-107 MMOL/L Carbon Dioxide Level 22 21-32 MMOL/L Anion Gap 15 H 5-14 MMOL/L Blood Urea Nitrogen 14 7-18 MG/DL Creatinine 0.78 0.60-1.30 MG/DL Estimat Glomerular Filtration Rate > 60 BUN/Creatinine Ratio 18 Glucose Level 135 H 70-105 MG/DL Calcium Level 9.6 8.5-10.1 MG/DL Corrected Calcium 9.4 8.5-10.1 MG/DL Total Bilirubin 0.6 0.1-1.0 MG/DL Aspartate Amino Transf (AST/SGOT) 33 5-34 U/L Alanine Aminotransferase (ALT/SGPT) 20 0-55 U/L Alkaline Phosphatase 71 40-136 U/L C-Reactive Protein High Sensitivity 6.96 H 0.00-0.50 MG/DL Total Protein 7.9 6.4-8.2 GM/DL Albumin 4.3 3.2-4.5 GM/DL Procalcitonin 0.03 <0.10 NG/ML My Orders Orders - ASHVIN EMERSON Lactated Ringers (Lr 1000 Ml Iv Solution (10/01/20 11:00) Acetaminophen Tablet (Tylenol Tablet) (10/01/20 11:29) Arterial Blood Gas (10/01/20 11:36) Cbc With Automated Diff (10/01/20 11:36) Comprehensive Metabolic Panel (10/01/20 11:36) Hs C Reactive Protein (10/01/20 11:36) Procalcitonin (Pct) (10/01/20 11:36) Fibrin Degradation Products (10/01/20 11:36) Chest 1 View, Ap/Pa Only (10/01/20 11:36) Lactated Ringers (Lr 1000 Ml Iv Solution (10/01/20 11:45) Acetaminophen Tablet (Tylenol Tablet) (10/01/20 11:45) Manual Differential (10/01/20 10:53) Medications Given in ED Current Medications Medications Dose Ordered Sig/Balwinder Route Start Time Stop Time Status Last Admin Dose Admin Lactated Ringer's 1,000 ml @ ud STK-MED ONCE IV 10/01/20 11:00 10/01/20 11:04 DC 10/01/20 11:29 0 MLS/HR Vital Signs/I&O 10/01/20 13:17 Pulse 67 Resp 14 B/P (MAP) 125/47 Pulse Ox 96 O2 Delivery Room Air Capillary Refill : Progress Note #1: Time: 11:43 Progress Note Patient is getting some IV fluids. Her oxygen sats are 96 to 99% on room air nonlabored breathing. We will get an ABG but if she is not requiring oxygen or hospitalization we could set her up for a barium infusion today perhaps. We do not have any doses available here left however we called [facility] and they think they will have some if we can get it cleared through Dr. Cason. Progress Note #2: Time: 12:00 Progress Note ABG and labs are okay. Patient is not requiring any hospitalization. She is okay with going home. We called over to [facility] spoke to the team and they have infusions available and will put her in the 1230 slot. The daughter is going to transport the patient. We talked to Dr. Cason and she agrees with the plan to do Bamlinivamab infusion. Diagnostic Imaging Diagonstic Imaging: Xray Plain Films/CT/US/NM/MRI: chest Reviewed: Reviewed by Me Departure Impression Primary Impression: COVID-19 Additional Impression: Dehydration Disposition: 01 HOME, SELF-CARE Condition: Improved Departure-Patient Inst. Decision time for Depature: 12:16 Referrals: [facility] (PCP/Family) Primary Care Physician Patient Instructions: Coronavirus Disease 2019 (COVID-19) ED, Dehydration, Adult ED Add. Discharge Instructions: Head directly from the ER to [facility] to receive an infusion of Bamlanivimab. Tylenol and ibuprofen as necessary for body aches, headaches fever etc. Loperamide 2 tablets followed by 1 tablet every 4 hours afterwards if you are still having loose, watery diarrhea as necessary. Return to the ER promptly for chest pain, worsening shortness of air or other worrisome symptoms. All discharge instructions reviewed with patient and/or family. Voiced understanding. ASHVIN EMERSON Oct 01, 2020 11:52
[2020-10-01 11:53] LABS: BILIRUBIN,TOTAL 0.6 MG/DL (0.1-1.0); CARBON DIOXIDE 22 MMOL/L (21-32)
[2020-10-01 11:55] LABS: ALKALINE PHOSPHATASE 71 U/L (40-136); CREATININE SERUM 0.78 MG/DL (0.60-1.30); GFR ESTIMATED > 60
[2020-10-01 11:56] LABS: BUN/CREATININE RATIO 18
[2020-10-01 11:58] LABS: ALANINE AMINOTRANSFERASE 20 U/L (0-55)
[2020-10-01 12:28] LABS: LYMPHOCYTES % (MANUAL) 9 %; MONOCYTES % (MANUAL) 5 %; NEUTROPHILS % (MANUAL) 86 %; RBC MORPH NORMAL
--- NOTE | 2020-10-01 12:38 | Diagnostic Imaging Report ---
INDICATION: Covid positive, pneumonia COMPARISON: 12/19/2018 TECHNIQUE: Single radiograph of the chest dated 10/01/2019. FINDINGS: The cardiac silhouette is within normal limits in size. No significant pulmonary vascular congestion. Calcified hilar lymph nodes are again identified. Calcified granuloma overlying the left lung base. The lungs are clear of focal pulmonary opacity. No pleural effusion. No pneumothorax. No acute osseous abnormality. IMPRESSION: No acute cardiopulmonary abnormality with findings consistent with chronic granulomatous disease. Dictated by: Dictated on workstation # [id number]
[2020-10-01 13:17] VITALS: BP 125/47
== END 2020-10-01 13:31 | disposition home or self-care (01) ==
LOC: EDUNIT# 10:04 → ER 10:07
DX: U07.1 COVID-19 (principal); E86.0 Dehydration; E66.9 Obesity, unspecified; I10 Essential (primary) hypertension; E78.00 Pure hypercholesterolemia, unspecified; E11.9 Type 2 diabetes mellitus without complications; Z68.39 Body mass index [BMI] 39.0-39.9, adult; Z87.891 Personal history of nicotine dependence; Z83.3 Family history of diabetes mellitus; Z80.3 Family history of malignant neoplasm of breast; Z82.61 Family history of arthritis; Z82.49 Family history of ischemic heart disease and other diseases of the circulatory system; Z79.4 Long term (current) 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
CPT/HCPCS: 36415; 71045; 80053; 82805; 84145; 85007; 85027; 85379; 86141

== ENCOUNTER → 2020-12-14 | Outpatient (CLI) | payer MEDICARE, OTHER ==
--- NOTE | 2020-12-14 09:52 | Diagnostic Imaging Report ---
INDICATION: Postmenopausal state COMPARISON: None available, baseline exam FINDINGS: AP Spine L1-L4: [BMD (g/cm2): 0.923] [T-Score: -2.3] [Z-Score: -1.6] [BMD Previous: na] [BMD % Change: na] LT Hip Neck: [BMD (g/cm2): na] [T-Score: na] [Z-Score: na] LT Hip Total: [BMD (g/cm2):na] [T-Score:na] [Z-Score: na] [BMD Previous: na] [BMD % Change: na] RT Hip Neck: [BMD (g/cm2):0.792] [T-Score:-1.8] [Z-Score:-0.7] RT Hip Total: [BMD (g/cm2):0.813] [T-score:-1.5] [Z-Score:-0.8] [BMD Previous:na] [BMD % Change:na] *Indicates significant change from prior examination based on 95% confidence level. World Health Organization criteria for BMD interpretation classify patients as Normal (T-score at or above -1.0), Osteopenic (T-score between -1.0 and -2.5) or Osteoporotic (T-score at or below -2.5). LIMITATIONS AND MODIFICATION: The left hip was not evaluated secondary to postsurgical changes. FRACTURE RISK (FRAX SCORE): The ten year probability of (%): Major Osteoporotic Fracture: [15.3] Hip Fracture: [2.3] IMPRESSION: 1. Osteopenia (Low bone mass). 2. Baseline examination. 3. See below National Osteoporosis Foundation guidelines on when to potentially initiate pharmacologic therapy. Based on the National Osteoporosis Foundation Guidelines, pharmacologic treatment should be initiated in any of the following, unless clinical conditions suggest otherwise: * Any patient with prior fragility fracture of the hip or vertebrae. A spine fracture indicates 5X risk for subsequent spine fracture and 2X risk for subsequent hip fracture. * Osteoporosis (T-score <-2.5). * Postmenopausal women and men age 50 and older with low bone mass/osteopenia (T-score between -1.0 and -2.5) by DXA and 10-year major osteoporotic fracture greater than 20% or a 10-year probability of hip fracture greater than 3%. These fracture risks are supplied above in the FRAX score, if applicable. * Clinician judgement and/or patient preferences may indicate treatment for people with 10-year fracture probabilities above or below these levels. Dictated by: Dictated on workstation # [id number]
== END ==
LOC: RAD 09:03
PROVIDERS: ATTEND Nurse Practitioner Family
DX: M85.80 Other specified disorders of bone density and structure, unspecified site (principal); Z78.0 Asymptomatic menopausal state
CPT/HCPCS: 77080

== ENCOUNTER 2022-08-10 20:14 | Observation (INO) | payer MEDICARE, OTHER ==
[~2022-08-10] VITALS: Ht 155 cm; Wt 79.0 kg
[~2022-08-10 20:14] MED LIST changes: -MAGN250T2 PO; +MAGN250T31 PO
[2022-08-10] MEDS ORDERED: fentaNYL INJ 100 MCG/2 ML AMP ONE (20:51)
[2022-08-10] MEDS ORDERED: fentaNYL INJ 100 MCG/2 ML AMP IVP ONE ×2 (21:00→23:45)
--- NOTE | 2022-08-10 21:12 | Diagnostic Imaging Report ---
INDICATION: Left ankle injury. FINDINGS: Three views of the left ankle show a trimalleolar fracture of the ankle with lateral dislocation. IMPRESSION: Laterally dislocated trimalleolar fracture of the left ankle. Dictated by: Dictated on workstation # [id number]
[2022-08-10 21:14] LABS: BASOPHILS % (AUTO) 0 % (0-10); EOSINOPHILS % (AUTO) 0 % (0-10); HEMATOCRIT 36 % (35-52); HEMOGLOBIN 11.7 g/dL (11.5-16.0); LYMPHOCYTES # (AUTO) 1.9 10^3/uL (1.0-4.0); LYMPHOCYTES % (AUTO) 27 % (12-44); MEAN CORPUSCULAR HEMOGLOBIN 28 pg (25-34); MEAN CORPUSCULAR HGB CONC 32 g/dL (32-36); MEAN CORPUSCULAR VOLUME 86 fL (80-99); MEAN PLATELET VOLUME 10.6 fL (9.0-12.2); MONOCYTES # (AUTO) 0.6 10^3/uL (0.0-1.0); MONOCYTES % (AUTO) 8 % (0-12); NEUTROPHILS # (AUTO) 4.5 10^3/uL (1.8-7.8); NEUTROPHILS % (AUTO) 64 % (42-75); PLATELET COUNT 258 10^3/uL (130-400)
[2022-08-10] MEDS ORDERED: proPOfol 200 MG/20 ML (DIPRIVAN) VIAL IV ONE ×2 (21:15→23:45)
[2022-08-10 21:27] LABS: BILIRUBIN,TOTAL 0.3 MG/DL (0.1-1.0); CALCIUM 8.8 MG/DL (8.5-10.1); CREATININE SERUM 1.18 MG/DL (0.60-1.30); POTASSIUM 3.6 MMOL/L (3.6-5.0); TOTAL PROTEIN 6.8 GM/DL (6.4-8.2)
--- NOTE | 2022-08-10 22:43 | ED Syncope ---
General Chief Complaint: Dizziness/Syncope Stated Complaint: SYNCOPE Nursing Triage Note: BROUGHT IN BY [facility] FOR MID BACK PAIN, LEFT ANKLE PAIN/DEFORMITY S/P SYNCOPAL EPISODE. 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 SPLINT TO LEFT ANKLE BY EMS. History of Present Illness Date Seen by Provider: Aug 10, 2022 Time Seen by Provider: 20:40 Initial Comments Patient is a 72-year-old female who presents to the emergency department today with a chief complaint of fall/syncope this evening. Resultant obvious fracture dislocation of the left ankle. Patient was enjoying her Thanksgiving dinner and had stood up to talk to her son and give him a hug as he was leaving. He states that he was hugging her and she "fell out". She had a syncopal event that lasted 30 seconds to a minute. He attempted to catch her as she fell to the floor but she landed on her left ankle. Patient had coherent speech shortly after the event. She did not hit her head. No seizure-like movements reported. Immediate pain in her left ankle. Patient states that she had no symptoms prior to the episode. She did not have shortness of breath, palpitations, "tunnel vision", nausea or sweating. She has never had anything like this happen before. She is a diabetic. EMS reported a blood sugar in the 260 range. No other complaints of recent illness or injury. She has had prior cardiac christian luation, stress test in 2017 was reported as normal. She has some knee pain as well currently. Also some midthoracic back pain. No numbness, tingling or weakness. She is able to wiggle the toes on her left foot. It is obviously laterally dislocated. Normal capillary refill, warm. Pulses are intact. Not an open fracture dislocation. All other review of systems reviewed and negative except as stated. Timing/Prior Episodes: No Prior History Symptoms Prior to Episode: None Precipitating Factors: Standing Loss of Consciousness: Brief (Seconds) Current Symptoms: Back to Normal, Other (Left ankle pain) Allergies and Home Medications Allergies Coded Allergies: No Known Drug Allergies (Unverified , 12/19/18) Patient Home Medication List Home Medication List Reviewed: Yes Cinnamon Bark (Cinnamon) 500 Mg Capsule, 500 MG PO BID, (Reported) Entered as Reported by: CLARE WEEMS on 02/10/201524 Citalopram Hydrobromide (Citalopram HBr) 20 Mg Tablet, 20 MG PO DAILY, (Reported) Entered as Reported by: CLARE WEEMS on 02/10/201524 Enalapril Maleate (Enalapril Maleate) Unknown Strength Tablet, 1 TAB PO DAILY, (Reported) Entered as Reported by: CLARE WEEMS on 02/10/201524 Fish Oil/Borage/Flax/Om3,6,9#1 (Rwnkhfit-Rtkq-Xymutw Oil Sftgl) 400 Mg Capsule, 400 MG PO BID, (Reported) Entered as Reported by: CLARE WEEMS on 02/10/201524 Furosemide (Furosemide) 20 Mg Tablet, 20 MG PO Q48H, (Reported) Entered as Reported by: CLARE WEEMS on 02/10/201524 Hydrochlorothiazide (Hydrochlorothiazide) 12.5 Mg Tablet, 12.5 MG PO DAILY, (Reported) Entered as Reported by: CLARE WEEMS on 02/10/201524 Insulin Detemir (Levemir Flextouch) 100 Unit/1 Ml Insuln.pen, 20 UNIT SQ HS, (Reported) Entered as Reported by: CLARE WEEMS on 02/10/201524 Insulin Detemir (Levemir Flextouch) 100 Unit/1 Ml Insuln.pen, 25 UNIT SQ DAILY, (Reported) Entered as Reported by: CLARE WEEMS on 02/10/201524 Magnesium (Magnesium) 250 Mg Tablet, 250 MG PO BID, (Reported) Entered as Reported by: CLARE WEEMS on 02/10/201524 Metformin HCl (Metformin HCl) 500 Mg Tablet, 1,000 MG PO BID, (Reported) Entered as Reported by: CLARE WEEMS on 02/10/201524 Metoprolol Succinate (Metoprolol Succinate) 25 Mg Tab.er.24h, 25 MG PO DAILY, (Reported) Entered as Reported by: CLARE WEEMS on 02/10/201524 Multivitamin (Multivitamins) 1 Each Tablet, 1 EACH PO DAILY, (Reported) Entered as Reported by: CLARE WEEMS on 02/10/201524 Pioglitazone HCl (Pioglitazone HCl) 30 Mg Tablet, 30 MG PO DAILY, (Reported) Entered as Reported by: CLARE WEEMS on 02/10/201524 Simvastatin (Simvastatin) 10 Mg Tablet, 10 MG PO DAILY, (Reported) Entered as Reported by: CLARE WEEMS on 02/10/201524 Turmeric/Turmeric Root Extract (Turmeric 500 mg Capsule) 1 Each Capsule, 1 EACH PO BID, (Reported) Entered as Reported by: CLARE WEEMS on 02/10/201524 Review of Systems Constitutional: see HPI Respiratory: no symptoms reported Cardiovascular: no symptoms reported Gastrointestinal: no symptoms reported Genitourinary: no symptoms reported : No Musculoskeletal: joint pain (right ankle) Psychiatric/Neurological: No Symptoms Reported All Other Systems Reviewed Negative Unless Noted: Yes Past Jorosnq-Bdgzad-Qxkhjw Hx Patient Social History Tobacco Use?: No Substance use?: Yes Substance type: Marijuana Alcohol Use?: Yes Alcohol Frequency: Once in a while Pt feels they are or have been: No Immunizations Up To Date Tetanus Booster (TDap): Unknown Influenza Vaccine Up-to-Date: Yes; Up-to-Date First/Initial COVID19 Vaccinat: X4 Past Medical History Surgery/Hospitalization HX: LEFT TOTAL HIP, KNEE, RIGHT KNEE, HYSTERECTOMY IDDM, HIGH CHOLESTEROL, HTN, GERD Surgeries: Yes (RIGHT KNEE RECONSTRUCTION, RIGHT KNEE SCOPE, l hip, l knee) Hysterectomy, Orthopedic Respiratory: Yes (asthma) Asthma, Sleep Apnea Currently Using CPAP: No Cardiac: Yes High Cholesterol, Hypertension Neurological: Yes Headaches /Migraines, Vertigo Reproductive Disorders: No [employer] History: Hysterectomy Genitourinary: No Gastrointestinal: Yes (IBS) Gastroesophageal Reflux Musculoskeletal: Yes (LEFT KNEE OSTEOARTHRITIS) Arthritis Endocrine: Yes Diabetes, Insulin dep HEENT: No Cancer: No Psychosocial: No Integumentary: Yes (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) Psoriasis Blood Disorders: No Family Medical History Cancer 19 MOTHER (BREAST) Congestive heart failure G8 SISTER Dementia 19 MOTHER Family history: Arthritis G8 SISTER Family history: Breast disease 19 MOTHER Family history: Diabetes mellitus 19 MOTHER G8 SISTER Kidney disease G8 SISTER No Family History of: Abdominal aortic aneurysm Alcoholism Family history: Cardiovascular disease Family history: Gastrointestinal disease Family history: Hypertension Family history: Thyroid disorder Hereditary disease History of - respiratory disease Myocardial infarction Parkinson's disease Prostate cancer Psychotic disorder Seizure disorder Stroke Stroke Physical Exam Vital Signs Vital Signs - First Documented 08/10/22 20:14 Temp 36.5 Pulse 75 Resp 16 B/P (MAP) 146/66 (92) Pulse Ox 97 O2 Delivery Room Air Capillary Refill : Less Than 3 Seconds Height, Weight, BMI Height: 5'2.00" Weight: 219lbs. 0.0oz. 99.699568lo; 32.00 BMI Method:Stated General Appearance: No Apparent Distress, WD/WN HEENT: PERRL/EOMI Neck: Full Range of Motion, Normal Inspection, Non Tender Cardiovascular: Regular Rate, Rhythm, Normal Peripheral Pulses Respiratory: Lungs Clear, Normal Breath Sounds, No Accessory Muscle Use, No Respiratory Distress Gastrointestinal: Non Tender, Soft Back: Normal Inspection, No Vertebral Tenderness, Other (Tenderness over the left lateral back. No midline point tenderness. No ecchymosis, abrasions or contusions noted. No swelling.) Extremities: No Calf Tenderness, Other (Positive lateral dislocation of the foot on the left lower extremity. Pulses are intact. Sensation is normal. Normal coloration, normal temperature. No tenderness to the knee. Exquisitely painful for the patient to attempt to flex the left knee; some swelling noted to the right ankle which the patient states is chronic) Neurologic/Psychiatric: Alert, Oriented x3, No Motor/Sensory Deficits, Normal Mood/Affect, charger II-XII Norm as Tested Cranial Nerves: Normal Hearing, Normal Speech, PERRL Coordination/Gait: Other (Gait not tested) Motor/Sensory: No Motor Deficit, No Sensory Deficit Skin: Normal Color, Warm/Dry Progress/Results/Core Measures Results/Orders Lab Results Laboratory Tests Test 08/10/22 20:28 Range/Units White Blood Count 7.0 4.3-11.0 10^3/uL Red Blood Count 4.19 3.80-5.11 10^6/uL Hemoglobin 11.7 11.5-16.0 g/dL Hematocrit 36 35-52 % Mean Corpuscular Volume 86 80-99 fL Mean Corpuscular Hemoglobin 28 25-34 pg Mean Corpuscular Hemoglobin Concent 32 32-36 g/dL Red Cell Distribution Width 12.4 10.0-14.5 % Platelet Count 258 130-400 10^3/uL Mean Platelet Volume 10.6 9.0-12.2 fL Immature Granulocyte % (Auto) 0 % Neutrophils (%) (Auto) 64 42-75 % Lymphocytes (%) (Auto) 27 12-44 % Monocytes (%) (Auto) 8 0-12 % Eosinophils (%) (Auto) 0 0-10 % Basophils (%) (Auto) 0 0-10 % Neutrophils # (Auto) 4.5 1.8-7.8 10^3/uL Lymphocytes # (Auto) 1.9 1.0-4.0 10^3/uL Monocytes # (Auto) 0.6 0.0-1.0 10^3/uL Eosinophils # (Auto) 0.0 0.0-0.3 10^3/uL Basophils # (Auto) 0.0 0.0-0.1 10^3/uL Immature Granulocyte # (Auto) 0.0 0.0-0.1 10^3/uL Sodium Level 139 135-145 MMOL/L Potassium Level 3.6 3.6-5.0 MMOL/L Chloride Level 104 98-107 MMOL/L Carbon Dioxide Level 20 L 21-32 MMOL/L Anion Gap 15 H 5-14 MMOL/L Blood Urea Nitrogen 19 H 7-18 MG/DL Creatinine 1.18 0.60-1.30 MG/DL Estimat Glomerular Filtration Rate 49 BUN/Creatinine Ratio 16 Glucose Level 219 H 70-105 MG/DL Calcium Level 8.8 8.5-10.1 MG/DL Corrected Calcium 8.8 8.5-10.1 MG/DL Total Bilirubin 0.3 0.1-1.0 MG/DL Aspartate Amino Transf (AST/SGOT) 15 5-34 U/L Alanine Aminotransferase (ALT/SGPT) 12 0-55 U/L Alkaline Phosphatase 74 40-136 U/L Total Protein 6.8 6.4-8.2 GM/DL Albumin 4.0 3.2-4.5 GM/DL My Orders Orders - SHERRY MISHRA MD Ekg Tracing (08/10/22 20:44) Ed Iv/Invasive Line Start (08/10/22 20:44) Ankle, Left, 3 Views (08/10/22 20:44) Fentanyl Inj (Sublimaze Injection) (08/10/22 21:00) Fentanyl Inj (Sublimaze Injection) (08/10/22 20:51) Cbc With Automated Diff (08/10/22 21:07) Comprehensive Metabolic Panel (08/10/22 21:07) Propofol Injection (Diprivan Injection) (08/10/22 21:15) Tibia/Fibula, Left, 2 Views (08/10/22 22:34) Chest 1 View, Ap/Pa Only (08/10/22 23:13) Medications Given in ED Current Medications Medications Dose Ordered Sig/Balwinder Route Start Time Stop Time Status Last Admin Dose Admin Fentanyl Citrate 50 mcg ONCE ONCE IVP 08/10/22 21:00 08/10/22 21:01 DC 08/10/22 20:57 50 MCG Propofol 100 mg ONCE ONCE IV 08/10/22 21:15 08/10/22 21:16 DC 08/10/22 20:05 100 MG Vital Signs/I&O 08/10/22 08/10/22 20:14 22:00 Temp 36.5 Pulse 75 Resp 16 B/P (MAP) 146/66 (92) Pulse Ox 97 O2 Delivery Room Air Simple Mask Blood Pressure Mean: 92 Progress Progress Note : Time: 23:41 Progress Note Discussed with Dr. Chan, [facility]; he states that this fracture does not need emergent surgical evaluation or repair. That they usually wait about 10 days to operate on these. She should remain nonweightbearing with a posterior splint with a stirrup in place. She can follow-up outpatient with Dr. Benny Rodriguez who has treated the patient in the past. Case was then discussed with Dr. Cason on for the [facility] this evening regarding her syncope. She accepts admission for the syncope. Patient will be admitted with the splint on, elevation and ice. Pain medicines are ordered. Initial ECG Impression Date: Aug 10, 2022 Initial ECG Impression Time: 21:08 Initial ECG Rate: 71 Initial ECG Rhythm: Normal Sinus Initial ECG Intervals: Normal Initial ECG Impression: Normal Comment No ectopy, no ST segment elevation or depression Diagnostic Imaging Diagonstic Imaging: Xray Comments [facility], [place] NAME: CARLA OSPINA Shannan [facility] REC#: [id number] PT STATUS: REG ER : 1950 PHYSICIAN: SHERRY MISHRA MD ADMIT DATE: 08/10/22/ER Signed Date of Exam:08/10/22 ANKLE, LEFT, 3 VIEWS INDICATION: Left ankle injury. FINDINGS: Three views of the left ankle show a trimalleolar fracture of the ankle with lateral dislocation. IMPRESSION: Laterally dislocated trimalleolar fracture of the left ankle. Dictated by: Dictated on workstation # [id number] Dict: 08/10/222107 Trans: 08/10/222131 [facility] [id number] Interpreted by: JOSELIN LUND MD Electronically signed by: JOSELIN LUND MD 08/10/222131 Diagonstic Imaging: Xray Comments Left tib-fib x-rayinterpreted by mesuccessful reduction of the trimalleolar fracture, good alignment. No proximal fractures of the tibia or fibula. Hardware in the knee appears intact Departure Communication (Admissions) Time/Spoke to Admitting Phy: 23:[address] Cason - acceptjaden admission to the medical floor Impression Primary Impression: Syncope Qualified Codes: R55 - Syncope and collapse Additional Impression: Closed displaced trimalleolar fracture of left ankle Qualified Codes: S82.852A - Displaced trimalleolar fracture of left lower leg, initial encounter for closed fracture Disposition: ADMITTED INPATIENT Condition: Stable Admissions Decision to Admit Reason: Admit from ER (General) Decision to Admit/Date: Aug 10, 2022 Time/Decision to Admit Time: 23:40 Departure-Patient Inst. Referrals: [facility] (PCP/Family) Primary Care Physician SHERRY MISHRA MD Aug 10, 2022 22:43
[2022-08-11] VITALS (8 sets, daily range): BP systolic 130–163; BP diastolic 62–71
[2022-08-11] MEDS ORDERED: ONDANSETRON 4 MG/2 ML (SDV) Z0FRAN IV PRN (00:30)
[2022-08-11] MEDS: NS IV 1000 ML 1,000 ML IV SCH ×3 (01:00→23:42)
[2022-08-11] MEDS ORDERED: RT-ALBUTEROL SULF 2.5 MG/3 ML PRE-MIX VIAL INH PRN ×2 (01:15)
[2022-08-11] MEDS: fentaNYL INJ 100 MCG/2 ML AMP IV PRN ×6 (02:20→19:45)
[2022-08-11] MEDS ORDERED: inSUlin ASPART (NovoLOG) 1 UNIT/0.01 ML (CHARGE PER UNIT) SC SCH (06:00)
[2022-08-11] MEDS ORDERED: LACTULOSE SYRUP 10GM/15ML (ENULOSE) 30ML UDC PO PRN (06:00)
[2022-08-11] MEDS ORDERED: BISACODYL 10 MG SUPP (DULCOLAX) PR PRN (06:00)
[2022-08-11] MEDS ORDERED: ALPRAZolam 0.25 MG (XANAX) TAB PO PRN (06:00)
[2022-08-11] MEDS ORDERED: CALCIUM CARBONATE 500 MG (TUMS) TAB.CHEW PO PRN (06:00)
[2022-08-11] MEDS ORDERED: ONDANSETRON 4 MG/2 ML (SDV) Z0FRAN IVP PRN (06:00)
[2022-08-11] MEDS ORDERED: ONDANSETRON 4 MG (ZOFRAN) ORAL DISSOLVE TAB PO PRN (06:00)
[2022-08-11] MEDS ORDERED: MELATONIN 3 MG TABLET PO PRN (06:00)
[2022-08-11] MEDS ORDERED: MENTHOL/ZINC OXIDE (CALMOSEPTINE) 113 GM TUBE TP PRN (06:00)
[2022-08-11] MEDS ORDERED: LOPERAMIDE 2 MG (IMODIUM) TABLET PO PRN (06:00)
[2022-08-11] MEDS ORDERED: diphenhydrAMINE 25 MG TAB (BENADRYL) PO PRN (06:00)
--- NOTE | 2022-08-11 06:14 | Short Stay Summary ---
History of Present Illness History of Present Illness Reason for visit/HPI CC: Fall after syncopal episode with subsequent laterally dislocated trimalleolar fracture of the left ankle s/p closed reduction in ER HPI: This is a 72yoWF clinic patient of [facility] who suffered a syncopal episode at home following a Thanksgiving meal. She suffered a lateral dislocated left ankle fracture s/p reduction in ER and will be unable to undergo repair for at least 1 week due to swelling. Telemetry added due to syncope and ECHO ordered and Cardiology consulted. 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 Dr Benny Rodriguez is her preferred Orthopedic surgeon who managed her hip surgery in the past. Trauma surgery will be consulted and thoracic xray will be obtained due to back pain. IS and Lovenox added. ARU will be an option tomorrow once spine has been cleared. ER HPI: Patient is a 72-year-old female who presents to the emergency department today with a chief complaint of fall/syncope this evening. Resultant obvious fracture dislocation of the left ankle. Patient was enjoying her Thanksgiving dinner and had stood up to talk to her son and give him a hug as he was leaving. He states that he was hugging her and she "fell out". She had a syncopal event that lasted 30 seconds to a minute. He attempted to catch her as she fell to the floor but she landed on her left ankle. Patient had coherent speech shortly after the event. She did not hit her head. No seizure-like movements reported. Immediate pain in her left ankle. Patient states that she had no symptoms prior to the episode. She did not have shortness of breath, palpitations, "tunnel vision", nausea or sweating. She has never had anything like this happen before. She is a diabetic. EMS reported a blood sugar in the 260 range. No other complaints of recent illness or injury. She has had prior cardiac evaluation, stress test in 2017 was reported as normal. She has some knee pain as well currently. Also some midthoracic back pain. No numbness, tingling or weakness. She is able to wiggle the toes on her left foot. It is obviously laterally dislocated. Normal capillary refill, warm. Pulses are intact. Not an open fracture dislocation. Date of Admission Aug 10, 2022 at 23:30 Date of Discharge na Time Seen by Provider: 10:00 Attending Physician Center/[facility] Admitting Physician Admitting Physician: Summer Gilliam DO Attending Physician: Summer Gilliam DO Consult Allergies and Home Medications Allergies Coded Allergies: No Known Drug Allergies (Unverified , 12/19/18) Patient Home Medication List Home Medication List Reviewed: Yes Canagliflozin/Metformin HCl (Invokamet Xr 50-1,000 mg Tab) 50 Mg-1,000 Mg Tab.bp.24h, 2 EACH PO DAILY, (Reported) Entered as Reported by: DEBRA REYES on 08/11/221248 Last Action: Reviewed Citalopram Hydrobromide (Citalopram HBr) 20 Mg Tablet, 20 MG PO DAILY, (Reported) Entered as Reported by: CLARE WEEMS on 02/10/201524 Last Action: Reviewed Enalapril Maleate (Enalapril Maleate) 20 Mg Tablet, 20 MG PO DAILY, (Reported) Entered as Reported by: DEBRA REYES on 08/11/221248 Last Action: Reviewed Hydrochlorothiazide (Hydrochlorothiazide) 25 Mg Tablet, 25 MG PO DAILY, (Reported) Entered as Reported by: DEBRA REYES on 08/11/221248 Last Action: Reviewed Insulin Detemir (Levemir Flextouch) 100 Unit/Ml (3 Ml) Insuln.pen, 10 UNIT SQ DAILY, (Reported) Entered as Reported by: DEBRA REYES on 08/11/221248 Last Action: Reviewed Liraglutide (Victoza 3-Jeramy) 0.6 Mg/0.1 Ml (18 Mg/3 Ml) Pen.injctr, 3 MG SQ DAILY, (Reported) Entered as Reported by: DEBRA REYES on 08/11/221248 Last Action: Reviewed Multivitamin (Multivitamins) 1 Each Tablet, 1 EACH PO DAILY, (Reported) Entered as Reported by: CLARE WEEMS on 02/10/201524 Last Action: Reviewed Pantoprazole Sodium (Pantoprazole Sodium) 40 Mg Tablet.dr, 40 MG PO DAILY, (Reported) Entered as Reported by: DEBRA REYES on 08/11/221248 Last Action: Reviewed Pioglitazone HCl (Pioglitazone HCl) 30 Mg Tablet, 30 MG PO DAILY, (Reported) Entered as Reported by: CLARE WEEMS on 02/10/201524 Last Action: Reviewed Potassium Gluconate (Potassium Gluconate) 595 Mg (99 Mg) Tablet.er, 198 MG PO DAILY, (Reported) Entered as Reported by: DEBRA REYES on 08/11/221248 Last Action: Reviewed Rosuvastatin Calcium (Rosuvastatin Calcium) 20 Mg Tablet, 20 MG PO DAILY, (Reported) Entered as Reported by: DEBRA REYES on 08/11/221248 Last Action: Reviewed Turmeric Root Extract (Turmeric) 500 Mg Tablet, 1,000 MG PO DAILY, (Reported) Entered as Reported by: DEBRA REYES on 08/11/221248 Last Action: Reviewed Ubidecarenone (Co Q-10) 200 Mg Capsule, 200 MG PO DAILY, (Reported) Entered as Reported by: DEBRA REYES on 08/11/221248 Last Action: Reviewed Discontinued Medications Cinnamon Bark (Cinnamon) 500 Mg Capsule, 500 MG PO BID, (Reported) Discontinued Reason: No Longer Taking Entered as Reported by: CLARE WEEMS on 02/10/201524 Last Action: Discontinued Enalapril Maleate (Enalapril Maleate) Unknown Strength Tablet, 1 TAB PO DAILY, (Reported) Discontinued Reason: No Longer Taking Entered as Reported by: CLARE WEEMS on 02/10/201524 Last Action: Discontinued Fish Oil/Borage/Flax/Om3,6,9#1 (Goxidiel-Tynj-Lygdqi Oil Sftgl) 400 Mg Capsule, 400 MG PO BID, (Reported) Discontinued Reason: No Longer Taking Entered as Reported by: CLARE WEEMS on 02/10/201524 Last Action: Discontinued Furosemide (Furosemide) 20 Mg Tablet, 20 MG PO Q48H, (Reported) Discontinued Reason: No Longer Taking Entered as Reported by: CLARE WEEMS on 02/10/201524 Last Action: Discontinued Hydrochlorothiazide (Hydrochlorothiazide) 12.5 Mg Tablet, 12.5 MG PO DAILY, (Reported) Discontinued Reason: No Longer Taking Entered as Reported by: CLARE WEEMS on 02/10/201524 Last Action: Discontinued Insulin Detemir (Levemir Flextouch) 100 Unit/1 Ml Insuln.pen, 20 UNIT SQ HS, (Reported) Discontinued Reason: No Longer Taking Entered as Reported by: CLARE WEEMS on 02/10/201524 Last Action: Discontinued Insulin Detemir (Levemir Flextouch) 100 Unit/1 Ml Insuln.pen, 25 UNIT SQ DAILY, (Reported) Discontinued Reason: No Longer Taking Entered as Reported by: CLARE WEEMS on 02/10/201524 Last Action: Discontinued Magnesium (Magnesium) 250 Mg Tablet, 250 MG PO BID, (Reported) Discontinued Reason: No Longer Taking Entered as Reported by: CLARE WEEMS on 02/10/201524 Last Action: Discontinued Metformin HCl (Metformin HCl) 500 Mg Tablet, 1,000 MG PO BID, (Reported) Discontinued Reason: No Longer Taking Entered as Reported by: CLARE WEEMS on 02/10/201524 Last Action: Discontinued Metoprolol Succinate (Metoprolol Succinate) 25 Mg Tab.er.24h, 25 MG PO DAILY, (Reported) Discontinued Reason: No Longer Taking Entered as Reported by: CLARE WEEMS on 02/10/201524 Last Action: Discontinued Simvastatin (Simvastatin) 10 Mg Tablet, 10 MG PO DAILY, (Reported) Discontinued Reason: No Longer Taking Entered as Reported by: CLARE WEEMS on 02/10/201524 Last Action: Discontinued Turmeric/Turmeric Root Extract (Turmeric 500 mg Capsule) 1 Each Capsule, 1 EACH PO BID, (Reported) Discontinued Reason: Prescription changed Entered as Reported by: CLARE WEEMS on 02/10/201524 Past Eyvmqig-Cxfcxt-Rdbhjv Hx Patient Social History Marrital Status: single Employed/Student: employed Alcohol Beverage of Choice: Wine Smoking Status: Former Smoker Former Smoker, Quit: Dec 27, 2004 Recent Hopitalizations: Yes Have you traveled recently?: No Alcohol Use?: Yes Substance type: Marijuana Pt feels they are or have been: No Tobacco type used: Cigarettes Immunizations Up To Date Tetanus Booster (TDap): Unknown Date of Pneumonia Vaccine: Jun 17, 2009 Surgeries Yes (RIGHT KNEE RECONSTRUCTION, RIGHT KNEE SCOPE, l hip, l knee) Hysterectomy, Orthopedic Respiratory Yes (asthma) Currently Using CPAP: No Cardiovascular Yes High Cholesterol, Hypertension Neurological Yes Headaches /Migraines, Vertigo Reproductive System Hx Reproductive Disorders: 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 Genitourinary No Gastrointestinal Yes (IBS) Gastroesophageal Reflux Musculoskeletal Yes (LEFT KNEE OSTEOARTHRITIS) Arthritis Endocrine History of Endocrine Disorders: Yes Endocrine Disorders: Diabetes, Insulin dep HEENT History of HEENT Disorders: No Cancer No Psychosocial History of Psychiatric Problem: No Integumentary History of Skin or Integumenta: Yes (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) Skin/Integumentary Disorders: Psoriasis Blood Transfusions History of Blood Disorders: No Family Medical History Significant Family History: Stroke Family Hx: Cancer 19 MOTHER (BREAST) Congestive heart failure G8 SISTER Dementia 19 MOTHER Family history: Arthritis G8 SISTER Family history: Breast disease 19 MOTHER Family history: Diabetes mellitus 19 MOTHER G8 SISTER Kidney disease G8 SISTER No Family History of: Abdominal aortic aneurysm Alcoholism Family history: Cardiovascular disease Family history: Gastrointestinal disease Family history: Hypertension Family history: Thyroid disorder Hereditary disease History of - respiratory disease Myocardial infarction Parkinson's disease Prostate cancer Psychotic disorder Seizure disorder Stroke Review of Systems Constitutional: see HPI, dizziness, malaise, weakness EENTM: no symptoms reported Respiratory: no symptoms reported Cardiovascular: no symptoms reported Gastrointestinal: no symptoms reported Genitourinary: no symptoms reported Musculoskeletal: joint pain Skin: no symptoms reported Psychiatric/Neurological: Anxiety, Depressed All Other Systems Reviewed Negative Unless Noted: Yes Physical Exam Vital Signs Vital Signs - First Documented 08/10/22 08/11/22 20:14 00:42 Temp 36.5 Pulse 75 Resp 16 B/P (MAP) 146/66 (92) Pulse Ox 97 O2 Delivery Room Air FiO2 21 Capillary Refill : Less Than 3 Seconds Height, Weight, BMI Height: 5'2.00" Weight: 219lbs. 0.0oz. 99.175542yn; 32.88 BMI Method:Stated General Appearance: No Apparent Distress, WD/WN, Anxious, Chronically ill Eyes: Bilateral Eye Normal Inspection, Bilateral Eye PERRL, Bilateral Eye EOMI HEENT: PERRL/EOMI, Normal ENT Inspection, Pharynx Normal Neck: Full Range of Motion, Normal Inspection, Non Tender, Supple, Carotid Bruit Respiratory: Chest Non Tender, Lungs Clear, Normal Breath Sounds, No Accessory Muscle Use, No Respiratory Distress Cardiovascular: Regular Rate, Rhythm, No Edema, No Gallop, No JVD, No Murmur, Normal Peripheral Pulses Gastrointestinal: Normal Bowel Sounds, No Organomegaly, No Pulsatile Mass, Non Tender, Soft Back: Normal Inspection, No CVA Tenderness, Decreased Range of Motion, Muscle Spasm Extremity: Normal Capillary Refill, Normal Inspection, Normal Range of Motion (except left ankle), Non Tender, No Calf Tenderness, No Pedal Edema Neurologic/Psychiatric: Alert, Oriented x3, No Motor/Sensory Deficits, Normal Mood/Affect, cherry pitter II-XII Norm as Tested Skin: Normal Color, Warm/Dry Lymphatic: No Adenopathy Short Stay Diagnosis Discharge Diagnosis-Short Stay Admission Diagnosis: Syncope with fall and left ankle fracture with dislocation s/p reduction in ER Thoracic back pain HTN HLP Final Discharge Diagnosis: Syncope with fall and left ankle fracture with dislocation s/p reduction in ER Thoracic back pain HTN HLP Conclusion Labs Laboratory Tests 08/10/22 20:28: White Blood Count 7.0, Red Blood Count 4.19, Hemoglobin 11.7, Hematocrit 36, Mean Corpuscular Volume 86, Mean Corpuscular Hemoglobin 28, Mean Corpuscular Hemoglobin Concent 32, Red Cell Distribution Width 12.4, Platelet Count 258, Mean Platelet Volume 10.6, Immature Granulocyte % (Auto) 0, Neutrophils (%) (Auto) 64, Lymphocytes (%) (Auto) 27, Monocytes (%) (Auto) 8, Eosinophils (%) (Auto) 0, Basophils (%) (Auto) 0, Neutrophils # (Auto) 4.5, Lymphocytes # (Auto) 1.9, Monocytes # (Auto) 0.6, Eosinophils # (Auto) 0.0, Basophils # (Auto) 0.0, Immature Granulocyte # (Auto) 0.0, Sodium Level 139, Potassium Level 3.6, Chloride Level 104, Carbon Dioxide Level 20L, Anion Gap 15H, Blood Urea Nitrogen 19H, Creatinine 1.18, Estimat Glomerular Filtration Rate 49, BUN/Creatinine Ratio 16, Glucose Level 219H, Calcium Level 8.8, Corrected Calcium 8.8, Total Bilirubin 0.3, Aspartate Amino Transf (AST/SGOT) 15, Alanine Aminotransferase (ALT/SGPT) 12, Alkaline Phosphatase 74, Total Protein 6.8, Albumin 4.0 08/11/22 05:25: Conclusion/Plan Trauma surgery consult Lovenox for DVT PPx Pain control ARU Sunday Dr Benny Del Valle at [place] will be notified on Sunday SUMMER GILLIAM DO Aug 11, 2022 06:14
[2022-08-11 06:32] LABS: CALCIUM 8.3 MG/DL (8.5-10.1); CREATININE SERUM 0.7 MG/DL (0.60-1.30); POTASSIUM 3.6 MMOL/L (3.6-5.0)
[2022-08-11] MEDS: inSUlin ASPART (NovoLOG) 1 UNIT/0.01 ML (CHARGE PER UNIT) SC SCH ×4 (06:46→20:56)
[2022-08-11] MEDS: PANTOPRAZOLE 40 MG (PROTONIX) TAB PO SCH (06:51)
--- NOTE | 2022-08-11 08:35 | Diagnostic Imaging Report ---
EXAMINATION: Chest 1 view HISTORY: syncope COMPARISON: 10/01/2020 FINDINGS: Heart size and pulmonary vasculature are normal. There are mild interstitial opacities within the lungs. Stable likely calcified granuloma in the left lung base. No pleural effusion or pneumothorax. Degenerative changes of the thoracic spine. Osseous structures are otherwise intact. IMPRESSION: 1. Mild interstitial opacities within the lungs which can be seen with pulmonary edema, atypical infection, or atelectasis. Dictated by: Dictated on workstation # [id number]
--- NOTE | 2022-08-11 08:39 | Diagnostic Imaging Report ---
Indication: Postreduction. Time of Exam: 10:29 PM 2 views of the tibia and fibula demonstrate placement of cast material obscuring bone detail. There are postoperative changes of total knee arthroplasty. Fractures at the ankle are again noted. There has been interval reduction of the ankle dislocation. Trimalleolar fracture now appears to show anatomic alignment. Impression: Satisfactory reduction of the trimalleolar fracture dislocation when compared to exam earlier same evening. Dictated by: Dictated on workstation # [id number]
[2022-08-11] MEDS: ENALAPRIL 10 MG (VASOTEC) TAB PO SCH (08:42)
[2022-08-11] MEDS: ENOXAPARIN 40 MG/0.4 ML (LOVENOX) SYR SC SCH (08:42)
[2022-08-11] MEDS: SENNA W/DOCUSATE (SENOKOT S) TABLET PO SCH ×3 (08:45→19:46)
[2022-08-11] MEDS: polyethylene glycoL POWDER 17 GM (MIRALAX) PACK PO SCH ×2 (08:45→19:46)
[2022-08-11] MEDS: DOCUSATE SODIUM 100 MG (COLACE) CAP PO SCH ×2 (08:45→19:46)
[2022-08-11] MEDS: HYDROcodone/APAP 5 MG/325 MG (LORTAB) TAB PO PRN ×3 (09:51→23:42)
[2022-08-11] MEDS ORDERED: SENNA W/DOCUSATE (SENOKOT S) TABLET PO NR (11:30)
[2022-08-11] MEDS: BACLOFEN 10 MG (LIORESAL) TAB PO SCH ×3 (11:30→23:41)
--- NOTE | 2022-08-11 11:49 | Diagnostic Imaging Report ---
INDICATION: Fall. Now with back pain. COMPARISON: None FINDINGS: Frontal and lateral views of the thoracic spine were obtained. Visualization of the upper thoracic spine is limited on the lateral projection. Alignment and vertebral heights are maintained. There is no fracture or destructive process. There are no large paraspinal masses. Mild multilevel degenerative disease is noted in the thoracic spine. Limited views of the lungs are clear. IMPRESSION: 1. No acute fracture or dislocation of the thoracic spine. 2. Mild multilevel degenerative changes. Dictated by: Dictated on workstation # [id number]
--- NOTE | 2022-08-11 11:49 | Diagnostic Imaging Report ---
Indication: Fall with neck pain AP and odontoid and lateral views of cervical spine obtained. The odontoid appears intact. C1-C2 articulation appears in good alignment. Cervical vertebrae are normal in height and alignment. There is diffuse osteophyte formation. Facets are in good alignment. C7-T1 junction is not well visualized. Impression: Degenerative changes. No acute fracture or subluxation. The C7-T1 junction is not well seen. Dictated by: Dictated on workstation # [id number]
--- NOTE | 2022-08-11 12:02 | Physical Therapy Progress Note ---
Therapy Progress Note Orders received, chart reviewed. Per RN, pt on hold waiting results of x-ray of spine to rule out spinal fracture. Will re-assess next date to initiate PT evaluation. GUANAKO GUY PT Aug 11, 2022 12:02
--- NOTE | 2022-08-11 12:03 | Occ Therapy Progress Note ---
Therapy Progress Note Pt on hold per RN on this date. OT will attempt evaluation/tx next available date. EDITH REYES OT Aug 11, 2022 12:03
--- NOTE | 2022-08-11 12:27 | Consultation-Cardiology ---
HPI-Cardiology Cardiology Consultation: Date of Consultation 08/11/22 Time Seen by a Provider: 12:10 Date of Admission Attending Physician [facility] Admitting Physician Admitting Physician: Summer Cason DO Attending Physician: Summer Cason DO Consulting Physician GENEVA PRUITT MD, MA, FACP, FACC, [facility], CCDS Physician requesting Card consult: Dr Cason HPI: Chief Complaint: Syncope 72 yo woman who rosemarie from the sofa to [facility] to her son and passed out and felt about 30 seconds after having stood up. No premonitory symptoms. Was out for about 15 seconds. Confusion afterwards lasted about a min. No cp or palp or dizziness. Denies shortness of breath or swelling. Has previously had milder symptoms than that over the years. Recalls once having had that happened when she jumped up too fast. No n/v/d Review of Systems-Cardiology Review of Systems Constitutional: No malaise, No weight loss, No weight gain Eyes: No vision change Ears/Nose/Throat: No ear discharge, No nasal drainage, No recent hearing loss Respiratory: As described under HPI Cardiovascular: As described under HPI Gastrointestinal: No diarrhea, No nausea, No vomiting Genitourinary: No dysuria, No hematuria, No urine frequency changes : No Musculoskeletal: No back pain; joint pain (chronic) Skin: No rash, No ulcerations Psychiatric/Neurological: As described under HPI; No seizure, No focal weakness Hematologic: No bleeding abnormalities All Other Systems Reviewed Negative Unless Noted: Yes DQI-Hfnzki-Jfoesl Hx Patient Social History Smoking Status: Former Smoker Have you traveled recently?: No Alcohol Use?: Yes Substance type: Marijuana Pt feels they are or have been: No Tobacco type used: Cigarettes Immunizations Up To Date Tetanus Booster (TDap): Unknown Date of Pneumonia Vaccine: Jun 17, 2009 Past Medical History PMH As described under Assessment. Family Medical History Family History: Cancer 19 MOTHER (BREAST) Congestive heart failure G8 SISTER Dementia 19 MOTHER Family history: Arthritis G8 SISTER Family history: Breast disease 19 MOTHER Family history: Diabetes mellitus 19 MOTHER G8 SISTER Kidney disease G8 SISTER No Family History of: Abdominal aortic aneurysm Alcoholism Family history: Cardiovascular disease Family history: Gastrointestinal disease Family history: Hypertension Family history: Thyroid disorder Hereditary disease History of - respiratory disease Myocardial infarction Parkinson's disease Prostate cancer Psychotic disorder Seizure disorder Stroke Allergies and Home Medications Allergies Coded Allergies: No Known Drug Allergies (Unverified , 12/19/18) Patient Home Medication List Home Medication List Reviewed: Yes Cinnamon Bark (Cinnamon) 500 Mg Capsule, 500 MG PO BID, (Reported) Entered as Reported by: CLARE WEEMS on 02/10/201524 Citalopram Hydrobromide (Citalopram HBr) 20 Mg Tablet, 20 MG PO DAILY, (Reported) Entered as Reported by: CLARE WEEMS on 02/10/201524 Enalapril Maleate (Enalapril Maleate) Unknown Strength Tablet, 1 TAB PO DAILY, (Reported) Entered as Reported by: CLARE WEEMS on 02/10/201524 Fish Oil/Borage/Flax/Om3,6,9#1 (Lyeaiwto-Osue-Mvhmvs Oil Sftgl) 400 Mg Capsule, 400 MG PO BID, (Reported) Entered as Reported by: CLARE WEEMS on 02/10/201524 Furosemide (Furosemide) 20 Mg Tablet, 20 MG PO Q48H, (Reported) Entered as Reported by: CLARE WEEMS on 02/10/201524 Hydrochlorothiazide (Hydrochlorothiazide) 12.5 Mg Tablet, 12.5 MG PO DAILY, (Reported) Entered as Reported by: CLARE WEEMS on 02/10/201524 Insulin Detemir (Levemir Flextouch) 100 Unit/1 Ml Insuln.pen, 20 UNIT SQ HS, (Reported) Entered as Reported by: CLARE WEEMS on 02/10/201524 Insulin Detemir (Levemir Flextouch) 100 Unit/1 Ml Insuln.pen, 25 UNIT SQ DAILY, (Reported) Entered as Reported by: CLARE WEEMS on 02/10/201524 Magnesium (Magnesium) 250 Mg Tablet, 250 MG PO BID, (Reported) Entered as Reported by: CLARE WEEMS on 02/10/201524 Metformin HCl (Metformin HCl) 500 Mg Tablet, 1,000 MG PO BID, (Reported) Entered as Reported by: CLARE WEEMS on 02/10/201524 Metoprolol Succinate (Metoprolol Succinate) 25 Mg Tab.er.24h, 25 MG PO DAILY, (Reported) Entered as Reported by: CLARE WEEMS on 02/10/201524 Multivitamin (Multivitamins) 1 Each Tablet, 1 EACH PO DAILY, (Reported) Entered as Reported by: CLARE WEEMS on 02/10/201524 Pioglitazone HCl (Pioglitazone HCl) 30 Mg Tablet, 30 MG PO DAILY, (Reported) Entered as Reported by: CLARE WEEMS on 02/10/201524 Simvastatin (Simvastatin) 10 Mg Tablet, 10 MG PO DAILY, (Reported) Entered as Reported by: CLARE WEEMS on 02/10/201524 Turmeric/Turmeric Root Extract (Turmeric 500 mg Capsule) 1 Each Capsule, 1 EACH PO BID, (Reported) Entered as Reported by: CLARE WEEMS on 02/10/201524 Physical Exam-Cardiology Physical Exam Vital Signs/I&O 08/11/22 08/11/22 08/11/22 08/11/22 00:35 00:42 00:44 01:00 Temp 36.2 36.7 Pulse 75 68 67 Resp 20 B/P (MAP) 163/62 (95) Pulse Ox 97 96 O2 Delivery Room Air Room Air FiO2 21 08/11/22 08/11/22 08/11/22 08/11/22 04:00 07:00 07:41 08:00 Temp 36.9 36.2 Pulse 80 77 80 Resp 18 18 B/P (MAP) 150/68 (95) 161/71 (101) Pulse Ox 96 95 O2 Delivery Room Air Room Air Room Air 08/11/22 00:00 Intake Total 500 ml Balance 500 ml Capillary Refill : Less Than 3 Seconds Constitutional: AAO x 3, well-developed, well-nourished HEENT: EOMI; No hearing is well preserved Neck: No non-tender, No carotid pulses are 2 + bilaterally Respiratory: No accessory muscle use; other (good bilateral air entry) Cardiovascular: regular rate-rhythm, S1 and S2, systolic murmur (soft DOTTIE at cardiac base) Gastrointestinal: No tender; soft; No guarding, No rebound; audible bowel sounds Extremities: No clubbing, No cyanosis, No significant edema Neurologic/Psychiatric: oriented x 3, other (moves all limbs equally) Skin: No rash on exposed areas, No ulcerations on exposed areas Data Review Labs Laboratory Tests 08/10/22 20:28: White Blood Count 7.0, Red Blood Count 4.19, Hemoglobin 11.7, Hematocrit 36, Mean Corpuscular Volume 86, Mean Corpuscular Hemoglobin 28, Mean Corpuscular Hemoglobin Concent 32, Red Cell Distribution Width 12.4, Platelet Count 258, Mean Platelet Volume 10.6, Immature Granulocyte % (Auto) 0, Neutrophils (%) (Auto) 64, Lymphocytes (%) (Auto) 27, Monocytes (%) (Auto) 8, Eosinophils (%) (Auto) 0, Basophils (%) (Auto) 0, Neutrophils # (Auto) 4.5, Lymphocytes # (Auto) 1.9, Monocytes # (Auto) 0.6, Eosinophils # (Auto) 0.0, Basophils # (Auto) 0.0, Immature Granulocyte # (Auto) 0.0, Sodium Level 139, Potassium Level 3.6, Chloride Level 104, Carbon Dioxide Level 20L, Anion Gap 15H, Blood Urea Nitrogen 19H, Creatinine 1.18, Estimat Glomerular Filtration Rate 49, BUN/Creatinine Ratio 16, Glucose Level 219H, Calcium Level 8.8, Corrected Calcium 8.8, Total Bilirubin 0.3, Aspartate Amino Transf (AST/SGOT) 15, Alanine Aminotransferase (ALT/SGPT) 12, Alkaline Phosphatase 74, Total Protein 6.8, Albumin 4.0 08/11/22 05:25: Sodium Level 139, Potassium Level 3.6, Chloride Level 108H, Carbon Dioxide Level 19L, Anion Gap 12, Blood Urea Nitrogen 13, Creatinine 0.70, Estimat Glomerular Filtration Rate 92, BUN/Creatinine Ratio 19, Glucose Level 136H, Calcium Level 8.3L 08/11/22 11:31: Glucometer 177H Laboratory Tests 08/10/22 20:28 08/11/22 05:25 A/P-Cardiology Assessment/Admission Diagnosis Syncope of undetermined etiology L ankle fracture after syncopal fall on 08/10/22 Hypertension DJD DM II Hyperlipidemia - treated with statins Discussion and Recomendations * Echo * Orthostatic bp documentation is recommended when able to stand * Monitor labs * Keep on tele * Consider ILR if orthostatic bp normal and if no arrhythmia seen on tele * DVT prophylaxis recommend * Further recs based on hosp course GENEVA PRUITT MD FACP FAC CCDS Aug 11, 2022 12:27
[2022-08-11] MEDS ORDERED: ROSU20TA32 PO (12:49)
[2022-08-11] MEDS ORDERED: POTA99TA18 PO (12:49)
[2022-08-11] MEDS ORDERED: LIRA0.6P3 SQ (12:49)
[2022-08-11] MEDS ORDERED: PANT40TA52 PO (12:49)
[2022-08-11] MEDS ORDERED: ENAL20TA16 PO (12:49)
[2022-08-11] MEDS ORDERED: CANA1TAB6 PO (12:49)
[2022-08-11] MEDS ORDERED: UBID200C16 PO (12:49)
[2022-08-11] MEDS ORDERED: INSU100I29 SQ (12:49)
[2022-08-11] MEDS ORDERED: TURM500T PO (12:49)
[2022-08-11] MEDS ORDERED: HYDR25TA4 PO (12:49)
--- NOTE | 2022-08-11 13:08 | Consultation - Surgery ---
History of Present Illness History of Present Illness Patient Consulted On(yanira/time) 08/11/22 12:58 Time Seen by Provider: 11:49 History of Present Illness Surgery asked to consult regarding same level fall, possible trauma. HPI per ED: Patient is a 72-year-old female who presents to the emergency department today with a chief complaint of fall/syncope this evening. Resultant obvious fracture dislocation of the left ankle. Patient was enjoying her Thanksgiving dinner and had stood up to talk to her son and give him a hug as he was leaving. He states that he was hugging her and she "fell out". She had a syncopal event that lasted 30 seconds to a minute. He attempted to catch her as she fell to the floor but she landed on her left ankle. Patient had coherent speech shortly after the event. She did not hit her head. No seizure-like movements reported. Immediate pain in her left ankle. Patient states that she had no symptoms prior to the episode. She did not have shortness of breath, palpitations, "tunnel vision", nausea or sweating. She has never had anything like this happen before. She is a diabetic. EMS reported a blood sugar in the 260 range. No other complaints of recent illness or injury. She has had prior cardiac evaluation, stress test in 2017 was reported as normal. She has some knee pain as well currently. Also some midthoracic back pain. No numbness, tingling or weakness. She is able to wiggle the toes on her left foot. It is obviously laterally dislocated. Normal capillary refill, warm. Pulses are intact. Not an open fracture dislocation. When I spoke to the pt and her daughter, her main complaint was of the ankle pain. However, she also complained of mid back pain that was "more of spasms and the pain is away from midline". The daughter also described what she saw when her mom fell. She states that she fell straight down, with upper body twisting and not the foot, landing on her back and her head hitting the floor. Daughter states it hard and "sounded like a hollow melon". Pt report she took a 25mg Hybrid gummy in the morning because of pain. Allergies and Home Medications Allergies Coded Allergies: No Known Drug Allergies (Unverified , 12/19/18) Patient Home Medication List Home Medication List Reviewed: Yes Canagliflozin/Metformin HCl (Invokamet Xr 50-1,000 mg Tab) 50 Mg-1,000 Mg Tab .bp.24h, 2 EACH PO DAILY, (Reported) Entered as Reported by: DEBRA REYES on 08/11/221248 Last Action: Reviewed Citalopram Hydrobromide (Citalopram HBr) 20 Mg Tablet, 20 MG PO DAILY, (Reported) Entered as Reported by: CLARE WEEMS on 02/10/201524 Last Action: Reviewed Enalapril Maleate (Enalapril Maleate) 20 Mg Tablet, 20 MG PO DAILY, (Reported) Entered as Reported by: DEBRA REYES on 08/11/221248 Last Action: Reviewed Hydrochlorothiazide (Hydrochlorothiazide) 25 Mg Tablet, 25 MG PO DAILY, (Reported) Entered as Reported by: DEBRA REYES on 08/11/221248 Last Action: Reviewed Insulin Detemir (Levemir Flextouch) 100 Unit/Ml (3 Ml) Insuln.pen, 10 UNIT SQ DAILY, (Reported) Entered as Reported by: DEBRA REYES on 08/11/221248 Last Action: Reviewed Liraglutide (Victoza 3-Jeramy) 0.6 Mg/0.1 Ml (18 Mg/3 Ml) Pen.injctr, 3 MG SQ DAILY, (Reported) Entered as Reported by: DEBRA REYES on 08/11/221248 Last Action: Reviewed Multivitamin (Multivitamins) 1 Each Tablet, 1 EACH PO DAILY, (Reported) Entered as Reported by: CLARE WEEMS on 02/10/201524 Last Action: Reviewed Pantoprazole Sodium (Pantoprazole Sodium) 40 Mg Tablet.dr, 40 MG PO DAILY, (Reported) Entered as Reported by: DEBRA REYES on 08/11/221248 Last Action: Reviewed Pioglitazone HCl (Pioglitazone HCl) 30 Mg Tablet, 30 MG PO DAILY, (Reported) Entered as Reported by: CLARE WEEMS on 02/10/201524 Last Action: Reviewed Potassium Gluconate (Potassium Gluconate) 595 Mg (99 Mg) Tablet.er, 198 MG PO DAILY, (Reported) Entered as Reported by: DEBRA REYES on 08/11/221248 Last Action: Reviewed Rosuvastatin Calcium (Rosuvastatin Calcium) 20 Mg Tablet, 20 MG PO DAILY, (Reported) Entered as Reported by: DEBRA REYES on 08/11/221248 Last Action: Reviewed Turmeric Root Extract (Turmeric) 500 Mg Tablet, 1,000 MG PO DAILY, (Reported) Entered as Reported by: DEBRA REYES on 08/11/221248 Last Action: Reviewed Ubidecarenone (Co Q-10) 200 Mg Capsule, 200 MG PO DAILY, (Reported) Entered as Reported by: DEBRA REYES on 08/11/221248 Last Action: Reviewed Discontinued Medications Cinnamon Bark (Cinnamon) 500 Mg Capsule, 500 MG PO BID, (Reported) Discontinued Reason: No Longer Taking Entered as Reported by: CLARE WEEMS on 02/10/201524 Last Action: Discontinued Enalapril Maleate (Enalapril Maleate) Unknown Strength Tablet, 1 TAB PO DAILY, (Reported) Discontinued Reason: No Longer Taking Entered as Reported by: CLARE WEEMS on 02/10/201524 Last Action: Discontinued Fish Oil/Borage/Flax/Om3,6,9#1 (Iiywncaz-Deqy-Yuyipy Oil Sftgl) 400 Mg Capsule, 400 MG PO BID, (Reported) Discontinued Reason: No Longer Taking Entered as Reported by: CLARE WEEMS on 02/10/201524 Last Action: Discontinued Furosemide (Furosemide) 20 Mg Tablet, 20 MG PO Q48H, (Reported) Discontinued Reason: No Longer Taking Entered as Reported by: CLARE WEEMS on 02/10/201524 Last Action: Discontinued Hydrochlorothiazide (Hydrochlorothiazide) 12.5 Mg Tablet, 12.5 MG PO DAILY, (Reported) Discontinued Reason: No Longer Taking Entered as Reported by: CLARE WEEMS on 02/10/201524 Last Action: Discontinued Insulin Detemir (Levemir Flextouch) 100 Unit/1 Ml Insuln.pen, 20 UNIT SQ HS, (Reported) Discontinued Reason: No Longer Taking Entered as Reported by: CLARE WEEMS on 02/10/201524 Last Action: Discontinued Insulin Detemir (Levemir Flextouch) 100 Unit/1 Ml Insuln.pen, 25 UNIT SQ DAILY, (Reported) Discontinued Reason: No Longer Taking Entered as Reported by: CLARE WEEMS on 02/10/201524 Last Action: Discontinued Magnesium (Magnesium) 250 Mg Tablet, 250 MG PO BID, (Reported) Discontinued Reason: No Longer Taking Entered as Reported by: CLARE WEEMS on 02/10/201524 Last Action: Discontinued Metformin HCl (Metformin HCl) 500 Mg Tablet, 1,000 MG PO BID, (Reported) Discontinued Reason: No Longer Taking Entered as Reported by: CLARE WEEMS on 02/10/201524 Last Action: Discontinued Metoprolol Succinate (Metoprolol Succinate) 25 Mg Tab.er.24h, 25 MG PO DAILY, (Reported) Discontinued Reason: No Longer Taking Entered as Reported by: CLARE WEEMS on 02/10/201524 Last Action: Discontinued Simvastatin (Simvastatin) 10 Mg Tablet, 10 MG PO DAILY, (Reported) Discontinued Reason: No Longer Taking Entered as Reported by: CLARE WEEMS on 02/10/201524 Last Action: Discontinued Turmeric/Turmeric Root Extract (Turmeric 500 mg Capsule) 1 Each Capsule, 1 EACH PO BID, (Reported) Discontinued Reason: Prescription changed Entered as Reported by: CLARE WEEMS on 02/10/201524 Past Sotrcjc-Nmvmyr-Kurcon Hx Patient Social History Smoking Status: Former Smoker Former Smoker, Quit: Dec 27, 2004 Recent Hopitalizations: Yes Alcohol Use?: Yes Substance type: Marijuana Have you traveled recently?: No Immunizations Up To Date Tetanus Booster (TDap): Unknown Date of Pneumonia Vaccine: Jun 17, 2009 Surgeries History of Surgeries: Yes (RIGHT KNEE RECONSTRUCTION, RIGHT KNEE SCOPE, l hip, l knee) Surgeries: Hysterectomy, Orthopedic Respiratory History of Respiratory Disorde: Yes (asthma) Respiratory Disorders: Asthma, Sleep Apnea Cardiovascular History of Cardiac Disorders: Yes Cardiac Disorders: High Cholesterol, Hypertension Neurological History of Neurological Disord: Yes Neurological Disorders: Headaches /Migraines, Vertigo Reproductive System Hx 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 Genitourinary History of Genitourinary Disor: No Gastrointestinal History of Gastrointestinal Di: Yes (IBS) Gastrointestinal Disorders: Gastroesophageal Reflux Musculoskeletal History of Musculoskeletal Dis: Yes (LEFT KNEE OSTEOARTHRITIS) Musculoskeletal Disorders: Arthritis Endocrine History of Endocrine Disorders: Yes Endocrine Disorders: Diabetes, Insulin dep HEENT History of HEENT Disorders: No Cancer History of Cancer: No Psychosocial History of Psychiatric Problem: No Integumentary History of Skin or Integumenta: Yes (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) Skin/Integumentary Disorders: Psoriasis Blood Transfusions History of Blood Disorders: No Family Medical History Significant Family History: Heart Disease (sisters had CABG), Cancer (Mother had breast, Father lung), Diabetes, Stroke Family Medial History: Cancer 19 MOTHER (BREAST) Congestive heart failure G8 SISTER Dementia 19 MOTHER Family history: Arthritis G8 SISTER Family history: Breast disease 19 MOTHER Family history: Diabetes mellitus 19 MOTHER G8 SISTER Kidney disease G8 SISTER Review of Systems-General Constitutional: No chills, No diaphoresis; dizziness EENTM: No blurred vision, No double vision, No epistaxis, No throat swelling Respiratory: No cough, No dyspnea on exertion, No hemoptysis Cardiovascular: No chest pain, No Hx of Intervention, No palpitations Gastrointestinal: No abdominal pain, No nausea, No vomiting Genitourinary: No dysuria, No frequency, No hematuria Musculoskeletal: back pain, joint pain, muscle stiffness, muscle cramps Skin: No change in color, No change in hair/nails Psychiatric/Neurological: Denies Anxiety, Denies Depressed, Denies Headache, Denies Seizure, Denies Tremors Physical Exam-General Problems Physical Exam Vital Signs Vital Signs - First Documented 08/10/22 08/11/22 20:14 00:42 Temp 36.5 Pulse 75 Resp 16 B/P (MAP) 146/66 (92) Pulse Ox 97 O2 Delivery Room Air FiO2 21 Capillary Refill : Less Than 3 Seconds General Appearance: WD/WN, no apparent distress Eyes: Bilateral Eye PERRL, Bilateral Eye EOMI HEENT: pharynx normal; No scleral icterus (R), No scleral icterus (L) Neck: supple; No thyromegaly Respiratory: lungs clear, normal breath sounds, no respiratory distress, no accessory muscle use Cardiovascular: regular rate, rhythm, no murmur Gastrointestinal: non tender, soft, no organomegaly Back: no vertebral tenderness, muscle spasm Extremities: no pedal edema, no calf tenderness, other (left ankle/lower leg in cast) 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, no motor/sensory deficits, alert, normal mood/affect, oriented x 3 Skin: normal color, warm/dry Lymphatic: no adenopathy (neck, axilla or groin) Data Review Labs Laboratory Tests 08/10/22 20:28: White Blood Count 7.0, Red Blood Count 4.19, Hemoglobin 11.7, Hematocrit 36, Mean Corpuscular Volume 86, Mean Corpuscular Hemoglobin 28, Mean Corpuscular Hemoglobin Concent 32, Red Cell Distribution Width 12.4, Platelet Count 258, Mean Platelet Volume 10.6, Immature Granulocyte % (Auto) 0, Neutrophils (%) (Auto) 64, Lymphocytes (%) (Auto) 27, Monocytes (%) (Auto) 8, Eosinophils (%) (Auto) 0, Basophils (%) (Auto) 0, Neutrophils # (Auto) 4.5, Lymphocytes # (Auto) 1.9, Monocytes # (Auto) 0.6, Eosinophils # (Auto) 0.0, Basophils # (Auto) 0.0, Immature Granulocyte # (Auto) 0.0, Sodium Level 139, Potassium Level 3.6, Chloride Level 104, Carbon Dioxide Level 20L, Anion Gap 15H, Blood Urea Nitrogen 19H, Creatinine 1.18, Estimat Glomerular Filtration Rate 49, BUN/Creatinine Ratio 16, Glucose Level 219H, Calcium Level 8.8, Corrected Calcium 8.8, Total Bilirubin 0.3, Aspartate Amino Transf (AST/SGOT) 15, Alanine Aminotransferase (ALT/SGPT) 12, Alkaline Phosphatase 74, Total Protein 6.8, Albumin 4.0 08/11/22 05:25: Sodium Level 139, Potassium Level 3.6, Chloride Level 108H, Carbon Dioxide Level 19L, Anion Gap 12, Blood Urea Nitrogen 13, Creatinine 0.70, Estimat Glomerular Filtration Rate 92, BUN/Creatinine Ratio 19, Glucose Level 136H, Calcium Level 8.3L 08/11/22 11:31: Glucometer 177H Radiology Date of Exam:08/11/22 THORACIC SPINE, 2 VIEWS ONLY INDICATION: Fall. Now with back pain. COMPARISON: None FINDINGS: Frontal and lateral views of the thoracic spine were obtained. Visualization of the upper thoracic spine is limited on the lateral projection. Alignment and vertebral heights are maintained. There is no fracture or destructive process. There are no large paraspinal masses. Mild multilevel degenerative disease is noted in the thoracic spine. Limited views of the lungs are clear. IMPRESSION: 1. No acute fracture or dislocation of the thoracic spine. 2. Mild multilevel degenerative changes. Dictated by: Dictated on workstation # [id number] Dict: 08/11/22 1147 Trans: 08/11/221157 [facility] [id number] Interpreted by: ALEX CHATTERJEE MD Electronically signed by: ALEX CHATTERJEE MD 08/11/228 Date of Exam:08/10/22 ANKLE, LEFT, 3 VIEWS INDICATION: Left ankle injury. FINDINGS: Three views of the left ankle show a trimalleolar fracture of the ankle with lateral dislocation. IMPRESSION: Laterally dislocated trimalleolar fracture of the left ankle. Dictated by: Dictated on workstation # [id number] Dict: 08/10/222107 Trans: 08/10/222131 [facility] [phone] Interpreted by: JOSELIN LUND MD Electronically signed by: JOSELIN LUND MD 08/10/222131 Assessment/Plan Assessment/Plan Assessment/Plan Left Trimalleolar Fx Blow to Head (possible TBI) DM Pt is lying in bed comfortably, Thoracic spine x-ray does not show any acute fracture and pt is complaining of pain laterally and not over the spine itself. I am concerned because it sounds like pt hit her head very hard; will order a CT of the head. In the meantime, pt is getting pain meds, IV fluids and can eat. Max medical management. I did discuss her case with Dr. Cason. EARL MARIEE DO Aug 11, 2022 13:08
--- NOTE | 2022-08-11 13:54 | Diagnostic Imaging Report ---
CLINICAL INDICATION: Rule out traumatic brain injury. EXAM: Axial CT scan of the brain performed without IV contrast. Coronal and sagittal reformatted images are created. COMPARISON: Head CT without contrast dated 12/19/2018. FINDINGS: There is no evidence of acute cerebral infarct, intracranial hemorrhage, or gross mass effect. The brain parenchymal volume appears appropriate for patient's age. There is normal mccormick-white matter distinction. There is no significant midline shift or herniation. There is no evidence of hydrocephalus. The basal cisterns are unremarkable. The skull, extracranial soft tissue, and orbits are unremarkable. There is minimal mucosal thickening involving the right maxillary sinus, ethmoid sinus, and sphenoid sinus. Temporal bones show no significant abnormality. IMPRESSION: 1: Unremarkable CT scan of the brain for age with no evidence of acute intracranial process. 2: Mild paranasal sinus disease. Dictated by: Dictated on workstation # [id number]
[2022-08-11] MEDS ORDERED: ROSUVASTATIN 20 MG (CRESTOR) TABLET PO SCH (21:00)
[2022-08-11] MEDS ORDERED: HYDROmorphone 2 MG/ML VIAL (DILAUDID) ONE (21:16)
[2022-08-11] MEDS: HYDROmorphone 2 MG/ML VIAL (DILAUDID) IV PRN (21:20)
[2022-08-12] MEDS: HYDROmorphone 2 MG/ML VIAL (DILAUDID) IV PRN (02:04)
[2022-08-12 04:34] VITALS: BP 131/63
[2022-08-12] MEDS: HYDROcodone/APAP 5 MG/325 MG (LORTAB) TAB PO PRN ×2 (05:41→10:13)
[2022-08-12] MEDS: BACLOFEN 10 MG (LIORESAL) TAB PO SCH (05:41)
[2022-08-12] MEDS: PANTOPRAZOLE 40 MG (PROTONIX) TAB PO SCH (05:41)
--- NOTE | 2022-08-12 05:50 | Progress Note ---
Subjective Date Seen by a Provider: Aug 12, 2022 Time Seen by a Provider: 11:00 Objective Exam Last Set of Vital Signs Vital Signs Date Time Temp Pulse Resp B/P (MAP) Pulse Ox O2 Delivery O2 Flow Rate FiO2 08/12/22 04:34 36.2 68 18 131/63 (85) 94 Room Air 08/11/22 21:09 2.00 08/11/22 00:42 21 Capillary Refill : Less Than 3 Seconds I&O Intake and Output 08/12/22 00:00 Intake Total 1140 ml Output Total 240 ml Balance 900 ml Intake Oral 1140 ml Output Urine Total 240 ml # Voids 6 # Bowel Movements 1 Daily Weight Change No Results Lab Laboratory Tests 08/11/22 11:31: Glucometer 177H 08/11/22 16:00: Glucometer 154H 08/11/22 20:32: Glucometer 181H NAJMA GILLIAM DO Aug 12, 2022 05:50
[2022-08-12] MEDS: inSUlin ASPART (NovoLOG) 1 UNIT/0.01 ML (CHARGE PER UNIT) SC SCH (06:24)
[2022-08-12 08:00] VITALS: BP 133/62
[2022-08-12] MEDS: ENALAPRIL 10 MG (VASOTEC) TAB PO SCH (08:01)
[2022-08-12] MEDS: ENOXAPARIN 40 MG/0.4 ML (LOVENOX) SYR SC SCH (08:01)
[2022-08-12] MEDS: DOCUSATE SODIUM 100 MG (COLACE) CAP PO SCH (08:02)
[2022-08-12] MEDS: SENNA W/DOCUSATE (SENOKOT S) TABLET PO SCH ×2 (08:02)
[2022-08-12] MEDS: polyethylene glycoL POWDER 17 GM (MIRALAX) PACK PO SCH (08:02)
[2022-08-12 08:46] LABS: BASOPHILS % (AUTO) 0 % (0-10); EOSINOPHILS # (AUTO) 0.2 10^3/uL (0.0-0.3); EOSINOPHILS % (AUTO) 4 % (0-10); HEMATOCRIT 38 % (35-52); HEMOGLOBIN 12.2 g/dL (11.5-16.0); LYMPHOCYTES # (AUTO) 1.6 10^3/uL (1.0-4.0); LYMPHOCYTES % (AUTO) 28 % (12-44); MEAN CORPUSCULAR HEMOGLOBIN 28 pg (25-34); MEAN CORPUSCULAR HGB CONC 33 g/dL (32-36); MEAN CORPUSCULAR VOLUME 86 fL (80-99); MEAN PLATELET VOLUME 9.8 fL (9.0-12.2); MONOCYTES # (AUTO) 0.5 10^3/uL (0.0-1.0); MONOCYTES % (AUTO) 8 % (0-12); NEUTROPHILS # (AUTO) 3.6 10^3/uL (1.8-7.8); NEUTROPHILS % (AUTO) 60 % (42-75); PLATELET COUNT 196 10^3/uL (130-400)
[2022-08-12 09:08] LABS: ALBUMIN 3.6 GM/DL (3.2-4.5); BILIRUBIN,TOTAL 0.6 MG/DL (0.1-1.0); CALCIUM 8.6 MG/DL (8.5-10.1); CREATININE SERUM 0.63 MG/DL (0.60-1.30); POTASSIUM 3.5 MMOL/L (3.6-5.0); TOTAL PROTEIN 6.3 GM/DL (6.4-8.2)
--- NOTE | 2022-08-12 09:59 | Discharge Summary ---
Diagnosis/Chief Complaint Date of Admission Aug 10, 2022 at 23:30 Date of Discharge Discharge Date: Aug 12, 2022 Discharge Diagnosis Syncope with fall and left ankle fracture with dislocation s/p reduction in ER Thoracic back pain no fracture on x-ray HTN HLP Reason Hospital Visit CC: Fall after syncopal episode with subsequent laterally dislocated trimalleolar fracture of the left ankle s/p closed reduction in ER HPI: This is a 72yoWF clinic patient of [facility] who suffered a syncopal episode at home following a Thanksgiving meal. She suffered a lateral dislocated left ankle fracture s/p reduction in ER and will be unable to undergo repair for at least 1 week due to swelling. Telemetry added due to syncope and ECHO ordered and Cardiology consulted. 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 Dr Benny Rodriguez is her preferred Orthopedic surgeon who managed her hip surgery in the past. Trauma surgery will be consulted and thoracic xray will be obtained due to back pain. IS and Lovenox added. ARU will be an option tomorrow once spine has been cleared. ER HPI: Patient is a 72-year-old female who presents to the emergency department today with a chief complaint of fall/syncope this evening. Resultant obvious fracture dislocation of the left ankle. Patient was enjoying her Thanksgiving dinner and had stood up to talk to her son and give him a hug as he was leaving. He states that he was hugging her and she "fell out". She had a syncopal event that lasted 30 seconds to a minute. He attempted to catch her as she fell to the floor but she landed on her left ankle. Patient had coherent speech shortly after the event. She did not hit her head. No seizure-like movements reported. Immediate pain in her left ankle. Patient states that she had no symptoms prior to the episode. She did not have shortness of breath, palpitations, "tunnel vision", nausea or sweating. She has never had anything like this happen before. She is a diabetic. EMS reported a blood sugar in the 260 range. No other complaints of recent illness or injury. She has had prior cardiac evaluation, stress test in 2017 was reported as normal. She has some knee pain as well currently. Also some midthoracic back pain. No numbness, tingling or weakness. She is able to wiggle the toes on her left foot. It is obviously laterally dislocated. Normal capillary refill, warm. Pulses are intact. Not an open fracture dislocation. Discharge Summary Discharge Physical Examination Allergies: Coded Allergies: No Known Drug Allergies (Unverified , 12/19/18) Vitals & I&Os Vital Signs Date Time Temp Pulse Resp B/P (MAP) Pulse Ox O2 Delivery O2 Flow Rate FiO2 08/12/22 10:14 08/12/22 08:17 Room Air 08/12/22 08:00 36.1 65 16 95 08/11/22 21:09 2.00 08/11/22 00:42 21 General Appearance: Alert, Oriented X3, Cooperative Respiratory: Clear to Auscultation Cardiovascular: Regular Rate Psych/Mental Status: Mental Status NL Hospital Course Was the Problem List Reviewed?: Yes Patient had a brief overnight hospital course after she was admitted for left ankle fracture and severe debility. She had a syncopal episode so cardiology was consulted and telemetry was maintained and echocardiogram was obtained. O verall pain was well controlled and she was moved down to ARU. Labs (last 24 hrs) Laboratory Tests 08/10/22 20:28: White Blood Count 7.0, Red Blood Count 4.19, Hemoglobin 11.7, Hematocrit 36, Mean Corpuscular Volume 86, Mean Corpuscular Hemoglobin 28, Mean Corpuscular Hemoglobin Concent 32, Red Cell Distribution Width 12.4, Platelet Count 258, Mean Platelet Volume 10.6, Immature Granulocyte % (Auto) 0, Neutrophils (%) (Auto) 64, Lymphocytes (%) (Auto) 27, Monocytes (%) (Auto) 8, Eosinophils (%) (Auto) 0, Basophils (%) (Auto) 0, Neutrophils # (Auto) 4.5, Lymphocytes # (Auto) 1.9, Monocytes # (Auto) 0.6, Eosinophils # (Auto) 0.0, Basophils # (Auto) 0.0, Immature Granulocyte # (Auto) 0.0, Sodium Level 139, Potassium Level 3.6, Chloride Level 104, Carbon Dioxide Level 20L, Anion Gap 15H, Blood Urea Nitrogen 19H, Creatinine 1.18, Estimat Glomerular Filtration Rate 49, BUN/Creatinine Ratio 16, Glucose Level 219H, Calcium Level 8.8, Corrected Calcium 8.8, Total Bilirubin 0.3, Aspartate Amino Transf (AST/SGOT) 15, Alanine Aminotransferase (ALT/SGPT) 12, Alkaline Phosphatase 74, Total Protein 6.8, Albumin 4.0 08/11/22 05:25: Sodium Level 139, Potassium Level 3.6, Chloride Level 108H, Carbon Dioxide Level 19L, Anion Gap 12, Blood Urea Nitrogen 13, Creatinine 0.70, Estimat Glomerular Filtration Rate 92, BUN/Creatinine Ratio 19, Glucose Level 136H, Calcium Level 8.3L 08/11/22 11:31: Glucometer 177H 08/11/22 16:00: Glucometer 154H 08/11/22 20:32: Glucometer 181H 08/12/22 06:23: Glucometer 160H 08/12/22 08:35: White Blood Count 6.0, Red Blood Count 4.35, Hemoglobin 12.2, Hematocrit 38, Mean Corpuscular Volume 86, Mean Corpuscular Hemoglobin 28, Mean Corpuscular Hemoglobin Concent 33, Red Cell Distribution Width 12.2, Platelet Count 196, Mean Platelet Volume 9.8, Immature Granulocyte % (Auto) 0, Neutrophils (%) (Auto) 60, Lymphocytes (%) (Auto) 28, Monocytes (%) (Auto) 8, Eosinophils (%) (Auto) 4, Basophils (%) (Auto) 0, Neutrophils # (Auto) 3.6, Lymphocytes # (Auto) 1.6, Monocytes # (Auto) 0.5, Eosinophils # (Auto) 0.2, Basophils # (Auto) 0.0, Immature Granulocyte # (Auto) 0.0, Sodium Level 137, Potassium Level 3.5L, Chloride Level 103, Carbon Dioxide Level 23, Anion Gap 11, Blood Urea Nitrogen 10, Creatinine 0.63, Estimat Glomerular Filtration Rate 95, BUN/Creatinine Ratio 16, Glucose Level 140H, Calcium Level 8.6, Corrected Calcium 8.9, Total Bilirubin 0.6, Aspartate Amino Transf (AST/SGOT) 13, Alanine Aminotransferase (ALT/SGPT) 9, Alkaline Phosphatase 61, Total Protein 6.3L, Albumin 3.6 Pending Labs Laboratory Tests 08/10/22 20:28: White Blood Count 7.0, Red Blood Count 4.19, Hemoglobin 11.7, Hematocrit 36, Mean Corpuscular Volume 86, Mean Corpuscular Hemoglobin 28, Mean Corpuscular Hemoglobin Concent 32, Red Cell Distribution Width 12.4, Platelet Count 258, Mean Platelet Volume 10.6, Immature Granulocyte % (Auto) 0, Neutrophils (%) (Auto) 64, Lymphocytes (%) (Auto) 27, Monocytes (%) (Auto) 8, Eosinophils (%) (Auto) 0, Basophils (%) (Auto) 0, Neutrophils # (Auto) 4.5, Lymphocytes # (Auto) 1.9, Monocytes # (Auto) 0.6, Eosinophils # (Auto) 0.0, Basophils # (Auto) 0.0, Immature Granulocyte # (Auto) 0.0, Sodium Level 139, Potassium Level 3.6, Chloride Level 104, Carbon Dioxide Level 20, Anion Gap 15, Blood Urea Nitrogen 19, Creatinine 1.18, Estimat Glomerular Filtration Rate 49, BUN/Creatinine Ratio 16, Glucose Level 219, Calcium Level 8.8, Corrected Calcium 8.8, Total Bilirubin 0.3, Aspartate Amino Transf (AST/SGOT) 15, Alanine Aminotransferase (ALT/SGPT) 12, Alkaline Phosphatase 74, Total Protein 6.8, Albumin 4.0 08/11/22 05:25: Sodium Level 139, Potassium Level 3.6, Chloride Level 108, Carbon Dioxide Level 19, Anion Gap 12, Blood Urea Nitrogen 13, Creatinine 0.70, Estimat Glomerular Filtration Rate 92, BUN/Creatinine Ratio 19, Glucose Level 136, Calcium Level 8.3 08/11/22 11:31: Glucometer 177 08/11/22 16:00: Glucometer 154 08/11/22 20:32: Glucometer 181 08/12/22 06:23: Glucometer 160 08/12/22 08:35: White Blood Count 6.0, Red Blood Count 4.35, Hemoglobin 12.2, Hematocrit 38, Mean Corpuscular Volume 86, Mean Corpuscular Hemoglobin 28, Mean Corpuscular Hemoglobin Concent 33, Red Cell Distribution Width 12.2, Platelet Count 196, Mean Platelet Volume 9.8, Immature Granulocyte % (Auto) 0, Neutrophils (%) (Auto) 60, Lymphocytes (%) (Auto) 28, Monocytes (%) (Auto) 8, Eosinophils (%) (Auto) 4, Basophils (%) (Auto) 0, Neutrophils # (Auto) 3.6, Lymphocytes # (Auto) 1.6, Monocytes # (Auto) 0.5, Eosinophils # (Auto) 0.2, Basophils # (Auto) 0.0, Immature Granulocyte # (Auto) 0.0, Sodium Level 137, Potassium Level 3.5, Chloride Level 103, Carbon Dioxide Level 23, Anion Gap 11, Blood Urea Nitrogen 10, Creatinine 0.63, Estimat Glomerular Filtration Rate 95, BUN/Creatinine Ratio 16, Glucose Level 140, Calcium Level 8.6, Corrected Calcium 8.9, Total Bilirubin 0.6, Aspartate Amino Transf (AST/SGOT) 13, Alanine Aminotransferase (ALT/SGPT) 9, Alkaline Phosphatase 61, Total Protein 6.3, Albumin 3.6 Discharge Home Medications: Active Scripts Active Reported Victoza 3-Jeramy (Liraglutide) 0.6 Mg/0.1 Ml (18 Mg/3 Ml) Pen.injctr 3 Mg SQ DAILY Levemir Flextouch (Insulin Detemir) 100 Unit/Ml (3 Ml) Insuln.pen 10 Unit SQ DAILY Invokamet Xr 50-1,000 mg Tab (Canagliflozin/Metformin HCl) 50 Mg-1,000 Mg Tab.bp.24h 2 Each PO DAILY BREAKS TABS IN HALF Co Q-10 (Ubidecarenone) 200 Mg Capsule 200 Mg PO DAILY Potassium Gluconate 595 Mg (99 Mg) Tablet.er 198 Mg PO DAILY TAKES 2 (99MG) TABS Pantoprazole Sodium 40 Mg Tablet.dr 40 Mg PO DAILY Rosuvastatin Calcium 20 Mg Tablet 20 Mg PO DAILY Hydrochlorothiazide 25 Mg Tablet 25 Mg PO DAILY Enalapril Maleate 20 Mg Tablet 20 Mg PO DAILY Turmeric (Turmeric Root Extract) 500 Mg Tablet 1,000 Mg PO DAILY Pioglitazone HCl 30 Mg Tablet 30 Mg PO DAILY LAST FILLED 02-24-2022 #90/90 DAY SUPPLY Citalopram HBr (Citalopram Hydrobromide) 20 Mg Tablet 20 Mg PO DAILY Multivitamins (Multivitamin) 1 Each Tablet 1 Each PO DAILY Instructions to patient/family Please see electronic discharge instructions given to patient. NAJMA GILLIAM DO Aug 12, 2022 09:59
== END 2022-08-12 09:58 ==
LOC: EDUNIT# 20:14 → ER 20:15 → 4TH 23:30
PROVIDERS: ADMIT Internal Medicine; ATTEND Internal Medicine
DX: R55 Syncope and collapse (principal); S82.852A Displaced trimalleolar fracture of left lower leg, initial encounter for closed fracture; M54.6 Pain in thoracic spine; I10 Essential (primary) hypertension; E78.5 Hyperlipidemia, unspecified; E11.9 Type 2 diabetes mellitus without complications; Z79.4 Long term (current) 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; M19.90 Unspecified osteoarthritis, unspecified site; W18.30XA Fall on same level, unspecified, initial encounter; Z87.891 Personal history of nicotine dependence; Z79.899 Other long term (current) drug therapy
CPT/HCPCS: 70450; 71045; 72040; 72070; 73590; 73610; 80048; 80053 ×2; 82947 ×2; 85025 ×2; 93041; 99285; C8929; 36415; 93306; 96361; 96372; 96375; 96376

== ENCOUNTER 2022-08-12 10:05 | Inpatient (IN) | payer MEDICARE, OTHER ==
[~2022-08-12] VITALS: Ht 154.9 cm; Wt 81.5 kg
--- NOTE | 2022-08-12 10:04 | PM&R Post Admission Assessment ---
PM&R Date of Visit: Aug 12, 2022 Time of Visit: 12:00 History of Present Illness Chief complaint: Debility following left ankle fracture due to syncope HPI: This is a 72-year-old female clinic patient of [facility] who suffered a left ankle fracture with dislocation status post closed reduction in the ER after she suffered a syncopal episode. Cardiology was consulted and patient is maintained on telemetry and echocardiogram was obtained and reviewed. Patient will not be able to have surgery to repair the ankle fracture until least 1 week due to swelling so the decision was made to move down to ARU to learn how to use assistive devices and a nonweightbearing status on the left side. Patient has better pain control but she has not had a BM so will initiate aggressive laxatives to prevent narcotic bowel. Blood sugars were elevated so we will restart her home Victoza. Prior level of functioning was independent without assistive devices. Past Cewinjl-Qbptll-Kokult Hx Past Med/Social Hx: Reviewed Nursing Past Med/Soc Hx, Reviewed and Corrections made Patient Social History Marrital Status: single Employed/Student: employed Alcohol Beverage of Choice: Wine Smoking Status: Former Smoker Former Smoker, Quit: Dec 27, 2004 Recent Hopitalizations: Yes Immunizations Up To Date Tetanus Booster (TDap): Unknown Date of Pneumonia Vaccine: Jun 17, 2009 Past Medical History Surgeries: Hysterectomy, Orthopedic Currently Using CPAP: No Cardiac: High Cholesterol, Hypertension Neurological: Headaches /Migraines, Vertigo Reproductive: No Hysterectomy Gastrointestinal: Gastroesophageal Reflux Musculoskeletal: Arthritis Endocrine: Diabetes, Insulin dep Skin/Integumentary: Psoriasis History of Blood Disorders: No Family History Cancer 19 MOTHER (BREAST) Congestive heart failure G8 SISTER Dementia 19 MOTHER Family history: Arthritis G8 SISTER Family history: Breast disease 19 MOTHER Family history: Diabetes mellitus 19 MOTHER G8 SISTER Kidney disease G8 SISTER No Family History of: Abdominal aortic aneurysm Alcoholism Family history: Cardiovascular disease Family history: Gastrointestinal disease Family history: Hypertension Family history: Thyroid disorder Hereditary disease History of - respiratory disease Myocardial infarction Parkinson's disease Prostate cancer Psychotic disorder Seizure disorder Stroke Stroke PM&R Allergy/Meds/Data Review Allergies Coded Allergies: No Known Drug Allergies (Unverified , 12/19/18) Home Medications Scheduled Canagliflozin/Metformin HCl (Invokamet Xr 50-1,000 mg Tab), 2 EACH PO DAILY, (Reported) Citalopram Hydrobromide (Citalopram HBr), 20 MG PO DAILY, (Reported) Enalapril Maleate (Enalapril Maleate), 20 MG PO DAILY, (Reported) Hydrochlorothiazide (Hydrochlorothiazide), 25 MG PO DAILY, (Reported) Insulin Detemir (Levemir Flextouch), 10 UNIT SQ DAILY, (Reported) Liraglutide (Victoza 3-Jeramy), 3 MG SQ DAILY, (Reported) Multivitamin (Multivitamins), 1 EACH PO DAILY, (Reported) Pantoprazole Sodium (Pantoprazole Sodium), 40 MG PO DAILY, (Reported) Pioglitazone HCl (Pioglitazone HCl), 30 MG PO DAILY, (Reported) Potassium Gluconate (Potassium Gluconate), 198 MG PO DAILY, (Reported) Rosuvastatin Calcium (Rosuvastatin Calcium), 20 MG PO DAILY, (Reported) Turmeric Root Extract (Turmeric), 1,000 MG PO DAILY, (Reported) Ubidecarenone (Co Q-10), 200 MG PO DAILY, (Reported) Discontinued Medications Cinnamon Bark (Cinnamon), 500 MG PO BID, (Reported) Discontinued Reason: No Longer Taking Enalapril Maleate (Enalapril Maleate), 1 TAB PO DAILY, (Reported) Discontinued Reason: No Longer Taking Fish Oil/Borage/Flax/Om3,6,9#1 (Jetzkqwx-Dcdv-Zanywc Oil Sftgl), 400 MG PO BID, (Reported) Discontinued Reason: No Longer Taking Furosemide (Furosemide), 20 MG PO Q48H, (Reported) Discontinued Reason: No Longer Taking Hydrochlorothiazide (Hydrochlorothiazide), 12.5 MG PO DAILY, (Reported) Discontinued Reason: No Longer Taking Insulin Detemir (Levemir Flextouch), 20 UNIT SQ HS, (Reported) Discontinued Reason: No Longer Taking Insulin Detemir (Levemir Flextouch), 25 UNIT SQ DAILY, (Reported) Discontinued Reason: No Longer Taking Magnesium (Magnesium), 250 MG PO BID, (Reported) Discontinued Reason: No Longer Taking Metformin HCl (Metformin HCl), 1,000 MG PO BID, (Reported) Discontinued Reason: No Longer Taking Metoprolol Succinate (Metoprolol Succinate), 25 MG PO DAILY, (Reported) Discontinued Reason: No Longer Taking Simvastatin (Simvastatin), 10 MG PO DAILY, (Reported) Discontinued Reason: No Longer Taking Turmeric/Turmeric Root Extract (Turmeric 500 mg Capsule), 1 EACH PO BID, (Reported) Discontinued Reason: Prescription changed Current Medications Current Medications Reviewed Review of Systems Constitutional: see HPI, malaise, weakness EENTM: no symptoms reported Respiratory: no symptoms reported Cardiovascular: no symptoms reported Gastrointestinal: constipation Genitourinary: no symptoms reported Musculoskeletal: back pain, joint pain Skin: no symptoms reported Psychiatric/Neurological: Anxiety, Depressed All Other Systems Reviewed Negative Unless Noted: Yes Physical Exam Physical Exam Vital Signs Capillary Refill : Height, Weight, BMI Height: 5'2.00" Weight: 219lbs. 0.0oz. 99.056190vy; 32.88 BMI Method:Stated General Appearance: No Apparent Distress, WD/WN Eyes: Bilateral Eye Normal Inspection, Bilateral Eye PERRL HEENT: PERRL/EOMI, Normal ENT Inspection, Pharynx Normal Neck: Full Range of Motion, Normal Inspection, Non Tender, Supple, Carotid Bruit Respiratory: Chest Non Tender, Lungs Clear, Normal Breath Sounds, No Accessory Muscle Use, No Respiratory Distress Cardiovascular: Regular Rate, Rhythm, No Edema, No Gallop, No JVD, No Murmur, Normal Peripheral Pulses Gastrointestinal: Normal Bowel Sounds, No Organomegaly, No Pulsatile Mass, Non Tender, Soft Back: Normal Inspection, No CVA Tenderness, No Vertebral Tenderness Extremity: Normal Capillary Refill, Normal Inspection, Normal Range of Motion (Except left ankle and foot), Non Tender, No Calf Tenderness, No Pedal Edema Neurologic/Psychiatric: Alert, Oriented x3, Normal 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, 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 as 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, Motor Weakness (Left foot and leg) Skin: Normal Color, Warm/Dry Lymphatic: No Adenopathy PM&R Medical Assessment & Plan REHAB/MEDICAL ASSESSMENT AND PLAN: REHAB IMPAIRMENT GROUP: Left ankle fracture ETIOLOGIC DIAGNOSIS: Left ankle fracture The comorbidities that impact the patients function and/or functional outcome by: Diabetes, syncopal episode, current nonweightbearing, fall risk REHAB PLAN: The patient is being admitted to our comprehensive inpatient rehabilitation facility and can tolerate the intensity of service consisting of at least: 180 minutes of therapy a day, 5 out of 7 days a week Rehab treatment will consist of: PT and OT will focus on regaining function in order to return back to independent living after surgical repair of left ankle fracture per Dr. Michael ren Carmel The patient/family has a good understanding of our discharge process and will benefit from an interdisciplinary inpatient rehabilitation program. The patient has potential to make improvement and is in need of at least two of the followin g multidisciplinary therapies including but not limited to physical, occupational, speech, and prosthetics and orthotics. Additionally the patient will need services from respiratory, nutritional services, wound care, psychology, etc. (Customize this to each patient). Given the patients complex condition and risk of further medical complications, rehabilitation services cannot be safely or effectively provided at a lower level of care such as a retirement facility. BARRIERS TO DISCHARGE: Nonweightbearing on the left leg ESTIMATED LOS: 10 days DISPOSITION: Home RELEVANT CHANGES SINCE PREADMISSION SCREENING: I have compared the patients medical and functional status at the time of the preadmission screening and there are: No changes PROGNOSIS: Good REHABILITATION GOALS: 1. PT and OT will focus on regaining function in order to return back to independent living after surgical repair of left ankle fracture per Dr. Michael ren Carmel All the above goals were reviewed with the patient and he/she is in agreement. By signing this document, I acknowledge that I have personally performed a full physical examination on this patient within 24 hours of admission to this inpatient rehabilitation facility and have determined the patient to be able to tolerate the above course of treatment at an intensive level for a reasonable period of time. I will be completing a detailed individualized Plan of Care for this patient by day #4 of the patients stay based upon the Preadmission Screen, the Post-Admission Evaluation, and the therapy evaluations. Admission Dx/Comorbidities: (1) Closed displaced trimalleolar fracture of left ankle Status: Acute ICD Codes: S82.852A - Displaced trimalleolar fracture of left lower leg, initial encounter for closed fracture (2) Syncope Status: Acute ICD Codes: R55 - Syncope and collapse Assessment/Plan Assessment and Plan Assess & Plan/Chief Complaint Assessment: Left ankle fracture will need repair by Dr. Michael ren Carmel after at least 1 week due to swelling Diabetes Hypertension Hyperlipidemia Constipation Plan: Bowel regimen Pain control Supportive care Aggressive therapy NAJMA GILLIAM DO Aug 12, 2022 10:04
[~2022-08-12 10:05] MED LIST changes: +ACETAMINOPHEN 325 MG TABLET PO PRN; +ALPRAZolam 0.25 MG (XANAX) TAB PO PRN; +BISACODYL 10 MG SUPP (DULCOLAX) PR PRN; +CALCIUM CARBONATE 500 MG (TUMS) TAB.CHEW PO PRN; +CANA1TAB6 PO; +DOCUSATE SODIUM 100 MG (COLACE) CAP PO PRN; +ENAL20TA16 PO; +FLEET ENEMA ADULT 1 EA BTL PR PRN; +HYDR25TA4 PO; +LACTULOSE SYRUP 10GM/15ML (ENULOSE) 30ML UDC PO PRN; +LIRA0.6P3 SQ; +LOPERAMIDE 2 MG (IMODIUM) TABLET PO PRN; +MELATONIN 3 MG TABLET PO PRN; +PANT40TA52 PO; +POTA99TA18 PO; +ROSU20TA32 PO; +TURM500T PO; +UBID200C16 PO; +diphenhydrAMINE 25 MG TAB (BENADRYL) PO PRN; +guaiFENesin/CODEINE (ROBITUSSIN AC) 10ML UDC PO PRN
[2022-08-12 10:20] VITALS: BP 101/96
[2022-08-12 10:49] VITALS: BP 120/72
--- NOTE | 2022-08-12 10:59 | Occupational Therapy Eval ---
OT Evaluation-General/PLF Medical Diagnosis Admission Date Aug 12, 2022 at 10:05 Medical Diagnosis: L ankle fx Onset Date: Aug 11, 2022 Therapy Diagnosis Therapy Diagnosis: decreased ADL status Height/Weight Height (Feet): 5 Height (Inches): 2.00 Weight (Pounds): 219 Weight (Ounces): 0.0 Weight Bear Status Weight Bearing Restriction: Non Weight Bearing Location Restriction: L LE Referral Physician: Yoav Referral Reason: Evaluation/Treatment Medical History Additional Medical History HTN, vertigo, migraines, GERD, arthritis, DM, psoriasis, L hip, L knee, R knee reconstruction Current History ED post fall after syncopal episode with subsequent laterally dislocated trimalleolar fx of L ankle s/p closed reduction in ED. Pt unable to undergo surgical repair for at least 1 week due to swelling. Social History Home: Single Level Current Living Status: Alone (pt has temporary roomate) Entry Into Home: Ramp ADL-Prior Level of Function SCALE: Activities may be completed with or without assistive devices. 9-Syhtikwekl-wamhnhk completes the activity by him/herself with no assistance from a helper. 5-Set-up or Clean-up Assistance-helper sets up or cleans up; patient completes activity. [place] assists only prior to or following the activity. 4-Supervision or Touching Assistance-helper provides verbal cues and/or touching/steadying and/or contact guard assistance as patient completes activity. Assistance may be provided throughout the activity or intermittently. 3-Partial/Moderate Assistance-helper does LESS THAN HALF the effort. [place] lifts, holds or supports trunk or limbs, but provides less than half the effort. 2-Substantial/Maximal Assistance-helper does MORE THAN HALF the effort. [place] lifts or holds trunk or limbs and provides more than half the effort. 6-Vkgukvhbr-cffndt does ALL the effort. Patient does none of the effort to complete the activity. Or, the assistance of 2 or more helpers is required for the patient to complete the activity. If activity was not attempted, code reason: 7-Patient Refused. 9-Not Applicable-not attempted and the patient did not perform the activity before the current illness, exacerbation or injury. 10-Not Attempted due to Environmental Limitations-(lack of equipment, weather restraints, etc.). 88-Not Attempted due to Medical Conditions or Safety Concerns. ADL PLOF Comments Pt reports IND with ADLS and functional mobility without AD. She has a walk in shower, SC, tall toilet, and GBs. Pt states she uses a sock aide at home. Self Care: Independent Functional Cognition: Independent DME/Equipment: Bath Chair, Grab Bars, Shower, Tall Toilet Drive Self: Yes OT Current Status Subjective Pt agreeable to OT evaluation, reports 6/10 pain in LLE Mental Status/Objective Patient Orientation: Person, Place, Time, Situation Current Hand Dominance: Right Upper Extremity ROM WFL, BUE shoulder flexion to approx 160 degrees. Upper Extremity Coordination WFL Upper Extremity Sensation WFL Per pt report Upper Extremity Strength grossly 4/5 BUEs ADL-Treatment Eating (QC): 6 (Per pt report.) Oral Hygiene (QC): 5 Shower/Bathe Self (QC): 3 (Min A overall. Pt would require assistance with RLE lower leg/foot, min A standing balance while washing buttocks.) Upper Body Dressing (QC): 5 Lower Body Dressing (QC): 2 (Assist threading over BLEs, pt able to perform pant hike) On/Off Footwear (QC): 1 (total assist donning/doffing R gripper sock) Toileting Hygiene (QC): 3 (Min A with balance, pt able to manage pants and hygiene.) Other Treatments OT evaluation complete. OT/PT cotreat due to skill of 2 clinicians required which a hvac technician residential could not perform in order catherine oordinate UE/:Es, decrease fall risk, and due to pt's limitations in strength, activity tolerance, mobility and transfers. OT focused on UE placement, cues for sequencing and safety, and ADLS, PT focused on LE placement, gross overall movement,transfers/mobility. Pt transferred from bed, to BSC, to w/c, then taken to ARU. Pt completed ADLs, and functional mobility/transfers, including functional mobility with FWW, w/c mobility, car transfer, and bed mobility/rolling, while maintaining NWB LLE. Please refer to PT note for QC score associated with mobility/transfers. Pt required cues with transfers for UE placement. Post tx, pt in bed, call light in reach and all needs met. Education OT Patient Education: Correct positioning, Energy conservation, Modified ADL techniques, Progress toward Goal/Update tx plan, Purpose of tx/functional activities, Rehab process Teaching Recipient: Patient Teaching Methods: Discussion Response to Teaching: Verbalize Understanding BIMS CAM BIMS Expression of Ideas and Wants: Without Difficulty Understanding Verbal Content: Understands Brief Interview/Mental Status: Yes IRF [place] BIMS: IRF [place] BIMS Response (Comments) Value Repitition of Three Words Three 3 Recalls Socks Yes, No Cue Required 2 Recalls Blue Yes, No Cue Required 2 Recalls Bed Yes, No Cue Required 2 Year Correct 3 Month Accurate Within 5 Days 2 Day Correct 1 Total 15 Should Staff Asses. Mental [address] No CAM Mental Status Change/Baseline: 0 Inattention: 0 Disorganized thinkin Altered level of consciousness: 0 OT Short Term Goals Short Term Goals Time Frame: Aug 21, 2022 Shower/bathe self: 4 Lower body dressin Putting on/taking off footwear: 4 OT Assisted Goals Customer Assistance Representative Goals Time Frame: Sep 02, 2022 Acute change in mental status: 0 Inattention: 0 Disorganized thinkin Altered level of consciousness: 0 Eating (QC): 6 Oral Hygiene (QC): 6 Toileting Hygiene (QC): 6 Shower/Bathe Self (QC): 5 Upper Body Dressing (QC): 6 Lower Body Dressing (QC): 6 On/Off Footwear (QC): 6 Additional Goals: 1-Demonstrate ADL Tasks, 2-Verbalize Understanding, 3- ImproveStrength/Audrey 1=Demonstrate adherence to instructed precautions during ADL tasks. 2=Patient will verbalize/demonstrate understanding of assistive devices/modifications for ADL. 3=Patient will improve strength/tolerance for activity to enable patient to perform ADL's. OT Education/Plan Problem List/Assessment Assessment: Decreased Activ Tolerance, Decreased UE Strength, Impaired Funct Balance, Impaired I ADL's, Impaired Self-Care Skills Discharge Recommendations Plan/Recommendations: Continue POC Treatment Plan/Plan of Care Patient would benefit from OT for education, treatment and training to promote independence in ADL's, mobility, safety and/or upper extremity function for ADL's. Plan of Care: ADL Retraining, Functional Mobility, Group Exercise/Act as Ind, UE Funct Exercise/Act Treatment Duration: Aug 12, 2022 Frequency: At least 5 of 7 days/Wk (IRF) Estimated Hrs Per Day: 1.5 hours per day Agreement: Yes Rehab Potential: Good Time Start Time: 10:05 Stop Time: 10:45 DATE: Aug 12, 2022 Total Time Billed (hr/min): 30 Billed Treatment Time 8042-8706 OT Eval (10'), [id number] PT eval, [id number] [place] (20') 1, EVM (10'), ADL (20') EDITH REYES OT Aug 12, 2022 10:59
[2022-08-12] MEDS ORDERED: BACLOFEN 10 MG (LIORESAL) TAB PO PRN (11:15)
--- NOTE | 2022-08-12 12:10 | Progress Note - Surgery ---
JULES RESTREPO 08/12/22 1210: Subjective Date Seen by a Provider: Aug 12, 2022 Time Seen by a Provider: 09:10 Subjective/Events-last exam Patient resting comfortably in bed when I came to see her. States she feels fine other than pain in her ankle and the occasional back spasm. Thoracic CT, Ce rvical CT, and head CT were all negative for acute processes yesterday. CXR was negative or hemothorax, pneumothorax, pleural effusion. It did show mild interstitial opacities. Review of Systems General: No Chills, No Night Sweats HEENT: No Head Aches, No Visual Changes Pulmonary: No Dyspnea, No Cough Cardiovascular: No: Chest Pain, Palpitations Gastrointestinal: No: Nausea, Vomiting, Abdominal Pain Genitourinary: No Dysuria, No Frequency Musculoskeletal: back pain, leg pain, foot pain Neurological: No: Weakness, Numbness Objective Exam Vital Signs Date Time Temp Pulse Resp B/P (MAP) Pulse Ox O2 Delivery O2 Flow Rate FiO2 08/12/22 10:49 35.8 69 20 120/72 (88) 92 Room Air 08/12/22 10:20 35.9 71 20 101/96 (98) 92 Room Air Capillary Refill : General Appearance: No Apparent Distress, WD/WN HEENT: PERRL/EOMI Neck: Non Tender, Supple Respiratory: Chest Non Tender, Lungs Clear (anterior posts only ), Normal Breath Sounds, No Accessory Muscle Use, No Respiratory Distress Cardiovascular: Regular Rate, Rhythm, No Murmur Gastrointestinal: non tender, soft Extremity: Calf Tenderness (L leg, ), Pedal Edema, Other (Left leg in [place] wrap 2/2 fx ) Neurologic/Psychiatric: Alert, Oriented x3, Normal Mood/Affect Skin: Normal Color, Warm/Dry Results Lab Laboratory Tests 08/12/22 11:40: Glucometer 169H Assessment/Plan Assessment/Plan Assessment/Plan Left Trimalleolar Fx Head Contusion DM Imaging yesterday was negative for any acute processes. CXR did show mild interstitial opacities. Patient not complaining of head pain today. No midline back pain. Just occasional back spasms in the thoracic region. Patient will be transferred to [facility] for her Ortho surgery when able. Surgery will sign off at this time. We are always available if patient needs us for any other reason. Appreciate the opportunity to care for this patient. EARL CASIANO DO 08/12/22 1315: Subjective Time Seen by a Provider: 12:37 Subjective/Events-last exam Pt seen and examined, still having some back pain. Denies headache, still has left lower leg pain. Review of Systems General: No Chills, No Night Sweats HEENT: No Head Aches, No Visual Changes Pulmonary: No Dyspnea, No Cough Cardiovascular: No: Chest Pain, Palpitations Gastrointestinal: No: Nausea, Vomiting, Abdominal Pain Musculoskeletal: back pain, leg pain, foot pain Objective Exam General Appearance: No Apparent Distress (however painful when she moves or rolls in bed), WD/WN HEENT: PERRL/EOMI Neck: Non Tender, Supple Respiratory: Chest Non Tender, Lungs Clear (anterior posts only ), Normal Breath Sounds, No Accessory Muscle Use, No Respiratory Distress Cardiovascular: Regular Rate, Rhythm, No Murmur Gastrointestinal: non tender, soft Extremity: Calf Tenderness (L leg, ), Pedal Edema, Other (Left leg in [place] wrap 2/2 fx ) Assessment/Plan Assessment/Plan Assessment/Plan Left Trimalleolar Fx Head Contusion DM Imaging yesterday was negative for any acute processes. CXR did show mild interstitial opacities. Patient not complaining of head pain today. No midline back pain. Just occasional back spasms in the thoracic region. Patient will be transferred to [facility] for her Ortho surgery when able. Surgery will sign off at this time. We are always available if patient needs us for any other reason. Appreciate the opportunity to care for this patient. Supervisory-Addendum Brief Verification & Attestation Participated in pt care: history, MDM, physical Personally performed: exam, history, MDM, supervision of care Care discussed with: Medical Student Procedures: n/a Verification and Attestation of Medical Student E/M Service A medical student performed and documented this service. I then reviewed and verified all information documented by the medical student and made modifications to such information, when appropriate. I personally performed a physical exam, medical decision making and then discussed any differences between the notes and made revisions as necessary to create one note. Earl Casiano , 08/12/22 , 13:15 LAUROJULES Aug 12, 2022 12:10 EARL CASIANO DO Aug 12, 2022 13:15
[2022-08-12] MEDS ORDERED: PATIENT MAY USE OWN MEDS, ALL MC SCH (13:00)
--- NOTE | 2022-08-12 13:33 | Physical Therapy Evaluation ---
PT Evaluation-General Medical Diagnosis Admission Date Aug 12, 2022 at 10:05 Medical Diagnosis: L ankle fx Onset Date: Aug 11, 2022 Therapy Diagnosis Therapy Diagnosis: decreased mobility Height/Weight Height (Feet): 5 Height (Inches): 2.00 Weight (Pounds): 219 Weight (Ounces): 0.0 Precautions Precautions/Isolations: Fall Prevention, Standard Precautions, Pressure Ulcer Weight Bear Status Right Lower Extremity: Right Full Weight Bearing Left Lower Extremity: Left Non Weight Bearing Referral Physician: Yoav Reason for Referral: Evaluation/Treatment Medical History Pertinent Medical History: DM Current History Pt. presented to ER due to fall/syncopal episode at home, s/p L ankle fracture. Reviewed History: Yes Social History Home: Single Level Current Living Status: Alone (pt has temporary roomate) Entry Into Home: Ramp Prior Prior Level of Function SCALE: Activities may be completed with or without assistive devices. 7-Bmbeearfrj-eikiivq completes the activity by him/herself with no assistance from a helper. 5-Set-up or Clean-up Assistance-helper sets up or cleans up; patient completes activity. [place] assists only prior to or following the activity. 4-Supervision or Touching Assistance-helper provides verbal cues and/or touching/steadying and/or contact guard assistance as patient completes activity. Assistance may be provided throughout the activity or intermittently. 3-Partial/Moderate Assistance-helper does LESS THAN HALF the effort. [place] lifts, holds or supports trunk or limbs, but provides less than half the effort. 2-Substantial/Maximal Assistance-helper does MORE THAN HALF the effort. [place] lifts or holds trunk or limbs and provides more than half the effort. 6-Efsmrbydy-vyqfcz does ALL the effort. Patient does none of the effort to complete the activity. Or, the assistance of 2 or more helpers is required for the patient to complete the activity. If activity was not attempted, code reason: 7-Patient Refused. 9-Not Applicable-not attempted and the patient did not perform the activity before the current illness, exacerbation or injury. 10-Not Attempted due to Environmental Limitations-(lack of equipment, weather restraints, etc.). 88-Not Attempted due to Medical Conditions or Safety Concerns. Bed Mobility: 6 Transfers (B,C,W/C): 6 Gait: 6 PT Evaluation-Current Subjective Pt. agrees to PT, states she hasn't been up at all since the fall. Co-eval and tx with OT. Pain Section J - Health Conditions 1. Rarely or not at all 2. Occasionally 3. Frequently 4. Almost constantly 8. Unable to answer Pain Effect on Sleep: 2 Pain Interference with Therapy: 2 Pain Interference w/Day-to-Day: 2 Pt/Family Goals home Objective Patient Orientation: Person, Place, Time, Situation ROM/Strength ROM Upper Extremities See OT ROM Lower Extremities WNL R LE and L hip and knee; n/a L ankle Strength Upper Extremities See OT Strength Lower Extremities 5/5 R LE; n/a L LE Integumentary/Posture Integumentary Cast on L lower leg, ankle, foot Bowel Incontinence: No Bladder Incontinence: Yes Posture generally upright Neuromuscular (Tone, Coordination, Reflexes) unremarkable Sensory Vision: Functional Hearing: Functional Hand Dominance: Right Sensation Right Upper Extremit: Intact Sensation Left Upper Extremity: Intact Sensation Right Lower Extremit: Intact Sensation Left Lower Extremity: Intact Transfers Roll Left & Right (QC): 4 Sit to Lying (QC): 4 Lying to Sitting/Side of Bed(Q: 4 Sit to Stand (QC): 4 Chair/Mrl-vi-Kkvaw Xfer(QC): 4 Toilet Transfer (QC): 4 Car Transfer (QC): 4 SBA or min A with L LE Gait Does the Patient Walk?: Yes Mode of Locomotion: Walk Anticipated Mode of Locomotion: Walk Walk 10 feet (QC): 4 Walk 50 ft with 2 Turns(QC): 88 Walk 150 ft (QC): 88 Walking 10ft/uneven surface-QC: 88 Distance: 10 ft Gait Assistive Device: FWW Comments/Gait Description pt. able to maintain NWB but fatigues quickly Wheelchair Training Does the Pt Use a Wheelchair?: No Wheel 50 ft with 2 turns (QC): 9 Wheel 150 ft (QC): 9 Stairs 1 Step (curb) (QC): 88 4 Steps (QC): 88 12 Steps (QC): 88 Balance Sitting Static: Good Sitting Dynamic: Good Standing Static: Good Standing Dynamic: Fair Picking up an Object (QC): 88 Assessment/Needs Pt. is a 72 y.o. female s/p L ankle fracture following a fall. Pt. is limited in mobility due to NWB on the L LE but is able to maintain for transfers and short-distance ambulation using FWW. Pt. would benefit from skilled PT to improve mobility and strength for return home. Rehab Potential: Good PT Fdc Goals [place] Tender Goals PT Fdc Goals Time Frame: Aug 26, 2022 Roll Left to Right (QC): 6 Sit to Lying (QC): 6 Lying-Sitting on Side/Bed(QC): 6 Sit to Stand (QC): 6 Chair/Rrg-fg-Ncxcr Xfer(QC): 6 Toilet/Commode Transfer (QC): 6 Car Transfer (QC): 6 Does the Patient Walk: Yes Walk 10 feet (QC): 6 Walk 10ft-Uneven Surface(QC): 6 Walk 50ft with 2 Turns (QC): 6 Walk 150 ft (QC): 6 Does the Pt use WC or Scooter?: No Wheel 50 feet with 2 turns (QC: 9 Wheel 150 feet: 9 1 Step (curb) (QC): 9 4 Steps (QC): 9 12 Steps (QC): 9 Picking up an Object (QC): 6 PT Plan Problem List Problem List: Activity Tolerance, Functional Strength, Safety, Balance, Gait, Transfer, Bed Mobility, ROM Treatment/Plan Treatment Plan: Continue Plan of Care Treatment Plan: Bed Mobility, Concurrent Therapy, Education, Functional Activity Audrey, Functional Strength, Group Therapy, Gait, Safety, Therapeutic Exercise, Transfers Treatment Duration: Aug 26, 2022 Frequency: 6 times per week Estimated Hrs Per Day: 1.5 hours per day Patient and/or Family Agrees t: Yes Time Time In: 1005 Time Out: 1045 DATE: Aug 12, 2022 Total Billed Treatment Time: 30 Total Billed Treatment 1, RONL ([id number]), co-tx with OT [id number], FA 20' BETSEY MORGAN PT Aug 12, 2022 13:33
--- NOTE | 2022-08-12 16:00 | Progress Note - Cardiology ---
Cardiology SOAP Progress Note Subjective: No cp or palp or syncope or shortness of breath No n/v/d No focal weakness Some gen weakness and malaise Objective: I&O/Vital Signs 08/12/22 08/12/22 08/12/22 08/12/22 10:20 10:49 12:33 13:10 Temp 35.9 35.8 Pulse 71 69 73 Resp 20 20 B/P (MAP) 101/96 (98) 120/72 (88) Pulse Ox 92 92 O2 Delivery Room Air Room Air Room Air Weight (Pounds): 219 Weight (Ounces): 0.0 Weight (Calculated Kilograms): 99.412038 Constitutional: AAO x 3, well-developed, well-nourished Respiratory: No accessory muscle use; other (good, bilat air entry) Cardiovascular: regular rate-rhythm, S1 and S2, systolic murmur (soft DOTTIE at [place] base) Gastrointestional: No tender; soft; No guarding, No rebound; audible bowel sounds Extremities: No clubbing, No cyanosis, No significant edema Neurologic/Psychiatric: oriented x 3, other (moves all limbs equally) Skin: normal color, warm/dry; No rash on exposed areas, No ulcerations on exposed areas Results/Procedures: Labs Laboratory Tests 08/12/22 11:40: Glucometer 169H A/P: Assessment: Syncope of undetermined etiology on 08/10/22 - echo on 08-12-22: LVEF 60-65%, AoV sclerosis w/o stenosis, PASP 30-35 mmHg L ankle fracture after syncopal fall on 08/10/22 Hypertension DJD DM II Hyperlipidemia - treated with statins Plan: * Orthostatic bp documentation is recommended when able to stand * Monitor labs * Keep on tele * Consider ILR if orthostatic bp normal and if no arrhythmia seen on tele * DVT prophylaxis recommend GENEVA PRUITT MD FACP [facility] Aug 12, 2022 16:00
[2022-08-12] MEDS: inSUlin ASPART (NovoLOG) 1 UNIT/0.01 ML (CHARGE PER UNIT) SC SCH ×2 (16:18→20:50)
[2022-08-12] MEDS: HYDROcodone/APAP 5 MG/325 MG (LORTAB) TAB PO PRN ×2 (16:26→20:53)
[2022-08-12] MEDS: polyethylene glycoL POWDER 17 GM (MIRALAX) PACK PO SCH (19:22)
[2022-08-12 19:43] VITALS: BP 148/76
[2022-08-12] MEDS: SENNA W/DOCUSATE (SENOKOT S) TABLET PO SCH (20:46)
[2022-08-12] MEDS: DOCUSATE SODIUM 100 MG (COLACE) CAP PO SCH (20:52)
[2022-08-13] MEDS: HYDROcodone/APAP 5 MG/325 MG (LORTAB) TAB PO PRN ×4 (05:47→18:53)
[2022-08-13 06:03] LABS: BASOPHILS % (AUTO) 1 % (0-10); EOSINOPHILS # (AUTO) 0.2 10^3/uL (0.0-0.3); EOSINOPHILS % (AUTO) 4 % (0-10); HEMATOCRIT 38 % (35-52); HEMOGLOBIN 12.6 g/dL (11.5-16.0); LYMPHOCYTES # (AUTO) 1.5 10^3/uL (1.0-4.0); LYMPHOCYTES % (AUTO) 23 % (12-44); MEAN CORPUSCULAR HEMOGLOBIN 28 pg (25-34); MEAN CORPUSCULAR HGB CONC 33 g/dL (32-36); MEAN CORPUSCULAR VOLUME 85 fL (80-99); MEAN PLATELET VOLUME 9.9 fL (9.0-12.2); MONOCYTES # (AUTO) 0.5 10^3/uL (0.0-1.0); MONOCYTES % (AUTO) 7 % (0-12); NEUTROPHILS # (AUTO) 4.3 10^3/uL (1.8-7.8); NEUTROPHILS % (AUTO) 65 % (42-75); PLATELET COUNT 209 10^3/uL (130-400); WHITE BLOOD COUNT 6.6 10^3/uL (4.3-11.0)
--- NOTE | 2022-08-13 06:13 | PM&R Progress Note ---
Subjective HPI/CC On Admission Date Seen by Provider: Aug 13, 2022 Time Seen by Provider: 12:00 Subjective/Events-last exam 08/13/2022: Patient doing really well Pain is controlled Small bowel movement but will continue laxatives due to high risk for narcotic bowel Doing pretty well hopping around Review of Systems General: Fatigue, Malaise Musculoskeletal: leg pain Objective Exam Vital Signs Vital Signs Date Time Temp Pulse Resp B/P (MAP) Pulse Ox O2 Delivery O2 Flow Rate FiO2 08/13/22 13:00 62 08/13/22 09:04 126/77 (93) 148/74 (98) 127/83 (98) 08/13/22 09:00 Room Air 08/13/22 08:42 36.0 18 92 Capillary Refill : General Appearance: No Apparent Distress, WD/WN HEENT: PERRL/EOMI, Normal ENT Inspection, Pharynx Normal Neck: Full Range of Motion, Normal Inspection, Non Tender, Supple, Carotid Bruit Respiratory: Chest Non Tender, Lungs Clear, Normal Breath Sounds, No Accessory Muscle Use, No Respiratory Distress Cardiovascular: Regular Rate, Rhythm, No Edema, No Gallop, No JVD, No Murmur, Normal Peripheral Pulses Gastrointestinal: Normal Bowel Sounds, No Organomegaly, No Pulsatile Mass, Non Tender, Soft Back: Normal Inspection, No CVA Tenderness, No Vertebral Tenderness Extremity: Normal Capillary Refill, Normal Inspection, Normal Range of Motion ( Except left ankle and foot), Non Tender, No Calf Tenderness, No Pedal Edema Neurologic/Psychiatric: Alert, Oriented x3, Normal Mood/Affect, lmft II-XII Norm as Tested, Motor Weakness (Left foot and leg) Skin: Normal Color, Warm/Dry Lymphatic: No Adenopathy Results/Procedures Lab Laboratory Tests 08/13/22 05:50 Patient resulted labs reviewed. FIM Transfers Therapy Code Descriptions/Definitions Functional [place] Measure: 0=Not Assessed/NA 4=Minimal Assistance 1=Total Assistance 5=Supervision or Setup 2=Maximal Assistance 6=Modified [place] 3=Moderate Assistance 7=Complete IndependenceSCALE: Activities may be completed with or without assistive devices. 4-Ohvdyncpjl-ygxfnbw completes the activity by him/herself with no assistance from a helper. 5-Set-up or Clean-up Assistance-helper sets up or cleans up; patient completes activity. [place] assists only prior to or following the activity. 4-Supervision or Touching Assistance-helper provides verbal cues and/or touching/steadying and/or contact guard assistance as patient completes activi ty. Assistance may be provided throughout the activity or intermittently. 3-Partial/Moderate Assistance-helper does LESS THAN HALF the effort. [place] lifts, holds or supports trunk or limbs, but provides less than half the effort. 2-Substantial/Maximal Assistance-helper does MORE THAN HALF the effort. [place] lifts or holds trunk or limbs and provides more than half the effort. 6-Rqlosoeco-epkvir does ALL the effort. Patient does none of the effort to complete the activity. Or, the assistance of 2 or more helpers is required for the patient to complete the activity. If activity was not attempted, code reason: 7-Patient Refused. 9-Not Applicable-not attempted and the patient did not perform the activity before the current illness, exacerbation or injury. 10-Not Attempted due to Environmental Limitations-(lack of equipment, weather restraints, etc.). 88-Not Attempted due to Medical Conditions or Safety Concerns. Roll Left to Right (QC): 4 Sit to Lying (QC): 4 Sit to Stand (QC): 4 Chair/Ein-yx-Gnqrd Xfer(QC): 4 Car Transfer (QC): 4 Gait Training Does the Patient Walk?: Yes Walk 10 feet (QC): 4 Walk 50 ft with 2 Turns(QC): 88 Walk 150 ft (QC): 88 Walking 10ft/uneven surface-QC: 88 Gait Assistive Device: FWW Wheelchair Training Does the Pt Use a Wheelchair?: No Wheel 50 ft with 2 turns (QC): 9 Wheel 150 ft (QC): 9 Stair Training 1 Step (curb) (QC): 88 4 Steps (QC): 88 12 Steps (QC): 88 Balance Picking up an Object (QC): 88 ADL-Treatment Eating (QC): 6 (Per pt report.) Oral Hygiene (QC): 5 Shower/Bathe Self (QC): 3 (Min A overall. Pt would require assistance with RLE lower leg/foot, min A standing balance while washing buttocks.) Upper Body Dressing (QC): 5 Lower Body Dressing (QC): 2 (Assist threading over BLEs, pt able to perform pant hike) On/Off Footwear (QC): 1 (total assist donning/doffing R gripper sock) Toileting Hygiene (QC): 3 (Min A with balance, pt able to manage pants and hygiene.) Assessment/Plan Assessment and Plan Assess & Plan/Chief Complaint Assessment: Left ankle fracture will need repair by Dr. Rodriguez at [place] after at least 1 week due to swelling Diabetes Hypertension Hyperlipidemia Constipation Plan: Bowel regimen Pain control Supportive care Aggressive therapy 08/13/2022: Doing well Lovenox Pain control (1) Closed displaced trimalleolar fracture of left ankle Status: Acute (2) Syncope Status: Acute NAJMA GILLIAM DO Aug 13, 2022 06:13
--- NOTE | 2022-08-13 06:13 | Individualized Plan of Care ---
Individualized Plan of Care Rehab Nursing IPOC Order Admission Date Aug 12, 2022 at 10:05 Current Orders Orders Admission Order(Inpt,Obs,Sdc) (08/12/22 10:00) Vital Signs: Per Unit Policy ( 08,16,00 (08/12/22 10:00) [place] (08/12/22 10:00) Sequential Compression Device (08/12/22 10:00) Janitor Cleaner-Inpt Rehab Con (08/12/22 10:00) Rehab Nursing Orders-Ipoc (08/12/22 10:00) Physical Therapy Rehab Orders (08/12/22 10:00) Occupational Therapy Rehab Ord (08/12/22 10:00) Speech Therapy Rehab Orders (08/12/22 10:00) Cbc With Automated Diff (08/13/22 06:00) Comprehensive Metabolic Panel (08/13/22 06:00) Precautions (Aru) (08/12/22 10:00) Weekly Weight WEEK (08/12/22 10:00) Rehab-Intensity Of Therapy (08/12/22 10:00) Initiate Admission Nursing Pro .admission (08/12/22 10:00) Alprazolam Tablet (Xanax Tablet) (08/12/22 10:00) Calcium Carbonate Chew Tablet (Antacid C (08/12/22 10:00) Diphenhydramine Tablet (Benadryl Tablet) (08/12/22 10:00) Docusate Sodium Capsule (Colace Capsule) (08/12/22 21:00) Docusate Sodium Capsule (Colace Capsule) (08/12/22 10:00) Bisacodyl Suppository (Dulcolax Supposit (08/12/22 10:00) Lactulose Oral Solution (Enulose Oral So (08/12/22 10:00) Na Phos/Na Biphos Enema (Fleet Enema Ke (08/12/22 10:00) Guaifenesin/Codeine Syrup (Robitussin Ac (08/12/22 10:00) Loperamide Tablet (Imodium Tablet) (08/12/22 10:00) Melatonin Tablet (Melatonin Tablet) (08/12/22 10:00) Polyethylene Glycol Powder Pkt (Miralax (11/26/22 21:00) Ondansetron Oral Dissolve Tab (Zofran (08/12/22 10:00) Senna S Tablet (Senokot S Tablet) (08/12/22 21:00) Acetaminophen Tablet/Caplet (Tylenol T (08/12/22 10:00) Code/Resuscitation (08/12/22 10:00) Initiate Admission Nursing Pro .admission (08/12/22 10:00) Admission Arrival Bed Request (08/12/22 10:29) Cho 60g/M 1snack (16-2000 Bulmaro) (08/12/22 Breakfast) Enoxaparin Injection (Lovenox Injection) (08/13/22 09:00) Citalopram Tablet (Celexa Tablet) (08/13/22 09:00) Hydrochlorothiazide Cap/Tablet (Hctz Cap (08/13/22 09:00) Therapeutic Multivitamin Tab (Vitamins, (08/13/22 09:00) Pantoprazole Tablet (Protonix Tablet) (08/13/22 09:00) Pioglitazone Tablet (Actos Tablet) (08/13/22 09:00) Rosuvastatin Tablet (Crestor Tablet) (08/13/22 09:00) (Nf) Canagliflozin/Metformin Hcl (Invoka (08/13/22 09:00) Enalapril Tablet (Vasotec Tablet) (08/13/22 09:00) Insulin Determir (Per Unit) (Levemir (Pe (08/13/22 09:00) (Nf) Liraglutide (Victoza 3-Jeramy) (08/13/22 09:00) (Nf) Potassium Gluconate (08/13/22 09:00) (Nf) Turmeric Root Extract (Turmeric) (08/13/22 09:00) (Nf) Ubidecarenone (Co Q-10) (08/13/22 09:00) Hydromorphone Injection (Dilaudid Inject (08/12/22 11:15) Oxycodone Immediate Rel Tablet (Oxyir Ta (08/12/22 11:15) Baclofen Tablet (Lioresal Tablet) (08/12/22 11:15) Accucheck Achs ACHS (08/12/22 11:38) Accucheck Achs ACHS (08/12/22 12:25) Insulin Aspart (Novolog) (Novolog (Charg (08/12/22 16:00) Hydrocodone/Apap 5/325 Tablet (Lortab 5 (08/12/22 12:30) Patient Visit (08/12/22 ) Pt Eval Low Complexity (08/12/22 ) Functional Activities, Ea 15 (08/12/22 ) Patient May Use Own Meds, All (Patient M (08/12/22 13:00) Consult Cardiology (08/12/22 15:51) Telemetry (08/12/22 15:52) Telemetry Nursing Assessment ( (08/12/22 15:52) Rehab Nursing Orders: Ongoing Assess. of Function Status, Bladder Management, Bladder Scan, Bladder Training, Bowel Management, Bowel Training, Disease Management & Educaiton, DVT Prophylaxis, Fall Prevention, Fluid/Electrolyte/Nutrition Mgmt, Infection Prevention, Medication Management & Education, Management of Risks & Complications, Nutrition Management, Pain Management, Patient/Family Support, Safety Management Intensity of Therapy to be met Patient to be seen: Min.3h per day/5 of 7d PT IPOC Problem List: Activity Tolerance, Functional Strength, Safety, Balance, Gait, Transfer, Bed Mobility, ROM Treatment Plan: Continue Plan of Care Bed Mobility, Concurrent Therapy, Education, Functional Activity Audrey, Func tional Strength, Group Therapy, Gait, Safety, Therapeutic Exercise, Transfers Treatment Duration: Aug 26, 2022 Frequency: 6 times per week Estimated Hrs Per Day: 1.5 hours per day OT IPOC Problems: Decreased Activ Tolerance, Decreased UE Strength, Impaired Funct Balance, Impaired I ADL's, Impaired Self-Care Skills OT Treatment, Training and Edu: Yes Plan of Care: ADL Retraining, Functional Mobility, Group Exercise/Act as Ind, UE Funct Exercise/Act Treatment Duration: Aug 12, 2022 Frequency: At least 5 of 7 days/Wk (IRF) Estimated Hrs Per Day: 1.[address] IPOC Speech Therapy Treatment Plan: Discontinue ST Treatment Duration: Aug 14, 2022 Frequency: Modified Program (IRF) Estimated Hrs Per Day: Other Janitor Cleaner/Case Mgmt Janitor Cleaner/Case Managemen: Discharge Planning Dietitian/Petroleum Refinery Operator Dietitian/Petroleum Refinery Operator to monitor nutritional status and make changes and/or recommendations as needed and work with speech pathology on dietary upgrades as the occur. Physician IPOC Medical Issues being managed closely and that require the 24 hour availability of a physician: Patient with recent severe displaced left ankle fracture with fall and syncopal episode requiring telemetry and cardiology management will require close monitoring for any recurrent episodes of decompensation Medical Issues: Bowel/Bladder Function, DVT Prophylaxis, Falls Precautions, Fluid/Electrolyte/Nutrition Balance, Infection Protection, Pain Management, Weight Bearing Precautions Brief Synthesis of Preadmission Screen, Post-Admission Evaluation, and Therapy Evaluations: PT and OT will focus on regaining function with use of assistive devices in order to maintain nonweightbearing on the left leg and learn how to prevent falls and increase stamina and improved overall function Medical Prognosis: Good Anticipated Length of Stay: 7 days NAJMA GILLIAM DO Aug 13, 2022 06:13
[2022-08-13 06:28] LABS: ALBUMIN 3.9 GM/DL (3.2-4.5); BILIRUBIN,TOTAL 0.7 MG/DL (0.1-1.0); CALCIUM 9.1 MG/DL (8.5-10.1); CREATININE SERUM 0.68 MG/DL (0.60-1.30); POTASSIUM 3.6 MMOL/L (3.6-5.0); TOTAL PROTEIN 6.8 GM/DL (6.4-8.2)
[2022-08-13] MEDS: inSUlin ASPART (NovoLOG) 1 UNIT/0.01 ML (CHARGE PER UNIT) SC SCH ×4 (06:40→20:54)
[2022-08-13 08:42] VITALS: BP 126/77
[2022-08-13] MEDS: ROSUVASTATIN 20 MG (CRESTOR) TABLET PO SCH (08:44)
[2022-08-13] MEDS: DOCUSATE SODIUM 100 MG (COLACE) CAP PO SCH ×2 (08:44→20:32)
[2022-08-13] MEDS: PIOGLITAZONE 30MG (ACTOS) TAB PO SCH (08:44)
[2022-08-13] MEDS: MULTIVIT W/MINERALS TAB (THERAGRAN M) PO SCH (08:44)
[2022-08-13] MEDS: ENOXAPARIN 40 MG/0.4 ML (LOVENOX) SYR SC SCH (08:44)
[2022-08-13] MEDS: SENNA W/DOCUSATE (SENOKOT S) TABLET PO SCH ×2 (08:44→20:32)
[2022-08-13] MEDS: ENALAPRIL 10 MG (VASOTEC) TAB PO SCH (08:44)
[2022-08-13] MEDS: PANTOPRAZOLE 40 MG (PROTONIX) TAB PO SCH (08:44)
[2022-08-13] MEDS: polyethylene glycoL POWDER 17 GM (MIRALAX) PACK PO SCH ×2 (08:45→19:25)
[2022-08-13] MEDS ORDERED: TURMERIC ROOT EXTRACT 1000 MG PO SCH (09:00)
[2022-08-13] MEDS ORDERED: POTASSIUM GLUCONATE 198 MG PO SCH (09:00)
[2022-08-13] MEDS ORDERED: NON-FORMULARY MEDICATION 1 EA EA (Ubidecarenone (Co Q-10) 200 MG) PO SCH (09:00)
[2022-08-13 09:04] VITALS: BP_SYST 126; BP_SYST 127; BP_SYST 148; BP_DIAS 74; BP_DIAS 77; BP_DIAS 83
[2022-08-13] MEDS ORDERED: PATIENT MAY USE OWN MED,SINGLE MED PO SCH (15:45)
[2022-08-13 20:57] VITALS: BP 119/58
[2022-08-14] MEDS: HYDROcodone/APAP 5 MG/325 MG (LORTAB) TAB PO PRN ×4 (05:45→20:02)
[2022-08-14] MEDS: inSUlin ASPART (NovoLOG) 1 UNIT/0.01 ML (CHARGE PER UNIT) SC SCH ×4 (05:47→20:58)
[2022-08-14 07:26] VITALS: BP 116/69
[2022-08-14] MEDS: SENNA W/DOCUSATE (SENOKOT S) TABLET PO SCH ×2 (07:58→21:19)
[2022-08-14] MEDS: DOCUSATE SODIUM 100 MG (COLACE) CAP PO SCH ×2 (07:58→21:19)
[2022-08-14] MEDS: INVOKAMET PO SCH (07:59)
[2022-08-14] MEDS: ROSUVASTATIN 20 MG (CRESTOR) TABLET PO SCH (08:00)
[2022-08-14] MEDS: PIOGLITAZONE 30MG (ACTOS) TAB PO SCH (08:00)
[2022-08-14] MEDS: ENALAPRIL 10 MG (VASOTEC) TAB PO SCH (08:00)
[2022-08-14] MEDS: PANTOPRAZOLE 40 MG (PROTONIX) TAB PO SCH (08:00)
[2022-08-14] MEDS: MULTIVIT W/MINERALS TAB (THERAGRAN M) PO SCH (08:00)
[2022-08-14] MEDS: ENOXAPARIN 40 MG/0.4 ML (LOVENOX) SYR SC SCH (08:03)
[2022-08-14] MEDS: polyethylene glycoL POWDER 17 GM (MIRALAX) PACK PO SCH ×2 (08:04→21:19)
--- NOTE | 2022-08-14 09:48 | PM&R Progress Note ---
Subjective HPI/CC On Admission Date Seen by Provider: Aug 14, 2022 Time Seen by Provider: 09:00 Subjective/Events-last exam 08/14/2022: Pt is doing really well Moving around really well Will reach out to Dr. Rodriguez and evaluate for repair 08/13/2022: Patient doing really well Pain is controlled Small bowel movement but will continue laxatives due to high risk for narcotic bowel Doing pretty well hopping around Review of Systems General: Fatigue, Malaise Objective Exam Vital Signs Vital Signs Date Time Temp Pulse Resp B/P (MAP) Pulse Ox O2 Delivery O2 Flow Rate FiO2 08/15/22 01:00 67 08/14/22 21:05 93 Room Air 08/14/22 20:00 36.4 20 134/63 (86) Capillary Refill : General Appearance: No Apparent Distress, WD/WN HEENT: PERRL/EOMI, Normal ENT Inspection, Pharynx Normal Neck: Full Range of Motion, Normal Inspection, Non Tender, Supple, Carotid Bruit Respiratory: Chest Non Tender, Lungs Clear, Normal Breath Sounds, No Accessory Muscle Use, No Respiratory Distress Cardiovascular: Regular Rate, Rhythm, No Edema, No Gallop, No JVD, No Murmur, Normal Peripheral Pulses Gastrointestinal: Normal Bowel Sounds, No Organomegaly, No Pulsatile Mass, Non Tender, Soft Back: Normal Inspection, No CVA Tenderness, No Vertebral Tenderness Extremity: Normal Capillary Refill, Normal Inspection, Normal Range of Motion (Except left ankle and foot), Non Tender, No Calf Tenderness, No Pedal Edema Neurologic/Psychiatric: Alert, Oriented x3, Normal Mood/Affect, 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 FIM Transfers Therapy Code Descriptions/Definitions Functional Max Measure: 0=Not Assessed/NA 4=Minimal Assistance 1=Total Assistance 5=Supervision or Setup 2=Maximal Assistance 6=Modified Max 3=Moderate Assistance 7=Complete IndependenceSCALE: Activities may be completed with or without assistive devices. 2-Mhnuikaypr-askiapz completes the activity by him/herself with no assistance from a helper. 5-Set-up or Clean-up Assistance-helper sets up or cleans up; patient completes activity. [place] assists only prior to or following the activity. 4-Supervision or Touching Assistance-helper provides verbal cues and/or touching/steadying and/or contact guard assistance as patient completes activity. Assistance may be provided throughout the activity or intermittently. 3-Partial/Moderate Assistance-helper does LESS THAN HALF the effort. [place] lifts, holds or supports trunk or limbs, but provides less than half the effort. 2-Substantial/Maximal Assistance-helper does MORE THAN HALF the effort. [place] lifts or holds trunk or limbs and provides more than half the effort. 1-Dtdklhnsf-qtyqqj does ALL the effort. Patient does none of the effort to complete the activity. Or, the assistance of 2 or more helpers is required for the patient to complete the activity. If activity was not attempted, code reason: 7-Patient Refused. 9-Not Applicable-not attempted and the patient did not perform the activity before the current illness, exacerbation or injury. 10-Not Attempted due to Environmental Limitations-(lack of equipment, weather restraints, etc.). 88-Not Attempted due to Medical Conditions or Safety Concerns. Roll Left to Right (QC): 4 Sit to Lying (QC): 4 Sit to Stand (QC): 4 Chair/Fwu-sy-Ymnek Xfer(QC): 4 Car Transfer (QC): 4 Gait Training Does the Patient Walk?: Yes Walk 10 feet (QC): 4 Walk 50 ft with 2 Turns(QC): 88 Walk 150 ft (QC): 88 Walking 10ft/uneven surface-QC: 88 Gait Assistive Device: FWW Wheelchair Training Does the Pt Use a Wheelchair?: No Wheel 50 ft with 2 turns (QC): 9 Wheel 150 ft (QC): 9 Stair Training 1 Step (curb) (QC): 88 4 Steps (QC): 88 12 Steps (QC): 88 Balance Picking up an Object (QC): 88 ADL-Treatment Eating (QC): 6 (Per pt report.) Oral Hygiene (QC): 5 Shower/Bathe Self (QC): 3 (Min A overall. Pt would require assistance with RLE lower leg/foot, min A standing balance while washing buttocks.) Upper Body Dressing (QC): 5 Lower Body Dressing (QC): 2 (Assist threading over BLEs, pt able to perform pant hike) On/Off Footwear (QC): 1 (total assist donning/doffing R gripper sock) Toileting Hygiene (QC): 3 (Min A with balance, pt able to manage pants and hygiene.) Assessment/Plan Assessment and Plan Assess & Plan/Chief Complaint Assessment: Left ankle fracture will need repair by Dr. Rodriguez at [facility] after at least 1 week due to swelling Diabetes Hypertension Hyperlipidemia Constipation Plan: Bowel regimen Pain control Supportive care Aggressive therapy 08/13/2022: Doing well Lovenox Pain control 08/14/2022: Continue aggressive care Reach out to Dr Rodriguez (1) Closed displaced trimalleolar fracture of left ankle Status: Acute (2) Syncope Status: Acute NAJMA GILLIAM DO Aug 14, 2022 09:48
--- NOTE | 2022-08-14 10:17 | Occupational Ther Daily Note ---
OT Current Status-Daily Note Subjective Pt reports L ankle pain as 6/10. RN notified. Appearance Pt returned to sitting in recliner, all needs within reach at OT departure. Mental Status/Objective Patient Orientation: Person, Place, Situation Attachments: IV, Telemetry ADL-Treatment Therapy Code Descriptions/Definitions Functional Haines Measure: 0=Not Assessed/NA 4=Minimal Assistance 1=Total Assistance 5=Supervision or Setup 2=Maximal Assistance 6=Modified Haines 3=Moderate Assistance 7=Complete IndependenceSCALE: Activities may be completed with or without assistive devices. 1-Gnfldkvlol-mxqyjmt completes the activity by him/herself with no assistance from a helper. 5-Set-up or Clean-up Assistance-helper sets up or cleans up; patient completes activity. [place] assists only prior to or following the activity. 4-Supervision or Touching Assistance-helper provides verbal cues and/or touching/steadying and/or contact guard assistance as patient completes activity. Assistance may be provided throughout the activity or intermittently. 3-Partial/Moderate Assistance-helper does LESS THAN HALF the effort. [place] lifts, holds or supports trunk or limbs, but provides less than half the effort. 2-Substantial/Maximal Assistance-helper does MORE THAN HALF the effort. [place] lifts or holds trunk or limbs and provides more than half the effort. 7-Edyegeiqu-grtbnv does ALL the effort. Patient does none of the effort to complete the activity. Or, the assistance of 2 or more helpers is required for the patient to complete the activity. If activity was not attempted, code reason: 7-Patient Refused. 9-Not Applicable-not attempted and the patient did not perform the activity before the current illness, exacerbation or injury. 10-Not Attempted due to Environmental Limitations-(lack of equipment, weather restraints, etc.). 88-Not Attempted due to Medical Conditions or Safety Concerns. Oral Hygiene (QC): 6 (in sitting) Shower/Bathe Self (QC): 4 Upper Body Dressing (QC): 5 Lower Body Dressing (QC): 4 On/Off Footwear: 5 Toileting Hygiene (QC): 4 Toilet Transfer (QC): 4 Pt with good awareness of NWB on L ankle. She was able to stand and hop to bathroom, ~15 feet, with CGA and use of walker. Min a needed for all standing functional tasks that require use of 1-2 UE's including clothing management or washing cinthya area/buttocks in standing. Shower performed; R ankle wrapped prior to task. C/D/I post activity. Steadying assist only when standing to wash buttocks. Single UE support required in standing in order to maintain balance. Pt able to reach L foot but could benefit from instruction on LHS due to c/o dizziness when bending. Same complaints noted when bending to thread feet into LB clothing. Post instruction on use of consulting database administrator, pt able to complete without assist. OT also issued her a sock aid which she was able to perform independently post initial instruction. Grooming tasks performed independently at seated level Education OT Patient Education: Correct positioning, Energy conservation, Progress toward Goal/Update tx plan, Purpose of tx/functional activities, Reviewed precautions, Rehab process, Safety issues, Transfer techniques, Use of adapted equipment Teaching Recipient: Patient Teaching Methods: Demonstration, Discussion Response to Teaching: Verbalize Understanding, Return Demonstration, Rein forcement Needed OT Short Term Goals Short Term Goals Time Frame: Aug 21, 2022 Shower/bathe self: 4 Lower body dressin Putting on/taking off footwear: 4 OT Care Home Goals Ticket Puller Goals Time Frame: Sep 02, 2022 Acute change in mental status: 0 Inattention: 0 Disorganized thinkin Altered level of consciousness: 0 Eating (QC): 6 Oral Hygiene (QC): 6 Toileting Hygiene (QC): 6 Shower/Bathe Self (QC): 5 Upper Body Dressing (QC): 6 Lower Body Dressing (QC): 6 On/Off Footwear (QC): 6 Additional Goals: 1-Demonstrate ADL Tasks, 2-Verbalize Understanding, 3- ImproveStrength/Audrey 1=Demonstrate adherence to instructed precautions during ADL tasks. 2=Patient will verbalize/demonstrate understanding of assistive devices/modif ications for ADL. 3=Patient will improve strength/tolerance for activity to enable patient to perform ADL's. OT Education/Plan Problem List/Assessment Assessment: Decreased Activ Tolerance, Decreased UE Strength, Impaired Funct Balance, Impaired I ADL's, Impaired Self-Care Skills Discharge Recommendations Plan/Recommendations: Continue POC Therapy Discharge Recommendati: Post Acute OT (HH OT) Equpiment Recommendations-D/C: Dye Penetrant Testing Technician, Sock Aide Treatment Plan/Plan of Care Treatment,Training & Education: Yes Patient would benefit from OT for education, treatment and training to promote independence in ADL's, mobility, safety and/or upper extremity function for ADL's. Plan of Care: ADL Retraining, Functional Mobility, Group Exercise/Act as Ind, UE Funct Exercise/Act Treatment Duration: Aug 12, 2022 Frequency: At least 5 of 7 days/Wk (IRF) Estimated Hrs Per Day: 1.5 hours per day Agreement: Yes Rehab Potential: Good Time Start Time: 09:00 Stop Time: 10:15 DATE: Aug 14, 2022 Total Time Billed (hr/min): 75 Billed Treatment Time 1 visit ADL x5 (75 min) Roula Judge OT Aug 14, 2022 10:17
--- NOTE | 2022-08-14 10:26 | ST Cognitive Linguistic Eval ---
Speech Evaluation-General Medical Diagnosis L Ankle Fx Onset Date: Aug 11, 2022 Therapy Diagnosis Therapy Diagnosis: Intact (Baseline) Cognitive Linguistic Skills Precautions Precautions: Fall Precautions/Isolations: Fall Prevention, Standard Precautions Referral Referring Physician: Dr. Cason Reason for Referral: Evaluation/Treatment Medical History Pertinent Medical History: DM Current History The patient is a 72 year-old female with a past medical history of HTN, vertigo, migraines, GERD, arthritis, DM, and psoriasis, who presents to the acute rehabilitation unit following a fall which resulted in a laterally dislocated trimalleolar fx of L ankle s/p closed reduction in ED. Reviewed History: Yes Social History Current Living Status: Alone (pt has temporary roomate) Speech PLF-Current Status Prior Level of Function The patient denied concerns or changes with her baseline cognitive, language, or speech skills. Subjective The patient was seated upright in her recliner, awake and alert, upon entrance to her room by the clinician. The patient greeted the clinician appropriately and was agreeable to participation in the cognitive linguistic assessment. Language Eval: Auditory Comprehends Simple Yes/No Ques: Functional Indent/Objects Multiple Hernandez: Functional Follows 1-Step Commands: Functional Follows Complex Directions: Functional Follows General Conversations: Functional Language Eval: Verbal Language Completes Spontaneous Greeting: Functional Produces Auto, Serial Info: Functional Word Finding: Functional Requests Basic Needs: Functional States Basic Personal Info: Functional Expresses Complex Ideas: Functional Language Evaluation: Reading Follows Simple Written Direct: Functional Language Evaluation: Writing Writes to Simple Dictation: Functional Cognitive Patient Orientation The patient was independently oriented to self, location, month, day of the week, date and year. Objective Cognitive Domain Attention: WNL Memory: WNL Problem Solving: Functional Executive Functions: WNL Visuospatial Skills: WNL Composite Severity Rating: WNL Clock Drawing Severity Rating: WNL Objective Formal/Standardized Tests [facility] Mental Status Exam (UMS) Results The patient demonstrated a result of +29/30 on the SLUMS correlating to cognitive linguistic skills within normal limits. Oral Motor/Speech Production The patient does not display dysarthria or apraxia of speech at this time. The patient is 100% intelligible in known and unknown contexts. Impression The patient displays cognitive linguistic skills within normal limits and at reported baseline function. Speech-Plan Treatment Plan Speech Therapy Treatment Plan: Discontinue ST Treatment Duration: Aug 14, 2022 Frequency: 1 time per week Estimated Hrs Per Day: .5 hour per day Rehab Potential: Good Safety Risks/Education Teaching Recipient: Patient Teaching Methods: Discussion Response to Teaching: Verbalize Understanding Education Topics Provided: Results, Recommendations, Plan of Care Time Speech Therapy Time In: 08:30 Speech Therapy Time Out: 09:00 DATE: Aug 14, 2022 Total Billed Time: 30 Billed Treatment Time 1, LINDA SERRANO [facility] ST Aug 14, 2022 10:25
--- NOTE | 2022-08-14 10:33 | Progress Note - Cardiology ---
Cardiology SOAP Progress Note Subjective: Sitting up in recliner at the bedside No c/o CP, SOB, palpitations, syncope or near syncope Objective: I&O/Vital Signs 08/17/22 08/17/22 08/17/22 08/17/22 01:00 07:00 07:43 09:11 Temp 36.4 36.4 Pulse 100 88 81 81 Resp 18 18 B/P (MAP) 143/76 (98) 143/76 (98) Pulse Ox 96 96 O2 Delivery Room Air Room Air 08/17/22 09:34 O2 Delivery Room Air 08/17/22 00:00 Intake Total 0 ml Balance 0 ml Weight (Pounds): 219 Weight (Ounces): 0.0 Weight (Calculated Kilograms): 99.076907 Constitutional: AAO x 3, well-developed, well-nourished Respiratory: No accessory muscle use; other (good, bilat air entry) Cardiovascular: regular rate-rhythm, S1 and S2, systolic murmur (soft DOTTIE at nuno base) Gastrointestional: No tender; soft; No guarding, No rebound; audible bowel sounds Extremities: No clubbing, No cyanosis, No significant edema Neurologic/Psychiatric: oriented x 3, other (moves all limbs equally) Skin: normal color, warm/dry; No rash on exposed areas, No ulcerations on exposed areas Results/Procedures: Labs Laboratory Tests 08/16/22 23:00: Glucometer 206H 08/17/22 05:39: Glucometer 102 08/17/22 06:41: Sodium Level 137, Potassium Level 3.9, Chloride Level 99, Carbon Dioxide Level 24, Anion Gap 14, Blood Urea Nitrogen 19H, Creatinine 0.67, Estimat Glomerular Filtration Rate 93, BUN/Creatinine Ratio 28, Glucose Level 97, Calcium Level 8.8, Corrected Calcium 8.9, Total Bilirubin 0.5, Aspartate Amino Transf (AST/SGOT) 34, Alanine Aminotransferase (ALT/SGPT) 29, Alkaline Phosphatase 61, Total Protein 6.5, Albumin 3.9 08/17/22 07:13: White Blood Count 9.9, Red Blood Count 4.22, Hemoglobin 11.7, Hematocrit 36, Mean Corpuscular Volume 86, Mean Corpuscular Hemoglobin 28, Mean Corpuscular Hemoglobin Concent 32, Red Cell Distribution Width 12.2, Platelet Count 254, Mean Platelet Volume 9.7, Immature Granulocyte % (Auto) 0, Neutrophils (%) (Auto) 81H, Lymphocytes (%) (Auto) 12, Monocytes (%) (Auto) 6, Eosinophils (%) (Auto) 0, Basophils (%) (Auto) 0, Neutrophils # (Auto) 8.0H, Lymphocytes # (Auto) 1.2, Monocytes # (Auto) 0.6, Eosinophils # (Auto) 0.0, Basophils # (Auto) 0.0, Immature Granulocyte # (Auto) 0.0 08/17/22 10:58: Glucometer 124H A/P: Assessment: Syncope of undetermined etiology on 08/10/22 - echo on 08-12-22: LVEF 60-65%, AoV sclerosis w/o stenosis, PASP 30-35 mmHg L ankle fracture after syncopal fall on 08/10/22 Hypertension DJD DM II Hyperlipidemia - treated with statins Plan: * No evidence of orthostasis * Monitor labs * Keep on tele * Adivse ILR since orthostatic bp was normal and no arrhythmia has been seen on tele thus far * DVT prophylaxis recommend MANOJ GIPSON Aug 14, 2022 10:33
[2022-08-14] MEDS ORDERED: PATIENT MAY USE OWN MED,SINGLE MED PO SCH (11:00)
[2022-08-14] MEDS: VICTOZA 18 MG/3 ML SQ SCH ×2 (11:20→11:21)
--- NOTE | 2022-08-14 12:21 | Physical Therapy Daily Note ---
PT Daily Note-Current Subjective Pt sitting in recliner visiting with daughter upon arrival. Pt agrees to PT. Pain Location Body Site: Back Pain Description: Ache, Cramping Comment: Reports but doesn't rate, back spasms when laying on Therapy Mat Section J - Health Conditions 1. Rarely or not at all 2. Occasionally 3. Frequently 4. Almost constantly 8. Unable to answer Pain Effect on Sleep: 2 Pain Interference with Therapy: 2 Pain Interference w/Day-to-Day: 2 Mental Status Patient Orientation: Person, Place, Time, Situation Transfers SCALE: Activities may be completed with or without assistive devices. 0-Ckmlxifqef-zdvuteg completes the activity by him/herself with no assistance from a helper. 5-Set-up or Clean-up Assistance-helper sets up or cleans up; patient completes activity. [place] assists only prior to or following the activity. 4-Supervision or Touching Assistance-helper provides verbal cues and/or touching/steadying and/or contact guard assistance as patient completes activity. Assistance may be provided throughout the activity or intermittently. 3-Partial/Moderate Assistance-helper does LESS THAN HALF the effort. [place] lifts, holds or supports trunk or limbs, but provides less than half the effort. 2-Substantial/Maximal Assistance-helper does MORE THAN HALF the effort. [place] lifts or holds trunk or limbs and provides more than half the effort. 1-Qfjfbertn-dyfaet does ALL the effort. Patient does none of the effort to complete the activity. Or, the assistance of 2 or more helpers is required for the patient to complete the activity. If activity was not attempted, code reason: 7-Patient Refused. 9-Not Applicable-not attempted and the patient did not perform the activity before the current illness, exacerbation or injury. 10-Not Attempted due to Environmental Limitations-(lack of equipment, weather restraints, etc.). 88-Not Attempted due to Medical Conditions or Safety Concerns. Sit to Stand (QC): 4 Chair/Qoa-kc-Novef Xfer(QC): 4 Car Transfer (QC): 4 Weight Bearing Right Lower Extremity: Right Full Weight Bearing Left Lower Extremity: Left Non Weight Bearing Gait Training Does the Patient Walk?: Yes Distance: 50', 60' Walk 10 feet (QC): 4 Walk 50 ft with 2 Turns(QC): 4 Gait Persons Needed: 1 Gait Assistive Device: FWW Hop gait pattern to adhere to NWB on L ankle Wheelchair Training Does the Pt Use a Wheelchair?: Yes Wheel 50 ft with 2 turns (QC): 6 Wheel 150 ft (QC): 6 Type of Wheelchair: Manual Exercises Supine Ex: Ankle pumps, Short Arc Quads, Straight leg raise, Hip abd/add Supine Reps: 15 Seated Therapy Exercises: Ankle pumps, Hip flexion, Kicking activity, Hamstring Curls, Hip abd/add, Glut set Seated Reps: 15 Treatments TF to standing and amb. in hallway to complete Car TF so daughter could see. Pt amb. in hallway and TF to Therapy Mat. Pt completes Supine EX until back spasms keep pt from continuing. Pt rolls to L sidelying then eventually to sitting at EOM. Pt completes Seated EX at mat then TF to WC. Pt propels WCH in hallway and back to room. Pt returns to recliner to rest & eat lunch. All needs met, call light in hand. Assessment Current Status: Fair Progress Pain/Back spasms limit tx. although pt is able to amb. farther than previous tx. PT Snf Goals Snf Goals PT Pipe Organ Mechanic Goals Time Frame: Aug 26, 2022 Roll Left & Right (QC): 6 Sit to Lying (QC): 6 Lying-Sitting on Side/Bed(QC): 6 Sit to Stand (QC): 6 Chair/Jkc-yl-Agmeq Xfer(QC): 6 Toilet Transfer (QC): 6 Car Transfer (QC): 6 Does the Patient Walk: Yes Walk 10 feet (QC): 6 Walk 50ft with 2 Turns (QC): 6 Walk 150 ft (QC): 6 Walking 10ft on Uneven Surface: 6 1 Step (curb) (QC): 9 4 Steps (QC): 9 12 Steps (QC): 9 Picking up an Object (QC): 6 Does the Pt use WC or Scooter?: No Wheel 50 feet with 2 turns (QC: 9 Wheel 150 feet: 9 PT Plan Problem List Problem List: Activity Tolerance, Functional Strength Treatment/Plan Treatment Plan: Continue Plan of Care Treatment Plan: Bed Mobility, Concurrent Therapy, Education, Functional Activity Audrey, Functional Strength, Group Therapy, Gait, Safety, Therapeutic Exercise, Transfers Treatment Duration: Aug 26, 2022 Frequency: 6 times per week Estimated Hrs Per Day: 1.5 hours per day Patient and/or Family Agrees t: Yes Safety Risks/Education Patient Education: Gait Training, Correct Positioning, Safety Issues Teaching Recipient: Patient Teaching Methods: Discussion Response to Teaching: Verbalize Understanding Time Time In: 1115 Time Out: 1215 DATE: Aug 14, 2022 Total Billed Treatment Time: 60 Total Billed Treatment 1, EX x2 (30m), WCH (10m) & GT (20m) SANFORD CAMPOS PTA Aug 14, 2022 12:21
--- NOTE | 2022-08-14 12:37 | Progress Note - Cardiology ---
Cardiology SOAP Progress Note Subjective: No cp or palp or syncope or shortness of breath No n/v/d No focal weakness Objective: I&O/Vital Signs 08/14/22 08/14/22 08/14/22 08/14/22 01:00 07:11 07:26 09:23 Temp 36.8 Pulse 71 77 79 Resp 18 B/P (MAP) 116/69 (85) Pulse Ox 95 O2 Delivery Room Air Room Air 08/14/22 00:00 Intake Total 1040 ml Balance 1040 ml Weight (Pounds): 219 Weight (Ounces): 0.0 Weight (Calculated Kilograms): 99.247278 Constitutional: AAO x 3, well-developed, well-nourished Respiratory: No accessory muscle use; other (good, bilat air entry) Cardiovascular: regular rate-rhythm, S1 and S2, systolic murmur (soft DOTTIE at nuno base) Gastrointestional: No tender; soft; No guarding, No rebound; audible bowel sounds Extremities: No clubbing, No cyanosis, No significant edema Neurologic/Psychiatric: oriented x 3, other (moves all limbs equally) Skin: normal color, warm/dry; No rash on exposed areas, No ulcerations on exposed areas Results/Procedures: Labs Laboratory Tests 08/13/22 15:50: Glucometer 183H 08/13/22 20:31: Glucometer 104 08/14/22 05:46: Glucometer 140H Laboratory Tests 08/13/22 05:50 A/P: Assessment: Syncope of undetermined etiology on 08/10/22 - echo on 08-12-22: LVEF 60-65%, AoV sclerosis w/o stenosis, PASP 30-35 mmHg L ankle fracture after syncopal fall on 08/10/22 Hypertension DJD DM II Hyperlipidemia - treated with statins Plan: * No evidence of orthostasis * Monitor labs * Keep on tele * Adivse ILR since orthostatic bp was normal and no arrhythmia has been seen on tele thus far * Continuing DVT prophylaxis recommended GENEVA PRUITT MD FACP [facility] Aug 14, 2022 12:37
--- NOTE | 2022-08-14 14:43 | Physical Therapy Daily Note ---
PT Daily Note-Current Subjective Pt sitting in recliner upon arrival. Pt agrees to PT. Pain Section J - Health Conditions 1. Rarely or not at all 2. Occasionally 3. Frequently 4. Almost constantly 8. Unable to answer Pain Effect on Sleep: 2 Pain Interference with Therapy: 2 Pain Interference w/Day-to-Day: 2 Mental Status Patient Orientation: Person, Place, Time, Situation Transfers SCALE: Activities may be completed with or without assistive devices. 2-Bllmhqxcms-wfdrzka completes the activity by him/herself with no assistance from a helper. 5-Set-up or Clean-up Assistance-helper sets up or cleans up; patient completes activity. [place] assists only prior to or following the activity. 4-Supervision or Touching Assistance-helper provides verbal cues and/or touching/steadying and/or contact guard assistance as patient completes activity. Assistance may be provided throughout the activity or intermittently. 3-Partial/Moderate Assistance-helper does LESS THAN HALF the effort. [place] lifts, holds or supports trunk or limbs, but provides less than half the effort. 2-Substantial/Maximal Assistance-helper does MORE THAN HALF the effort. [place] lifts or holds trunk or limbs and provides more than half the effort. 1-Wzfrnjvpq-sebnzi does ALL the effort. Patient does none of the effort to complete the activity. Or, the assistance of 2 or more helpers is required for the patient to complete the activity. If activity was not attempted, code reason: 7-Patient Refused. 9-Not Applicable-not attempted and the patient did not perform the activity before the current illness, exacerbation or injury. 10-Not Attempted due to Environmental Limitations-(lack of equipment, weather restraints, etc.). 88-Not Attempted due to Medical Conditions or Safety Concerns. Sit to Stand (QC): 4 Weight Bearing Right Lower Extremity: Right Full Weight Bearing Left Lower Extremity: Left Non Weight Bearing Gait Training Does the Patient Walk?: Yes Distance: 50' x2 Walk 10 feet (QC): 4 Walk 50 ft with 2 Turns(QC): 4 Gait Persons Needed: 1 Gait Assistive Device: FWW Treatments TF to standing and amb. to BR. Pt then amb. in hallway before returning to room. Pt resting Supine in bed. All needs met, call light in hand. Assessment Current Status: Good Progress Pt is improving with distance of amb. PT County Program Technician Goals County Program Technician Goals PT County Program Technician Goals Time Frame: Aug 26, 2022 Roll Left & Right (QC): 6 Sit to Lying (QC): 6 Lying-Sitting on Side/Bed(QC): 6 Sit to Stand (QC): 6 Chair/Gtn-mz-Dodqc Xfer(QC): 6 Toilet Transfer (QC): 6 Car Transfer (QC): 6 Does the Patient Walk: Yes Walk 10 feet (QC): 6 Walk 50ft with 2 Turns (QC): 6 Walk 150 ft (QC): 6 Walking 10ft on Uneven Surface: 6 1 Step (curb) (QC): 9 4 Steps (QC): 9 12 Steps (QC): 9 Picking up an Object (QC): 6 Does the Pt use WC or Scooter?: No Wheel 50 feet with 2 turns (QC: 9 Wheel 150 feet: 9 PT Plan Problem List Problem List: Activity Tolerance, Functional Strength Treatment/Plan Treatment Plan: Continue Plan of Care Treatment Plan: Bed Mobility, Concurrent Therapy, Education, Functional Activity Audrey, Functional Strength, Group Therapy, Gait, Safety, Therapeutic Exercise, Transfers Treatment Duration: Aug 26, 2022 Frequency: 6 times per week Estimated Hrs Per Day: 1.5 hours per day Patient and/or Family Agrees t: Yes Safety Risks/Education Patient Education: Gait Training, Correct Positioning, Safety Issues Teaching Recipient: Patient Teaching Methods: Discussion Response to Teaching: Verbalize Understanding Time Time In: 1400 Time Out: 1425 DATE: Aug 14, 2022 Total Billed Treatment Time: 25 Total Billed Treatment 1, GT (15m) & FA (10m) SANFORD CAMPOS CLERK RATING Aug 14, 2022 14:43
[2022-08-14 20:00] VITALS: BP 134/63
[2022-08-15] MEDS: HYDROcodone/APAP 5 MG/325 MG (LORTAB) TAB PO PRN ×4 (00:12→20:24)
--- NOTE | 2022-08-15 05:36 | PM&R Progress Note ---
Subjective HPI/CC On Admission Date Seen by Provider: Aug 15, 2022 Time Seen by Provider: 08:45 Subjective/Events-last exam 08/15/2022: Pt is doing really well Bowels moved yesterday Checked meds and labs No falls Set for going to [place] for repair of ankle and then returning tomorrow 08/14/2022: Pt is doing really well Moving around really well Will reach out to Dr. Rodriguez and evaluate for repair 08/13/2022: Patient doing really well Pain is controlled Small bowel movement but will continue laxatives due to high risk for narcotic bowel Doing pretty well hopping around Review of Systems General: Fatigue, Malaise Objective Exam Vital Signs Vital Signs Date Time Temp Pulse Resp B/P (MAP) Pulse Ox O2 Delivery O2 Flow Rate FiO2 08/16/22 01:00 74 08/15/22 21:05 95 Room Air 08/15/22 20:15 36.5 20 138/61 (86) Capillary Refill : General Appearance: No Apparent Distress, WD/WN HEENT: PERRL/EOMI, Normal ENT Inspection, Pharynx Normal Neck: Full Range of Motion, Normal Inspection, Non Tender, Supple, Carotid Bruit Respiratory: Chest Non Tender, Lungs Clear, Normal Breath Sounds, No Accessory Muscle Use, No Respiratory Distress Cardiovascular: Regular Rate, Rhythm, No Edema, No Gallop, No JVD, No Murmur, Normal Peripheral Pulses Gastrointestinal: Normal Bowel Sounds, No Organomegaly, No Pulsatile Mass, Non Tender, Soft Back: Normal Inspection, No CVA Tenderness, No Vertebral Tenderness Extremity: Normal Capillary Refill, Normal Inspection, Normal Range of Motion (Except left ankle and foot), Non Tender, No Calf Tenderness, No Pedal Edema Neurologic/Psychiatric: Alert, Oriented x3, Normal Mood/Affect, blending machine feeder II-XII Norm as Tested, Motor Weakness (Left foot and leg) Skin: Normal Color, Warm/Dry Lymphatic: No Adenopathy Results/Procedures Lab Patient resulted labs reviewed. FIM Transfers Therapy Code Descriptions/Definitions Functional [place] Measure: 0=Not Assessed/NA 4=Minimal Assistance 1=Total Assistance 5=Supervision or Setup 2=Maximal Assistance 6=Modified [place] 3=Moderate Assistance 7=Complete IndependenceSCALE: Activities may be completed with or without assistive devices. 0-Aytohhxssa-allekvm completes the activity by him/herself with no assistance from a helper. 5-Set-up or Clean-up Assistance-helper sets up or cleans up; patient completes activity. [place] assists only prior to or following the activity. 4-Supervision or Touching Assistance-helper provides verbal cues and/or touching/steadying and/or contact guard assistance as patient completes activity. Assistance may be provided throughout the activity or intermittently. 3-Partial/Moderate Assistance-helper does LESS THAN HALF the effort. [place] lifts, holds or supports trunk or limbs, but provides less than half the effort. 2-Substantial/Maximal Assistance-helper does MORE THAN HALF the effort. [place] lifts or holds trunk or limbs and provides more than half the effort. 3-Dtjczlwbj-siuzwq does ALL the effort. Patient does none of the effort to complete the activity. Or, the assistance of 2 or more helpers is required for the patient to complete the activity. If activity was not attempted, code reason: 7-Patient Refused. 9-Not Applicable-not attempted and the patient did not perform the activity before the current illness, exacerbation or injury. 10-Not Attempted due to Environmental Limitations-(lack of equipment, weather restraints, etc.). 88-Not Attempted due to Medical Conditions or Safety Concerns. Roll Left to Right (QC): 4 Sit to Lying (QC): 4 Sit to Stand (QC): 4 Chair/Ohm-vr-Ssalk Xfer(QC): 4 Car Transfer (QC): 4 Gait Training Does the Patient Walk?: Yes Distance: 50' x2 Walk 10 feet (QC): 4 Walk 50 ft with 2 Turns(QC): 4 Walk 150 ft (QC): 88 Walking 10ft/uneven surface-QC: 88 Gait Persons Needed: 1 Gait Assistive Device: FWW Wheelchair Training Does the Pt Use a Wheelchair?: Yes Wheel 50 ft with 2 turns (QC): 6 Wheel 150 ft (QC): 6 Type of Wheelchair: Manual Stair Training 1 Step (curb) (QC): 88 4 Steps (QC): 88 12 Steps (QC): 88 Balance Picking up an Object (QC): 88 ADL-Treatment Eating (QC): 6 (Per pt report.) Oral Hygiene (QC): 6 (in sitting) Shower/Bathe Self (QC): 4 Upper Body Dressing (QC): 5 Lower Body Dressing (QC): 4 On/Off Footwear (QC): 5 Toileting Hygiene (QC): 4 Toilet Transfer (QC): 4 Assessment/Plan Assessment and Plan Assess & Plan/Chief Complaint Assessment: Left ankle fracture will have repair by Dr. Rodriguez at [place] 08/16/22 then return to [facility] Diabetes Hypertension Hyperlipidemia Constipation Plan: Bowel regimen Pain control Supportive care Aggressive therapy 08/13/2022: Doing well Lovenox Pain control 08/14/2022: Continue aggressive care Reach out to Dr Rodriguez 08/15/2022: Monitor pain Have surgery then return tomorrow (1) Closed displaced trimalleolar fracture of left ankle Status: Acute (2) Syncope Status: Acute NAJAM GILLIAM DO Aug 15, 2022 05:36
[2022-08-15] MEDS: inSUlin ASPART (NovoLOG) 1 UNIT/0.01 ML (CHARGE PER UNIT) SC SCH ×4 (06:14→20:38)
[2022-08-15 07:35] VITALS: BP 127/76
--- NOTE | 2022-08-15 08:10 | Occupational Ther Daily Note ---
OT Current Status-Daily Note Subjective Pt c/o intermittent nausea throughout treatment. Mild c/o pain in R ankle but reports she received pain meds at ~0630. Appearance Pt returned to sitting in recliner, all needs within reach at OT departure. Mental Status/Objective Patient Orientation: Person, Place, Situation Attachments: IV ADL-Treatment Therapy Code Descriptions/Definitions Functional [place] Measure: 0=Not Assessed/NA 4=Minimal Assistance 1=Total Assistance 5=Supervision or Setup 2=Maximal Assistance 6=Modified [place] 3=Moderate Assistance 7=Complete IndependenceSCALE: Activities may be completed with or without assistive devices. 9-Dzlfvjdsfi-phlaqvz completes the activity by him/herself with no assistance from a helper. 5-Set-up or Clean-up Assistance-helper sets up or cleans up; patient completes activity. [place] assists only prior to or following the activity. 4-Supervision or Touching Assistance-helper provides verbal cues and/or touching/steadying and/or contact guard assistance as patient completes activity. Assistance may be provided throughout the activity or intermittently. 3-Partial/Moderate Assistance-helper does LESS THAN HALF the effort. [place] lifts, holds or supports trunk or limbs, but provides less than half the effort. 2-Substantial/Maximal Assistance-helper does MORE THAN HALF the effort. [place] lifts or holds trunk or limbs and provides more than half the effort. 8-Gxyzclqwh-juzwdl does ALL the effort. Patient does none of the effort to complete the activity. Or, the assistance of 2 or more helpers is required for the patient to complete the activity. If activity was not attempted, code reason: 7-Patient Refused. 9-Not Applicable-not attempted and the patient did not perform the activity before the current illness, exacerbation or injury. 10-Not Attempted due to Environmental Limitations-(lack of equipment, weather restraints, etc.). 88-Not Attempted due to Medical Conditions or Safety Concerns. Eating (QC): 6 Oral Hygiene (QC): 6 Upper Body Dressing (QC): 6 Lower Body Dressing (QC): 4 (supervision) On/Off Footwear: 6 Toileting Hygiene (QC): 4 Toilet Transfer (QC): 4 Pt has appointment with surgeon later today and requests to get ready for said appointment. Close supervision as she stands for functional tasks requiring removal of 1-2 UE's from walker such as clothing management. Good recall on use of tree thinner and sock aid when donning LB clothing. Grooming tasks including oral care, face washing, hair combing/styling, and application of makeup completed independently while seated at sink. Other Treatment Per request, Pt participated in UE exercises with 3# dumbbell, 3# dowel jai and medium size theraball. She was able to perform all joints through full range, 12-18 reps each. She tolerates well, min cues for breathing techniques. Education OT Patient Education: Correct positioning, Energy conservation, Exercise program, Modified ADL techniques, Purpose of tx/functional activities Teaching Recipient: Patient Teaching Methods: Demonstration, Discussion Response to Teaching: Verbalize Understanding, Return Demonstration OT Short Term Goals Short Term Goals Time Frame: Aug 21, 2022 Shower/bathe self: 4 Lower body dressin Putting on/taking off footwear: 4 OT Senior Care Goals Senior Care Goals Time Frame: Sep 02, 2022 Acute change in mental status: 0 Inattention: 0 Disorganized thinkin Altered level of consciousness: 0 Eating (QC): 6 Oral Hygiene (QC): 6 Toileting Hygiene (QC): 6 Shower/Bathe Self (QC): 5 Upper Body Dressing (QC): 6 Lower Body Dressing (QC): 6 On/Off Footwear (QC): 6 Additional Goals: 1-Demonstrate ADL Tasks, 2-Verbalize Understanding, 3-ImproveStrength/Audrey 1=Demonstrate adherence to instructed precautions during ADL tasks. 2=Patient will verbalize/demonstrate understanding of assistive devices/modifications for ADL. 3=Patient will improve strength/tolerance for activity to enable patient to perf orm ADL's. OT Education/Plan Problem List/Assessment Assessment: Decreased Activ Tolerance, Impaired Funct Balance, Impaired I ADL's, Impaired Self-Care Skills Discharge Recommendations Plan/Recommendations: Continue POC Equpiment Recommendations-D/C: Pillowcase Cutter, Sock Aide Treatment Plan/Plan of Care Treatment,Training & Education: Yes Patient would benefit from OT for education, treatment and training to promote independence in ADL's, mobility, safety and/or upper extremity function for ADL's. Plan of Care: ADL Retraining, Functional Mobility, Group Exercise/Act as Ind, UE Funct Exercise/Act Treatment Duration: Aug 12, 2022 Frequency: At least 5 of 7 days/Wk (IRF) Estimated Hrs Per Day: 1.5 hours per day Agreement: Yes Rehab Potential: Good Time Start Time: 07:20 Stop Time: 09:00 DATE: Aug 15, 2022 Total Time Billed (hr/min): 100 Billed Treatment Time 1 visit ADL x4 (60 min) EX x3 (40 min) Roula Judge OT Aug 15, 2022 08:10
[2022-08-15] MEDS: ENALAPRIL 10 MG (VASOTEC) TAB PO SCH (08:47)
[2022-08-15] MEDS: ROSUVASTATIN 20 MG (CRESTOR) TABLET PO SCH (08:47)
[2022-08-15] MEDS: PIOGLITAZONE 30MG (ACTOS) TAB PO SCH (08:47)
[2022-08-15] MEDS: DOCUSATE SODIUM 100 MG (COLACE) CAP PO SCH ×2 (08:47→21:06)
[2022-08-15] MEDS: PANTOPRAZOLE 40 MG (PROTONIX) TAB PO SCH (08:47)
[2022-08-15] MEDS: MULTIVIT W/MINERALS TAB (THERAGRAN M) PO SCH (08:47)
[2022-08-15] MEDS: ENOXAPARIN 40 MG/0.4 ML (LOVENOX) SYR SC SCH ×2 (08:47→18:31)
[2022-08-15] MEDS: SENNA W/DOCUSATE (SENOKOT S) TABLET PO SCH ×2 (08:48→21:06)
[2022-08-15] MEDS: polyethylene glycoL POWDER 17 GM (MIRALAX) PACK PO SCH ×2 (08:48→21:06)
[2022-08-15] MEDS: INVOKAMET PO SCH (08:58)
[2022-08-15] MEDS: VICTOZA 18 MG/3 ML SQ SCH (08:58)
[2022-08-15] MEDS: ONDANSETRON 4 MG (ZOFRAN) ORAL DISSOLVE TAB PO PRN (11:34)
--- NOTE | 2022-08-15 15:12 | Physical Therapy Daily Note ---
PT Daily Note-Current Subjective Pt sitting in recliner upon arrival. Pt agrees to PT although has reported long morning as OT tx and Zoom for Therapy session have already occurred. Pt reports anxious today as pt will attend DR loco out of facility to determine how soon surgery for ankle will occur. Pain Numeric Pain Scale: 0-No Pain Section J - Health Conditions 1. Rarely or not at all 2. Occasionally 3. Frequently 4. Almost constantly 8. Unable to answer Pain Effect on Sleep: 2 Pain Interference with Therapy: 2 Pain Interference w/Day-to-Day: 2 Mental Status Patient Orientation: Person, Place, Time, Situation Transfers SCALE: Activities may be completed with or without assistive devices. 2-Enpwzeczsz-tmrwjwe completes the activity by him/herself with no assistance from a helper. 5-Set-up or Clean-up Assistance-helper sets up or cleans up; patient completes activity. [place] assists only prior to or following the activity. 4-Supervision or Touching Assistance-helper provides verbal cues and/or touching/steadying and/or contact guard assistance as patient completes activity. Assistance may be provided throughout the activity or intermittently. 3-Partial/Moderate Assistance-helper does LESS THAN HALF the effort. [place] lifts, holds or supports trunk or limbs, but provides less than half the effort. 2-Substantial/Maximal Assistance-helper does MORE THAN HALF the effort. [place] lifts or holds trunk or limbs and provides more than half the effort. 9-Svnizlsyj-tewibq does ALL the effort. Patient does none of the effort to complete the activity. Or, the assistance of 2 or more helpers is required for the patient to complete the activity. If activity was not attempted, code reason: 7-Patient Refused. 9-Not Applicable-not attempted and the patient did not perform the activity before the current illness, exacerbation or injury. 10-Not Attempted due to Environmental Limitations-(lack of equipment, weather restraints, etc.). 88-Not Attempted due to Medical Conditions or Safety Concerns. Sit to Stand (QC): 5 Toilet Transfer (QC): 5 Weight Bearing Right Lower Extremity: Right Full Weight Bearing Left Lower Extremity: Left Non Weight Bearing Gait Training Does the Patient Walk?: Yes Distance: 75', 65' Walk 10 feet (QC): 4 Walk 50 ft with 2 Turns(QC): 4 Gait Assistive Device: FWW Hop to gait pattern occurs as pt cannot WB on L ankle. Exercises Seated Therapy Exercises: Ankle pumps, Long arc quads, Hip flexion, Hip abd/add, Glut set Seated Reps: 15 NuStep Minutes: 13 NuStep Workload: 4 Treatments TF to standing and uses BR. Pt amb. in hallway, taking RB as needed. Pt uses NuStep then takes RB. Pt reports nausea then vomits. Nurse is notified. After RB, pt TF to chair for Seated Ex then amb. in hallway. Pt returns to room to rest in recliner. All needs met, call light in hand. Assessment Current Status: Good Progress Ambulation is improving as pt increases strength. Pt is more fatigued at end of tx due to nausea as is self reported. PT Solidworks Designer Goals Solidworks Designer Goals PT Fdc Goals Time Frame: Aug 26, 2022 Roll Left & Right (QC): 6 Sit to Lying (QC): 6 Lying-Sitting on Side/Bed(QC): 6 Sit to Stand (QC): 6 Chair/Juf-pv-Uagjx Xfer(QC): 6 Toilet Transfer (QC): 6 Car Transfer (QC): 6 Does the Patient Walk: Yes Walk 10 feet (QC): 6 Walk 50ft with 2 Turns (QC): 6 Walk 150 ft (QC): 6 Walking 10ft on Uneven Surface: 6 1 Step (curb) (QC): 9 4 Steps (QC): 9 12 Steps (QC): 9 Picking up an Object (QC): 6 Does the Pt use WC or Scooter?: No Wheel 50 feet with 2 turns (QC: 9 Wheel 150 feet: 9 PT Plan Problem List Problem List: Activity Tolerance Treatment/Plan Treatment Plan: Continue Plan of Care Treatment Plan: Bed Mobility, Concurrent Therapy, Education, Functional Activity Audrey, Functional Strength, Group Therapy, Gait, Safety, Therapeutic Exercise, Transfers Treatment Duration: Aug 26, 2022 Frequency: 6 times per week Estimated Hrs Per Day: 1.5 hours per day Patient and/or Family Agrees t: Yes Time Time In: 1000 Time Out: 1130 DATE: Aug 15, 2022 Total Billed Treatment Time: 90 Total Billed Treatment 1, FA x3 (45m), EX x2 (30m) & WCH (15m) SANFORD CAMPOS SENIOR WINDOWS ADMINISTRATOR Aug 15, 2022 15:12
[2022-08-15 20:15] VITALS: BP 138/61
[2022-08-16] MEDS: HYDROcodone/APAP 5 MG/325 MG (LORTAB) TAB PO PRN ×3 (05:28→23:02)
[2022-08-16] MEDS: inSUlin ASPART (NovoLOG) 1 UNIT/0.01 ML (CHARGE PER UNIT) SC SCH ×4 (06:15→23:05)
--- NOTE | 2022-08-16 06:25 | PM&R Progress Note ---
Subjective HPI/CC On Admission Date Seen by Provider: Aug 16, 2022 Time Seen by Provider: 09:00 Subjective/Events-last exam 08/16/2022: Pt is doing well Going to [facility] for repair of the left ankle fracture Checked meds and labs No falls No pain otherwise 08/15/2022: Pt is doing really well Bowels moved yesterday Checked meds and labs No falls Set for going to [facility] for repair of ankle and then returning tomorrow 08/14/2022: Pt is doing really well Moving around really well Will reach out to Dr. Rodriguez and evaluate for repair 08/13/2022: Patient doing really well Pain is controlled Small bowel movement but will continue laxatives due to high risk for narcotic bowel Doing pretty well hopping around Review of Systems General: Fatigue, Malaise Objective Exam Vital Signs Vital Signs Date Time Temp Pulse Resp B/P (MAP) Pulse Ox O2 Delivery O2 Flow Rate FiO2 08/17/22 01:00 100 08/16/22 23:00 36.4 18 140/65 (90) 95 Room Air Capillary Refill : General Appearance: No Apparent Distress, WD/WN HEENT: PERRL/EOMI, Normal ENT Inspection, Pharynx Normal Neck: Full Range of Motion, Normal Inspection, Non Tender, Supple, Carotid Brui t Respiratory: Chest Non Tender, Lungs Clear, Normal Breath Sounds, No Accessory Muscle Use, No Respiratory Distress Cardiovascular: Regular Rate, Rhythm, No Edema, No Gallop, No JVD, No Murmur, Normal Peripheral Pulses Gastrointestinal: Normal Bowel Sounds, No Organomegaly, No Pulsatile Mass, Non Tender, Soft Back: Normal Inspection, No CVA Tenderness, No Vertebral Tenderness Extremity: Normal Capillary Refill, Normal Inspection, Normal Range of Motion (Except left ankle and foot), Non Tender, No Calf Tenderness, No Pedal Edema Neurologic/Psychiatric: Alert, Oriented x3, Normal Mood/Affect, hydrologic modeler II-XII Norm as Tested, Motor Weakness (Left foot and leg) Skin: Normal Color, Warm/Dry Lymphatic: No Adenopathy Results/Procedures Lab Patient resulted labs reviewed. FIM Transfers Therapy Code Descriptions/Definitions Functional [place] Measure: 0=Not Assessed/NA 4=Minimal Assistance 1=Total Assistance 5=Supervision or Setup 2=Maximal Assistance 6=Modified [place] 3=Moderate Assistance 7=Complete IndependenceSCALE: Activities may be completed with or without assistive devices. 0-Cgfwxivpoq-curtvum completes the activity by him/herself with no assistance from a helper. 5-Set-up or Clean-up Assistance-helper sets up or cleans up; patient completes activity. [place] assists only prior to or following the activity. 4-Supervision or Touching Assistance-helper provides verbal cues and/or touching/steadying and/or contact guard assistance as patient completes activity. Assistance may be provided throughout the activity or intermittently. 3-Partial/Moderate Assistance-helper does LESS THAN HALF the effort. [place] lifts, holds or supports trunk or limbs, but provides less than half the effort. 2-Substantial/Maximal Assistance-helper does MORE THAN HALF the effort. [place] lifts or holds trunk or limbs and provides more than half the effort. 6-Mumncxade-ivmebw does ALL the effort. Patient does none of the effort to complete the activity. Or, the assistance of 2 or more helpers is required for the patient to complete the activity. If activity was not attempted, code reason: 7-Patient Refused. 9-Not Applicable-not attempted and the patient did not perform the activity before the current illness, exacerbation or injury. 10-Not Attempted due to Environmental Limitations-(lack of equipment, weather restraints, etc.). 88-Not Attempted due to Medical Conditions or Safety Concerns. Roll Left to Right (QC): 4 Sit to Lying (QC): 4 Sit to Stand (QC): 5 Chair/Zfw-bz-Ljhfb Xfer(QC): 4 Car Transfer (QC): 4 Gait Training Does the Patient Walk?: Yes Distance: 75', 65' Walk 10 feet (QC): 4 Walk 50 ft with 2 Turns(QC): 4 Walk 150 ft (QC): 88 Walking 10ft/uneven surface-QC: 88 Gait Persons Needed: 1 Gait Assistive Device: FWW Wheelchair Training Does the Pt Use a Wheelchair?: Yes Wheel 50 ft with 2 turns (QC): 6 Wheel 150 ft (QC): 6 Type of Wheelchair: Manual Stair Training 1 Step (curb) (QC): 88 4 Steps (QC): 88 12 Steps (QC): 88 Balance Picking up an Object (QC): 88 ADL-Treatment Eating (QC): 6 Oral Hygiene (QC): 6 Shower/Bathe Self (QC): 4 Upper Body Dressing (QC): 6 Lower Body Dressing (QC): 4 (supervision) On/Off Footwear (QC): 6 Toileting Hygiene (QC): 4 Toilet Transfer (QC): 4 Assessment/Plan Assessment and Plan Assess & Plan/Chief Complaint Assessment: Left ankle fracture will have repair by Dr. Rodriguez at [facility] 08/16/22 then return to [facility] Diabetes Hypertension Hyperlipidemia Constipation Plan: Bowel regimen Pain control Supportive care Aggressive therapy 08/13/2022: Doing well Lovenox Pain control 08/14/2022: Continue aggressive care Reach out to Dr Rodriguez 08/15/2022: Monitor pain Have surgery then return tomorrow 08/16/2022: Surgery today then returns (1) Closed displaced trimalleolar fracture of left ankle Status: Acute (2) Syncope Status: Acute NAJMA GILLIAM DO Aug 16, 2022 06:24
[2022-08-16 07:18] VITALS: BP 133/76
[2022-08-16] MEDS: PANTOPRAZOLE 40 MG (PROTONIX) TAB PO SCH (07:40)
[2022-08-16] MEDS: VICTOZA 18 MG/3 ML SQ SCH (09:03)
[2022-08-16] MEDS: ENOXAPARIN 40 MG/0.4 ML (LOVENOX) SYR SC SCH (09:04)
--- NOTE | 2022-08-16 09:59 | Occupational Ther Daily Note ---
OT Current Status-Daily Note Subjective Pt denies pain. She verbalizes that she is scheduled for surgery at [facility] later this afternoon. In order to conserve energy and reduce extra fatigue prior to surgery, part of treatment was completed with physical therapy. (co-treat: [id number]). Appearance Pt left sitting in physical therapy gym with therapist. Mental Status/Objective Patient Orientation: Person, Place, Situation Attachments: IV ADL-Treatment Therapy Code Descriptions/Definitions Functional [place] Measure: 0=Not Assessed/NA 4=Minimal Assistance 1=Total Assistance 5=Supervision or Setup 2=Maximal Assistance 6=Modified [place] 3=Moderate Assistance 7=Complete IndependenceSCALE: Activities may be completed with or without assistive devices. 2-Kqmlmjyebp-xbsvepo completes the activity by him/herself with no assistance from a helper. 5-Set-up or Clean-up Assistance-helper sets up or cleans up; patient completes activity. [place] assists only prior to or following the activity. 4-Supervision or Touching Assistance-helper provides verbal cues and/or touching/steadying and/or contact guard assistance as patient completes activity. Assistance may be provided throughout the activity or intermittently. 3-Partial/Moderate Assistance-helper does LESS THAN HALF the effort. [place] lifts, holds or supports trunk or limbs, but provides less than half the effort. 2-Substantial/Maximal Assistance-helper does MORE THAN HALF the effort. [place] lifts or holds trunk or limbs and provides more than half the effort. 8-Patbxfelq-nclgsw does ALL the effort. Patient does none of the effort to complete the activity. Or, the assistance of 2 or more helpers is required for the patient to complete the activity. If activity was not attempted, code reason: 7-Patient Refused. 9-Not Applicable-not attempted and the patient did not perform the activity before the current illness, exacerbation or injury. 10-Not Attempted due to Environmental Limitations-(lack of equipment, weather restraints, etc.). 88-Not Attempted due to Medical Conditions or Safety Concerns. Eating (QC): 6 Oral Hygiene (QC): 6 Shower/Bathe Self (QC): 5 (set up only to wrap L ankle) Upper Body Dressing (QC): 6 Lower Body Dressing (QC): 5 On/Off Footwear: 6 Toileting Hygiene (QC): 6 Toilet Transfer (QC): 4 Pt scheduled for ankle surgery later this morning. CHG shower completed. L ankle wrapped prior to task, C/D/I following activity. Pt sat for majority of task, only standing briefly to wash cinthya area/buttocks. No unsteadiness in standing when holding onto grab bar. Pt able to reach all body parts independently. Clothing donned seated in chair. Good recall on adaptive equipment for LB dressing/footwear. Pt able to manage pants over hips while alternating one hand on grab bar at a time. Grooming tasks performed at seated level, independently. Other Treatment While in gym, pt participated in several standing activities focusing on improving higher level balance while maintaining NWB status, endurance, LE str ength, and safety. Intermittent CGA required as she reached out of CLARE. Mild unsteadiness observed at times but good righting reactions exhibited by patient. Pt is very motivated in getting stronger. Education OT Patient Education: Correct positioning, Energy conservation, Progress toward Goal/Update tx plan, Purpose of tx/functional activities, Safety issues Teaching Recipient: Patient Teaching Methods: Discussion Response to Teaching: Verbalize Understanding, Return Demonstration OT Short Term Goals Short Term Goals Time Frame: Aug 21, 2022 Shower/bathe self: 4 Lower body dressin Putting on/taking off footwear: 4 OT Prison Goals Prison Goals Time Frame: Sep 02, 2022 Acute change in mental status: 0 Inattention: 0 Disorganized thinkin Altered level of consciousness: 0 Eating (QC): 6 Oral Hygiene (QC): 6 Toileting Hygiene (QC): 6 Shower/Bathe Self (QC): 5 Upper Body Dressing (QC): 6 Lower Body Dressing (QC): 6 On/Off Footwear (QC): 6 Additional Goals: 1-Demonstrate ADL Tasks, 2-Verbalize Understanding, 3- ImproveStrength/Audrey 1=Demonstrate adherence to instructed precautions during ADL tasks. 2=Patient will verbalize/demonstrate understanding of assistive devices/modifications for ADL. 3=Patient will improve strength/tolerance for activity to enable patient to perform ADL's. OT Education/Plan Problem List/Assessment Assessment: Decreased Activ Tolerance, Impaired Funct Balance, Impaired I ADL's Discharge Recommendations Plan/Recommendations: Continue POC Treatment Plan/Plan of Care Treatment,Training & Education: Yes Patient would benefit from OT for education, treatment and training to promote independence in ADL's, mobility, safety and/or upper extremity function for ADL's. Plan of Care: ADL Retraining, Functional Mobility, Group Exercise/Act as Ind, UE Funct Exercise/Act Treatment Duration: Aug 12, 2022 Frequency: At least 5 of 7 days/Wk (IRF) Estimated Hrs Per Day: 1.5 hours per day Agreement: Yes Rehab Potential: Good Time Start Time: 08:25 Stop Time: 09:55 DATE: Aug 16, 2022 Total Time Billed (hr/min): 90 Billed Treatment Time 1 visit ADL x4 (55 min) FAx2 (35 min) Roula Judge OT Aug 16, 2022 09:59
--- NOTE | 2022-08-16 10:43 | Physical Therapy Daily Note ---
PT Daily Note-Current Subjective Pt sitting in [facility] in room after finishing shower, working w/OT upon arrival. Pt agrees to PT/OT co-treat for part of tx. Pt denies pain. She verbalizes that she is scheduled for surgery at [facility] later this afternoon. In order to conserve energy and reduce extra fatigue prior to surgery, part of treatment was completed with physical therapy. (co-treat: [id number]). Pain Numeric Pain Scale: 6 Location: Left Location Body Site: Ankle Pain Description: Ache Comment: Starts co-treat w/o pain, increases to 3/10 w/standing & 6/10 after walking Section J - Health Conditions 1. Rarely or not at all 2. Occasionally 3. Frequently 4. Almost constantly 8. Unable to answer Pain Effect on Sleep: 2 Pain Interference with Therapy: 2 Pain Interference w/Day-to-Day: 2 Mental Status Patient Orientation: Person, Place, Situation Transfers SCALE: Activities may be completed with or without assistive devices. 5-Vxztugjmzm-hkriked completes the activity by him/herself with no assistance from a helper. 5-Set-up or Clean-up Assistance-helper sets up or cleans up; patient completes activity. [place] assists only prior to or following the activity. 4-Supervision or Touching Assistance-helper provides verbal cues and/or touching/steadying and/or contact guard assistance as patient completes activity. Assistance may be provided throughout the activity or intermittently. 3-Partial/Moderate Assistance-helper does LESS THAN HALF the effort. [place] lifts, holds or supports trunk or limbs, but provides less than half the effort. 2-Substantial/Maximal Assistance-helper does MORE THAN HALF the effort. [place] lifts or holds trunk or limbs and provides more than half the effort. 8-Xwmqecsoe-lqvvmq does ALL the effort. Patient does none of the effort to complete the activity. Or, the assistance of 2 or more helpers is required for the patient to complete the activity. If activity was not attempted, code reason: 7-Patient Refused. 9-Not Applicable-not attempted and the patient did not perform the activity before the current illness, exacerbation or injury. 10-Not Attempted due to Environmental Limitations-(lack of equipment, weather restraints, etc.). 88-Not Attempted due to Medical Conditions or Safety Concerns. Sit to Lying (QC): 5 Sit to Stand (QC): 5 Weight Bearing Right Lower Extremity: Right Full Weight Bearing Left Lower Extremity: Left Non Weight Bearing Gait Training Does the Patient Walk?: Yes Distance: 125' Walk 10 feet (QC): 5 Walk 50 ft with 2 Turns(QC): 4 Gait Persons Needed: 1 Gait Assistive Device: FWW Pt hops to walk as pt is NWB on L LE. Wheelchair Training Does the Pt Use a Wheelchair?: Yes Wheel 50 ft with 2 turns (QC): 6 Wheel 150 ft (QC): 6 Type of Wheelchair: Manual Exercises NuStep Minutes: 15 NuStep Workload: 5 Treatments Propels [facility] in hallway then completes dynamic standing balance activities including balloon batting & transferring objects from one one across midline to the other. CUSTOMER CONTACT SALES ASSOCIATE assists with CGA-SBA during standing. Pt returns to [facility] to rest and OT departs. Pt uses NuStep followed by short RB. Pt then completes amb. in hallway. TF back to Supine in bed to rest at end of tx. All needs met, call light in hand. Assessment Current Status: Good Progress Pt needs occasional RB as pt fatigues. Pt will have surgery later today and Therapy will be resume when appropriate. PT Custodial Goals Custodial Goals PT Varnish Cooker Goals Time Frame: Aug 26, 2022 Roll Left & Right (QC): 6 Sit to Lying (QC): 6 Lying-Sitting on Side/Bed(QC): 6 Sit to Stand (QC): 6 Chair/Eje-rc-Fsprx Xfer(QC): 6 Toilet Transfer (QC): 6 Car Transfer (QC): 6 Does the Patient Walk: Yes Walk 10 feet (QC): 6 Walk 50ft with 2 Turns (QC): 6 Walk 150 ft (QC): 6 Walking 10ft on Uneven Surface: 6 1 Step (curb) (QC): 9 4 Steps (QC): 9 12 Steps (QC): 9 Picking up an Object (QC): 6 Does the Pt use WC or Scooter?: No Wheel 50 feet with 2 turns (QC: 9 Wheel 150 feet: 9 PT Plan Problem List Problem List: Activity Tolerance, Functional Strength Treatment/Plan Treatment Plan: Continue Plan of Care Treatment Plan: Bed Mobility, Concurrent Therapy, Education, Functional Activity Audrey, Functional Strength, Group Therapy, Gait, Safety, Therapeutic Exercise, Transfers Treatment Duration: Aug 26, 2022 Frequency: 6 times per week Estimated Hrs Per Day: 1.5 hours per day Patient and/or Family Agrees t: Yes Time Time In: 915 Time Out: 1045 DATE: Aug 16, 2022 Total Billed Treatment Time: 90 Total Billed Treatment Co-treat w/OT for 40m (156-192) 1, FA x3 (40m), WCH (15m) & EX x2 (35m) SANFORD CAMPOS CUSTOMER CONTACT SALES ASSOCIATE Aug 16, 2022 10:43
[2022-08-16] MEDS: PIOGLITAZONE 30MG (ACTOS) TAB PO SCH (11:15)
[2022-08-16] MEDS: INVOKAMET PO SCH (11:15)
[2022-08-16] MEDS: polyethylene glycoL POWDER 17 GM (MIRALAX) PACK PO SCH ×2 (11:16→23:14)
[2022-08-16] MEDS: MULTIVIT W/MINERALS TAB (THERAGRAN M) PO SCH (11:16)
[2022-08-16] MEDS: SENNA W/DOCUSATE (SENOKOT S) TABLET PO SCH ×2 (11:16→23:01)
[2022-08-16] MEDS: DOCUSATE SODIUM 100 MG (COLACE) CAP PO SCH ×2 (12:30→23:01)
[2022-08-16] MEDS: ENALAPRIL 10 MG (VASOTEC) TAB PO SCH (12:52)
[2022-08-16] MEDS: ROSUVASTATIN 20 MG (CRESTOR) TABLET PO SCH (12:52)
[2022-08-16 23:00] VITALS: BP 140/65
[2022-08-17] MEDS: HYDROcodone/APAP 5 MG/325 MG (LORTAB) TAB PO PRN ×3 (05:06→15:21)
[2022-08-17] MEDS: inSUlin ASPART (NovoLOG) 1 UNIT/0.01 ML (CHARGE PER UNIT) SC SCH ×4 (05:45→21:21)
--- NOTE | 2022-08-17 06:03 | PM&R Progress Note ---
Subjective HPI/CC On Admission Date Seen by Provider: Aug 17, 2022 Time Seen by Provider: 12:30 Subjective/Events-last exam 08/17/2022: Patient doing a lot better after Dilaudid given Bowels are moving Supportive care continue 08/16/2022: Pt is doing well Going to [facility] for repair of the left ankle fracture Checked meds and labs No falls No pain otherwise 08/15/2022: Pt is doing really well Bowels moved yesterday Checked meds and labs No falls Set for going to [facility] for repair of ankle and then returning tomorrow 08/14/2022: Pt is doing really well Moving around really well Will reach out to Dr. Rodriguez and evaluate for repair 08/13/2022: Patient doing really well Pain is controlled Small bowel movement but will continue laxatives due to high risk for narcotic bowel Doing pretty well hopping around Review of Systems General: Fatigue, Malaise Musculoskeletal: leg pain, foot pain Objective Exam Vital Signs Vital Signs Date Time Temp Pulse Resp B/P (MAP) Pulse Ox O2 Delivery O2 Flow Rate FiO2 08/18/22 01:00 80 08/17/22 20:00 Room Air 08/17/22 19:59 36.3 18 134/59 (84) 93 Capillary Refill : General Appearance: No Apparent Distress, WD/WN HEENT: PERRL/EOMI, Normal ENT Inspection, Pharynx Normal Neck: Full Range of Motion, Normal Inspection, Non Tender, Supple, Carotid Bruit Respiratory: Chest Non Tender, Lungs Clear, Normal Breath Sounds, No Accessory Muscle Use, No Respiratory Distress Cardiovascular: Regular Rate, Rhythm, No Edema, No Gallop, No JVD, No Murmur, Normal Peripheral Pulses Gastrointestinal: Normal Bowel Sounds, No Organomegaly, No Pulsatile Mass, Non Tender, Soft Back: Normal Inspection, No CVA Tenderness, No Vertebral Tenderness Extremity: Normal Capillary Refill, Normal Inspection, Normal Range of Motion (Except left ankle and foot), Non Tender, No Calf Tenderness, No Pedal Edema Neurologic/Psychiatric: Alert, Oriented x3, Normal Mood/Affect, beekeeper II-XII Norm as Tested, Motor Weakness (Left foot and leg) Skin: Normal Color, Warm/Dry Lymphatic: No Adenopathy Results/Procedures Lab Laboratory Tests 08/17/22 06:41 08/17/22 07:13 Patient resulted labs reviewed. FIM Transfers Therapy Code Descriptions/Definitions Functional [place] Measure: 0=Not Assessed/NA 4=Minimal Assistance 1=Total Assistance 5=Supervision or Setup 2=Maximal Assistance 6=Modified [place] 3=Moderate Assistance 7=Complete IndependenceSCALE: Activities may be completed with or without assistive devices. 5-Kucsofodgc-ifjvrnh completes the activity by him/herself with no assistance from a helper. 5-Set-up or Clean-up Assistance-helper sets up or cleans up; patient completes activity. [place] assists only prior to or following the activity. 4-Supervision or Touching Assistance-helper provides verbal cues and/or touching/steadying and/or contact guard assistance as patient completes activity. Assistance may be provided throughout the activity or intermittently. 3-Partial/Moderate Assistance-helper does LESS THAN HALF the effort. [place] lifts, holds or supports trunk or limbs, but provides less than half the effort. 2-Substantial/Maximal Assistance-helper does MORE THAN HALF the effort. [place] lifts or holds trunk or limbs and provides more than half the effort. 7-Ydlxzkhtk-diecro does ALL the effort. Patient does none of the effort to complete the activity. Or, the assistance of 2 or more helpers is required for the patient to complete the activity. If activity was not attempted, code reason: 7-Patient Refused. 9-Not Applicable-not attempted and the patient did not perform the activity before the current illness, exacerbation or injury. 10-Not Attempted due to Environmental Limitations-(lack of equipment, weather restraints, etc.). 88-Not Attempted due to Medical Conditions or Safety Concerns. Roll Left to Right (QC): 4 Sit to Lying (QC): 5 Sit to Stand (QC): 5 Chair/Hps-mx-Iotub Xfer(QC): 4 Car Transfer (QC): 4 Gait Training Does the Patient Walk?: Yes Distance: 125' Walk 10 feet (QC): 5 Walk 50 ft with 2 Turns(QC): 4 Walk 150 ft (QC): 88 Walking 10ft/uneven surface-QC: 88 Gait Persons Needed: 1 Gait Assistive Device: FWW Wheelchair Training Does the Pt Use a Wheelchair?: Yes Wheel 50 ft with 2 turns (QC): 6 Wheel 150 ft (QC): 6 Type of Wheelchair: Manual Stair Training 1 Step (curb) (QC): 88 4 Steps (QC): 88 12 Steps (QC): 88 Balance Picking up an Object (QC): 88 ADL-Treatment Eating (QC): 6 Oral Hygiene (QC): 6 Shower/Bathe Self (QC): 5 (set up only to wrap L ankle) Upper Body Dressing (QC): 6 Lower Body Dressing (QC): 5 On/Off Footwear (QC): 6 Toileting Hygiene (QC): 6 Toilet Transfer (QC): 4 Assessment/Plan Assessment and Plan Assess & Plan/Chief Complaint Assessment: Left ankle fracture status post uncomplicated repair by Dr. Rodriguez at [place] 08/16/22 Diabetes Hypertension Hyperlipidemia Constipation Plan: Bowel regimen Pain control Supportive care Aggressive therapy 08/13/2022: Doing well Lovenox Pain control 08/14/2022: Continue aggressive care Reach out to Dr Rodriguez 08/15/2022: Monitor pain Have surgery then return tomorrow 08/16/2022: Surgery today then returns 08/17/2022: IV Dilaudid for pain control (1) Closed displaced trimalleolar fracture of left ankle Status: Acute (2) Syncope Status: Acute NAJMA GILLIAM DO Aug 17, 2022 06:03
[2022-08-17 07:19] LABS: BASOPHILS % (AUTO) 0 % (0-10); EOSINOPHILS % (AUTO) 0 % (0-10); HEMATOCRIT 36 % (35-52); HEMOGLOBIN 11.7 g/dL (11.5-16.0); LYMPHOCYTES # (AUTO) 1.2 10^3/uL (1.0-4.0); LYMPHOCYTES % (AUTO) 12 % (12-44); MEAN CORPUSCULAR HEMOGLOBIN 28 pg (25-34); MEAN CORPUSCULAR HGB CONC 32 g/dL (32-36); MEAN CORPUSCULAR VOLUME 86 fL (80-99); MEAN PLATELET VOLUME 9.7 fL (9.0-12.2); MONOCYTES # (AUTO) 0.6 10^3/uL (0.0-1.0); MONOCYTES % (AUTO) 6 % (0-12); NEUTROPHILS % (AUTO) 81 % (42-75); PLATELET COUNT 254 10^3/uL (130-400); WHITE BLOOD COUNT 9.9 10^3/uL (4.3-11.0)
[2022-08-17 07:28] LABS: ALBUMIN 3.9 GM/DL (3.2-4.5); BILIRUBIN,TOTAL 0.5 MG/DL (0.1-1.0); CALCIUM 8.8 MG/DL (8.5-10.1); CREATININE SERUM 0.67 MG/DL (0.60-1.30); POTASSIUM 3.9 MMOL/L (3.6-5.0); TOTAL PROTEIN 6.5 GM/DL (6.4-8.2)
[2022-08-17 07:43] VITALS: BP 143/76
[2022-08-17] MEDS: HYDROmorphone 2 MG/ML VIAL (DILAUDID) IV PRN ×4 (08:52→23:00)
[2022-08-17] MEDS: ENALAPRIL 10 MG (VASOTEC) TAB PO SCH (08:53)
[2022-08-17] MEDS: PANTOPRAZOLE 40 MG (PROTONIX) TAB PO SCH (08:53)
[2022-08-17] MEDS: ROSUVASTATIN 20 MG (CRESTOR) TABLET PO SCH (08:53)
[2022-08-17] MEDS: DOCUSATE SODIUM 100 MG (COLACE) CAP PO SCH ×2 (08:53→19:58)
[2022-08-17] MEDS: MULTIVIT W/MINERALS TAB (THERAGRAN M) PO SCH (08:53)
[2022-08-17] MEDS: PIOGLITAZONE 30MG (ACTOS) TAB PO SCH (08:53)
[2022-08-17] MEDS: INVOKAMET PO SCH (08:54)
[2022-08-17] MEDS: SENNA W/DOCUSATE (SENOKOT S) TABLET PO SCH ×2 (08:55→19:58)
[2022-08-17] MEDS: polyethylene glycoL POWDER 17 GM (MIRALAX) PACK PO SCH ×2 (08:55→19:58)
[2022-08-17] MEDS: VICTOZA 18 MG/3 ML SQ SCH (08:57)
[2022-08-17 09:11] VITALS: BP 143/76
--- NOTE | 2022-08-17 10:16 | Occupational Ther Daily Note ---
OT Current Status-Daily Note Subjective Pt reports returning to hospital after surgery at ~1100. She reports pain in ankle as 9/10. Pain meds given at start of treatment. Appearance Pt returned to sitting in recliner, all needs within reach at OT departure. Mental Status/Objective Patient Orientation: Person, Place, Situation ADL-Treatment Therapy Code Descriptions/Definitions Functional [place] Measure: 0=Not Assessed/NA 4=Minimal Assistance 1=Total Assistance 5=Supervision or Setup 2=Maximal Assistance 6=Modified [place] 3=Moderate Assistance 7=Complete IndependenceSCALE: Activities may be completed with or without assistive devices. 7-Unnxqgctby-ejjfehy completes the activity by him/herself with no assistance from a helper. 5-Set-up or Clean-up Assistance-helper sets up or cleans up; patient completes activity. [place] assists only prior to or following the activity. 4-Supervision or Touching Assistance-helper provides verbal cues and/or touching/steadying and/or contact guard assistance as patient completes activity. Assistance may be provided throughout the activity or intermittently. 3-Partial/Moderate Assistance-helper does LESS THAN HALF the effort. [place] li fts, holds or supports trunk or limbs, but provides less than half the effort. 2-Substantial/Maximal Assistance-helper does MORE THAN HALF the effort. [place] lifts or holds trunk or limbs and provides more than half the effort. 2-Kkquecibn-wgvhtx does ALL the effort. Patient does none of the effort to complete the activity. Or, the assistance of 2 or more helpers is required for the patient to complete the activity. If activity was not attempted, code reason: 7-Patient Refused. 9-Not Applicable-not attempted and the patient did not perform the activity before the current illness, exacerbation or injury. 10-Not Attempted due to Environmental Limitations-(lack of equipment, weather restraints, etc.). 88-Not Attempted due to Medical Conditions or Safety Concerns. Oral Hygiene (QC): 6 Shower/Bathe Self (QC): 5 Upper Body Dressing (QC): 5 Toileting Hygiene (QC): 4 Toilet Transfer (QC): 4 Pt reports significant pain in ankle from recent surgery. She continues to be NWB but with boot donned. Pt still able to stand and hop to bathroom with SBA- CGA, good adherence to NWB. Sponge bath completed seated at sink. Pt able to wash upper body, thighs, and R foot without assist. Cec[place] area cleaned after toileting, CGA provided for safety as she removes single UE support. LLE not addressed secondary to boot. Pt able to don nightgown overhead without assist. Grooming tasks performed independently seated at sink. Education provided on appropriate LB clothing with boot and if family could bring in a shoe for her L foot. Other Treatment OT issued and instructed pt on UE exercises with green theraband. Min cues for technique, good follow through. Pt tolerates well, 12-15 reps each set. All planes. Education OT Patient Education: Correct positioning, Energy conservation, Exercise program, Modified ADL techniques, Progress toward Goal/Update tx plan, Purpose of tx/functional activities, Reviewed precautions, Rehab process, Safety issues, Transfer techniques Teaching Recipient: Patient Teaching Methods: Demonstration, Discussion Response to Teaching: Verbalize Understanding, Return Demonstration, Reinforcement Needed OT Short Term Goals Short Term Goals Time Frame: Aug 21, 2022 Shower/bathe self: 4 Lower body dressin Putting on/taking off footwear: 4 OT Detention Goals Detention Goals Time Frame: Sep 02, 2022 Acute change in mental status: 0 Inattention: 0 Disorganized thinkin Altered level of consciousness: 0 Eating (QC): 6 Oral Hygiene (QC): 6 Toileting Hygiene (QC): 6 Shower/Bathe Self (QC): 5 Upper Body Dressing (QC): 6 Lower Body Dressing (QC): 6 On/Off Footwear (QC): 6 Additional Goals: 1-Demonstrate ADL Tasks, 2-Verbalize Understanding, 3- ImproveStrength/Audrey 1=Demonstrate adherence to instructed precautions during ADL tasks. 2=Patient will verbalize/demonstrate understanding of assistive devices/modifications for ADL. 3=Patient will improve strength/tolerance for activity to enable patient to perform ADL's. OT Education/Plan Problem List/Assessment Assessment: Decreased Activ Tolerance, Impaired Funct Balance, Impaired I ADL's Discharge Recommendations Plan/Recommendations: Continue POC Therapy Discharge Recommendati: Post Acute OT (HH OT) Treatment Plan/Plan of Care Treatment,Training & Education: Yes Patient would benefit from OT for education, treatment and training to promote independence in ADL's, mobility, safety and/or upper extremity function for ADL's. Plan of Care: ADL Retraining, Functional Mobility, Group Exercise/Act as Ind, UE Funct Exercise/Act Treatment Duration: Aug 12, 2022 Frequency: At least 5 of 7 days/Wk (IRF) Estimated Hrs Per Day: 1.5 hours per day Agreement: Yes Rehab Potential: Good Time Start Time: 08:45 Stop Time: 10:15 DATE: Aug 17, 2022 Total Time Billed (hr/min): 90 Billed Treatment Time 1 visit ADL x4 (65 min) EX x2 (25 min) Roula Judge OT Aug 17, 2022 10:16
--- NOTE | 2022-08-17 11:30 | Progress Note - Cardiology ---
Cardiology SOAP Progress Note Subjective: Sitting up in the recliner at the bedside S/P L ankle repair on 08-16-22 No c/o CP, SOB or palpitations No c/o syncope or near syncope She would like to have the tele removed Objective: I&O/Vital Signs 08/21/22 08/21/22 07:29 09:20 Temp 36.3 Pulse 73 Resp 18 B/P (MAP) 114/68 (83) Pulse Ox 93 O2 Delivery Room Air Room Air 08/21/22 00:00 Intake Total 960 ml Balance 960 ml Weight (Pounds): 219 Weight (Ounces): 0.0 Weight (Calculated Kilograms): 99.841130 Constitutional: AAO x 3, well-developed, well-nourished Respiratory: No accessory muscle use; other (good, bilat air entry) Cardiovascular: regular rate-rhythm, S1 and S2, systolic murmur (soft DOTTIE at nuno base) Gastrointestional: No tender; soft; No guarding, No rebound; audible bowel sounds Extremities: No clubbing, No cyanosis, No significant edema Neurologic/Psychiatric: oriented x 3, other (moves all limbs equally) Skin: normal color, warm/dry; No rash on exposed areas, No ulcerations on exposed areas Results/Procedures: Labs Laboratory Tests 08/20/22 15:39: Glucometer 76 08/20/22 20:09: Glucometer 97 08/21/22 05:37: Glucometer 94 08/21/22 06:00: White Blood Count 6.7, Red Blood Count 4.70, Hemoglobin 13.0, Hematocrit 40, Mean Corpuscular Volume 85, Mean Corpuscular Hemoglobin 28, Mean Corpuscular Hemoglobin Concent 33, Red Cell Distribution Width 11.9, Platelet Count 396, Mean Platelet Volume 9.8, Immature Granulocyte % (Auto) 0, Neutrophils (%) (Auto) 69, Lymphocytes (%) (Auto) 22, Monocytes (%) (Auto) 7, Eosinophils (%) (Auto) 2, Basophils (%) (Auto) 0, Neutrophils # (Auto) 4.6, Lymphocytes # (Auto) 1.5, Monocytes # (Auto) 0.5, Eosinophils # (Auto) 0.1, Basophils # (Auto) 0.0, Immature Granulocyte # (Auto) 0.0, Sodium Level 136, Potassium Level 3.3L, Chloride Level 96L, Carbon Dioxide Level 25, Anion Gap 15H, Blood Urea Nitrogen 18, Creatinine 0.78, Estimat Glomerular Filtration Rate 81, BUN/Creatinine Ratio 23, Glucose Level 97, Calcium Level 9.7, Corrected Calcium 9.6, Total Bilirubin 0.6, Aspartate Amino Transf (AST/SGOT) 14, Alanine Aminotransferase (ALT/SGPT) 12, Alkaline Phosphatase 73, Total Protein 7.5, Albumin 4.1 08/21/22 11:31: Glucometer 87 Microbiology 08/17/22 MRSA Screen - Final, Complete MRSA not isolated A/P: Assessment: Syncope of undetermined etiology on 08/10/22 - echo on 08-12-22: LVEF 60-65%, AoV sclerosis w/o stenosis, PASP 30-35 mmHg L ankle fracture after syncopal fall on 08/10/22 - s/p repair on 08-16-22 Hypertension DJD DM II Hyperlipidemia - treated with statins Plan: * No evidence of orthostasis * Monitor labs * Keep on tele * Adivse ILR since orthostatic bp was normal and no arrhythmia has been seen on tele thus far - she is agreeable * Continuing DVT prophylaxis recommended MANOJ GIPSON Aug 17, 2022 11:30
--- NOTE | 2022-08-17 11:41 | Physical Therapy Daily Note ---
PT Daily Note-Current Subjective Pt. agrees to Rx but states "you know I just had surgery yesterday and I want to take this easy" this CLINICAL BUSINESS MANAGER assures her we will. Pt c/o pain in left foot and ankle at 5/10. Nurse present and gives pain meds.Pt. c/o that the placement of the IV in her right wrist is very uncomfortable during gait and she looks forward to having it DCd, Pt. requests rest break b/c of pain in IV site. Pt shares her medical and some personal history as well as the set up of her home and the space restrictions she will need to work around. Pt. states "today is the first time Britni felt a liitle depressed about all this bc I will NWBing for a long time and I dont know how I will manage all this Pain Numeric Pain Scale: 5-Moderate Pain Location: Left Location Body Site: Ankle Pain Description: Ache Section J - Health Conditions 1. Rarely or not at all 2. Occasionally 3. Frequently 4. Almost constantly 8. Unable to answer Pain Effect on Sleep: 2 Pain Interference with Therapy: 2 Pain Interference w/Day-to-Day: 2 Mental Status Patient Orientation: Normal For Age Attachments: Other-See Comments (boot L foot) Transfers SCALE: Activities may be completed with or without assistive devices. 6-Rwxdmiymrj-jtchanx completes the activity by him/herself with no assistance from a helper. 5-Set-up or Clean-up Assistance-helper sets up or cleans up; patient completes activity. [place] assists only prior to or following the activity. 4-Supervision or Touching Assistance-helper provides verbal cues and/or touching/steadying and/or contact guard assistance as patient completes activity. Assistance may be provided throughout the activity or intermittently. 3-Partial/Moderate Assistance-helper does LESS THAN HALF the effort. [place] lifts, holds or supports trunk or limbs, but provides less than half the effort. 2-Substantial/Maximal Assistance-helper does MORE THAN HALF the effort. [place] lifts or holds trunk or limbs and provides more than half the effort. 0-Azjdvylup-swkyhl does ALL the effort. Patient does none of the effort to complete the activity. Or, the assistance of 2 or more helpers is required for the patient to complete the activity. If activity was not attempted, code reason: 7-Patient Refused. 9-Not Applicable-not attempted and the patient did not perform the activity before the current illness, exacerbation or injury. 10-Not Attempted due to Environmental Limitations-(lack of equipment, weather restraints, etc.). 88-Not Attempted due to Medical Conditions or Safety Concerns. Sit to Stand (QC): 6 Chair/Xmu-do-Zxxfh Xfer(QC): 6 Toilet Transfer (QC): 6 Weight Bearing Right Lower Extremity: Right Full Weight Bearing Left Lower Extremity: Left Non Weight Bearing Gait Training Does the Patient Walk?: Yes Walk 10 feet (QC): 4 Walk 50 ft with 2 Turns(QC): 4 Gait Persons Needed: 1 Gait Assistive Device: FWW pt. c/o about fit of walker. Pt. 5'1" using wide walker . This was exchanged for std size walker and brought to height where pt. noted greater ability to gain good leverage for gait and clearing her left foot with NWB, also pt did have shoes in her closet and right shoe was donned which also helped her with clearance ad NWB LLE. Pt. walked 50 ft x 1, 20 ft x 5 CGA no LOB. During toileting pt. needed assist to pull pants up as she could not balance well on one leg to use both hands at same time. Exercises Seated Therapy Exercises: Ankle pumps, Sit to stand, Long arc quads, Hip flexion, Hip abd/add Seated Reps: 15 Treatments seated LE ex, TRFs, short gait bouts with FWW and shoe assessing balance and handling . Pt. states she has had significant leg length discrepancy for over 20 years and this situation with the boot makes it even more challenging Assessment Current Status: Good Progress PT Rivet Sorter Goals Rivet Sorter Goals PT Senior Living Goals Time Frame: Aug 26, 2022 Roll Left & Right (QC): 6 Sit to Lying (QC): 6 Lying-Sitting on Side/Bed(QC): 6 Sit to Stand (QC): 6 Chair/Hhb-yr-Mblew Xfer(QC): 6 Toilet Transfer (QC): 6 Car Transfer (QC): 6 Does the Patient Walk: Yes Walk 10 feet (QC): 6 Walk 50ft with 2 Turns (QC): 6 Walk 150 ft (QC): 6 Walking 10ft on Uneven Surface: 6 1 Step (curb) (QC): 9 4 Steps (QC): 9 12 Steps (QC): 9 Picking up an Object (QC): 6 Does the Pt use WC or Scooter?: No Wheel 50 feet with 2 turns (QC: 9 Wheel 150 feet: 9 PT Plan Treatment/Plan Treatment Plan: Continue Plan of Care Treatment Plan: Bed Mobility, Concurrent Therapy, Education, Functional Activity Audrey, Functional Strength, Group Therapy, Gait, Safety, Therapeutic Exercise, Transfers Treatment Duration: Aug 26, 2022 Frequency: 6 times per week Estimated Hrs Per Day: 1.5 hours per day Patient and/or Family Agrees t: Yes Safety Risks/Education Patient Education: Gait Training, Transfer Techniques, Correct Positioning, Disease Process, Safety Issues Teaching Recipient: Patient Teaching Methods: Demonstration, Discussion Response to Teaching: Verbalize Understanding, Return Demonstration, Reinforcement Needed Time Time In: 1030 Time Out: 1130 DATE: Aug 17, 2022 Total Billed Treatment Time: 60 Total Billed Treatment 1,GT20m,EX15m,FA25m HAY ELLIOTT CLINICAL BUSINESS MANAGER Aug 17, 2022 11:41
--- NOTE | 2022-08-17 13:40 | Physical Therapy Daily Note ---
PT Daily Note-Current Subjective Pt. agrees to Rx. Anxious to try a new shoe for her right foot with a thicker sole which might aid in better clearance during gait. Pain Location: No Pain Reported Section J - Health Conditions 1. Rarely or not at all 2. Occasionally 3. Frequently 4. Almost constantly 8. Unable to answer Pain Effect on Sleep: 2 Pain Interference with Therapy: 2 Pain Interference w/Day-to-Day: 2 Mental Status Patient Orientation: Normal For Age Attachments: Other-See Comments (immobl boot L) Transfers SCALE: Activities may be completed with or without assistive devices. 5-Jrxldsuyun-ihpxost completes the activity by him/herself with no assistance from a helper. 5-Set-up or Clean-up Assistance-helper sets up or cleans up; patient completes activity. [place] assists only prior to or following the activity. 4-Supervision or Touching Assistance-helper provides verbal cues and/or touchin g/steadying and/or contact guard assistance as patient completes activity. Assistance may be provided throughout the activity or intermittently. 3-Partial/Moderate Assistance-helper does LESS THAN HALF the effort. [place] lifts, holds or supports trunk or limbs, but provides less than half the effort. 2-Substantial/Maximal Assistance-helper does MORE THAN HALF the effort. [place] lifts or holds trunk or limbs and provides more than half the effort. 8-Rauhnsdbe-nrhees does ALL the effort. Patient does none of the effort to complete the activity. Or, the assistance of 2 or more helpers is required for the patient to complete the activity. If activity was not attempted, code reason: 7-Patient Refused. 9-Not Applicable-not attempted and the patient did not perform the activity before the current illness, exacerbation or injury. 10-Not Attempted due to Environmental Limitations-(lack of equipment, weather restraints, etc.). 88-Not Attempted due to Medical Conditions or Safety Concerns. Sit to Lying (QC): 6 Lying to Sitting/Side of Bed(Q: 6 Sit to Stand (QC): 6 Chair/Lel-mh-Vptav Xfer(QC): 6 Toilet Transfer (QC): 6 Weight Bearing Right Lower Extremity: Right Full Weight Bearing Left Lower Extremity: Left Non Weight Bearing Gait Training Does the Patient Walk?: Yes Gait Assistive Device: FWW 30 ft x 2 FWW CGA, no LOB Exercises Supine Ex: Quad Set, Rolling, Straight leg raise, Hip abd/add Supine Reps: 12 Treatments TRFs, toileting, gait , ex Assessment Current Status: Good Progress PT Half-Way Goals Dinkey Motor Operator Goals PT [place]key Motor Operator Goals Time Frame: Aug 26, 2022 Roll Left & Right (QC): 6 Sit to Lying (QC): 6 Lying-Sitting on Side/Bed(QC): 6 Sit to Stand (QC): 6 Chair/Hic-un-Dvucj Xfer(QC): 6 Toilet Transfer (QC): 6 Car Transfer (QC): 6 Does the Patient Walk: Yes Walk 10 feet (QC): 6 Walk 50ft with 2 Turns (QC): 6 Walk 150 ft (QC): 6 Walking 10ft on Uneven Surface: 6 1 Step (curb) (QC): 9 4 Steps (QC): 9 12 Steps (QC): 9 Picking up an Object (QC): 6 Does the Pt use WC or Scooter?: No Wheel 50 feet with 2 turns (QC: 9 Wheel 150 feet: 9 PT Plan Treatment/Plan Treatment Plan: Continue Plan of Care Treatment Plan: Bed Mobility, Concurrent Therapy, Education, Functional Act ivity Audrey, Functional Strength, Group Therapy, Gait, Safety, Therapeutic Exercise, Transfers Treatment Duration: Aug 26, 2022 Frequency: 6 times per week Estimated Hrs Per Day: 1.5 hours per day Patient and/or Family Agrees t: Yes Safety Risks/Education Patient Education: Gait Training, Transfer Techniques, Correct Positioning, Safety Issues Teaching Recipient: Patient Teaching Methods: Demonstration, Discussion Response to Teaching: Verbalize Understanding, Return Demonstration, Reinforcement Needed Time Time In: 1310 Time Out: 1340 DATE: Aug 17, 2022 Total Billed Treatment Time: 30 Total Billed Treatment 1,GT12m,FA13m HAY ELLIOTT LABORATORY SAMPLE CARRIER Aug 17, 2022 13:40
--- NOTE | 2022-08-17 14:28 | Progress Note ---
OLGA GONZALEZ 08/17/22 1427: Progress Note S: Tess Madison is a 72yo F who suffered a left ankle fracture with dislocation status post closed reduction in the ER after she suffered a syncopal episode. Cardiology was consulted and patient is scheduled to recieve loop recorder for further evaluation. Patient recieved reconstructive surgery on L ankle and reports tightness within her boot rating pain with Dilaudid as 6/10. Patient reports improvement with use of assistive devices and a nonweightbearing status on the left side. Patient has improved reports of BM function. Blood sugars show signs of stabilization but continue to be monitored. Prior level of functioning was independent without assistive devices. O: Vitals: 36.4*C HR 81 RR 18 BP 143/76 SpO2 96 RA Exam: -General: Alert and oriented, no acute distress, WD/WN -Constitutional: denies weight loss, denies n/v/d, no fevers or chills -C/V: RRR, no murmers, rubs, or gallops. Radial pulse 2+ bl, DP 2+ on right, and could not be found on left due to boot. -Resp: Lung sounds CTAB, no clubbing of digits, denies SOB -Neuro: alert and oriented, CN 2-12 intact bl, dermatomes of LE intact bl -MSK: muscle strength of extremities 5/5, full ROM on all extremities except Left leg 2/2 boot restriction A: Left foot post surgery recovery Diabetes Hypertension Hyperlipidemia Constipation P: Bowel regimen Pain control Supportive care Aggressive therapy SUMMER CASON DO 08/18/22 [id number]: Supervisory-Addendum Brief Verification & Attestation Participated in pt care: history, MDM, physical Personally performed: exam, history, MDM, supervision of care Care discussed with: Medical Student Procedures: n/a Results interpretation: Verified all documentation Verification and Attestation of Medical Student E/M Service A medical student performed and documented this service in my presence. I reviewed and verified all information documented by the medical student and made modifications to such information, when appropriate. I personally performed the physical exam and medical decision making. Summer Cason Aug 18, 2022,04:52 OLGA GONZALEZ Aug 17, 2022 14:27 SUMMER CASON DO Aug 18, 2022 04:52
--- NOTE | 2022-08-17 17:48 | Progress Note - Cardiology ---
Cardiology SOAP Progress Note Subjective: No cp or palp or syncope or shortness of breath No n/v/d No focal weakness Gen weakness is improving Objective: I&O/Vital Signs 08/17/22 08/17/22 08/17/22 08/17/22 07:00 07:43 09:11 09:34 Temp 36.4 36.4 Pulse 88 81 81 Resp 18 18 B/P (MAP) 143/76 (98) 143/76 (98) Pulse Ox 96 96 O2 Delivery Room Air Room Air Room Air 08/17/22 13:00 Pulse 77 08/17/22 00:00 Intake Total 0 ml Balance 0 ml Weight (Pounds): 219 Weight (Ounces): 0.0 Weight (Calculated Kilograms): 99.363860 Constitutional: AAO x 3, well-developed, well-nourished Respiratory: No accessory muscle use; other (good, bilat air entry) Cardiovascular: regular rate-rhythm, S1 and S2, systolic murmur (soft DOTTIE at nuno base) Gastrointestional: No tender; soft; No guarding, No rebound; audible bowel sounds Extremities: No clubbing, No cyanosis, No significant edema Neurologic/Psychiatric: oriented x 3, other (moves all limbs equally) Skin: normal color, warm/dry; No rash on exposed areas, No ulcerations on exposed areas Results/Procedures: Labs Laboratory Tests 08/16/22 23:00: Glucometer 206H 08/17/22 05:39: Glucometer 102 08/17/22 06:41: Sodium Level 137, Potassium Level 3.9, Chloride Level 99, Carbon Dioxide Level 24, Anion Gap 14, Blood Urea Nitrogen 19H, Creatinine 0.67, Estimat Glomerular Filtration Rate 93, BUN/Creatinine Ratio 28, Glucose Level 97, Calcium Level 8.8, Corrected Calcium 8.9, Total Bilirubin 0.5, Aspartate Amino Transf (AST/SGOT) 34, Alanine Aminotransferase (ALT/SGPT) 29, Alkaline Phosphatase 61, Total Protein 6.5, Albumin 3.9 08/17/22 07:13: White Blood Count 9.9, Red Blood Count 4.22, Hemoglobin 11.7, Hematocrit 36, Mean Corpuscular Volume 86, Mean Corpuscular Hemoglobin 28, Mean Corpuscular Hemoglobin Concent 32, Red Cell Distribution Width 12.2, Platelet Count 254, Mean Platelet Volume 9.7, Immature Granulocyte % (Auto) 0, Neutrophils (%) (Auto) 81H, Lymphocytes (%) (Auto) 12, Monocytes (%) (Auto) 6, Eosinophils (%) (Auto) 0, Basophils (%) (Auto) 0, Neutrophils # (Auto) 8.0H, Lymphocytes # (Auto) 1.2, Monocytes # (Auto) 0.6, Eosinophils # (Auto) 0.0, Basophils # (Auto) 0.0, Immature Granulocyte # (Auto) 0.0 08/17/22 10:58: Glucometer 124H 08/17/22 15:23: Glucometer 141H Laboratory Tests 08/17/22 06:41 08/17/22 07:13 A/P: Assessment: Syncope of undetermined etiology on 08/10/22 - echo on 08-12-22: LVEF 60-65%, AoV sclerosis w/o stenosis, PASP 30-35 mmHg L ankle fracture after syncopal fall on 08/10/22 - s/p repair on 08-16-22 Hypertension DJD DM II Hyperlipidemia - treated with statins Plan: * No evidence of orthostasis * Monitor labs * Keep on tele * Adivse ILR since orthostatic bp was normal and no arrhythmia has been seen on tele thus far - she consents. Plan for tomorrow * Continuing DVT prophylaxis recommended GENEVA PRUITT MD FACP [facility] Aug 17, 2022 17:48
[2022-08-17 19:59] VITALS: BP 134/59
[2022-08-18] MEDS: HYDROmorphone 2 MG/ML VIAL (DILAUDID) IV PRN ×3 (03:22→14:43)
[2022-08-18] MEDS: inSUlin ASPART (NovoLOG) 1 UNIT/0.01 ML (CHARGE PER UNIT) SC SCH ×4 (05:49→20:58)
[2022-08-18 07:19] VITALS: BP 120/60
[2022-08-18] MEDS: ENOXAPARIN 40 MG/0.4 ML (LOVENOX) SYR SC SCH (07:22)
[2022-08-18] MEDS: HYDROcodone/APAP 5 MG/325 MG (LORTAB) TAB PO PRN ×3 (07:22→20:59)
[2022-08-18] MEDS: ENALAPRIL 10 MG (VASOTEC) TAB PO SCH (07:22)
[2022-08-18] MEDS: MULTIVIT W/MINERALS TAB (THERAGRAN M) PO SCH (07:23)
[2022-08-18] MEDS: DOCUSATE SODIUM 100 MG (COLACE) CAP PO SCH ×2 (07:23→20:58)
[2022-08-18] MEDS: SENNA W/DOCUSATE (SENOKOT S) TABLET PO SCH ×2 (07:23→20:58)
[2022-08-18] MEDS: PIOGLITAZONE 30MG (ACTOS) TAB PO SCH (07:23)
[2022-08-18] MEDS: PANTOPRAZOLE 40 MG (PROTONIX) TAB PO SCH (07:23)
[2022-08-18] MEDS: ROSUVASTATIN 20 MG (CRESTOR) TABLET PO SCH (07:23)
[2022-08-18] MEDS: INVOKAMET PO SCH (07:24)
[2022-08-18] MEDS: VICTOZA 18 MG/3 ML SQ SCH (07:28)
--- NOTE | 2022-08-18 07:37 | Physical Therapy Progress Note ---
Therapy Progress Note This patient is strict non weight bearing on right lower extremity and lives in a home that is very limited space in passage ways. This greatly limits her options of using a wheelchair to be mobile in her home. Pt. needs front wheeled walker of medium size and set for her height of 5'1'' for her to achieve ADLs at home. This pt. is not capable of mobility in any fashion without this device. Pt. has demonstrated the ability to be independent and safe with the use of front wheeled walker. LORIN Oliver LEE A PTA Aug 18, 2022 07:37
[2022-08-18] MEDS: polyethylene glycoL POWDER 17 GM (MIRALAX) PACK PO SCH ×2 (09:08→20:58)
--- NOTE | 2022-08-18 10:30 | PM&R Progress Note ---
Subjective HPI/CC On Admission Date Seen by Provider: Aug 18, 2022 Time Seen by Provider: 10:00 Subjective/Events-last exam 08/18/2022: Pt having a lot of pain Loop recorder was placed today Weaning off Dilaudid Putting ice on the ankle 08/17/2022: Patient doing a lot better after Dilaudid given Bowels are moving Supportive care continue 08/16/2022: Pt is doing well Going to [facility] for repair of the left ankle fracture Checked meds and labs No falls No pain otherwise 08/15/2022: Pt is doing really well Bowels moved yesterday Checked meds and labs No falls Set for going to [facility] for repair of ankle and then returning tomorrow 08/14/2022: Pt is doing really well Moving around really well Will reach out to Dr. Rodriguez and evaluate for repair 08/13/2022: Patient doing really well Pain is controlled Small bowel movement but will continue laxatives due to high risk for narcotic bowel Doing pretty well hopping around Review of Systems General: Fatigue, Malaise Objective Exam Vital Signs Vital Signs Date Time Temp Pulse Resp B/P (MAP) Pulse Ox O2 Delivery O2 Flow Rate FiO2 08/18/22 20:50 Room Air 08/18/22 20:37 36.6 79 16 137/0 (45) 93 Capillary Refill : General Appearance: No Apparent Distress, WD/WN HEENT: PERRL/EOMI, Normal ENT Inspection, Pharynx Normal Neck: Full Range of Motion, Normal Inspection, Non Tender, Supple, Carotid Bruit Respiratory: Chest Non Tender, Lungs Clear, Normal Breath Sounds, No Accessory Muscle Use, No Respiratory Distress Cardiovascular: Regular Rate, Rhythm, No Edema, No Gallop, No JVD, No Murmur, Normal Peripheral Pulses Gastrointestinal: Normal Bowel Sounds, No Organomegaly, No Pulsatile Mass, Non Tender, Soft Back: Normal Inspection, No CVA Tenderness, No Vertebral Tenderness Extremity: Normal Capillary Refill, Normal Inspection, Normal Range of Motion (Except left ankle and foot), Non Tender, No Calf Tenderness, No Pedal Edema Neurologic/Psychiatric: Alert, Oriented x3, Normal 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 FIM Transfers Therapy Code Descriptions/Definitions Functional [place] Measure: 0=Not Assessed/NA 4=Minimal Assistance 1=Total Assistance 5=Supervision or Setup 2=Maximal Assistance 6=Modified [place] 3=Moderate Assistance 7=Complete IndependenceSCALE: Activities may be completed with or without assistive devices. 3-Ywvlkilqsy-rykxkmg completes the activity by him/herself with no assistance from a helper. 5-Set-up or Clean-up Assistance-helper sets up or cleans up; patient completes activity. [place] assists only prior to or following the activity. 4-Supervision or Touching Assistance-helper provides verbal cues and/or touching/steadying and/or contact guard assistance as patient completes activity. Assistance may be provided throughout the activity or intermittently. 3-Partial/Moderate Assistance-helper does LESS THAN HALF the effort. [place] lifts, holds or supports trunk or limbs, but provides less than half the effort. 2-Substantial/Maximal Assistance-helper does MORE THAN HALF the effort. [place] lifts or holds trunk or limbs and provides more than half the effort. 1-Eybfrkplp-zbylrs does ALL the effort. Patient does none of the effort to complete the activity. Or, the assistance of 2 or more helpers is required for the patient to complete the activity. If activity was not attempted, code reason: 7-Patient Refused. 9-Not Applicable-not attempted and the patient did not perform the activity before the current illness, exacerbation or injury. 10-Not Attempted due to Environmental Limitations-(lack of equipment, weather restraints, etc.). 88-Not Attempted due to Medical Conditions or Safety Concerns. Roll Left to Right (QC): 4 Sit to Lying (QC): 6 Sit to Stand (QC): 6 Chair/Emz-vk-Jzayv Xfer(QC): 6 Car Transfer (QC): 4 Gait Training Does the Patient Walk?: Yes Distance: 125' Walk 10 feet (QC): 4 Walk 50 ft with 2 Turns(QC): 4 Walk 150 ft (QC): 88 Walking 10ft/uneven surface-QC: 88 Gait Persons Needed: 1 Gait Assistive Device: FWW Wheelchair Training Does the Pt Use a Wheelchair?: Yes Wheel 50 ft with 2 turns (QC): 6 Wheel 150 ft (QC): 6 Type of Wheelchair: Manual Stair Training 1 Step (curb) (QC): 88 4 Steps (QC): 88 12 Steps (QC): 88 Balance Picking up an Object (QC): 88 ADL-Treatment Eating (QC): 6 Oral Hygiene (QC): 6 Shower/Bathe Self (QC): 5 Upper Body Dressing (QC): 5 Lower Body Dressing (QC): 5 On/Off Footwear (QC): 6 Toileting Hygiene (QC): 4 Toilet Transfer (QC): 4 Assessment/Plan Assessment and Plan Assess & Plan/Chief Complaint Assessment: Left ankle fracture status post uncomplicated repair by Dr. Rodriguez at [place] 08/16/22 Diabetes Hypertension Hyperlipidemia Constipation Plan: Bowel regimen Pain control Supportive care Aggressive therapy 08/13/2022: Doing well Lovenox Pain control 08/14/2022: Continue aggressive care Reach out to Dr Rodriguez 08/15/2022: Monitor pain Have surgery then return tomorrow 08/16/2022: Surgery today then returns 08/17/2022: IV Dilaudid for pain control 08/18/2022: Wean Dilaudid (1) Closed displaced trimalleolar fracture of left ankle Status: Acute (2) Syncope Status: Acute NAJMA GILLIAM DO Aug 18, 2022 10:30
--- NOTE | 2022-08-18 10:45 | Occupational Ther Daily Note ---
OT Current Status-Daily Note Subjective Pt returning to floor after having loop recorder placed. She reports pain in L ankle as 6/10. Pain meds given by RN Mental Status/Objective Patient Orientation: Person, Place, Situation Attachments: IV ADL-Treatment Therapy Code Descriptions/Definitions Functional [place] Measure: 0=Not Assessed/NA 4=Minimal Assistance 1=Total Assistance 5=Supervision or Setup 2=Maximal Assistance 6=Modified [place] 3=Moderate Assistance 7=Complete IndependenceSCALE: Activities may be completed with or without assistive devices. 3-Rbwwzvjvuz-pahrtce completes the activity by him/herself with no assistance from a helper. 5-Set-up or Clean-up Assistance-helper sets up or cleans up; patient completes activity. [place] assists only prior to or following the activity. 4-Supervision or Touching Assistance-helper provides verbal cues and/or touching/steadying and/or contact guard assistance as patient completes activity. Assistance may be provided throughout the activity or intermittently. 3-Partial/Moderate Assistance-helper does LESS THAN HALF the effort. [place] lifts, holds or supports trunk or limbs, but provides less than half the effort. 2-Substantial/Maximal Assistance-helper does MORE THAN HALF the effort. [place] lifts or holds trunk or limbs and provides more than half the effort. 4-Pryzaspap-tnznkn does ALL the effort. Patient does none of the effort to complete the activity. Or, the assistance of 2 or more helpers is required for the patient to complete the activity. If activity was not attempted, code reason: 7-Patient Refused. 9-Not Applicable-not attempted and the patient did not perform the activity before the current illness, exacerbation or injury. 10-Not Attempted due to Environmental Limitations-(lack of equipment, weather restraints, etc.). 88-Not Attempted due to Medical Conditions or Safety Concerns. Oral Hygiene (QC): 6 Shower/Bathe Self (QC): 5 Upper Body Dressing (QC): 5 Lower Body Dressing (QC): 4 On/Off Footwear: 4 Toileting Hygiene (QC): 4 Toilet Transfer (QC): 4 Sponge bath completed seated at sink. Pt able to wash all body parts without physical assistance. She stood briefly to wash cinthya area, intermittent CGA for safety as she removed single UE support from walker. LLE not addressed due to wearing CAM boot. Per RN, CAM boot is to remain on at all times, even when showering. Extra time to thread LLE into LB clothing secondary to bulky cam boot but no physical assistance needed. Again, intermittent CGA as she stood to manage clothing over her hips. All grooming tasks performed at w/c level independently. Other Treatment Pt does well with maintaining NWB and able to ambulate (hop) within room with supervision and use of walker. Education OT Patient Education: Correct positioning, Energy conservation, Modified ADL techniques, Purpose of tx/functional activities, Safety issues Teaching Recipient: Patient Teaching Methods: Demonstration, Discussion Response to Teaching: Verbalize Understanding OT Short Term Goals Short Term Goals Time Frame: Aug 21, 2022 Shower/bathe self: 4 Lower body dressin Putting on/taking off footwear: 4 OT Referral Specialist Goals Referral Specialist Goals Time Frame: Sep 02, 2022 Acute change in mental status: 0 Inattention: 0 Disorganized thinkin Altered level of consciousness: 0 Eating (QC): 6 Oral Hygiene (QC): 6 Toileting Hygiene (QC): 6 Shower/Bathe Self (QC): 5 Upper Body Dressing (QC): 6 Lower Body Dressing (QC): 6 On/Off Footwear (QC): 6 Additional Goals: 1-Demonstrate ADL Tasks, 2-Verbalize Understanding, 3-ImproveStrength/Audrey 1=Demonstrate adherence to instructed precautions during ADL tasks. 2=Patient will verbalize/demonstrate understanding of assistive devices/modifications for ADL. 3=Patient will improve strength/tolerance for activity to enable patient to perform ADL's. OT Education/Plan Problem List/Assessment Assessment: Decreased Activ Tolerance, Impaired Funct Balance, Impaired I ADL's, Impaired Self-Care Skills Discharge Recommendations Plan/Recommendations: Continue POC Treatment Plan/Plan of Care Treatment,Training & Education: Yes Patient would benefit from OT for education, treatment and training to promote independence in ADL's, mobility, safety and/or upper extremity function for ADL's. Plan of Care: ADL Retraining, Functional Mobility, Group Exercise/Act as Ind, UE Funct Exercise/Act Treatment Duration: Aug 12, 2022 Frequency: At least 5 of 7 days/Wk (IRF) Estimated Hrs Per Day: 1.5 hours per day Agreement: Yes Rehab Potential: Good Time Start Time: 09:50 Stop Time: 10:45 DATE: Aug 18, 2022 Total Time Billed (hr/min): 55 Billed Treatment Time 1 visit ADL x4 (55 min) Roula Judge OT Aug 18, 2022 10:45
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
[2022-08-18] MEDS: VENlafaxine XR 37.5 MG (EFFEXOR XR) CAP PO SCH (13:12)
--- NOTE | 2022-08-18 13:13 | Occupational Ther Daily Note ---
OT Current Status-Daily Note Subjective Pt reports feeling "good" and is agreeable to treatment. Appearance Pt left sitting in recliner, all needs within reach as OT departed Mental Status/Objective Patient Orientation: Person, Place, Situation Attachments: IV ADL-Treatment Therapy Code Descriptions/Definitions Functional [place] Measure: 0=Not Assessed/NA 4=Minimal Assistance 1=Total Assistance 5=Supervision or Setup 2=Maximal Assistance 6=Modified [place] 3=Moderate Assistance 7=Complete IndependenceSCALE: Activities may be completed with or without assistive devices. 1-Hixjqsyfge-renpuki completes the activity by him/herself with no assistance from a helper. 5-Set-up or Clean-up Assistance-helper sets up or cleans up; patient completes activity. [place] assists only prior to or following the activity. 4-Supervision or Touching Assistance-helper provides verbal cues and/or touching/steadying and/or contact guard assistance as patient completes activity. Assistance may be provided throughout the activity or intermittently. 3-Partial/Moderate Assistance-helper does LESS THAN HALF the effort. [place] lifts, holds or supports trunk or limbs, but provides less than half the effort. 2-Substantial/Maximal Assistance-helper does MORE THAN HALF the effort. [place] lifts or holds trunk or limbs and provides more than half the effort. 3-Emcyypblo-qdzuwh does ALL the effort. Patient does none of the effort to complete the activity. Or, the assistance of 2 or more helpers is required for the patient to complete the activity. If activity was not attempted, code reason: 7-Patient Refused. 9-Not Applicable-not attempted and the patient did not perform the activity before the current illness, exacerbation or injury. 10-Not Attempted due to Environmental Limitations-(lack of equipment, weather restraints, etc.). 88-Not Attempted due to Medical Conditions or Safety Concerns. Toileting Hygiene (QC): 4 Toilet Transfer (QC): 4 Other Treatment Pt participated in UE exercises with green theraband. Good recall on exercises learned in previous sessions. Min cues for technique, good follow through. Pt tolerates well, 12-15 reps each set. All planes. No chest exercises performed. Education OT Patient Education: Correct positioning, Energy conservation, Exercise program, Purpose of tx/functional activities, Rehab process, Safety issues, Transfer techniques Teaching Recipient: Patient Teaching Methods: Demonstration, Discussion Response to Teaching: Verbalize Understanding, Return Demonstration, Reinforcement Needed OT Short Term Goals Short Term Goals Time Frame: Aug 21, 2022 Shower/bathe self: 4 Lower body dressin Putting on/taking off footwear: 4 OT [facility] Goals Quality Assurance Manager Goals Time Frame: Sep 02, 2022 Acute change in mental status: 0 Inattention: 0 Disorganized thinkin Altered level of consciousness: 0 Eating (QC): 6 Oral Hygiene (QC): 6 Toileting Hygiene (QC): 6 Shower/Bathe Self (QC): 5 Upper Body Dressing (QC): 6 Lower Body Dressing (QC): 6 On/Off Footwear (QC): 6 Additional Goals: 1-Demonstrate ADL Tasks, 2-Verbalize Understanding, 3- ImproveStrength/Audrey 1=Demonstrate adherence to instructed precautions during ADL tasks. 2=Patient will verbalize/demonstrate understanding of assistive devices/modifications for ADL. 3=Patient will improve strength/tolerance for activity to enable patient to perform ADL's. OT Education/Plan Problem List/Assessment Assessment: Decreased Activ Tolerance, Decreased UE Strength, Impaired Funct Balance, Impaired I ADL's, Impaired Self-Care Skills Discharge Recommendations Plan/Recommendations: Continue POC Treatment Plan/Plan of Care Treatment,Training & Education: Yes Patient would benefit from OT for education, treatment and training to promote independence in ADL's, mobility, safety and/or upper extremity function for ADL's. Plan of Care: ADL Retraining, Functional Mobility, Group Exercise/Act as Ind, UE Funct Exercise/Act Treatment Duration: Aug 12, 2022 Frequency: At least 5 of 7 days/Wk (IRF) Estimated Hrs Per Day: 1.5 hours per day Agreement: Yes Rehab Potential: Good Time Start Time: 11:45 Stop Time: 12:20 DATE: Aug 18, 2022 Total Time Billed (hr/min): 35 Billed Treatment Time 1 visit EX Roula Bergman OT Aug 18, 2022 13:13
--- NOTE | 2022-08-18 14:26 | Progress Note ---
OLGA GONZALEZ 08/18/22 1426: Progress Note S: Tess Madison is a 72yo F who suffered a left closed displaced trimalleolar fracture with dislocation status post closed reduction in the ER after she suffered a syncopal episode. Cardiology was consulted and patient is scheduled to recieve loop recorder for further evaluation. Patient recieved recons tructive surgery on L ankle and reports tightness within her boot rating pain with Dilaudid as 6/10. Patient reports improvement with use of assistive devices and a nonweightbearing status on the left side. Patient has improved reports of BM function. Blood sugars show signs of stabilization but continue to be monitored. Prior level of functioning was independent without assistive devices. On inspection today patient was emotionally distraught and requesting a change in medication to help her "not be crying all the time". She had just returned from having her loop recorder placed without complications. She was also spoke to about weening off of Dilaudid and stopping it by tomorrow 08/19/22 O: Vitals: 36.4*C HR 79 RR 18 BP 120/60 SpO2 94 RA Exam: -General: Alert and oriented, distraught/depressed, WD/WN -Constitutional: denies weight loss, denies n/v/d, no fevers or chills -C/V: RRR, no murmers, rubs, or gallops. Radial pulse 2+ bl, DP 2+ on right, and could not be found on left due to boot. -Resp: Lung sounds CTAB, no clubbing of digits, denies SOB -Neuro: alert and oriented, depressed affect, CN 2-12 intact bl, dermatomes of LE intact bl -MSK: muscle strength of extremities 5/5, full ROM on all extremities except Left leg 2/2 boot restriction A: Left foot post surgery recovery Diabetes Hypertension Hyperlipidemia Constipation Emotion dysregulation Depression P: Bowel regimen Pain control Supportive care Aggressive therapy Citalopram increased dossage + Afexor SUMMER CASON DO 08/19/22 0629: Supervisory-Addendum Brief Verification & Attestation Participated in pt care: history, MDM, physical Personally performed: exam, history, MDM, supervision of care Care discussed with: Medical Student Procedures: n/a Results interpretation: Verified all documentation Verification and Attestation of Medical Student E/M Service A medical student performed and documented this service in my presence. I reviewed and verified all information documented by the medical student and made modifications to such information, when appropriate. I personally performed the physical exam and medical decision making. Summer Cason, Aug 19, 2022,06:29 OLGA GONZALEZ Aug 18, 2022 14:26 SUMMER CASON DO Aug 19, 2022 06:29
--- NOTE | 2022-08-18 17:14 | Progress Note - Cardiology ---
Cardiology SOAP Progress Note Subjective: No cp or palp or syncope or shortness of breath No n/v/d Gen weakness and malaise are improving No focal weakness Objective: I&O/Vital Signs 08/18/22 08/18/22 07:00 07:19 Temp 36.4 Pulse 78 79 Resp 18 B/P (MAP) 120/60 (80) Pulse Ox 94 O2 Delivery Room Air 08/18/22 00:00 Intake Total 1020 ml Balance 1020 ml Weight (Pounds): 219 Weight (Ounces): 0.0 Weight (Calculated Kilograms): 99.788322 Constitutional: AAO x 3, well-developed, well-nourished Respiratory: No accessory muscle use; other (good, bilat air entry) Cardiovascular: regular rate-rhythm, S1 and S2, systolic murmur (soft DOTTIE at nuno base) Gastrointestional: No tender; soft; No guarding, No rebound; audible bowel sounds Extremities: No clubbing, No cyanosis, No significant edema Neurologic/Psychiatric: oriented x 3, other (moves all limbs equally) Skin: normal color, warm/dry; No rash on exposed areas, No ulcerations on exposed areas Results/Procedures: Labs Laboratory Tests 08/17/22 21:21: Glucometer 123H 08/18/22 05:46: Glucometer 109 08/18/22 13:41: Glucometer 129H 08/18/22 16:25: Glucometer 95 Microbiology 08/17/22 MRSA Screen - Final, Complete MRSA not isolated A/P: Assessment: Syncope of undetermined etiology on 08/10/22 - echo on 08-12-22: LVEF 60-65%, AoV sclerosis w/o stenosis, PASP 30-35 mmHg - ILR implanted on 08/18/22 L ankle fracture after syncopal fall on 08/10/22 - s/p repair on 08-16-22 Hypertension DJD DM II Hyperlipidemia - treated with statins Plan: * No evidence of orthostasis * Monitor labs * ILR implanted, d/c tele * Continuing DVT prophylaxis recommended GENEVA PRUITT MD FACP [facility] Aug 18, 2022 17:14
--- NOTE | 2022-08-18 18:16 | OPERATIVE REPORT ---
DATE OF SERVICE: 08/18/2022 PREOPERATIVE DIAGNOSIS: Syncope. POSTOPERATIVE DIAGNOSIS: Syncope. PROCEDURE PERFORMED: Implantable loop recorder implantation. INDICATIONS FOR PROCEDURE: The patient is a 72-year-old lady, who has recently had syncope of unknown etiology. She has been on telemetry for several days and no specific arrhythmia has been seen. Implantable loop recorder implantation was carried out today after having obtained an informed consent DESCRIPTION OF PROCEDURE: [facility] The left prepectoral area was prepared and draped in the usual sterile fashion. The tools provided with the Medtronic LINQ II device were used to make a subcutaneous pocket anterior to the fourth intercostal space into which the LINQ II device was placed and the wound edges were closed using Dermabond and Steri-Strips. She tolerated the procedure well. Job ID: [id number] DocumentID: [id number] Dictated Date: 08/18/2022 10:28:41 Accountant Bookkeeper Date: 08/18/2022 18:14:00 Dictated By: GENEVA PRUITT MD; BARBI; FACP; FACC; DIDI
[2022-08-18 20:37] VITALS: BP 137/0
[2022-08-19] MEDS: HYDROcodone/APAP 5 MG/325 MG (LORTAB) TAB PO PRN ×4 (05:33→21:51)
[2022-08-19] MEDS: inSUlin ASPART (NovoLOG) 1 UNIT/0.01 ML (CHARGE PER UNIT) SC SCH ×4 (05:54→20:54)
--- NOTE | 2022-08-19 06:51 | PM&R Progress Note ---
Subjective HPI/CC On Admission Date Seen by Provider: Aug 19, 2022 Time Seen by Provider: 12:30 Subjective/Events-last exam 08/19/2022: Patient doing well Taking IV out Discontinued IV Dilaudid Bowels are moving 08/18/2022: Pt having a lot of pain Loop recorder was placed today Weaning off Dilaudid Putting ice on the ankle 08/17/2022: Patient doing a lot better after Dilaudid given Bowels are moving Supportive care continue 08/16/2022: Pt is doing well Going to [facility] for repair of the left ankle fracture Checked meds and labs No falls No pain otherwise 08/15/2022: Pt is doing really well Bowels moved yesterday Checked meds and labs No falls Set for going to [facility] for repair of ankle and then returning tomorrow 08/14/2022: Pt is doing really well Moving around really well Will reach out to Dr. Rodriguez and evaluate for repair 08/13/2022: Patient doing really well Pain is controlled Small bowel movement but will continue laxatives due to high risk for narcotic bowel Doing pretty well hopping around Review of Systems General: Fatigue, Malaise Objective Exam Vital Signs Vital Signs Date Time Temp Pulse Resp B/P (MAP) Pulse Ox O2 Delivery O2 Flow Rate FiO2 08/19/22 21:16 Room Air 08/19/22 20:10 36.3 72 16 118/56 (76) 97 Capillary Refill : General Appearance: No Apparent Distress, WD/WN HEENT: PERRL/EOMI, Normal ENT Inspection, Pharynx Normal Neck: Full Range of Motion, Normal Inspection, Non Tender, Supple, Carotid Bruit Respiratory: Chest Non Tender, Lungs Clear, Normal Breath Sounds, No Accessory Muscle Use, No Respiratory Distress Cardiovascular: Regular Rate, Rhythm, No Edema, No Gallop, No JVD, No Murmur, Normal Peripheral Pulses Gastrointestinal: Normal Bowel Sounds, No Organomegaly, No Pulsatile Mass, Non Tender, Soft Back: Normal Inspection, No CVA Tenderness, No Vertebral Tenderness Extremity: Normal Capillary Refill, Normal Inspection, Normal Range of Motion (Except left ankle and foot), Non Tender, No Calf Tenderness, No Pedal Edema Neurologic/Psychiatric: Alert, Oriented x3, Normal Mood/Affect, package reinspector II-XII Norm as Tested, Motor Weakness (Left foot and leg) Skin: Normal Color, Warm/Dry Lymphatic: No Adenopathy Results/Procedures Lab Patient resulted labs reviewed. FIM Transfers Therapy Code Descriptions/Definitions Functional [place] Measure: 0=Not Assessed/NA 4=Minimal Assistance 1=Total Assistance 5=Supervision or Setup 2=Maximal Assistance 6=Modified [place] 3=Moderate Assistance 7=Complete IndependenceSCALE: Activities may be completed with or without assistive devices. 5-Yynpeymwua-zzfbutv completes the activity by him/herself with no assistance from a helper. 5-Set-up or Clean-up Assistance-helper sets up or cleans up; patient completes activity. [place] assists only prior to or following the activity. 4-Supervision or Touching Assistance-helper provides verbal cues and/or touching/steadying and/or contact guard assistance as patient completes activity. Assistance may be provided throughout the activity or intermittently. 3-Partial/Moderate Assistance-helper does LESS THAN HALF the effort. [place] lifts, holds or supports trunk or limbs, but provides less than half the effort. 2-Substantial/Maximal Assistance-helper does MORE THAN HALF the effort. [place] lifts or holds trunk or limbs and provides more than half the effort. 5-Hpqqxjleb-lyyono does ALL the effort. Patient does none of the effort to complete the activity. Or, the assistance of 2 or more helpers is required for the patient to complete the activity. If activity was not attempted, code reason: 7-Patient Refused. 9-Not Applicable-not attempted and the patient did not perform the activity before the current illness, exacerbation or injury. 10-Not Attempted due to Environmental Limitations-(lack of equipment, weather restraints, etc.). 88-Not Attempted due to Medical Conditions or Safety Concerns. Roll Left to Right (QC): 6 Sit to Lying (QC): 6 Sit to Stand (QC): 6 Chair/Pji-zd-Tksks Xfer(QC): 6 Car Transfer (QC): 4 Gait Training Does the Patient Walk?: Yes Distance: 125' Walk 10 feet (QC): 4 Walk 50 ft with 2 Turns(QC): 4 Walk 150 ft (QC): 88 Walking 10ft/uneven surface-QC: 88 Gait Persons Needed: 1 Gait Assistive Device: FWW Wheelchair Training Does the Pt Use a Wheelchair?: Yes Wheel 50 ft with 2 turns (QC): 6 Wheel 150 ft (QC): 6 Type of Wheelchair: Manual Stair Training 1 Step (curb) (QC): 88 4 Steps (QC): 88 12 Steps (QC): 88 Balance Picking up an Object (QC): 88 ADL-Treatment Eating (QC): 6 Oral Hygiene (QC): 6 Shower/Bathe Self (QC): 5 Upper Body Dressing (QC): 5 Lower Body Dressing (QC): 4 On/Off Footwear (QC): 4 Toileting Hygiene (QC): 4 Toilet Transfer (QC): 4 Assessment/Plan Assessment and Plan Assess & Plan/Chief Complaint Assessment: Left ankle fracture status post uncomplicated repair by Dr. Rodriguez at [facility] 08/16/22 Diabetes Hypertension Hyperlipidemia Constipation Plan: Bowel regimen Pain control Supportive care Aggressive therapy 08/13/2022: Doing well Lovenox Pain control 08/14/2022: Continue aggressive care Reach out to Dr Rodriguez 08/15/2022: Monitor pain Have surgery then return tomorrow 08/16/2022: Surgery today then returns 08/17/2022: IV Dilaudid for pain control 08/18/2022: Wean Dilaudid 08/19/2022: DC Georgina OLGUIN Hep-Lock (1) Closed displaced trimalleolar fracture of left ankle Status: Acute (2) Syncope Status: Acute NAJMA GILLIAM DO Aug 19, 2022 06:51
[2022-08-19] MEDS: VENlafaxine XR 37.5 MG (EFFEXOR XR) CAP PO SCH (07:23)
[2022-08-19 09:00] VITALS: BP 136/63
[2022-08-19] MEDS: VICTOZA 18 MG/3 ML SQ SCH (09:31)
[2022-08-19] MEDS: INVOKAMET PO SCH (09:32)
[2022-08-19] MEDS: PANTOPRAZOLE 40 MG (PROTONIX) TAB PO SCH (09:33)
[2022-08-19] MEDS: ENOXAPARIN 40 MG/0.4 ML (LOVENOX) SYR SC SCH (09:33)
[2022-08-19] MEDS: DOCUSATE SODIUM 100 MG (COLACE) CAP PO SCH ×2 (09:33→19:38)
[2022-08-19] MEDS: SENNA W/DOCUSATE (SENOKOT S) TABLET PO SCH ×2 (09:33→19:39)
[2022-08-19] MEDS: PIOGLITAZONE 30MG (ACTOS) TAB PO SCH (09:33)
[2022-08-19] MEDS: ROSUVASTATIN 20 MG (CRESTOR) TABLET PO SCH (09:33)
[2022-08-19] MEDS: polyethylene glycoL POWDER 17 GM (MIRALAX) PACK PO SCH ×2 (09:33→19:39)
[2022-08-19] MEDS: MULTIVIT W/MINERALS TAB (THERAGRAN M) PO SCH (09:33)
[2022-08-19] MEDS: ENALAPRIL 10 MG (VASOTEC) TAB PO SCH (09:33)
--- NOTE | 2022-08-19 11:25 | Physical Therapy Daily Note ---
PT Daily Note-Current Subjective Pt in bed upon arrival agrees to PT. Requests to use the BR. Says she thinks she is feeling better today. Pain Section J - Health Conditions 1. Rarely or not at all 2. Occasionally 3. Frequently 4. Almost constantly 8. Unable to answer Pain Effect on Sleep: 2 Pain Interference with Therapy: 2 Pain Interference w/Day-to-Day: 2 Mental Status Patient Orientation: Person, Place, Time, Situation Transfers SCALE: Activities may be completed with or without assistive devices. 6-Shfrxwlezf-nwncvfr completes the activity by him/herself with no assistance from a helper. 5-Set-up or Clean-up Assistance-helper sets up or cleans up; patient completes activity. [place] assists only prior to or following the activity. 4-Supervision or Touching Assistance-helper provides verbal cues and/or touching/steadying and/or contact guard assistance as patient completes activity. Assistance may be provided throughout the activity or intermittently. 3-Partial/Moderate Assistance-helper does LESS THAN HALF the effort. [place] lifts, holds or supports trunk or limbs, but provides less than half the effort. 2-Substantial/Maximal Assistance-helper does MORE THAN HALF the effort. [place] l ifts or holds trunk or limbs and provides more than half the effort. 7-Moueilkoe-hperqx does ALL the effort. Patient does none of the effort to complete the activity. Or, the assistance of 2 or more helpers is required for the patient to complete the activity. If activity was not attempted, code reason: 7-Patient Refused. 9-Not Applicable-not attempted and the patient did not perform the activity before the current illness, exacerbation or injury. 10-Not Attempted due to Environmental Limitations-(lack of equipment, weather restraints, etc.). 88-Not Attempted due to Medical Conditions or Safety Concerns. Sit to Stand (QC): 4 Toilet Transfer (QC): 5 Weight Bearing Right Lower Extremity: Right Full Weight Bearing Left Lower Extremity: Left Non Weight Bearing Gait Training Does the Patient Walk?: Yes Distance: 150' Walk 10 feet (QC): 5 Walk 50 ft with 2 Turns(QC): 4 Walk 150 ft (QC): 4 Gait Persons Needed: 1 Gait Assistive Device: FWW Wheelchair Training Does the Pt Use a Wheelchair?: Yes Wheel 50 ft with 2 turns (QC): 6 Wheel 150 ft (QC): 6 Type of Wheelchair: Manual Exercises NuStep Minutes: 13 NuStep Workload: 4 Treatments Pt TFs from bed and amb to BR and able to use BR independently. Pt then amb out into [facility]ana and therapist adjusts FWW. Then pt amb to therapy gym and TFs to nustep. Following nustep pt says she is too tired and requests [facility] and pt wheels herself back to room. Pt then TFs to recliner. All needs met and call light nearby. Assessment Current Status: Good Progress Pt required verbal and tactile cues while performing TFs. Pt able to increase amb distance this date but fatigued post treatment. PT Box Office Clerk Goals Detention Goals PT Detention Goals Time Frame: Aug 26, 2022 Roll Left & Right (QC): 6 Sit to Lying (QC): 6 Lying-Sitting on Side/Bed(QC): 6 Sit to Stand (QC): 6 Chair/Qhx-fm-Cmwnv Xfer(QC): 6 Toilet Transfer (QC): 6 Car Transfer (QC): 6 Does the Patient Walk: Yes Walk 10 feet (QC): 6 Walk 50ft with 2 Turns (QC): 6 Walk 150 ft (QC): 6 Walking 10ft on Uneven Surface: 6 1 Step (curb) (QC): 9 4 Steps (QC): 9 12 Steps (QC): 9 Picking up an Object (QC): 6 Does the Pt use WC or Scooter?: No Wheel 50 feet with 2 turns (QC: 9 Wheel 150 feet: 9 PT Plan Problem List Problem List: Activity Tolerance, Functional Strength Treatment/Plan Treatment Plan: Continue Plan of Care Treatment Plan: Bed Mobility, Concurrent Therapy, Education, Functional Activity Audrey, Functional Strength, Group Therapy, Gait, Safety, Therapeutic Exercise, Transfers Treatment Duration: Aug 26, 2022 Frequency: 6 times per week Estimated Hrs Per Day: 1.5 hours per day Patient and/or Family Agrees t: Yes Safety Risks/Education Patient Education: Transfer Techniques, Correct Positioning Teaching Recipient: Patient Teaching Methods: Discussion Response to Teaching: Return Demonstration Time Time In: 844 Time Out: 919 DATE: Aug 19, 2022 Total Billed Treatment Time: 35 Total Billed Treatment 1, GT 20min, Ex 15min FAMILIA ACOSTA PTA Aug 19, 2022 11:25
[2022-08-19] MEDS ORDERED: HYDROmorphone 2 MG/ML VIAL (DILAUDID) IV PRN (12:15)
[2022-08-19 20:10] VITALS: BP 118/56
[2022-08-20] MEDS: HYDROcodone/APAP 5 MG/325 MG (LORTAB) TAB PO PRN ×3 (04:34→23:01)
[2022-08-20] MEDS: VENlafaxine XR 37.5 MG (EFFEXOR XR) CAP PO SCH (05:26)
[2022-08-20] MEDS: inSUlin ASPART (NovoLOG) 1 UNIT/0.01 ML (CHARGE PER UNIT) SC SCH ×4 (05:27→20:23)
--- NOTE | 2022-08-20 06:19 | PM&R Progress Note ---
Subjective HPI/CC On Admission Date Seen by Provider: Aug 20, 2022 Time Seen by Provider: 13:00 Subjective/Events-last exam 08/20/2022: No major issues Pain controlled Checked meds and labs 08/19/2022: Patient doing well Taking IV out Discontinued IV Dilaudid Bowels are moving 08/18/2022: Pt having a lot of pain Loop recorder was placed today Weaning off Dilaudid Putting ice on the ankle 08/17/2022: Patient doing a lot better after Dilaudid given Bowels are moving Supportive care continue 08/16/2022: Pt is doing well Going to [facility] for repair of the left ankle fracture Checked meds and labs No falls No pain otherwise 08/15/2022: Pt is doing really well Bowels moved yesterday Checked meds and labs No falls Set for going to [facility] for repair of ankle and then returning tomorrow 08/14/2022: Pt is doing really well Moving around really well Will reach out to Dr. Rodriguez and evaluate for repair 08/13/2022: Patient doing really well Pain is controlled Small bowel movement but will continue laxatives due to high risk for narcotic bowel Doing pretty well hopping around Review of Systems Musculoskeletal: leg pain, foot pain Objective Exam Vital Signs Vital Signs Date Time Temp Pulse Resp B/P (MAP) Pulse Ox O2 Delivery O2 Flow Rate FiO2 08/20/22 09:05 Room Air 08/20/22 07:30 36.2 80 20 119/67 (84) 95 Capillary Refill : General Appearance: No Apparent Distress, WD/WN HEENT: PERRL/EOMI, Normal ENT Inspection, Pharynx Normal Neck: Full Range of Motion, Normal Inspection, Non Tender, Supple, Carotid Bruit Respiratory: Chest Non Tender, Lungs Clear, Normal Breath Sounds, No Accessory Muscle Use, No Respiratory Distress Cardiovascular: Regular Rate, Rhythm, No Edema, No Gallop, No JVD, No Murmur, Normal Peripheral Pulses Gastrointestinal: Normal Bowel Sounds, No Organomegaly, No Pulsatile Mass, Non Tender, Soft Back: Normal Inspection, No CVA Tenderness, No Vertebral Tenderness Extremity: Normal Capillary Refill, Normal Inspection, Normal Range of Motion (Except left ankle and foot), Non Tender, No Calf Tenderness, No Pedal Edema Neurologic/Psychiatric: Alert, Oriented x3, Normal Mood/Affect, equipment mechanic specialist II-XII Norm as Tested, Motor Weakness (Left foot and leg) Skin: Normal Color, Warm/Dry Lymphatic: No Adenopathy Results/Procedures Lab Patient resulted labs reviewed. FIM Transfers Therapy Code Descriptions/Definitions Functional [place] Measure: 0=Not Assessed/NA 4=Minimal Assistance 1=Total Assistance 5=Supervision or Setup 2=Maximal Assistance 6=Modified [place] 3=Moderate Assistance 7=Complete IndependenceSCALE: Activities may be completed with or without assistive devices. 3-Ypwicalroi-drxyzhv completes the activity by him/herself with no assistance from a helper. 5-Set-up or Clean-up Assistance-helper sets up or cleans up; patient completes activity. [place] assists only prior to or following the activity. 4-Supervision or Touching Assistance-helper provides verbal cues and/or touching/steadying and/or contact guard assistance as patient completes activity. Assistance may be provided throughout the activity or intermittently. 3-Partial/Moderate Assistance-helper does LESS THAN HALF the effort. [place] lifts, holds or supports trunk or limbs, but provides less than half the effort. 2-Substantial/Maximal Assistance-helper does MORE THAN HALF the effort. [place] lifts or holds trunk or limbs and provides more than half the effort. 4-Hphglaviz-ozfdve does ALL the effort. Patient does none of the effort to complete the activity. Or, the assistance of 2 or more helpers is required for the patient to complete the activity. If activity was not attempted, code reason: 7-Patient Refused. 9-Not Applicable-not attempted and the patient did not perform the activity before the current illness, exacerbation or injury. 10-Not Attempted due to Environmental Limitations-(lack of equipment, weather restraints, etc.). 88-Not Attempted due to Medical Conditions or Safety Concerns. Roll Left to Right (QC): 6 Sit to Lying (QC): 6 Sit to Stand (QC): 4 Chair/Zwg-uf-Fwzjg Xfer(QC): 6 Car Transfer (QC): 4 Gait Training Does the Patient Walk?: Yes Distance: 150' Walk 10 feet (QC): 5 Walk 50 ft with 2 Turns(QC): 4 Walk 150 ft (QC): 4 Walking 10ft/uneven surface-QC: 88 Gait Persons Needed: 1 Gait Assistive Device: FWW Wheelchair Training Does the Pt Use a Wheelchair?: Yes Wheel 50 ft with 2 turns (QC): 6 Wheel 150 ft (QC): 6 Type of Wheelchair: Manual Stair Training 1 Step (curb) (QC): 88 4 Steps (QC): 88 12 Steps (QC): 88 Balance Picking up an Object (QC): 88 ADL-Treatment Eating (QC): 6 Oral Hygiene (QC): 6 Shower/Bathe Self (QC): 5 Upper Body Dressing (QC): 5 Lower Body Dressing (QC): 4 On/Off Footwear (QC): 4 Toileting Hygiene (QC): 4 Toilet Transfer (QC): 4 Assessment/Plan Assessment and Plan Assess & Plan/Chief Complaint Assessment: Left ankle fracture status post uncomplicated repair by Dr. Rodriguez at [place] 08/16/22 Diabetes Hypertension Hyperlipidemia Constipation Plan: Bowel regimen Pain control Supportive care Aggressive therapy 08/13/2022: Doing well Lovenox Pain control 08/14/2022: Continue aggressive care Reach out to Dr Rodriguez 08/15/2022: Monitor pain Have surgery then return tomorrow 08/16/2022: Surgery today then returns 08/17/2022: IV Dilaudid for pain control 08/18/2022: Wean Dilaudid 08/19/2022: DC Dilaudid DC Hep-Lock 08/20/2022: Monitor closely Pain control (1) Closed displaced trimalleolar fracture of left ankle Status: Acute (2) Syncope Status: Acute NAJMA GILLIAM DO Aug 20, 2022 06:19
[2022-08-20 07:30] VITALS: BP 119/67
[2022-08-20] MEDS: polyethylene glycoL POWDER 17 GM (MIRALAX) PACK PO SCH ×2 (08:27→20:23)
[2022-08-20] MEDS: DOCUSATE SODIUM 100 MG (COLACE) CAP PO SCH ×2 (08:29→20:44)
[2022-08-20] MEDS: ROSUVASTATIN 20 MG (CRESTOR) TABLET PO SCH (08:29)
[2022-08-20] MEDS: PANTOPRAZOLE 40 MG (PROTONIX) TAB PO SCH (08:29)
[2022-08-20] MEDS: PIOGLITAZONE 30MG (ACTOS) TAB PO SCH (08:29)
[2022-08-20] MEDS: SENNA W/DOCUSATE (SENOKOT S) TABLET PO SCH ×2 (08:30→20:44)
[2022-08-20] MEDS: MULTIVIT W/MINERALS TAB (THERAGRAN M) PO SCH (08:30)
[2022-08-20] MEDS: ENOXAPARIN 40 MG/0.4 ML (LOVENOX) SYR SC SCH (08:30)
[2022-08-20] MEDS: ENALAPRIL 10 MG (VASOTEC) TAB PO SCH (08:30)
[2022-08-20] MEDS: INVOKAMET PO SCH (08:31)
[2022-08-20] MEDS: VICTOZA 18 MG/3 ML SQ SCH (08:31)
[2022-08-20 19:59] VITALS: BP 124/64
[2022-08-20] MEDS: ONDANSETRON 4 MG (ZOFRAN) ORAL DISSOLVE TAB PO PRN (20:38)
--- NOTE | 2022-08-21 05:24 | PM&R Progress Note ---
Subjective HPI/CC On Admission Date Seen by Provider: Aug 21, 2022 Time Seen by Provider: 08:30 Subjective/Events-last exam 08/21/2022: Patient doing well Pain controlled BM+ Moving around well 08/20/2022: No major issues Pain controlled Checked meds and labs 08/19/2022: Patient doing well Taking IV out Discontinued IV Dilaudid Bowels are moving 08/18/2022: Pt having a lot of pain Loop recorder was placed today Weaning off Dilaudid Putting ice on the ankle 08/17/2022: Patient doing a lot better after Dilaudid given Bowels are moving Supportive care continue 08/16/2022: Pt is doing well Going to [place] for repair of the left ankle fracture Checked meds and labs No falls No pain otherwise 08/15/2022: Pt is doing really well Bowels moved yesterday Checked meds and labs No falls Set for going to [place] for repair of ankle and then returning tomorrow 08/14/2022: Pt is doing really well Moving around really well Will reach out to Dr. Rodriguez and evaluate for repair 08/13/2022: Patient doing really well Pain is controlled Small bowel movement but will continue laxatives due to high risk for narcotic bowel Doing pretty well hopping around Review of Systems General: Fatigue, Malaise Objective Exam Vital Signs Vital Signs Date Time Temp Pulse Resp B/P (MAP) Pulse Ox O2 Delivery O2 Flow Rate FiO2 08/21/22 21:03 36.1 72 18 117/57 (77) 94 Room Air Capillary Refill : General Appearance: No Apparent Distress, WD/WN HEENT: PERRL/EOMI, Normal ENT Inspection, Pharynx Normal Neck: Full Range of Motion, Normal Inspection, Non Tender, Supple, Carotid Bruit Respiratory: Chest Non Tender, Lungs Clear, Normal Breath Sounds, No Accessory Muscle Use, No Respiratory Distress Cardiovascular: Regular Rate, Rhythm, No Edema, No Gallop, No JVD, No Murmur, Normal Peripheral Pulses Gastrointestinal: Normal Bowel Sounds, No Organomegaly, No Pulsatile Mass, Non Tender, Soft Back: Normal Inspection, No CVA Tenderness, No Vertebral Tenderness Extremity: Normal Capillary Refill, Normal Inspection, Normal Range of Motion (Except left ankle and foot), Non Tender, No Calf Tenderness, No Pedal Edema Neurologic/Psychiatric: Alert, Oriented x3, Normal Mood/Affect, 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 FIM Transfers Therapy Code Descriptions/Definitions Functional [place] Measure: 0=Not Assessed/NA 4=Minimal Assistance 1=Total Assistance 5=Supervision or Setup 2=Maximal Assistance 6=Modified [place] 3=Moderate Assistance 7=Complete IndependenceSCALE: Activities may be completed with or without assistive devices. 1-Pzvvddceyq-unimyaw completes the activity by him/herself with no assistance from a helper. 5-Set-up or Clean-up Assistance-helper sets up or cleans up; patient completes activity. [place] assists only prior to or following the activity. 4-Supervision or Touching Assistance-helper provides verbal cues and/or touching/steadying and/or contact guard assistance as patient completes activity. Assistance may be provided throughout the activity or intermittently. 3-Partial/Moderate Assistance-helper does LESS THAN HALF the effort. [place] lifts, holds or supports trunk or limbs, but provides less than half the effort. 2-Substantial/Maximal Assistance-helper does MORE THAN HALF the effort. [place] lifts or holds trunk or limbs and provides more than half the effort. 4-Vklbgjnfs-ootfgp does ALL the effort. Patient does none of the effort to complete the activity. Or, the assistance of 2 or more helpers is required for the patient to complete the activity. If activity was not attempted, code reason: 7-Patient Refused. 9-Not Applicable-not attempted and the patient did not perform the activity before the current illness, exacerbation or injury. 10-Not Attempted due to Environmental Limitations-(lack of equipment, weather restraints, etc.). 88-Not Attempted due to Medical Conditions or Safety Concerns. Roll Left to Right (QC): 6 Sit to Lying (QC): 6 Sit to Stand (QC): 4 Chair/Mkb-qj-Ftuue Xfer(QC): 6 Car Transfer (QC): 4 Gait Training Does the Patient Walk?: Yes Distance: 150' Walk 10 feet (QC): 5 Walk 50 ft with 2 Turns(QC): 4 Walk 150 ft (QC): 4 Walking 10ft/uneven surface-QC: 88 Gait Persons Needed: 1 Gait Assistive Device: FWW Wheelchair Training Does the Pt Use a Wheelchair?: Yes Wheel 50 ft with 2 turns (QC): 6 Wheel 150 ft (QC): 6 Type of Wheelchair: Manual Stair Training 1 Step (curb) (QC): 88 4 Steps (QC): 88 12 Steps (QC): 88 Balance Picking up an Object (QC): 88 ADL-Treatment Eating (QC): 6 Oral Hygiene (QC): 6 Shower/Bathe Self (QC): 5 Upper Body Dressing (QC): 5 Lower Body Dressing (QC): 4 On/Off Footwear (QC): 4 Toileting Hygiene (QC): 4 Toilet Transfer (QC): 4 Assessment/Plan Assessment and Plan Assess & Plan/Chief Complaint Assessment: Left ankle fracture status post uncomplicated repair by Dr. Rodriguez at [place] 08/16/22 Diabetes Hypertension Hyperlipidemia Constipation Plan: Bowel regimen Pain control Supportive care Aggressive therapy 08/13/2022: Doing well Lovenox Pain control 08/14/2022: Continue aggressive care Reach out to Dr Rodriguez 08/15/2022: Monitor pain Have surgery then return tomorrow 08/16/2022: Surgery today then returns 08/17/2022: IV Dilaudid for pain control 08/18/2022: Wean Dilaudid 08/19/2022: DC Dilaudid DC Hep-Lock 08/20/2022: Monitor closely Pain control 08/21/2022: Monitor closely (1) Closed displaced trimalleolar fracture of left ankle Status: Acute (2) Syncope Status: Acute NAJMA GILLIAM DO Aug 21, 2022 05:24
[2022-08-21] MEDS: inSUlin ASPART (NovoLOG) 1 UNIT/0.01 ML (CHARGE PER UNIT) SC SCH ×4 (05:38→21:03)
[2022-08-21] MEDS: VENlafaxine XR 37.5 MG (EFFEXOR XR) CAP PO SCH (05:38)
[2022-08-21 06:13] LABS: BASOPHILS % (AUTO) 0 % (0-10); EOSINOPHILS # (AUTO) 0.1 10^3/uL (0.0-0.3); EOSINOPHILS % (AUTO) 2 % (0-10); HEMATOCRIT 40 % (35-52); LYMPHOCYTES # (AUTO) 1.5 10^3/uL (1.0-4.0); LYMPHOCYTES % (AUTO) 22 % (12-44); MEAN CORPUSCULAR HEMOGLOBIN 28 pg (25-34); MEAN CORPUSCULAR HGB CONC 33 g/dL (32-36); MEAN CORPUSCULAR VOLUME 85 fL (80-99); MEAN PLATELET VOLUME 9.8 fL (9.0-12.2); MONOCYTES # (AUTO) 0.5 10^3/uL (0.0-1.0); MONOCYTES % (AUTO) 7 % (0-12); NEUTROPHILS # (AUTO) 4.6 10^3/uL (1.8-7.8); NEUTROPHILS % (AUTO) 69 % (42-75); PLATELET COUNT 396 10^3/uL (130-400); WHITE BLOOD COUNT 6.7 10^3/uL (4.3-11.0)
[2022-08-21 06:31] LABS: ALBUMIN 4.1 GM/DL (3.2-4.5)
[2022-08-21 06:32] LABS: POTASSIUM 3.3 MMOL/L (3.6-5.0)
[2022-08-21 06:33] LABS: CALCIUM 9.7 MG/DL (8.5-10.1)
[2022-08-21 06:34] LABS: TOTAL PROTEIN 7.5 GM/DL (6.4-8.2)
[2022-08-21 06:36] LABS: BILIRUBIN,TOTAL 0.6 MG/DL (0.1-1.0)
[2022-08-21 06:38] LABS: CREATININE SERUM 0.78 MG/DL (0.60-1.30)
[2022-08-21 07:29] VITALS: BP 114/68
[2022-08-21] MEDS: KCL 20 MEQ TAB (K-DUR) PO SCH (08:07)
[2022-08-21] MEDS: MULTIVIT W/MINERALS TAB (THERAGRAN M) PO SCH (08:07)
[2022-08-21] MEDS: PANTOPRAZOLE 40 MG (PROTONIX) TAB PO SCH (08:07)
[2022-08-21] MEDS: ENOXAPARIN 40 MG/0.4 ML (LOVENOX) SYR SC SCH (08:07)
[2022-08-21] MEDS: ENALAPRIL 10 MG (VASOTEC) TAB PO SCH (08:07)
[2022-08-21] MEDS: PIOGLITAZONE 30MG (ACTOS) TAB PO SCH (08:07)
[2022-08-21] MEDS: ROSUVASTATIN 20 MG (CRESTOR) TABLET PO SCH (08:07)
[2022-08-21] MEDS: INVOKAMET PO SCH (08:08)
[2022-08-21] MEDS: VICTOZA 18 MG/3 ML SQ SCH (08:10)
[2022-08-21] MEDS: DOCUSATE SODIUM 100 MG (COLACE) CAP PO SCH ×2 (08:12→19:41)
[2022-08-21] MEDS: HYDROcodone/APAP 5 MG/325 MG (LORTAB) TAB PO PRN ×3 (08:12→21:15)
[2022-08-21] MEDS: polyethylene glycoL POWDER 17 GM (MIRALAX) PACK PO SCH ×2 (08:12→19:41)
[2022-08-21] MEDS: SENNA W/DOCUSATE (SENOKOT S) TABLET PO SCH ×2 (08:12→19:41)
--- NOTE | 2022-08-21 10:05 | Occupational Ther Daily Note ---
OT Current Status-Daily Note Subjective Pt reports feeling "much better" this date. She requests a shower. Mental Status/Objective Patient Orientation: Person, Place, Situation Attachments: Other-See Comments (CAM Boot ) ADL-Treatment Therapy Code Descriptions/Definitions Functional [place] Measure: 0=Not Assessed/NA 4=Minimal Assistance 1=Total Assistance 5=Supervision or Setup 2=Maximal Assistance 6=Modified [place] 3=Moderate Assistance 7=Complete IndependenceSCALE: Activities may be completed with or without assistive devices. 6-Oydgdgoahq-sxdgais completes the activity by him/herself with no assistance from a helper. 5-Set-up or Clean-up Assistance-helper sets up or cleans up; patient completes activity. [place] assists only prior to or following the activity. 4-Supervision or Touching Assistance-helper provides verbal cues and/or touching/steadying and/or contact guard assistance as patient completes activity. Assistance may be provided throughout the activity or intermittently. 3-Partial/Moderate Assistance-helper does LESS THAN HALF the effort. [place] lifts, holds or supports trunk or limbs, but provides less than half the effort. 2-Substantial/Maximal Assistance-helper does MORE THAN HALF the effort. [place] lifts or holds trunk or limbs and provides more than half the effort. 7-Oxwfyoisd-apufbf does ALL the effort. Patient does none of the effort to complete the activity. Or, the assistance of 2 or more helpers is required for the patient to complete the activity. If activity was not attempted, code reason: 7-Patient Refused. 9-Not Applicable-not attempted and the patient did not perform the activity before the current illness, exacerbation or injury. 10-Not Attempted due to Environmental Limitations-(lack of equipment, weather restraints, etc.). 88-Not Attempted due to Medical Conditions or Safety Concerns. Eating (QC): 6 Oral Hygiene (QC): 6 Shower/Bathe Self (QC): 5 (for covering CAM Boot only) Upper Body Dressing (QC): 6 Lower Body Dressing (QC): 6 On/Off Footwear: 6 Toileting Hygiene (QC): 6 Toilet Transfer (QC): 6 Shower performed; majority completed in sitting. CAM boot covered prior to activity, dry and intact at end of task. Pt stood only briefly when washing buttocks/cinthya area. No unsteadiness observed and good adherence to NWB when standing. Pt able to reach/wash all body parts and don all clothing independently. Extra time to thread clothing over cam boot but no assist or cues required. All grooming tasks performed at seated level. Education/discussion on discharge plans and questions about iadls post discharge. Education OT Patient Education: Energy conservation, Modified ADL techniques, Progress toward Goal/Update tx plan Teaching Recipient: Patient Teaching Methods: Discussion Response to Teaching: Verbalize Understanding, Return Demonstration OT Short Term Goals Short Term Goals Time Frame: Aug 21, 2022 Shower/bathe self: 4 Lower body dressin Putting on/taking off footwear: 4 OT Remote Sensing Surveyor Goals Remote Sensing Surveyor Goals Time Frame: Sep 02, 2022 Acute change in mental status: 0 Inattention: 0 Disorganized thinkin Altered level of consciousness: 0 Eating (QC): 6 Oral Hygiene (QC): 6 Toileting Hygiene (QC): 6 Shower/Bathe Self (QC): 5 Upper Body Dressing (QC): 6 Lower Body Dressing (QC): 6 On/Off Footwear (QC): 6 Additional Goals: 1-Demonstrate ADL Tasks, 2-Verbalize Understanding, 3- ImproveStrength/Audrey 1=Demonstrate adherence to instructed precautions during ADL tasks. 2=Patient will verbalize/demonstrate understanding of assistive devices/modifications for ADL. 3=Patient will improve strength/tolerance for activity to enable patient to perform ADL's. OT Education/Plan Problem List/Assessment Assessment: Decreased Activ Tolerance, Impaired I ADL's Discharge Recommendations Plan/Recommendations: Continue POC Therapy Discharge Recommendati: Homemaker Support, Post Acute OT (Home health OT) Equpiment Recommendations-D/C: Billet Assembler Treatment Plan/Plan of Care Treatment,Training & Education: Yes Patient would benefit from OT for education, treatment and training to promote independence in ADL's, mobility, safety and/or upper extremity function for ADL's. Plan of Care: ADL Retraining, Functional Mobility, Group Exercise/Act as Ind, UE Funct Exercise/Act Treatment Duration: Aug 12, 2022 Frequency: At least 5 of 7 days/Wk (IRF) Estimated Hrs Per Day: 1.5 hours per day Agreement: Yes Rehab Potential: Good Time Start Time: 08:55 Stop Time: 10:25 DATE: Aug 21, 2022 Total Time Billed (hr/min): 90 Billed Treatment Time 1 visit ADL x6 Roula Judge OT Aug 21, 2022 10:05
--- NOTE | 2022-08-21 11:38 | Physical Therapy Daily Note ---
PT Daily Note-Current Subjective Pt found seated in WC upon entry. Agreed to PT. Does not rate or report any change in pain. Pain Numeric Pain Scale: 0-No Pain Section J - Health Conditions 1. Rarely or not at all 2. Occasionally 3. Frequently 4. Almost constantly 8. Unable to answer Pain Effect on Sleep: 2 Pain Interference with Therapy: 2 Pain Interference w/Day-to-Day: 2 Mental Status Patient Orientation: Normal For Age Transfers SCALE: Activities may be completed with or without assistive devices. 7-Crdaxskrmi-rlkltlx completes the activity by him/herself with no assistance from a helper. 5-Set-up or Clean-up Assistance-helper sets up or cleans up; patient completes activity. [place] assists only prior to or following the activity. 4-Supervision or Touching Assistance-helper provides verbal cues and/or touching/steadying and/or contact guard assistance as patient completes activity. Assistance may be provided throughout the activity or intermittently. 3-Partial/Moderate Assistance-helper does LESS THAN HALF the effort. [place] lifts, holds or supports trunk or limbs, but provides less than half the effort. 2-Substantial/Maximal Assistance-helper does MORE THAN HALF the effort. [place] lifts or holds trunk or limbs and provides more than half the effort. 6-Rdqukywbf-mtfqww does ALL the effort. Patient does none of the effort to complete the activity. Or, the assistance of 2 or more helpers is required for the patient to complete the activity. If activity was not attempted, code reason: 7-Patient Refused. 9-Not Applicable-not attempted and the patient did not perform the activity before the current illness, exacerbation or injury. 10-Not Attempted due to Environmental Limitations-(lack of equipment, weather restraints, etc.). 88-Not Attempted due to Medical Conditions or Safety Concerns. Roll Left & Right (QC): 6 Sit to Lying (QC): 6 Lying to Sitting/Side of Bed(Q: 6 Sit to Stand (QC): 6 Pt independent /c all trfs. Weight Bearing Right Lower Extremity: Right Full Weight Bearing Left Lower Extremity: Left Non Weight Bearing Gait Training Does the Patient Walk?: Yes Distance: 50, 50 Walk 10 feet (QC): 6 Walk 50 ft with 2 Turns(QC): 6 Gait Persons Needed: 1 Gait Assistive Device: FWW Pt hops on RLE during gait training /c FWW. Amb. 100ft total. Wheelchair Training Does the Pt Use a Wheelchair?: Yes Wheel 50 ft with 2 turns (QC): 6 Wheel 150 ft (QC): 6 Type of Wheelchair: Manual Pt used manual WC for 150ft total. Exercises Supine Ex: Ankle pumps, Quad Set, Glut sets, Heel Slides, Short Arc Quads, Straight leg raise, Hip abd/add Supine Reps: 10 Seated Therapy Exercises: Long arc quads, Hip flexion, Hip abd/add Seated Reps: 15 Pt tolerated exercises well. Requires RBs between sets. Assessment Current Status: Good Progress Pt tolerated Tx well /c no report of increased pain. Continue to progress pt as tolerated per POC to increase functional ability and strength. PT Long-Term Goals Long-Term Goals PT Long-Term Goals Time Frame: Aug 26, 2022 Roll Left & Right (QC): 6 Sit to Lying (QC): 6 Lying-Sitting on Side/Bed(QC): 6 Sit to Stand (QC): 6 Chair/Qfc-gl-Syhoc Xfer(QC): 6 Toilet Transfer (QC): 6 Car Transfer (QC): 6 Does the Patient Walk: Yes Walk 10 feet (QC): 6 Walk 50ft with 2 Turns (QC): 6 Walk 150 ft (QC): 6 Walking 10ft on Uneven Surface: 6 1 Step (curb) (QC): 9 4 Steps (QC): 9 12 Steps (QC): 9 Picking up an Object (QC): 6 Does the Pt use WC or Scooter?: No Wheel 50 feet with 2 turns (QC: 9 Wheel 150 feet: 9 PT Plan Treatment/Plan Treatment Plan: Continue Plan of Care Treatment Plan: Bed Mobility, Concurrent Therapy, Education, Functional Activity Audrey, Functional Strength, Group Therapy, Gait, Safety, Therapeutic Exercise, Transfers Treatment Duration: Aug 26, 2022 Frequency: 6 times per week Estimated Hrs Per Day: 1.5 hours per day Patient and/or Family Agrees t: Yes Time Time In: 1030 Time Out: 1130 DATE: Aug 21, 2022 Total Billed Treatment Time: 60 Total Billed Treatment 1 visit FA 1x GT 1x EX 2x ROXANNE FERNANDO TICKETER Aug 21, 2022 11:38
--- NOTE | 2022-08-21 12:16 | Progress Note - Cardiology ---
Cardiology SOAP Progress Note Subjective: Sitting up in recliner at the bedside States she feels well Objective: I&O/Vital Signs 08/21/22 08/21/22 07:29 09:20 Temp 36.3 Pulse 73 Resp 18 B/P (MAP) 114/68 (83) Pulse Ox 93 O2 Delivery Room Air Room Air 08/21/22 00:00 Intake Total 960 ml Balance 960 ml Weight (Pounds): 219 Weight (Ounces): 0.0 Weight (Calculated Kilograms): 99.688434 Constitutional: AAO x 3, well-developed, well-nourished Respiratory: No accessory muscle use; other (good, bilat air entry) Cardiovascular: regular rate-rhythm, S1 and S2, systolic murmur (soft DOTTIE at nuno base) Gastrointestional: No tender; soft; No guarding, No rebound; audible bowel sounds Extremities: No clubbing, No cyanosis, No significant edema Neurologic/Psychiatric: oriented x 3, other (moves all limbs equally) Skin: normal color, warm/dry; No rash on exposed areas, No ulcerations on exposed areas Results/Procedures: Labs Laboratory Tests 08/20/22 15:39: Glucometer 76 08/20/22 20:09: Glucometer 97 08/21/22 05:37: Glucometer 94 08/21/22 06:00: White Blood Count 6.7, Red Blood Count 4.70, Hemoglobin 13.0, Hematocrit 40, Mean Corpuscular Volume 85, Mean Corpuscular Hemoglobin 28, Mean Corpuscular Hemoglobin Concent 33, Red Cell Distribution Width 11.9, Platelet Count 396, Mean Platelet Volume 9.8, Immature Granulocyte % (Auto) 0, Neutrophils (%) (Auto) 69, Lymphocytes (%) (Auto) 22, Monocytes (%) (Auto) 7, Eosinophils (%) (Auto) 2, Basophils (%) (Auto) 0, Neutrophils # (Auto) 4.6, Lymphocytes # (Auto) 1.5, Monocytes # (Auto) 0.5, Eosinophils # (Auto) 0.1, Basophils # (Auto) 0.0, Immature Granulocyte # (Auto) 0.0, Sodium Level 136, Potassium Level 3.3L, Chloride Level 96L, Carbon Dioxide Level 25, Anion Gap 15H, Blood Urea Nitrogen 18, Creatinine 0.78, Estimat Glomerular Filtration Rate 81, BUN/Creatinine Ratio 23, Glucose Level 97, Calcium Level 9.7, Corrected Calcium 9.6, Total Bilirubin 0.6, Aspartate Amino Transf (AST/SGOT) 14, Alanine Aminotransferase (ALT/SGPT) 12, Alkaline Phosphatase 73, Total Protein 7.5, Albumin 4.1 08/21/22 11:31: Glucometer 87 Microbiology 08/17/22 MRSA Screen - Final, Complete MRSA not isolated A/P: Assessment: Syncope of undetermined etiology on 08/10/22 - echo on 08-12-22: LVEF 60-65%, AoV sclerosis w/o stenosis, PASP 30-35 mmHg - ILR implanted on 08/18/22 L ankle fracture after syncopal fall on 08/10/22 - s/p repair on 08-16-22 Hypertension DJD DM II Hyperlipidemia - treated with statins Plan: * No evidence of orthostasis * Monitor labs * ILR implanted on 08-18-22 - implant site dressing removed today. Steri strips in place. Edges approx. No redness or swelling. Gave post insertion care instructions. Verbalized understanding. * Continuing DVT prophylaxis recommended MANOJ GIPSON Aug 21, 2022 12:16
--- NOTE | 2022-08-21 12:19 | Progress Note ---
OLGA GONZALEZ 08/21/22 1219: Progress Note S: Tess Madison is a 72yo F who suffered a left closed displaced trimalleolar fracture with dislocation status post closed reduction in the ER after she suffered a syncopal episode. Cardiology was consulted and patient received loop recorder 08/18/22 for further evaluation. Patient recieved reconstructive surgery on L ankle and reports tightness within her boot rating pain with Dilaudid as 6/10. Patient reports improvement with use of assistive devices and a nonweightbearing status on the left side. Patient has improved reports of BM function. Blood sugars show signs of stabilization but continue to be monitored. Prior level of functioning was independent without assistive pastor yannick. Patient was seen today sitting up eating breakfast, her mood has stabilized and she is more relaxed with the medication changes, she was also taken off of dilaudid and she states that she is doing really well off the pain meds and it gives her confidence to go home. She is recovering well and is scheduled for D/C on 08/23/22. She has made plans to be monitored at home by her daughter and 4 grandchildren who live across the street. O: Vitals: 36.3*C HR 73 RR 18 BP 114/68 SpO2 93 RA Exam: -General: Alert and oriented, calm, WD/WN -Constitutional: denies weight loss, denies n/v/d, no fevers or chills -C/V: RRR, no murmers, rubs, or gallops. Radial pulse 2+ bl, DP 2+ on right, and could not be found on left due to boot. -Resp: Lung sounds CTAB, no clubbing of digits, denies SOB -Neuro: alert and oriented, NL mood/affect, CN 2-12 intact bl, dermatomes of LE intact bl -MSK: muscle strength of extremities 5/5, full ROM on all extremities except Left leg 2/2 boot restriction Labs: unremarkable A: Left foot post surgery recovery Diabetes Hypertension Hyperlipidemia Constipation Emotion dysregulation Depression P: Bowel regimen Pain control Supportive care Aggressive therapy continuation of SSRI+SNRI Tx [facility] plan SUMMER CASON DO 08/22/22 0526: Supervisory-Addendum Brief Verification & Attestation Participated in pt care: history, MDM, physical Personally performed: exam, history, MDM, supervision of care Care discussed with: Medical Student Procedures: n/a Results interpretation: Verified all documentation Verification and Attestation of Medical Student E/M Service A medical student performed and documented this service in my presence. I reviewed and verified all information documented by the medical student and made modifications to such information, when appropriate. I personally performed the physical exam and medical decision making. Summer Cason, Aug 22, 2022,05:26 OLGA GONZALEZ Aug 21, 2022 12:19 SUMMER CASON DO Aug 22, 2022 05:26
--- NOTE | 2022-08-21 14:57 | Physical Therapy Daily Note ---
PT Daily Note-Current Subjective Pt found standing /c FWW /c nurse. Agreed to PT. Does not report or rate any change in pain. Pain Numeric Pain Scale: 0-No Pain Section J - Health Conditions 1. Rarely or not at all 2. Occasionally 3. Frequently 4. Almost constantly 8. Unable to answer Pain Effect on Sleep: 2 Pain Interference with Therapy: 2 Pain Interference w/Day-to-Day: 2 Mental Status Patient Orientation: Normal For Age Transfers SCALE: Activities may be completed with or without assistive devices. 9-Vetghnmdmi-hmicmvd completes the activity by him/herself with no assistance from a helper. 5-Set-up or Clean-up Assistance-helper sets up or cleans up; patient completes a ctivity. [place] assists only prior to or following the activity. 4-Supervision or Touching Assistance-helper provides verbal cues and/or touching/steadying and/or contact guard assistance as patient completes activity. Assistance may be provided throughout the activity or intermittently. 3-Partial/Moderate Assistance-helper does LESS THAN HALF the effort. [place] lifts, holds or supports trunk or limbs, but provides less than half the effort. 2-Substantial/Maximal Assistance-helper does MORE THAN HALF the effort. [place] lifts or holds trunk or limbs and provides more than half the effort. 7-Hvemzuoud-cbnrtu does ALL the effort. Patient does none of the effort to complete the activity. Or, the assistance of 2 or more helpers is required for the patient to complete the activity. If activity was not attempted, code reason: 7-Patient Refused. 9-Not Applicable-not attempted and the patient did not perform the activity before the current illness, exacerbation or injury. 10-Not Attempted due to Environmental Limitations-(lack of equipment, weather restraints, etc.). 88-Not Attempted due to Medical Conditions or Safety Concerns. Sit to Lying (QC): 6 Sit to Stand (QC): 6 Chair/Hak-vy-Ovhvo Xfer(QC): 6 Pt independent /c all trfs. Weight Bearing Right Lower Extremity: Right Full Weight Bearing Left Lower Extremity: Left Non Weight Bearing Gait Training Does the Patient Walk?: Yes Distance: 20, 30 Walk 10 feet (QC): 6 Gait Persons Needed: 1 Gait Assistive Device: FWW Pt independent /c gait training. Amb. 50ft total. Wheelchair Training Does the Pt Use a Wheelchair?: Yes Type of Wheelchair: Manual Exercises Seated Therapy Exercises: Ankle pumps, Long arc quads, Hip flexion, Hamstring Curls, Hip abd/add Seated Reps: 15 Pt tolerated exercises well /c no report of increased pain. Assessment Current Status: Good Progress Pt tolerated Tx well /c no report of increased pain. Demonstrates signs of fatigue through Tx and requires seated RBs. Continue to progress pt as tolerated to increase strength and improve functional ability. PT Corral Boss Goals Corral Boss Goals PT Corral Boss Goals Time Frame: Aug 26, 2022 Roll Left & Right (QC): 6 Sit to Lying (QC): 6 Lying-Sitting on Side/Bed(QC): 6 Sit to Stand (QC): 6 Chair/Neb-zt-Sciat Xfer(QC): 6 Toilet Transfer (QC): 6 Car Transfer (QC): 6 Does the Patient Walk: Yes Walk 10 feet (QC): 6 Walk 50ft with 2 Turns (QC): 6 Walk 150 ft (QC): 6 Walking 10ft on Uneven Surface: 6 1 Step (curb) (QC): 9 4 Steps (QC): 9 12 Steps (QC): 9 Picking up an Object (QC): 6 Does the Pt use WC or Scooter?: No Wheel 50 feet with 2 turns (QC: 9 Wheel 150 feet: 9 PT Plan Treatment/Plan Treatment Plan: Continue Plan of Care Treatment Plan: Bed Mobility, Concurrent Therapy, Education, Functional Activity Audrey, Functional Strength, Group Therapy, Gait, Safety, Therapeutic Exercise, Transfers Treatment Duration: Aug 26, 2022 Frequency: 6 times per week Estimated Hrs Per Day: 1.5 hours per day Patient and/or Family Agrees t: Yes Time Time In: 1420 Time Out: 1450 DATE: Aug 21, 2022 Total Billed Treatment Time: 30 Total Billed Treatment 1 visit FA 1x EX 1x ROXANNE FERNANDO [employer] Aug 21, 2022 14:57
[2022-08-21 21:03] VITALS: BP 117/57
[2022-08-22] MEDS: HYDROcodone/APAP 5 MG/325 MG (LORTAB) TAB PO PRN ×4 (02:55→20:36)
[2022-08-22] MEDS: ONDANSETRON 4 MG (ZOFRAN) ORAL DISSOLVE TAB PO PRN ×2 (02:56→14:03)
[2022-08-22] MEDS: inSUlin ASPART (NovoLOG) 1 UNIT/0.01 ML (CHARGE PER UNIT) SC SCH ×4 (05:46→20:42)
[2022-08-22] MEDS: VENlafaxine XR 37.5 MG (EFFEXOR XR) CAP PO SCH (06:24)
[2022-08-22] MEDS: KCL 20 MEQ TAB (K-DUR) PO SCH (06:24)
[2022-08-22 07:27] VITALS: BP 129/81
[2022-08-22] MEDS: ENOXAPARIN 40 MG/0.4 ML (LOVENOX) SYR SC SCH (07:45)
[2022-08-22] MEDS: MULTIVIT W/MINERALS TAB (THERAGRAN M) PO SCH (07:46)
[2022-08-22] MEDS: ENALAPRIL 10 MG (VASOTEC) TAB PO SCH (07:46)
[2022-08-22] MEDS: ROSUVASTATIN 20 MG (CRESTOR) TABLET PO SCH (07:46)
[2022-08-22] MEDS: PANTOPRAZOLE 40 MG (PROTONIX) TAB PO SCH (07:46)
[2022-08-22] MEDS: PIOGLITAZONE 30MG (ACTOS) TAB PO SCH (07:47)
[2022-08-22] MEDS: VICTOZA 18 MG/3 ML SQ SCH (07:48)
[2022-08-22] MEDS: INVOKAMET PO SCH (07:48)
[2022-08-22] MEDS: DOCUSATE SODIUM 100 MG (COLACE) CAP PO SCH ×2 (08:13→19:26)
[2022-08-22] MEDS: SENNA W/DOCUSATE (SENOKOT S) TABLET PO SCH ×2 (08:13→19:27)
[2022-08-22] MEDS: polyethylene glycoL POWDER 17 GM (MIRALAX) PACK PO SCH ×2 (08:13→19:26)
--- NOTE | 2022-08-22 09:13 | PM&R Progress Note ---
Subjective HPI/CC On Admission Date Seen by Provider: Aug 22, 2022 Time Seen by Provider: 09:00 Subjective/Events-last exam 08/22/2022: Patient doing well Monitor closely No falls 08/21/2022: Patient doing well Pain controlled BM+ Moving around well 08/20/2022: No major issues Pain controlled Checked meds and labs 08/19/2022: Patient doing well Taking IV out Discontinued IV Dilaudid Bowels are moving 08/18/2022: Pt having a lot of pain Loop recorder was placed today Weaning off Dilaudid Putting ice on the ankle 08/17/2022: Patient doing a lot better after Dilaudid given Bowels are moving Supportive care continue 08/16/2022: Pt is doing well Going to [facility] for repair of the left ankle fracture Checked meds and labs No falls No pain otherwise 08/15/2022: Pt is doing really well Bowels moved yesterday Checked meds and labs No falls Set for going to [facility] for repair of ankle and then returning tomorrow 08/14/2022: Pt is doing really well Moving around really well Will reach out to Dr. Rodriguez and evaluate for repair 08/13/2022: Patient doing really well Pain is controlled Small bowel movement but will continue laxatives due to high risk for narcotic bowel Doing pretty well hopping around Review of Systems General: Fatigue, Malaise Objective Exam Vital Signs Vital Signs Date Time Temp Pulse Resp B/P (MAP) Pulse Ox O2 Delivery O2 Flow Rate FiO2 08/22/22 20:20 Room Air 08/22/22 20:13 36.1 75 20 117/64 (81) 97 Capillary Refill : General Appearance: No Apparent Distress, WD/WN HEENT: PERRL/EOMI, Normal ENT Inspection, Pharynx Normal Neck: Full Range of Motion, Normal Inspection, Non Tender, Supple, Carotid Bruit Respiratory: Chest Non Tender, Lungs Clear, Normal Breath Sounds, No Accessory Muscle Use, No Respiratory Distress Cardiovascular: Regular Rate, Rhythm, No Edema, No Gallop, No JVD, No Murmur, Normal Peripheral Pulses Gastrointestinal: Normal Bowel Sounds, No Organomegaly, No Pulsatile Mass, Non Tender, Soft Back: Normal Inspection, No CVA Tenderness, No Vertebral Tenderness Extremity: Normal Capillary Refill, Normal Inspection, Normal Range of Motion (Except left ankle and foot), Non Tender, No Calf Tenderness, No Pedal Edema Neurologic/Psychiatric: Alert, Oriented x3, Normal Mood/Affect, surgical services manager II-XII Norm as Tested, Motor Weakness (Left foot and leg) Skin: Normal Color, Warm/Dry Lymphatic: No Adenopathy Results/Procedures Lab Patient resulted labs reviewed. FIM Transfers Therapy Code Descriptions/Definitions Functional [place] Measure: 0=Not Assessed/NA 4=Minimal Assistance 1=Total Assistance 5=Supervision or Setup 2=Maximal Assistance 6=Modified [place] 3=Moderate Assistance 7=Complete IndependenceSCALE: Activities may be completed with or without assistive devices. 0-Kvrsdquklh-dcpdsfh completes the activity by him/herself with no assistance from a helper. 5-Set-up or Clean-up Assistance-helper sets up or cleans up; patient completes activity. [place] assists only prior to or following the activity. 4-Supervision or Touching Assistance-helper provides verbal cues and/or touching/steadying and/or contact guard assistance as patient completes activity. Assistance may be provided throughout the activity or intermittently. 3-Partial/Moderate Assistance-helper does LESS THAN HALF the effort. [place] lifts, holds or supports trunk or limbs, but provides less than half the effort. 2-Substantial/Maximal Assistance-helper does MORE THAN HALF the effort. [place] lifts or holds trunk or limbs and provides more than half the effort. 3-Yfdlaajrv-xfohle does ALL the effort. Patient does none of the effort to complete the activity. Or, the assistance of 2 or more helpers is required for the patient to complete the activity. If activity was not attempted, code reason: 7-Patient Refused. 9-Not Applicable-not attempted and the patient did not perform the activity before the current illness, exacerbation or injury. 10-Not Attempted due to Environmental Limitations-(lack of equipment, weather restraints, etc.). 88-Not Attempted due to Medical Conditions or Safety Concerns. Roll Left to Right (QC): 6 Sit to Lying (QC): 6 Sit to Stand (QC): 6 Chair/Fgx-vz-Rngrg Xfer(QC): 6 Car Transfer (QC): 4 Gait Training Does the Patient Walk?: Yes Distance: 20, 30 Walk 10 feet (QC): 6 Walk 50 ft with 2 Turns(QC): 6 Walk 150 ft (QC): 4 Walking 10ft/uneven surface-QC: 88 Gait Persons Needed: 1 Gait Assistive Device: FWW Wheelchair Training Does the Pt Use a Wheelchair?: Yes Wheel 50 ft with 2 turns (QC): 6 Wheel 150 ft (QC): 6 Type of Wheelchair: Manual Stair Training 1 Step (curb) (QC): 88 4 Steps (QC): 88 12 Steps (QC): 88 Balance Picking up an Object (QC): 88 ADL-Treatment Eating (QC): 6 Oral Hygiene (QC): 6 Shower/Bathe Self (QC): 5 (for covering CAM Boot only) Upper Body Dressing (QC): 6 Lower Body Dressing (QC): 6 On/Off Footwear (QC): 6 Toileting Hygiene (QC): 6 Toilet Transfer (QC): 6 Assessment/Plan Assessment and Plan Assess & Plan/Chief Complaint Assessment: Left ankle fracture status post uncomplicated repair by Dr. Rodriguez at [facility] 08/16/22 Diabetes Hypertension Hyperlipidemia Constipation Plan: Bowel regimen Pain control Supportive care Aggressive therapy 08/13/2022: Doing well Lovenox Pain control 08/14/2022: Continue aggressive care Reach out to Dr Rodriguez 08/15/2022: Monitor pain Have surgery then return tomorrow 08/16/2022: Surgery today then returns 08/17/2022: IV Dilaudid for pain control 08/18/2022: Wean Dilaudid 08/19/2022: DC Dilaudid DC Hep-Lock 08/20/2022: Monitor closely Pain control 08/21/2022: Monitor closely 08/22/2022: CLAU planned (1) Closed displaced trimalleolar fracture of left ankle Status: Acute (2) Syncope Status: Acute NAJMA GILLIAM DO Aug 22, 2022 09:13
--- NOTE | 2022-08-22 10:38 | Occupational Ther Daily Note ---
OT Current Status-Daily Note Subjective Pt denies pain, agreeable to treatment. Co-treatment with PT for part of treatment ([id number]) secondary to need of 2 skilled clinicians for higher level balance and safety tasks. Appearance Pt left sitting on therapy mat with physical therapy present. Mental Status/Objective Patient Orientation: Person, Place, Situation ADL-Treatment Therapy Code Descriptions/Definitions Functional [place] Measure: 0=Not Assessed/NA 4=Minimal Assistance 1=Total Assistance 5=Supervision or Setup 2=Maximal Assistance 6=Modified [place] 3=Moderate Assistance 7=Complete IndependenceSCALE: Activities may be completed with or without assistive devices. 8-Vzjiwlmhmw-evqtphn completes the activity by him/herself with no assistance from a helper. 5-Set-up or Clean-up Assistance-helper sets up or cleans up; patient completes activity. [place] assists only prior to or following the activity. 4-Supervision or Touching Assistance-helper provides verbal cues and/or touching/steadying and/or contact guard assistance as patient completes ac tivity. Assistance may be provided throughout the activity or intermittently. 3-Partial/Moderate Assistance-helper does LESS THAN HALF the effort. [place] lifts, holds or supports trunk or limbs, but provides less than half the effort. 2-Substantial/Maximal Assistance-helper does MORE THAN HALF the effort. [place] lifts or holds trunk or limbs and provides more than half the effort. 1-Yvygjwnfm-qecyus does ALL the effort. Patient does none of the effort to complete the activity. Or, the assistance of 2 or more helpers is required for the patient to complete the activity. If activity was not attempted, code reason: 7-Patient Refused. 9-Not Applicable-not attempted and the patient did not perform the activity before the current illness, exacerbation or injury. 10-Not Attempted due to Environmental Limitations-(lack of equipment, weather restraints, etc.). 88-Not Attempted due to Medical Conditions or Safety Concerns. Eating (QC): 6 Oral Hygiene (QC): 6 Upper Body Dressing (QC): 6 Lower Body Dressing (QC): 6 On/Off Footwear: 6 Toileting Hygiene (QC): 6 Toilet Transfer (QC): 6 Pt reports some anxiety about going home and being able to thoroughly clean rectal cinthya area following BM. OT discussed different methods/tools such as t oilet aid/tongs, bidet, squeeze bottles, etc. Pt able to have BM during this session. After discussion on home set up, OT set up current bathroom to simulate home. Post cues, pt was able to lean to R (onto "sink/counter") in order to wipe with LUE. While in therapy gym, pt participated in simulated task for cinthya care both in sitting and standing with clothespins and tape. Items placed strategically to simulate reaching for cinthya area. While in sitting, pt able to lean to R and pull off all tape pieces without assist. In standing, pt able to pull off 8/9 clothespins, assist for 1 due to decreased reached. Pt aware that she could use toilet tongs to assist in reach. Other Treatment Pt completed ramped entrance with use of walker and SBA. She does fatigue when ambulating up the ramp but able to finish without assist. Good adherence to NWB throughout. Cues/education on energy conservation. Pt verbalizes that she does not have any steps at home but would still like to practice 1-2 steps for p ossible upcoming situations. Therapy demonstrated shower chair method if needing to climb a flight of stairs. PT to continue stair training after OT departure. Education OT Patient Education: Correct positioning, Energy conservation, Modified ADL techniques, Progress toward Goal/Update tx plan, Purpose of tx/functional activities, Reviewed precautions, Rehab process, Safety issues, Transfer techniques Teaching Recipient: Patient Teaching Methods: Demonstration, Discussion Response to Teaching: Verbalize Understanding, Return Demonstration, Reinforcement Needed BIMS CAM BIMS Expression of Ideas and Wants: Without Difficulty Understanding Verbal Content: Understands Brief Interview/Mental Status: Yes IRF [place] BIMS: IRF [place] BIMS Response (Comments) Value Repitition of Three Words Three 3 Recalls Socks Yes, No Cue Required 2 Recalls Blue Yes, No Cue Required 2 Recalls Bed Yes, No Cue Required 2 Year Correct 3 Month Accurate Within 5 Days 2 Day Correct 1 Total 15 Notes: CAM Mental Status Change/Baseline: 0 Inattention: 0 Disorganized thinkin Altered level of consciousness: 0 OT Short Term Goals Short Term Goals Time Frame: Aug 21, 2022 Shower/bathe self: 4 Lower body dressin Putting on/taking off footwear: 4 OT Manager Customer Goals Retirement Goals Time Frame: Sep 02, 2022 Acute change in mental status: 0 Inattention: 0 Disorganized thinkin Altered level of consciousness: 0 Eating (QC): 6 (met) Oral Hygiene (QC): 6 (met) Toileting Hygiene (QC): 6 (met) Shower/Bathe Self (QC): 5 (met) Upper Body Dressing (QC): 6 (met) Lower Body Dressing (QC): 6 (met) On/Off Footwear (QC): 6 (met) Additional Goals: 1-Demonstrate ADL Tasks, 2-Verbalize Understanding, 3- ImproveStrength/Audrey 1=Demonstrate adherence to instructed precautions during ADL tasks. 2=Patient will verbalize/demonstrate understanding of assistive devices/modifications for ADL. 3=Patient will improve strength/tolerance for activity to enable patient to perform ADL's. OT Education/Plan Problem List/Assessment Assessment: Decreased Activ Tolerance, Impaired I ADL's Discharge Recommendations Plan/Recommendations: Continue POC Equpiment Recommendations-D/C: Tile Sprayer, Sock Aide Treatment Plan/Plan of Care Treatment,Training & Education: Yes Patient would benefit from OT for education, treatment and training to promote independence in ADL's, mobility, safety and/or upper extremity function for AD L's. Plan of Care: ADL Retraining, Functional Mobility, Group Exercise/Act as Ind, UE Funct Exercise/Act Treatment Duration: Aug 12, 2022 Frequency: At least 5 of 7 days/Wk (IRF) Estimated Hrs Per Day: 1.5 hours per day Agreement: Yes Rehab Potential: Good Time Start Time: 09:00 Stop Time: 10:30 DATE: Aug 22, 2022 Total Time Billed (hr/min): 90 Billed Treatment Time 1 visit ADL x3 (45 min) FA x3 (45 min) Co-treat with PT (30 min) Roula Judge OT Aug 22, 2022 10:38
--- NOTE | 2022-08-22 11:11 | Progress Note ---
OLGA GONZALEZ 08/22/22 1111: Progress Note Hospital Course: Tess Madison is a 72-year-old female clinic patient of [facility] who suffered a left closed displaced trimalleolar fracture with dislocation status post closed reduction in the ER after she suffered a syncopal episode 08/10/22. Cardiology was consulted and patient was maintained on telemetry and echocardiogram was obtained and reviewed, yeilding no apparent pathology. Patient waited within the ARU for 1 week due to swelling that needed to subside in order for her to have surgery. In her time at the ARU she was helped to learn how to use assistive devices and a nonweightbearing status on the left side. Patients surgery repair was uncomplicated and done at [facility] [place] by Dr. Rodriguez 08/16/22. P/S of her surgery the patient was placed on aggressive pain management and laxatives for narcotic bowel prevention. on 08/18/22 she was given a loop recorder to continue cardiac monitoring, in which after she continued to deny chest pain or pressure. In her time at ARU she progressed well and was weened off of pain meds. She required an increase of her SSRI and an additional SNRI to treat depressive mood due to her injury. She met requirements set by OT and PT, and has established a D/C plan for 08/23/22 where the patient says her daughter lives across the street and will provide her with routine at home check ups. SUMMER GILLIAM DO 08/23/22 0542: Supervisory-Addendum Brief Verification & Attestation Participated in pt care: history, MDM, physical Personally performed: exam, history, MDM, supervision of care Care discussed with: Medical Student Procedures: n/a Results interpretation: Verified all documentation Verification and Attestation of Medical Student E/M Service A medical student performed and documented this service in my presence. I reviewed and verified all information documented by the medical student and made modifications to such information, when appropriate. I personally performed the physical exam and medical decision making. Summer Gilliam, Aug 23, 2022,05:42 OLGA GONZALEZ Aug 22, 2022 11:11 SUMMER GILLIAM DO Aug 23, 2022 05:42
--- NOTE | 2022-08-22 12:18 | Physical Therapy Daily Note ---
PT Daily Note-Current Subjective Pt found seated /c OT present. Agreed to PT. Does not rate or report any change in pain. Co-treat time /c OT 10:00-10:30 for skilled training /c functional skills. Pain Section J - Health Conditions 1. Rarely or not at all 2. Occasionally 3. Frequently 4. Almost constantly 8. Unable to answer Pain Effect on Sleep: 2 Pain Interference with Therapy: 2 Pain Interference w/Day-to-Day: 2 Mental Status Patient Orientation: Normal For Age Transfers SCALE: Activities may be completed with or without assistive devices. 6-Lltthqdhqo-fstnwqo completes the activity by him/herself with no assistance from a helper. 5-Set-up or Clean-up Assistance-helper sets up or cleans up; patient completes activity. [place] assists only prior to or following the activity. 4-Supervision or Touching Assistance-helper provides verbal cues and/or touching/steadying and/or contact guard assistance as patient completes activity. Assistance may be provided throughout the activity or intermittently. 3-Partial/Moderate Assistance-helper does LESS THAN HALF the effort. [place] lifts, holds or supports trunk or limbs, but provides less than half the effort. 2-Substantial/Maximal Assistance-helper does MORE THAN HALF the effort. [place] lifts or holds trunk or limbs and provides more than half the effort. 4-Wlgtorluq-cdltub does ALL the effort. Patient does none of the effort to complete the activity. Or, the assistance of 2 or more helpers is required for the patient to complete the activity. If activity was not attempted, code reason: 7-Patient Refused. 9-Not Applicable-not attempted and the patient did not perform the activity before the current illness, exacerbation or injury. 10-Not Attempted due to Environmental Limitations-(lack of equipment, weather restraints, etc.). 88-Not Attempted due to Medical Conditions or Safety Concerns. Sit to Lying (QC): 6 Lying to Sitting/Side of Bed(Q: 6 Sit to Stand (QC): 6 Chair/Gri-th-Pvipy Xfer(QC): 6 Toilet Transfer (QC): 6 Pt independent /c all trfs. Weight Bearing Right Lower Extremity: Right Full Weight Bearing Left Lower Extremity: Left Non Weight Bearing Gait Training Does the Patient Walk?: Yes Distance: 100, 100 Walk 10 feet (QC): 6 Walk 50 ft with 2 Turns(QC): 6 Gait Persons Needed: 1 Gait Assistive Device: FWW Pt independent /c gait training. Wheelchair Training Does the Pt Use a Wheelchair?: Yes Wheel 50 ft with 2 turns (QC): 6 Wheel 150 ft (QC): 6 Type of Wheelchair: Manual Pt independent /c WC training. Stair Training Stair Training: Handrails/: 1 handrail #of Steps: 8 1 Step (curb) (QC): 3 4 Steps (QC): 3 12 Steps (QC): 88 Stairs: Pattern: Hops Pt MIN assist /c stair training. Exercises Supine Ex: Ankle pumps, Quad Set, Glut sets, Heel Slides, Short Arc Quads, Straight leg raise, Hip abd/add Supine Reps: 15 Pt tolerated exercises well /c no report of increased pain. Assessment Current Status: Good Progress Pt demonstrates good tolerance to Tx /c no report of increased pain. Continue to progress pt as tolerated per POC to increase strength, functional ability, and endurance. PT Nursing Home Goals Director Engineering Goals PT Nursing Home Goals Time Frame: Aug 26, 2022 Roll Left & Right (QC): 6 Sit to Lying (QC): 6 Lying-Sitting on Side/Bed(QC): 6 Sit to Stand (QC): 6 Chair/Ost-np-Gehpy Xfer(QC): 6 Toilet Transfer (QC): 6 Car Transfer (QC): 6 Does the Patient Walk: Yes Walk 10 feet (QC): 6 Walk 50ft with 2 Turns (QC): 6 Walk 150 ft (QC): 6 Walking 10ft on Uneven Surface: 6 1 Step (curb) (QC): 9 4 Steps (QC): 9 12 Steps (QC): 9 Picking up an Object (QC): 6 Does the Pt use WC or Scooter?: No Wheel 50 feet with 2 turns (QC: 9 Wheel 150 feet: 9 PT Plan Treatment/Plan Treatment Plan: Continue Plan of Care Treatment Plan: Bed Mobility, Concurrent Therapy, Education, Functional Activity Audrey, Functional Strength, Group Therapy, Gait, Safety, Therapeutic Exercise, Transfers Treatment Duration: Aug 26, 2022 Frequency: 6 times per week Estimated Hrs Per Day: 1.5 hours per day Patient and/or Family Agrees t: Yes Time Time In: 1000 Time Out: 1115 DATE: Aug 22, 2022 Total Billed Treatment Time: 75 Total Billed Treatment 1 visit FA 3x EX 2x Co-treat time 30min. Independent treat time 45min. Total treat time 75min. ROXANNE FERNANDO VICE PRESIDENT RESEARCH Aug 22, 2022 12:18
--- NOTE | 2022-08-22 14:06 | Physical Therapy Daily Note ---
PT Daily Note-Current Subjective Pt found seated in restroom upon entry. States that she has been feeling sick since lunch. Agrees to PT. COMPRESSOR TECHNICIAN contacted pt's nurse about condition. Pt does not rate or describe pain. Pain Numeric Pain Scale: 0-No Pain Section J - Health Conditions 1. Rarely or not at all 2. Occasionally 3. Frequently 4. Almost constantly 8. Unable to answer Pain Effect on Sleep: 2 Pain Interference with Therapy: 2 Pain Interference w/Day-to-Day: 2 Mental Status Patient Orientation: Normal For Age Transfers SCALE: Activities may be completed with or without assistive devices. 8-Erahfswypt-pbhelzc completes the activity by him/herself with no assistance from a helper. 5-Set-up or Clean-up Assistance-helper sets up or cleans up; patient completes activity. [place] assists only prior to or following the activity. 4-Supervision or Touching Assistance-helper provides verbal cues and/or touching/steadying and/or contact guard assistance as patient completes activity. Assistance may be provided throughout the activity or intermittently. 3-Partial/Moderate Assistance-helper does LESS THAN HALF the effort. [place] lifts, holds or supports trunk or limbs, but provides less than half the effort. 2-Substantial/Maximal Assistance-helper does MORE THAN HALF the effort. [place] lifts or holds trunk or limbs and provides more than half the effort. 9-Iszutjgds-ajffvg does ALL the effort. Patient does none of the effort to complete the activity. Or, the assistance of 2 or more helpers is required for the patient to complete the activity. If activity was not attempted, code reason: 7-Patient Refused. 9-Not Applicable-not attempted and the patient did not perform the activity before the current illness, exacerbation or injury. 10-Not Attempted due to Environmental Limitations-(lack of equipment, weather restraints, etc.). 88-Not Attempted due to Medical Conditions or Safety Concerns. Roll Left & Right (QC): 6 Sit to Lying (QC): 6 Sit to Stand (QC): 6 Chair/Vyn-cv-Cgpad Xfer(QC): 6 Toilet Transfer (QC): 6 Car Transfer (QC): 6 Pt independent /c all trfs. Weight Bearing Right Lower Extremity: Right Full Weight Bearing Left Lower Extremity: Left Non Weight Bearing Gait Training Does the Patient Walk?: Yes Distance: 50, 100 Walk 10 feet (QC): 6 Walk 50 ft with 2 Turns(QC): 6 Walk 150 ft (QC): 88 Gait Persons Needed: 1 Gait Assistive Device: FWW Pt independent /c gait training. Could not amb. over 100ft without RBs d/t fatigue. Amb. 150ft total. Wheelchair Training Does the Pt Use a Wheelchair?: Yes Wheel 50 ft with 2 turns (QC): 6 Type of Wheelchair: Manual Pt independent /c WC training. Assessment Current Status: Fair Progress Pt demonstrates signs of fatigue during Tx. Requires seated RBs. Continue to progress pt as tolerated per POC to increase strength, functional ability, and endurance. 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 Time Frame: Aug 26, 2022 Roll Left & Right (QC): 6 Sit to Lying (QC): 6 Lying-Sitting on Side/Bed(QC): 6 Sit to Stand (QC): 6 Chair/Boy-fe-Ljlrc Xfer(QC): 6 Toilet Transfer (QC): 6 Car Transfer (QC): 6 Does the Patient Walk: Yes Walk 10 feet (QC): 6 Walk 50ft with 2 Turns (QC): 6 Walk 150 ft (QC): 6 Walking 10ft on Uneven Surface: 6 1 Step (curb) (QC): 9 4 Steps (QC): 9 12 Steps (QC): 9 Picking up an Object (QC): 6 Does the Pt use WC or Scooter?: No Wheel 50 feet with 2 turns (QC: 9 Wheel 150 feet: 9 PT Plan Treatment/Plan Treatment Plan: Continue Plan of Care Treatment Plan: Bed Mobility, Concurrent Therapy, Education, Functional Activity Audrey, Functional Strength, Group Therapy, Gait, Safety, Therapeutic Exercise, Transfers Treatment Duration: Aug 26, 2022 Frequency: 6 times per week Estimated Hrs Per Day: 1.5 hours per day Patient and/or Family Agrees t: Yes Time Time In: 1330 Time Out: 1350 DATE: Aug 22, 2022 Total Billed Treatment Time: 20 Total Billed Treatment 1 visit FA ROXANNE Wade COMPRESSOR TECHNICIAN Aug 22, 2022 14:06
[2022-08-22 20:13] VITALS: BP 117/64
[2022-08-23] MEDS: HYDROcodone/APAP 5 MG/325 MG (LORTAB) TAB PO PRN ×2 (04:24→09:49)
[2022-08-23] MEDS ORDERED: APIX5TAB PO (06:00)
[2022-08-23] MEDS ORDERED: ACHD5005 PO (06:00)
[2022-08-23] MEDS ORDERED: OXC5T PO (06:00)
[2022-08-23] MEDS ORDERED: VENL-48 PO (06:00)
--- NOTE | 2022-08-23 06:02 | Discharge Summary ---
Diagnosis/Chief Complaint Date of Admission Aug 12, 2022 at 10:05 Date of Discharge Discharge Date: Aug 23, 2022 Discharge Diagnosis Assessment: Left ankle fracture status post uncomplicated repair by Dr. Rodriguez at [facility] 08/16/22 Diabetes Hypertension Hyperlipidemia Constipation Plan: Bowel regimen Pain control Supportive care Aggressive therapy 08/13/2022: Doing well Lovenox Pain control 08/14/2022: Continue aggressive care Reach out to Dr Rodriguez 08/15/2022: Monitor pain Have surgery then return tomorrow 08/16/2022: Surgery today then returns 08/17/2022: IV Dilaudid for pain control 08/18/2022: Wean Dilaudid 08/19/2022: DC Dilaudid DC Hep-Lock 08/20/2022: Monitor closely Pain control 08/21/2022: Monitor closely 08/22/2022: DC planned (1) Closed displaced trimalleolar fracture of left ankle Status: Acute (2) Syncope Status: Acute Discharge Summary Discharge Physical Examination Allergies: Coded Allergies: No Known Drug Allergies (Unverified , 12/19/18) Vitals & I&Os Vital Signs Date Time Temp Pulse Resp B/P (MAP) Pulse Ox O2 Delivery O2 Flow Rate FiO2 08/22/22 20:20 Room Air 08/22/22 20:13 36.1 75 20 117/64 (81) 97 General Appearance: Alert, Oriented X3, Cooperative Respiratory: Clear to Auscultation Cardiovascular: Regular Rate Psych/Mental Status: Mental Status NL Hospital Course Was the Problem List Reviewed?: Yes Hospital Course: Tess Madison is a 72-year-old female clinic patient of [facility] who suffered a left closed displaced trimalleolar fracture with dislocation status post closed reduction in the ER after she suffered a syncopal episode 08/10/22. Cardiology was consulted and patient was maintained on telemetry and echocardiogram was obtained and reviewed, yeilding no apparent pathology. Patient waited within the ARU for 1 week due to swelling that needed to subside in order for her to have surgery. In her time at the ARU she was helped to learn how to use assistive d evices and a nonweightbearing status on the left side. Patients surgery repair was uncomplicated and done at [facility] in [place] by Dr. Rodriguez 08/16/22. P/S of her surgery the patient was placed on aggressive pain management and laxatives for narcotic bowel prevention. on 08/18/22 she was given a loop recorder to continue cardiac monitoring, in which after she continued to deny chest pain or pressure. In her time at ARU she progressed well and was weened off of pain meds. She required an increase of her SSRI and an additional SNRI to treat depressive mood due to her injury. She met requirements set by OT and PT, and has established a D/C plan for 08/23/22 where the patient says her daughter lives across the street and will provide her with routine at home check ups. Labs (last 24 hrs) Laboratory Tests 08/12/22 11:40: Glucometer 169H 08/12/22 16:06: Glucometer 179H 08/12/22 20:49: Glucometer 137H 08/13/22 05:50: White Blood Count 6.6, Red Blood Count 4.48, Hemoglobin 12.6, Hematocrit 38, Mean Corpuscular Volume 85, Mean Corpuscular Hemoglobin 28, Mean Corpuscular Hemoglobin Concent 33, Red Cell Distribution Width 12.0, Platelet Count 209, Mean Platelet Volume 9.9, Immature Granulocyte % (Auto) 0, Neutrophils (%) (Auto) 65, Lymphocytes (%) (Auto) 23, Monocytes (%) (Auto) 7, Eosinophils (%) (Auto) 4, Basophils (%) (Auto) 1, Neutrophils # (Auto) 4.3, Lymphocytes # (Auto) 1.5, Monocytes # (Auto) 0.5, Eosinophils # (Auto) 0.2, Basophils # (Auto) 0.0, Immature Granulocyte # (Auto) 0.0, Sodium Level 135, Potassium Level 3.6, Chloride Level 101, Carbon Dioxide Level 22, Anion Gap 12, Blood Urea Nitrogen 11, Creatinine 0.68, Estimat Glomerular Filtration Rate 93, BUN/Creatinine Ratio 16, Glucose Level 151H, Calcium Level 9.1, Corrected Calcium 9.2, Total Bilirubin 0.7, Aspartate Amino Transf (AST/SGOT) 12, Alanine Aminotransferase (ALT/SGPT) 10, Alkaline Phosphatase 61, Total Protein 6.8, Albumin 3.9 08/13/22 11:25: Glucometer 108 08/13/22 15:50: Glucometer 183H 08/13/22 20:31: Glucometer 104 08/14/22 05:46: Glucometer 140H 08/14/22 11:13: Glucometer 122H 08/14/22 15:24: Glucometer 102 08/14/22 20:48: Glucometer 107 08/15/22 06:01: Glucometer 142H 08/15/22 11:04: Glucometer 119H 08/15/22 17:08: Glucometer 150H 08/15/22 20:32: Glucometer 124H 08/16/22 05:32: Glucometer 133H 08/16/22 11:08: Glucometer 121H 08/16/22 23:00: Glucometer 206H 08/17/22 05:39: Glucometer 102 08/17/22 06:41: Sodium Level 137, Potassium Level 3.9, Chloride Level 99, Carbon Dioxide Level 24, Anion Gap 14, Blood Urea Nitrogen 19H, Creatinine 0.67, Estimat Glomerular Filtration Rate 93, BUN/Creatinine Ratio 28, Glucose Level 97, Calcium Level 8.8, Corrected Calcium 8.9, Total Bilirubin 0.5, Aspartate Amino Transf (AST/SGOT) 34, Alanine Aminotransferase (ALT/SGPT) 29, Alkaline Phosphatase 61, Total Protein 6.5, Albumin 3.9 08/17/22 07:13: White Blood Count 9.9, Red Blood Count 4.22, Hemoglobin 11.7, Hematocrit 36, Mean Corpuscular Volume 86, Mean Corpuscular Hemoglobin 28, Mean Corpuscular Hemoglobin Concent 32, Red Cell Distribution Width 12.2, Platelet Count 254, Mean Platelet Volume 9.7, Immature Granulocyte % (Auto) 0, Neutrophils (%) (Auto) 81H, Lymphocytes (%) (Auto) 12, Monocytes (%) (Auto) 6, Eosinophils (%) (Auto) 0, Basophils (%) (Auto) 0, Neutrophils # (Auto) 8.0H, Lymphocytes # (Auto) 1.2, Monocytes # (Auto) 0.6, Eosinophils # (Auto) 0.0, Basophils # (Auto) 0.0, Immature Granulocyte # (Auto) 0.0 08/17/22 10:58: Glucometer 124H 08/17/22 15:23: Glucometer 141H 08/17/22 21:21: Glucometer 123H 08/18/22 05:46: Glucometer 109 08/18/22 13:41: Glucometer 129H 08/18/22 16:25: Glucometer 95 08/18/22 20:43: Glucometer 118H 08/19/22 05:35: Glucometer 119H 08/19/22 11:52: Glucometer 134H 08/19/22 16:09: Glucometer 106 08/19/22 20:09: Glucometer 105 08/20/22 05:27: Glucometer 94 08/20/22 10:43: Glucometer 93 08/20/22 15:39: Glucometer 76 08/20/22 20:09: Glucometer 97 08/21/22 05:37: Glucometer 94 08/21/22 06:00: White Blood Count 6.7, Red Blood Count 4.70, Hemoglobin 13.0, Hematocrit 40, Mean Corpuscular Volume 85, Mean Corpuscular Hemoglobin 28, Mean Corpuscular Hemoglobin Concent 33, Red Cell Distribution Width 11.9, Platelet Count 396, Mean Platelet Volume 9.8, Immature Granulocyte % (Auto) 0, Neutrophils (%) (Auto) 69, Lymphocytes (%) (Auto) 22, Monocytes (%) (Auto) 7, Eosinophils (%) (Auto) 2, Basophils (%) (Auto) 0, Neutrophils # (Auto) 4.6, Lymphocytes # (Auto) 1.5, Monocytes # (Auto) 0.5, Eosinophils # (Auto) 0.1, Basophils # (Auto) 0.0, Immature Granulocyte # (Auto) 0.0, Sodium Level 136, Potassium Level 3.3L, Chloride Level 96L, Carbon Dioxide Level 25, Anion Gap 15H, Blood Urea Nitrogen 18, Creatinine 0.78, Estimat Glomerular Filtration Rate 81, BUN/Creatinine Ratio 23, Glucose Level 97, Calcium Level 9.7, Corrected Calcium 9.6, Total Bilirubin 0.6, Aspartate Amino Transf (AST/SGOT) 14, Alanine Aminotransferase (ALT/SGPT) 12, Alkaline Phosphatase 73, Total Protein 7.5, Albumin 4.1 08/21/22 11:31: Glucometer 87 08/21/22 16:32: Glucometer 72 08/21/22 20:56: Glucometer 105 08/22/22 05:43: Glucometer 97 08/22/22 13:57: Glucometer 85 08/22/22 20:12: Glucometer 130H Microbiology 08/17/22 MRSA Screen - Final, Complete MRSA not isolated Pending Labs Microbiology Date/Time Source Procedure Growth Status 08/17/22 11:50 Nasal MRSA Screen - Final MRSA not isolated Complete Laboratory Tests 08/12/22 11:40: Glucometer 169 08/12/22 16:06: Glucometer 179 08/12/22 20:49: Glucometer 137 08/13/22 05:50: White Blood Count 6.6, Red Blood Count 4.48, Hemoglobin 12.6, Hematocrit 38, Mean Corpuscular Volume 85, Mean Corpuscular Hemoglobin 28, Mean Corpuscular Hemoglobin Concent 33, Red Cell Distribution Width 12.0, Platelet Count 209, Mean Platelet Volume 9.9, Immature Granulocyte % (Auto) 0, Neutrophils (%) (Auto) 65, Lymphocytes (%) (Auto) 23, Monocytes (%) (Auto) 7, Eosinophils (%) (Auto) 4, Basophils (%) (Auto) 1, Neutrophils # (Auto) 4.3, Lymphocytes # (Auto) 1.5, Monocytes # (Auto) 0.5, Eosinophils # (Auto) 0.2, Basophils # (Auto) 0.0, Immature Granulocyte # (Auto) 0.0, Sodium Level 135, Potassium Level 3.6, Chloride Level 101, Carbon Dioxide Level 22, Anion Gap 12, Blood Urea Nitrogen 11, Creatinine 0.68, Estimat Glomerular Filtration Rate 93, BUN/Creatinine Ratio 16, Glucose Level 151, Calcium Level 9.1, Corrected Calcium 9.2, Total Bilirubin 0.7, Aspartate Amino Transf (AST/SGOT) 12, Alanine Aminotransferase (ALT/SGPT) 10, Alkaline Phosphatase 61, Total Protein 6.8, Albumin 3.9 08/13/22 11:25: Glucometer 108 08/13/22 15:50: Glucometer 183 08/13/22 20:31: Glucometer 104 08/14/22 05:46: Glucometer 140 08/14/22 11:13: Glucometer 122 08/14/22 15:24: Glucometer 102 08/14/22 20:48: Glucometer 107 08/15/22 06:01: Glucometer 142 08/15/22 11:04: Glucometer 119 08/15/22 17:08: Glucometer 150 08/15/22 20:32: Glucometer 124 08/16/22 05:32: Glucometer 133 08/16/22 11:08: Glucometer 121 08/16/22 23:00: Glucometer 206 08/17/22 05:39: Glucometer 102 08/17/22 06:41: Sodium Level 137, Potassium Level 3.9, Chloride Level 99, Carbon Dioxide Level 24, Anion Gap 14, Blood Urea Nitrogen 19, Creatinine 0.67, Estimat Glomerular Filtration Rate 93, BUN/Creatinine Ratio 28, Glucose Level 97, Calcium Level 8.8, Corrected Calcium 8.9, Total Bilirubin 0.5, Aspartate Amino Transf (AST/SGOT) 34, Alanine Aminotransferase (ALT/SGPT) 29, Alkaline Phosphatase 61, Total Protein 6.5, Albumin 3.9 08/17/22 07:13: White Blood Count 9.9, Red Blood Count 4.22, Hemoglobin 11.7, Hematocrit 36, Mean Corpuscular Volume 86, Mean Corpuscular Hemoglobin 28, Mean Corpuscular Hemoglobin Concent 32, Red Cell Distribution Width 12.2, Platelet Count 254, Mean Platelet Volume 9.7, Immature Granulocyte % (Auto) 0, Neutrophils (%) (Auto) 81, Lymphocytes (%) (Auto) 12, Monocytes (%) (Auto) 6, Eosinophils (%) (Auto) 0, Basophils (%) (Auto) 0, Neutrophils # (Auto) 8.0, Lymphocytes # (Auto) 1.2, Monocytes # (Auto) 0.6, Eosinophils # (Auto) 0.0, Basophils # (Auto) 0.0, Immature Granulocyte # (Auto) 0.0 08/17/22 10:58: Glucometer 124 08/17/22 15:23: Glucometer 141 08/17/22 21:21: Glucometer 123 08/18/22 05:46: Glucometer 109 08/18/22 13:41: Glucometer 129 08/18/22 16:25: Glucometer 95 08/18/22 20:43: Glucometer 118 08/19/22 05:35: Glucometer 119 08/19/22 11:52: Glucometer 134 08/19/22 16:09: Glucometer 106 08/19/22 20:09: Glucometer 105 08/20/22 05:27: Glucometer 94 08/20/22 10:43: Glucometer 93 08/20/22 15:39: Glucometer 76 08/20/22 20:09: Glucometer 97 08/21/22 05:37: Glucometer 94 08/21/22 06:00: White Blood Count 6.7, Red Blood Count 4.70, Hemoglobin 13.0, Hematocrit 40, Mean Corpuscular Volume 85, Mean Corpuscular Hemoglobin 28, Mean Corpuscular Hemoglobin Concent 33, Red Cell Distribution Width 11.9, Platelet Count 396, Mean Platelet Volume 9.8, Immature Granulocyte % (Auto) 0, Neutrophils (%) (Auto) 69, Lymphocytes (%) (Auto) 22, Monocytes (%) (Auto) 7, Eosinophils (%) (Auto) 2, Basophils (%) (Auto) 0, Neutrophils # (Auto) 4.6, Lymphocytes # (Auto) 1.5, Monocytes # (Auto) 0.5, Eosinophils # (Auto) 0.1, Basophils # (Auto) 0.0, Immature Granulocyte # (Auto) 0.0, Sodium Level 136, Potassium Level 3.3, Chloride Level 96, Carbon Dioxide Level 25, Anion Gap 15, Blood Urea Nitrogen 18, Creatinine 0.78, Estimat Glomerular Filtration Rate 81, BUN/Creatinine Ratio 23, Glucose Level 97, Calcium Level 9.7, Corrected Calcium 9.6, Total Bilirubin 0.6, Aspartate Amino Transf (AST/SGOT) 14, Alanine Aminotransferase (ALT/SGPT) 12, Alkaline Phosphatase 73, Total Protein 7.5, Albumin 4.1 08/21/22 11:31: Glucometer 87 08/21/22 16:32: Glucometer 72 08/21/22 20:56: Glucometer 105 08/22/22 05:43: Glucometer 97 08/22/22 13:57: Glucometer 85 08/22/22 20:12: Glucometer 130 Discharge Home Medications: Active Scripts Active Eliquis (Apixaban) 5 Mg Tablet 2.5 Mg PO BID Venlafaxine HCl ER (Venlafaxine HCl) 37.5 Mg Cap.er.24h 37.5 Mg PO DAILY@0700 Oxyir Tablet (Oxycodone HCl) 5 Mg Tab 5 Mg PO BID PRN HYDROcodone/APAP 5 MG/325 MG TAB (Acetaminophen/Hydrocodone Bitart) 1 Tab Tab 1 Ea PO TID PRN Reported Victoza 3-Jeramy (Liraglutide) 0.6 Mg/0.1 Ml (18 Mg/3 Ml) Pen.injctr 3 Mg SQ DAILY Levemir Flextouch (Insulin Detemir) 100 Unit/Ml (3 Ml) Insuln.pen 10 Unit SQ DAILY Invokamet Xr 50-1,000 mg Tab (Canagliflozin/Metformin HCl) 50 Mg-1,000 Mg Tab.bp.24h 2 Each PO DAILY BREAKS TABS IN HALF Co Q-10 (Ubidecarenone) 200 Mg Capsule 200 Mg PO DAILY Potassium Gluconate 595 Mg (99 Mg) Tablet.er 198 Mg PO DAILY TAKES 2 (99MG) TABS Pantoprazole Sodium 40 Mg Tablet.dr 40 Mg PO DAILY Rosuvastatin Calcium 20 Mg Tablet 20 Mg PO DAILY Hydrochlorothiazide 25 Mg Tablet 25 Mg PO DAILY Enalapril Maleate 20 Mg Tablet 20 Mg PO DAILY Turmeric (Turmeric Root Extract) 500 Mg Tablet 1,000 Mg PO DAILY Pioglitazone HCl 30 Mg Tablet 30 Mg PO DAILY LAST FILLED 02-24-2022 #90/90 DAY SUPPLY Citalopram HBr (Citalopram Hydrobromide) 20 Mg Tablet 20 Mg PO DAILY Multivitamins (Multivitamin) 1 Each Tablet 1 Each PO DAILY Instructions to patient/family Please see electronic discharge instructions given to patient. Diagnosis/Problems Diagnosis/Problems (1) Closed displaced trimalleolar fracture of left ankle Status: Acute (2) Syncope Status: Acute NAJMA GILLIAM DO Aug 23, 2022 06:02
--- NOTE | 2022-08-23 06:02 | D/C HH Face to Face Order ---
D/C Face to Face Orders Reconcile Patient Problems Problems Reviewed?: Yes Instructions for Patient Via [facility], Patient Instructions/FollowUp: PCP 1 week Physician to follow Patient: [facility] Discharge Diet for Home: ADA Diet Patient Problems: Ankle fracture Patient Data-Allergies,Ht & Wt Patient Allergies: Coded Allergies: No Known Drug Allergies (Unverified , 12/19/18) Height (Feet): 5 Height (Inches): 2.00 Weight (Pounds): 219 Weight (Ounces): 0.0 Home Health Need/Face to Face Date of Face to Face: Aug 23, 2022 Clinical Findings: Instability, Muscle weakness, Non or partial weight bearing, Unsteady gait I have seen Pt jzie-zv-[id number]: Yes Discharged To: Home Diagnosis/Conditions: Ankle fracture Patient is Homebound due to: Karen fall risk due to instabilty, Non-weight bearing, Pain w/ambulation Homebound Status Due to the above stated illness, injury or surgical procedure (medical condition or diagnosis) and associated clinical findings, the patient is homebound because of his/her inability to leave home except with aid of a supportive device and/or person AND leaving the home requires a considerable and taxing effort or is medically contraindicated. Pt req the following assistanc: [facility] Nursing Orders Home Health Services Order: Nursing Services, Funding Analyst-Evaluate & Treat, Physical Therapy-Evaluate & Treat Certify Stmt I certify that this patient is under my care and that I, a nurse practitioner or a physician; a assistant program manager working with me, had a face to face encounter that - meets the physician face to face encounter requirements with this patient as dated. NAJMA GILLIAM DO Aug 23, 2022 06:02
[2022-08-23] MEDS: KCL 20 MEQ TAB (K-DUR) PO SCH (06:17)
[2022-08-23] MEDS: VENlafaxine XR 37.5 MG (EFFEXOR XR) CAP PO SCH (06:17)
[2022-08-23] MEDS: inSUlin ASPART (NovoLOG) 1 UNIT/0.01 ML (CHARGE PER UNIT) SC SCH ×2 (06:19→11:33)
[2022-08-23 07:20] VITALS: BP 129/71
--- NOTE | 2022-08-23 07:38 | Physical Therapy Daily Note ---
PT Daily Note-Current Subjective Pt. agrees to Rx, c/o fatigue Pain Location: No Pain Reported Section J - Health Conditions 1. Rarely or not at all 2. Occasionally 3. Frequently 4. Almost constantly 8. Unable to answer Pain Effect on Sleep: 1 Pain Interference with Therapy: 1 Pain Interference w/Day-to-Day: 1 Mental Status Patient Orientation: Normal For Age Attachments: Other-See Comments (boot) Transfers SCALE: Activities may be completed with or without assistive devices. 0-Glhxndqccy-obizyul completes the activity by him/herself with no assistance from a helper. 5-Set-up or Clean-up Assistance-helper sets up or cleans up; patient completes activity. [place] assists only prior to or following the activity. 4-Supervision or Touching Assistance-helper provides verbal cues and/or touching/steadying and/or contact guard assistance as patient completes activity. Assistance may be provided throughout the activity or intermittently. 3-Partial/Moderate Assistance-helper does LESS THAN HALF the effort. [place] lifts, holds or supports trunk or limbs, but provides less than half the effort. 2-Substantial/Maximal Assistance-helper does MORE THAN HALF the effort. [place] lifts or holds trunk or limbs and provides more than half the effort. 4-Tfrogcoyr-zwcsur does ALL the effort. Patient does none of the effort to complete the activity. Or, the assistance of 2 or more helpers is required for the patient to complete the activity. If activity was not attempted, code reason: 7-Patient Refused. 9-Not Applicable-not attempted and the patient did not perform the activity before the current illness, exacerbation or injury. 10-Not Attempted due to Environmental Limitations-(lack of equipment, weather restraints, etc.). 88-Not Attempted due to Medical Conditions or Safety Concerns. sits up edge of bed and back indep ,rolling left and right indep Weight Bearing Right Lower Extremity: Right Full Weight Bearing Left Lower Extremity: Left Non Weight Bearing Exercises Supine Ex: Ankle pumps, Quad Set, Rolling, Glut sets, Heel Slides, Short Arc Quads, Scooting, Straight leg raise, Hip abd/add Supine Reps: 15 Seated Therapy Exercises: Ankle pumps, Long arc quads, Hip flexion Seated Reps: 15 Treatments bed mob, TRFs, ex Assessment Current Status: Good Progress PT Penitentiary Goals Mothers Helper Goals PT Penitentiary Goals Time Frame: Aug 26, 2022 Roll Left & Right (QC): 6 Sit to Lying (QC): 6 Lying-Sitting on Side/Bed(QC): 6 Sit to Stand (QC): 6 Chair/Peg-rs-Khljh Xfer(QC): 6 Toilet Transfer (QC): 6 Car Transfer (QC): 6 Does the Patient Walk: Yes Walk 10 feet (QC): 6 Walk 50ft with 2 Turns (QC): 6 Walk 150 ft (QC): 6 Walking 10ft on Uneven Surface: 6 1 Step (curb) (QC): 9 4 Steps (QC): 9 12 Steps (QC): 9 Picking up an Object (QC): 6 Does the Pt use WC or Scooter?: No Wheel 50 feet with 2 turns (QC: 9 Wheel 150 feet: 9 PT Plan Treatment/Plan Treatment Plan: Continue Plan of Care Treatment Plan: Bed Mobility, Concurrent Therapy, Education, Functional Activity Audrey, Functional Strength, Group Therapy, Gait, Safety, Therapeutic Exercise, Transfers Treatment Duration: Aug 26, 2022 Frequency: 6 times per week Estimated Hrs Per Day: 1.5 hours per day Patient and/or Family Agrees t: Yes Safety Risks/Education Patient Education: Transfer Techniques, Correct Positioning Time Time In: 1255 Time Out: 1325 DATE: Aug 18, 2022 Total Billed Treatment Time: 30 Total Billed Treatment 1,FA10m,EX20m (late note, Rx rendered 08-18-22 ) HAY Mcelroy PTA, PTA Aug 23, 2022 07:38
[2022-08-23] MEDS: ENALAPRIL 10 MG (VASOTEC) TAB PO SCH (08:29)
[2022-08-23] MEDS: ROSUVASTATIN 20 MG (CRESTOR) TABLET PO SCH (08:30)
[2022-08-23] MEDS: PANTOPRAZOLE 40 MG (PROTONIX) TAB PO SCH (08:30)
[2022-08-23] MEDS: PIOGLITAZONE 30MG (ACTOS) TAB PO SCH (08:30)
[2022-08-23] MEDS: MULTIVIT W/MINERALS TAB (THERAGRAN M) PO SCH (08:30)
[2022-08-23] MEDS: ENOXAPARIN 40 MG/0.4 ML (LOVENOX) SYR SC SCH (08:31)
[2022-08-23] MEDS: polyethylene glycoL POWDER 17 GM (MIRALAX) PACK PO SCH (08:32)
[2022-08-23] MEDS: DOCUSATE SODIUM 100 MG (COLACE) CAP PO SCH (08:32)
[2022-08-23] MEDS: SENNA W/DOCUSATE (SENOKOT S) TABLET PO SCH (08:32)
[2022-08-23] MEDS: INVOKAMET PO SCH (08:36)
[2022-08-23] MEDS: VICTOZA 18 MG/3 ML SQ SCH (08:38)
--- NOTE | 2022-08-23 10:19 | Therapy Team Discharge Summary ---
Therapy Discharge Summary Discharge Recommendations Date of Discharge 08-23-22 Physical Therapy Patient admitted 08/12/22 with L ankle Fx. Patient's function upon admission was SBA with bed mobility, transfers, CGA/SBA with ambulating 10' with FWW NWB on L ankle. Patient has been working on bed mobility and transfer training, gait training and stair training, endurance and balance training, W/C mobility, and functional strengthening. Patient has met LTG of independent rolling left<- >right, lying<->sitting, sit<->stand, chair<->bed, toilet transfer, car transfer, ambulating with a FWW 10', 50' w/ 2 turns, and up to 100', and W/C propulsion of 250' w/ 2 turns. Patient is Min A up to 8 steps using 1 handrail and a hop pattern. Patient is being DC from PT. Roll Left to Right (QC): 6 Sit to Lying (QC): 6 Lying to Sitting/Side of Bed(Q: 6 Sit to Stand (QC): 6 Chair/Rdq-or-Mvwix Xfer(QC): 6 Toilet Transfer (QC): 6 Car Transfer (QC): 6 Does the Patient Walk: Yes Mode of Locomotion: Walk Anticipated Mode of Locomotion: Walk Walk 10 feet (QC): 6 Walk 50 ft with 2 Turns(QC): 6 Walk 150 ft (QC): 88 Walking 10ft on uneven surface: 6 Distance: 100 ft Gait Assistive Device: FWW Does the Pt Use a Wheelchair: Yes Wheelchair Distance: 250 ft Wheel 50 ft with 2 turns (QC): 6 Wheel 150 ft (QC): 6 Type of Wheelchair: Manual #of Steps: 8 1 Step (curb) (QC): 3 4 Steps (QC): 3 12 Steps (QC): 88 Balance Sitting Static: Good Balance Sitting Dynamic: Good Balance-Standing Static: Good Picking up an Object (QC): 6 Occupational Therapy Decreased Activ Tolerance, Impaired I ADL's Eating (QC): 6 Oral Hygiene (QC): 6 Shower/Bathe Self (QC): 5 (for covering CAM Boot only) Upper Body Dressing (QC): 6 Lower Body Dressing (QC): 6 On/Off Footwear (QC): 6 Toileting Hygiene (QC): 6 PT Credit Risk Specialist Goals Halfway Goals PT Halfway Goals Time Frame: Aug 26, 2022 Roll Left to Right (QC): 6 Sit to Lying (QC): 6 Lying-Sitting on Side/Bed(QC): 6 Sit to Stand (QC): 6 Chair/Ddt-kb-Hckin Xfer(QC): 6 Toilet/Commode Transfer (QC): 6 Car Transfer (QC): 6 Does the Patient Walk: Yes Walk 10 feet (QC): 6 Walk 10ft-Uneven Surface(QC): 6 Walk 50ft with 2 Turns (QC): 6 Walk 150 ft (QC): 6 Does the Pt use WC or Scooter?: No Wheel 50 feet with 2 turns (QC: 9 Wheel 150 feet: 9 1 Step (curb) (QC): 9 4 Steps (QC): 9 12 Steps (QC): 9 Picking up an Object (QC): 6 OT Halfway Goals Credit Risk Specialist Goals Time Frame: Sep 02, 2022 Acute change in mental status: 0 Inattention: 0 Disorganized thinkin Altered level of consciousness: 0 Eating (QC): 6 (met) Oral Hygiene (QC): 6 (met) Toileting Hygiene (QC): 6 (met) Shower/Bathe Self (QC): 5 (met) Upper Body Dressing (QC): 6 (met) Lower Body Dressing (QC): 6 (met) On/Off Footwear (QC): 6 (met) Additional Goals: 1-Demonstrate ADL Tasks, 2-Verbalize Understanding, 3- ImproveStrength/Audrey 1=Demonstrate adherence to instructed precautions during ADL tasks. 2=Patient will verbalize/demonstrate understanding of assistive devices/mod ifications for ADL. 3=Patient will improve strength/tolerance for activity to enable patient to perform ADL's. THADDEUS SUMNER PT Aug 23, 2022 10:19
--- NOTE | 2022-08-23 10:33 | Therapy Team Discharge Summary ---
Therapy Discharge Summary Discharge Recommendations Date of Discharge Therapy D/C Recommendations: Occupational Therapy Home Care, Homemaker Support Physical Therapy Roll Left to Right (QC): 6 Sit to Lying (QC): 6 Lying to Sitting/Side of Bed(Q: 6 Sit to Stand (QC): 6 Chair/Vbl-dy-Lifml Xfer(QC): 6 Toilet Transfer (QC): 5 Car Transfer (QC): 6 Does the Patient Walk: Yes Mode of Locomotion: Walk Anticipated Mode of Locomotion: Walk Walk 10 feet (QC): 6 Walk 50 ft with 2 Turns(QC): 6 Walk 150 ft (QC): 88 Walking 10ft on uneven surface: 88 Distance: 10 ft Gait Assistive Device: FWW Does the Pt Use a Wheelchair: Yes Wheel 50 ft with 2 turns (QC): 6 Wheel 150 ft (QC): 6 Type of Wheelchair: Manual #of Steps: 8 1 Step (curb) (QC): 3 4 Steps (QC): 3 12 Steps (QC): 88 Balance Sitting Static: Good Balance Sitting Dynamic: Good Balance-Standing Static: Good Picking up an Object (QC): 88 Occupational Therapy Pt admitted to [facility] s/p L ankle fracture. At time of evaluation she was dependent for footwear, max a for lower body dressing, min a for toileting and bathing, set up for oral care and upper body dressing and indep with eating. During her rehab stay, OT focused on safety, balance, endurance, energy conservation, adaptive techniques/strategies, strengthening, AE, and adhering to weight bearing restrictions in order to improve performance and independence with adls and functional mobility. Pt made good progress and met all of her fpc goals. See below for current levels of assist. Pt will be discharging from this facility today and will be discharged from OT at this time. Decreased Activ Tolerance, Impaired I ADL's Eating (QC): 6 Oral Hygiene (QC): 6 Shower/Bathe Self (QC): 5 (for covering CAM Boot only) Upper Body Dressing (QC): 6 Lower Body Dressing (QC): 6 On/Off Footwear (QC): 6 Toileting Hygiene (QC): 6 PT Director Of Healthcare Systems Goals Director Of Healthcare Systems Goals PT Fdc Goals Time Frame: Aug 26, 2022 Roll Left to Right (QC): 6 Sit to Lying (QC): 6 Lying-Sitting on Side/Bed(QC): 6 Sit to Stand (QC): 6 Chair/Uhq-pe-Hrgdi Xfer(QC): 6 Toilet/Commode Transfer (QC): 6 Car Transfer (QC): 6 Does the Patient Walk: Yes Walk 10 feet (QC): 6 Walk 10ft-Uneven Surface(QC): 6 Walk 50ft with 2 Turns (QC): 6 Walk 150 ft (QC): 6 Does the Pt use WC or Scooter?: No Wheel 50 feet with 2 turns (QC: 9 Wheel 150 feet: 9 1 Step (curb) (QC): 9 4 Steps (QC): 9 12 Steps (QC): 9 Picking up an Object (QC): 6 OT Fdc Goals Fdc Goals Time Frame: Sep 02, 2022 Acute change in mental status: 0 Inattention: 0 Disorganized thinkin Altered level of consciousness: 0 Eating (QC): 6 (met) Oral Hygiene (QC): 6 (met) Toileting Hygiene (QC): 6 (met) Shower/Bathe Self (QC): 5 (met) Upper Body Dressing (QC): 6 (met) Lower Body Dressing (QC): 6 (met) On/Off Footwear (QC): 6 (met) Additional Goals: 1-Demonstrate ADL Tasks, 2-Verbalize Understanding, 3- ImproveStrength/Audrey 1=Demonstrate adherence to instructed precautions during ADL tasks. 2=Patient will verbalize/demonstrate understanding of assistive devices/modifications for ADL. 3=Patient will improve strength/tolerance for activity to enable patient to perform ADL's. Roula Judge OT Aug 23, 2022 10:33
[2022-08-23 14:01] VITALS: BP 129/71
== END 2022-08-23 13:30 | disposition home health service (06) | DRG 563 ==
PROVIDERS: ADMIT Internal Medicine; ATTEND Internal Medicine
DX: S82.852A Displaced trimalleolar fracture of left lower leg, initial encounter for closed fracture (principal); R55 Syncope and collapse; I35.8 Other nonrheumatic aortic valve disorders; K59.00 Constipation, unspecified; E78.00 Pure hypercholesterolemia, unspecified; I10 Essential (primary) hypertension; E11.9 Type 2 diabetes mellitus without complications; F41.9 Anxiety disorder, unspecified; F32.A Depression, unspecified; K21.9 Gastro-esophageal reflux disease without esophagitis; M19.91 Primary osteoarthritis, unspecified site; L40.9 Psoriasis, unspecified; Z87.891 Personal history of nicotine dependence; Z79.84 Long term (current) use of oral hypoglycemic drugs; Z79.4 Long term (current) 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; Z83.3 Family history of diabetes mellitus; W19.XXXA Unspecified fall, initial encounter
CPT/HCPCS: 36415; 80053; 82947; 85025; 87081

== ENCOUNTER → 2022-08-18 | Outpatient (CLI) | payer MEDICARE, OTHER ==
[~2022-08-18] VITALS: Ht 154.9 cm; Wt 77.2 kg
[~2022-08-18] MED LIST changes: -ACETAMINOPHEN 325 MG TABLET PO PRN; +ACHD5005 PO; -ALPRAZolam 0.25 MG (XANAX) TAB PO PRN; +APIX5TAB PO; -BISACODYL 10 MG SUPP (DULCOLAX) PR PRN; -CALCIUM CARBONATE 500 MG (TUMS) TAB.CHEW PO PRN; -DOCUSATE SODIUM 100 MG (COLACE) CAP PO PRN; -FLEET ENEMA ADULT 1 EA BTL PR PRN; -LACTULOSE SYRUP 10GM/15ML (ENULOSE) 30ML UDC PO PRN; +LIDOCAINE 1% INJ 30 ML (XYLOCAINE) VIAL ONE; -LOPERAMIDE 2 MG (IMODIUM) TABLET PO PRN; -MELATONIN 3 MG TABLET PO PRN; +OXC5T PO; +VENL-48 PO; -diphenhydrAMINE 25 MG TAB (BENADRYL) PO PRN; -guaiFENesin/CODEINE (ROBITUSSIN AC) 10ML UDC PO PRN
[2022-08-18 08:48] VITALS: BP 131/62
== END ==
LOC: CATH 08:21
PROVIDERS: ATTEND Internal Medicine Cardiovascular Disease
DX: R55 Syncope and collapse (principal); Z87.81 Personal history of (healed) traumatic fracture
CPT/HCPCS: 33285; C1764

== ENCOUNTER → 2022-11-14 | Outpatient (CLI) | payer MEDICARE, OTHER ==
[~2022-11-14] VITALS: Ht 154 cm; Wt 69.0 kg
[~2022-11-14] MED LIST changes: +CATHETER FLUSH 10 ML SYR IVP PRN; -LIDOCAINE 1% INJ 30 ML (XYLOCAINE) VIAL ONE; +REGADENOSON 0.4 MG/5 ML SYR (LEXISCAN) IV ONE
[2022-11-14 09:14] VITALS: BP 137/82
--- NOTE | 2022-11-14 18:03 | STRESS TEST ---
DATE OF SERVICE: 11/14/2022 RESTING AND POST REGADENOSON TECHNETIUM-99M TETROFOSMIN SPECT CT IMAGING ORDERING PHYSICIAN: Dr. Matamoros. PRIMARY CARE PHYSICIAN: [facility]. CLINICAL DIAGNOSIS: Syncope. Baseline images were carried out after injection of 10.97 mCi of technetium-99m tetrofosmin. This was followed by 0.4 mg regadenoson and 29.4 mCi of technetium-99m tetrofosmin for stress imaging. Electrocardiogram showed sinus rhythm at baseline. It did not change significantly with regadenoson infusion. The patient tolerated the procedure well. Review of images at rest and following stress does not indicate any significant perfusion defects consistent with myocardial ischemia or infarction. Gated images show normal global left ventricular systolic function with normal regional wall motion. Left ventricular ejection fraction is calculated to be 73%. CONCLUSIONS: 1. No evidence of any significant myocardial ischemia or infarction on this study. 2. Normal to hyperdynamic left ventricular systolic function with ejection fraction 73%. 3. No regional wall motion abnormalities seen on this study. Job ID: [id number] DocumentID: [id number] Dictated Date: 11/14/2022 17:27:03 [facility] Nurse Date: 11/14/2022 18:01:00 Dictated By: GENEVA MATAMOROS MD; BARBI; FACP; FACC;
== END ==
LOC: CARD 07:26
PROVIDERS: ATTEND Internal Medicine Cardiovascular Disease
DX: I25.10 Atherosclerotic heart disease of native coronary artery without angina pectoris (principal); R55 Syncope and collapse
CPT/HCPCS: 78452; 93017; A9502